=== PATIENT | female | born 1950 | race Caucasian/White ===

== ENCOUNTER 2020-12-07 16:18 | Inpatient (IN) ==
[2020-12-07] MEDS ORDERED: SODIUM CHLORIDE 0.9% 1000ML 1,000 ML IV STA (18:40)
[2020-12-07] MEDS ORDERED: MoRPHine SULFATE 4 MG/ML 1 ML CARP\\VIAL IV STA (19:02)
[2020-12-07] MEDS ORDERED: ONDANSETRON INJ 2 MG/ML 2 ML VIAL IV STA (19:02)
--- NOTE | 2020-12-07 19:02 | Emergency Department Note ---
Impression & Plan Abdominal pain, Abdominal wall hernia, Headache ED Provider Note INFORMANT: Patient ED PROVIDER(S): Steve Carlson MD CHIEF COMPLAINT: PLAN: Disposition: Admitted Condition: Good Outpatient prescription management: none Referral: None MEDICAL DECISION MAKING: Patient presented complaining of abdominal pain and also noted a headache. She underwent a work-up. She had a unremarkable CBC except for mildly low platelets. Her chemistry panel was unremarkable except for mild dehydration. She did have an elevation of her bilirubin and LFTs. Lyme testing negative. ECG showed a normal sinus rhythm. Head CT was unremarkable. The patient's CT scan of her abdomen and pelvis revealed ascites but no signs of emergent pathology. Hernia was noted. She was ambulated to give a urine sample and was found to have fairly significant drop in her oxygen. The patient had an unremarkable chest x-ray. Given the multiple complaints and his newfound hypoxia further management in the hospital will be necessary. Consultation was made with Dr. perez , [facility] service Triage Nursing notes reviewed and agree them. Vital Signs: reviewed and remarkable for hypoxia after ambulation. Differential diagnosis: Incarcerated hernia, Appendicitis, PID, infections, diverticulitis, UTI, obstruction, mesenteric ischemia, aortic pathology, inflammatory bowel disease, renal colic, PUD, pancreatitis, biliary pathology, hernia, volvulus, constipation, CVA, ICH, meningitis, migraine, HTN, as well as other pathologies. Diagnostics interpreted by me: ECG: Twelve-lead ECG revealed normal sinus rhythm at [address] elevation or depression. No PVCs or PACs. Cardiac Monitoring: Cardiac monitoring ordered by me: The patient was placed on continuous cardiac monitoring and observed. It revealed a normal sinus rhythm at 99 beats per minute without ectopy or evidence of dysrhythmia. Imaging studies: Head CT: A noncontrast CT scan of the head was performed and was negative for tumor, fracture, intracranial hemorrhage, or other acute pathology. CT scan of pelvis reveals ascites. Ventral hernia present. No obstruction. Lymphadenopathy noted. I refer you to the EMR for further details. HPI: The patient is a 70 year old female who presents to the Emergency Room with complaints of abdominal pain. This started 2 weeks ago and is localized around her ventral hernia. The patient also notes the following associated symptoms, nausea(1wk), vomiting (last night), headache (1 week), low back pain(1wk), dark urine(few days). The patient has been using aspirin for relieving factors. Current pain is rated as 6 in the head and 4/10 in the abdomen. Pt denies LOC, fevers, chills, diaphoresis, visual changes, neck pain, chest pain, breathing difficulties, melena, hematochezia, numbness, weakness, lymphadenopathy, rash, or other complaints. ROS: See above HPI for pertinent positives & negatives. A total of 10 systems reviewed and were otherwise negative. PAST MEDICAL HISTORY:See Below , fatty liver PAST SURGICAL HISTORY:See Below, khadar FAMILY HISTORY:See Below SOCIAL HISTORY:See Below, HOME MEDICATIONS:See Below ALLERGIES:See Below VITALS:See Below PHYSICAL EXAMINATION: GENERAL: Awake, alert, uncomfortable-appearing, in no distress HENT: Normocephalic, atraumatic. Oropharynx unremarkable. EYES: Normal conjunctiva. Sclera non-icteric. NECK: Inspection normal. Non-tender. Supple. No nuchal rigidity. FROM. No masses. RESPIRATORY: Clear to auscultation. No wheezes. No rales. Normal respiratory effort. CARDIAC: Normal rate. Normal rhythm. No murmurs. No rubs. Extremities warm and well perfused. Pulses equal. No JVD. GI: Soft, non-distended.Mid line tenderness to palpation. No rebound or guarding. Large ventral hernia, mildly tender RECTAL: Deferred. MUSCULOSKELETAL: Atraumatic. Chest examination reveals no tenderness. The back is symmetrical on inspection without obvious abnormality. There is no CVA tenderness to palpation. No joint edema. LOWER EXTREMITIES: Calves are equal size bilaterally and non-tender. 1+ edema. No discoloration. NEURO: Normal sensorium. No sensory or motor deficits noted. SKIN: No rash or jaundice noted. 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 Current Living Situation: Alone and Personal Care Facility Other Information That Helps Us Care for You: No Feels Safe at Home: Yes Safety Concerns: Feels Safe At This Time Assistive Devices: Denture - Upper, Denture - Lower, Glasses and Walker Allergies Allergies Allergy/AdvReac Type Severity Reaction Status Date / Time No Known Allergies Allergy Unverified 12/07/20 20:43 Home Meds Home Medications Medication Instructions Recorded Confirmed atorvastatin 80 mg tablet (Lipitor) 80 mg PO QAM 12/07/20 12/07/20 cholecalciferol (vitamin D3) 25 50 mcg PO QAM 12/07/20 12/07/20 mcg (1,000 unit) tablet (Vitamin D3) furosemide 20 mg tablet (Lasix) 20 mg PO QAM 12/07/20 12/07/20 gabapentin 300 mg capsule 300 mg PO BID 12/07/20 12/07/20 (Neurontin) indomethacin 25 mg capsule 25 mg PO TID PRN 12/07/20 12/07/20 omeprazole 40 mg capsule,delayed 40 mg PO QAM 12/07/20 12/07/20 release rifaximin 550 mg tablet (Xifaxan) 550 mg PO BID 12/07/20 12/07/20 sertraline 100 mg tablet (Zoloft) 100 mg PO QAM 12/07/20 12/07/20 spironolactone 50 mg tablet 50 mg PO QAM 12/07/20 12/07/20 (Aldactone) Results & Data (ED) Vital Signs Vital Signs - 24 hr 12/07/20 16:37 12/07/20 19:17 12/07/20 20:16 Temperature 36.6 C Temperature Source Temporal Artery Scan Pulse Rate 100 H Pulse Rate [Apical] 80 Pulse Rate [Exercises] Respiratory Rate 18 20 Respiratory Rate [Exercises] Respiratory Effort / Characteristics Non-Labored Respiratory Depth Normal Blood Pressure 200/100 H Blood Pressure [Left Arm] 144/77 H Blood Pressure Mean 133 Blood Pressure Mean [Left Arm] 99 Blood Pressure Position [Left Arm] Pulse Oximetry 95 94 98 Pulse Oximetry [Exercises] Oxygen Delivery Method Room Air Room Air Room Air Sepsis Recent Fever Within 48 Hours No Sepsis New/Unexplained Change in Mental Status No Sepsis Action Taken by Nursing No Action Required 12/07/20 20:22 12/07/20 21:24 12/07/20 21:25 Temperature Temperature Source Pulse Rate Pulse Rate [Apical] 98 H Pulse Rate [Exercises] 103 H Respiratory Rate 20 26 H Respiratory Rate [Exercises] 32 H Respiratory Effort / Characteristics Non-Labored Spontaneous Respiratory Depth Normal Blood Pressure Blood Pressure [Left Arm] 124/57 L 145/64 H Blood Pressure Mean Blood Pressure Mean [Left Arm] 79 91 Blood Pressure Position [Left Arm] Lying Pulse Oximetry 98 92 Pulse Oximetry [Exercises] 85 L Oxygen Delivery Method Room Air Room Air Room Air Sepsis Recent Fever Within 48 Hours Sepsis New/Unexplained Change in Mental Status Sepsis Action Taken by Nursing 12/07/20 21:29 12/07/20 22:00 Temperature Temperature Source Pulse Rate 94 H Pulse Rate [Apical] Pulse Rate [Exercises] Respiratory Rate 26 H Respiratory Rate [Exercises] Respiratory Effort / Characteristics Respiratory Depth Blood Pressure 122/81 Blood Pressure [Left Arm] Blood Pressure Mean 94 Blood Pressure Mean [Left Arm] Blood Pressure Position [Left Arm] Pulse Oximetry 93 94 Pulse Oximetry [Exercises] Oxygen Delivery Method Room Air Sepsis Recent Fever Within 48 Hours Sepsis New/Unexplained Change in Mental Status Sepsis Action Taken by Nursing Laboratory Data Result diagrams: 12/07/20 17:45 12/07/20 17:45 Lab Results 12/07/20 12/07/20 12/07/20 Range/Units 17:45 17:45 20:29 WBC 6.55 (4.8-10.8) K/uL RBC 4.01 L (4.2-5.4) M/uL Hgb 12.2 (12.0-16.0) g/dL Hct 37.6 (37-47) % MCV 93.8 (80-100) fL MCH 30.4 (25-34) pg MCHC 32.4 (32-36) g/dL RDW Std Deviation 49.9 H (36.4-46.3) fL RDW Coeff of Blanca 14.8 H (11.5-14.5) % Plt Count 85 L (130-400) K/uL MPV 12.3 H (7.4-10.4) fL Immature Gran % (Auto) 0.2 % Neut % (Auto) 67.3 % Lymph % (Auto) 20.6 % [place] % (Auto) 8.9 % Eos % (Auto) 2.7 % Baso % (Auto) 0.3 % Neut # (Auto) 4.41 (1.4-6.5) K/uL Lymph # (Auto) 1.35 (1.2-3.4) K/uL [place] # (Auto) 0.58 (0.11-0.59) K/uL Eos # (Auto) 0.18 (0-0.5) K/uL Baso # (Auto) 0.02 (0-0.2) K/uL Immature Gran # (Auto) 0.01 (0.00-0.02) K/uL Platelet Estimate Decreased L (Normal) Sodium 141 (136-145) mmol/L Potassium 3.8 (3.5-5.1) mmol/L Chloride 109 H (98-107) mmol/L Carbon Dioxide 27 (21-32) mmol/L Anion Gap 6.0 (3-11) BUN 17 (7-18) mg/dl Creatinine 0.60 (0.6-1.2) mg/dl Est Cr Clr Drug Dosing 110.6 ml/min Est GFR ( Amer) 107.8 ml/min Est GFR (Non-Af Amer) 93.0 ml/min BUN/Creatinine Ratio 27.8 H (10-20) Glucose 82 (70-99) mg/dl Calcium 8.7 (8.5-10.1) mg/dl Total Bilirubin 1.6 H (0.2-1) mg/dl AST 61 H (15-37) U/L ALT 43 (12-78) U/L Alkaline Phosphatase 132 H (45-117) U/L Troponin I < 0.015 (0-0.045) ng/ml Total Protein 5.9 L (6.4-8.2) gm/dl Albumin 3.0 L (3.4-5.0) gm/dl Globulin 2.9 (2.5-4.0) gm/dl Albumin/Globulin Ratio 1.0 (0.9-2) Lipase 432 H (73-393) U/L Urine Color Urine Appearance (Clear) Urine pH (4.5-7.5) Ur Specific [place] (1.000-1.030) Urine Protein (Negative) Urine Glucose (UA) (Negative) Urine Ketones (Negative) Urine Blood (Negative) Urine Nitrite (Negative) Urine Bilirubin (Negative) Urine Urobilinogen (Negative) Ur Leukocyte Esterase (Negative) Urine WBC (Auto) (0-5) /hpf Urine RBC (Auto) (0-4) /hpf U Hyaline Cast (Auto) (0-5) /lpf U Epithel Cells (Auto) (0-5) /lpf Urine Bacteria (Auto) (Negative) Lyme Disease IgG Ab Negative (Negative) Lyme Disease IgM Ab Negative (Negative) COVID-19 Eval Order SARS-CoV-2 (PCR) (Negative) 12/07/20 12/07/20 12/07/20 Range/Units 21:26 21:49 21:49 WBC (4.8-10.8) K/uL RBC (4.2-5.4) M/uL Hgb (12.0-16.0) g/dL Hct (37-47) % MCV (80-100) fL MCH (25-34) pg MCHC (32-36) g/dL RDW Std Deviation (36.4-46.3) fL RDW Coeff of Blanca (11.5-14.5) % Plt Count (130-400) K/uL MPV (7.4-10.4) fL Immature Gran % (Auto) % Neut % (Auto) % Lymph % (Auto) % [place] % (Auto) % Eos % (Auto) % Baso % (Auto) % Neut # (Auto) (1.4-6.5) K/uL Lymph # (Auto) (1.2-3.4) K/uL [place] # (Auto) (0.11-0.59) K/uL Eos # (Auto) (0-0.5) K/uL Baso # (Auto) (0-0.2) K/uL Immature Gran # (Auto) (0.00-0.02) K/uL Platelet Estimate (Normal) Sodium (136-145) mmol/L Potassium (3.5-5.1) mmol/L Chloride (98-107) mmol/L Carbon Dioxide (21-32) mmol/L Anion Gap (3-11) BUN (7-18) mg/dl Creatinine (0.6-1.2) mg/dl Est Cr Clr Drug Dosing ml/min Est GFR ( Amer) ml/min Est GFR (Non-Af Amer) ml/min BUN/Creatinine Ratio (10-20) Glucose (70-99) mg/dl Calcium (8.5-10.1) mg/dl Total Bilirubin (0.2-1) mg/dl AST (15-37) U/L ALT (12-78) U/L Alkaline Phosphatase (45-117) U/L Troponin I (0-0.045) ng/ml Total Protein (6.4-8.2) gm/dl Albumin (3.4-5.0) gm/dl Globulin (2.5-4.0) gm/dl Albumin/Globulin Ratio (0.9-2) Lipase (73-393) U/L Urine Color Yellow Urine Appearance Clear (Clear) Urine pH 6.5 (4.5-7.5) Ur Specific [place] 1.013 (1.000-1.030) Urine Protein Negative (Negative) Urine Glucose (UA) Negative (Negative) Urine Ketones Negative (Negative) Urine Blood Negative (Negative) Urine Nitrite Positive A (Negative) Urine Bilirubin Negative (Negative) Urine Urobilinogen Negative (Negative) Ur Leukocyte Esterase 2+ H (Negative) Urine WBC (Auto) 10-30 H (0-5) /hpf Urine RBC (Auto) 0-4 (0-4) /hpf U Hyaline Cast (Auto) 1-5 (0-5) /lpf U Epithel Cells (Auto) 10-20 H (0-5) /lpf Urine Bacteria (Auto) 4+ H (Negative) Lyme Disease IgG Ab (Negative) Lyme Disease IgM Ab (Negative) COVID-19 Eval Order Covid19 at [facility] SARS-CoV-2 (PCR) NEGATIVE (Negative) Administered Medications Sodium Chloride (Nss 1000ml) 1,000 mls @ 100 mls/hr IV .Q10H SAMIR Stop: 12/08/20 10:29 Last Admin: 12/08/20 00:49 Dose: 100 mls/hr Documented by: [id number] Ceftriaxone Sodium 2,000 mg/ (Dextrose) 70 mls @ 140 mls/hr IV Q24H SAMIR; Protocol Stop: 12/18/20 00:59 Last Infusion: 12/08/20 01:20 Dose: 0 mls/hr Documented by: [id number] Admin: 12/08/20 00:49 Dose: 140 mls/hr Documented by: [id number] Discontinued Medications Sodium Chloride (Nss 1000ml) 1,000 mls @ 125 mls/hr IV .Q8H STA Stop: 12/08/20 02:39 Last Infusion: 12/08/20 00:03 Dose: 0 mls/hr Documented by: [id number] Admin: 12/07/20 20:04 Dose: 125 mls/hr Documented by: [id number] Ioversol (Optiray 320 125ml) 120 ml IV ONCE ONE Stop: 12/08/20 00:10 Last Admin: 12/08/20 00:10 Dose: 120 ml Documented by: [id number] Morphine Sulfate (Morphine Sulfate 4 Mg/Ml 1 Ml Carp\Vial) 4 mg IV NOW STA Stop: 12/07/20 19:03 Last Admin: 12/07/20 20:03 Dose: 4 mg Documented by: [id number] Ondansetron HCl (Ondansetron Inj 2 Mg/Ml 2 Ml Vial) 4 mg IV NOW STA Stop: 12/07/20 19:03 Last Admin: 12/07/20 20:04 Dose: 4 mg Documented by: [id number] Imaging Data Radiologist's Impression: Abdomen/Pelvis CT 12/07/20 19:02 CT SCAN OF THE ABDOMEN AND PELVIS WITHOUT CONTRAST CLINICAL HISTORY: midline abd pain, ventral hernia COMPARISON STUDY: No previous studies for comparison. TECHNIQUE: CT scan of the abdomen and pelvis was performed from the lung bases to the proximal femurs. Images are reviewed in the axial, sagittal, and coronal planes. IV contrast was not administered for this examination. A dose lowering technique was utilized adhering to the principles of ALARA. CT DOSE: FINDINGS: Lower chest: The heart is normal in size and configuration, without pericardial effusion. The lung bases and pleural spaces are clear. Liver: Liver shows cirrhotic morphology decrease in size. Mild ascites is seen. Gallbladder: Surgically absent. Spleen: Is enlarged. No focal lesions are seen. Pancreas: Unremarkable. Adrenal glands: Unremarkable. Kidneys: The unenhanced kidneys are normal in size. Minimal prominence of bilateral collecting system is seen without evidence of hydronephrosis or nephrolithiasis.. Bowel: Bowel loops are nondilated. Appendix is not well seen. There is midline ventral hernia is seen within supraumbilical region which contains nondilated loop of bowel and small amount of fluid. There is questionable peripherally calcified lesion is seen within subcutaneous aspect of the hernia. Peritoneum: Mild ascites and mesenteric edema. No definite free intra-abdominal gas is seen. Vasculature: Abdominal aorta is normal in caliber with scattered calcifications of its wall. Adenopathy: Multiple retroperitoneal lymph nodes are seen measuring up to 1.1 cm in short axis. Evaluation for mesenteric lymphadenopathy is difficult due to ascites, mesenteric edema and varices. Pelvic viscera: Urinary bladder is partially decompressed which limits evaluation. Uterus is surgically absent. Skeletal structures: Multilevel degenerative changes of the spine. IMPRESSION: 1. Midline ventral hernia in the supraumbilical region containing nondilated loops of bowel and small amount of fluid. No evidence of bowel obstruction. 2. Liver cirrhosis associated with splenomegaly, mild ascites and multiple varices. 3. Atherosclerosis. 4. Slightly prominent retroperitoneal lymph nodes. Please correlate above- mentioned findings was prior history of malignancy. ACT 112: Negative or not required by law. The above report was generated using voice recognition software. It may contain grammatical, syntax or spelling errors. Electronically signed by: Barbara Gamboa DO 12/07/2020 8:[address] 12/07/20 19:02 CT head/brain wo con CLINICAL HISTORY: headache, HTN COMPARISON STUDY: January 24, 2016 TECHNIQUE: Axial CT of the brain is performed from the vertex to the skull base. IV contrast was not administered for this examination. A dose lowering technique was utilized adhering to the principles of ALARA. CT DOSE: 2398.21 mGy.cm FINDINGS: No intra or extra-axial mass lesions are visualized. There is no CT evidence of acute cortical infarction. There is no evidence of midline shift. There is no acute hemorrhage. No acute depressed calvarial fractures are visualized. There are patchy white matter hypodensities likely on a small vessel basis. There is no evidence of pathologic ventricular dilatation. There is no evidence of acute sinusitis IMPRESSION: No acute intracranial findings ACT 112: Negative or not required by law. The above report was generated using voice recognition software. It may contain grammatical, syntax or spelling errors. Electronically signed by: Barbara Gamboa DO 12/07/2020 8:27 PM Discharge Plan Visit Data Chief Complaint: Abdominal Pain Stated Complaint: HEADACHE OVER A WEEK, DISCOMFORT AROUND HERNIA ED Provider: Steve Carlson Discharge Problem: Abdominal pain, Abdominal wall hernia, Headache Patient Disposition: Admitted As Inpatient Discharge Instructions Interventions: ED Discharge Assessment Last Done: 12/08/20 00:01
[2020-12-07 19:21] LABS: Alanine Aminotransferase 43 U/L (12-78); Aspartate Aminotransferase 61 U/L (15-37); BUN Creatinine Ratio 27.8 (10-20); Basophils # (auto) 0.02 K/uL (0-0.2); Basophils % (auto) 0.3 %; Blood Urea Nitrogen 17 mg/dl (7-18); Calcium 8.7 mg/dl (8.5-10.1); Carbon Dioxide 27 mmol/L (21-32); Chloride 109 mmol/L (98-107); Creatinine Clr Calc Pharmacy 110.6 ml/min; Eosinophils # (auto) 0.18 K/uL (0-0.5); Eosinophils % (auto) 2.7 %; Est GFR (African American) 107.8 ml/min; Glucose 82 mg/dl (70-99); Hematocrit (blood only) 37.6 % (37-47); Hemoglobin 12.2 g/dL (12.0-16.0); Immature Granulocytes # (auto) 0.01 K/uL (0.00-0.02); Immature Granulocytes % (auto) 0.2 %; Lipase 432 U/L (73-393); Lymphocytes # (auto) 1.35 K/uL (1.2-3.4); Lymphocytes % (auto) 20.6 %; Mean Corpuscular Hemoglobin 30.4 pg (25-34); Mean Corpuscular Hgb Conc 32.4 g/dL (32-36); Mean Corpuscular Volume 93.8 fL (80-100); Mean Platelet Volume 12.3 fL (7.4-10.4); Monocytes # (auto) 0.58 K/uL (0.11-0.59); Monocytes % (auto) 8.9 %; Neutrophils # (auto) 4.41 K/uL (1.4-6.5); Neutrophils % (auto) 67.3 %; Platelet Count 85 K/uL (130-400); Platelet Estimate Decreased (Normal); Potassium 3.8 mmol/L (3.5-5.1); RDW Coefficient of Variation 14.8 % (11.5-14.5); RDW Standard Deviation 49.9 fL (36.4-46.3); Red Blood Count 4.01 M/uL (4.2-5.4); Sodium 141 mmol/L (136-145); White Blood Count 6.55 K/uL (4.8-10.8)
[2020-12-07 19:27] LABS: Alkaline Phosphatase 132 U/L (45-117); Bilirubin,Total 1.6 mg/dl (0.2-1); Globulin 2.9 gm/dl (2.5-4.0); Total Protein 5.9 gm/dl (6.4-8.2); Troponin I < 0.015 ng/ml (0-0.045)
--- NOTE | 2020-12-07 20:29 | CT Scan Report ---
CT head/brain wo con CLINICAL HISTORY: headache, HTN COMPARISON STUDY: January 24, 2016 TECHNIQUE: Axial CT of the brain is performed from the vertex to the skull base. IV contrast was not administered for this examination. A dose lowering technique was utilized adhering to the principles of ALARA. CT DOSE: 2398.21 mGy.cm FINDINGS: No intra or extra-axial mass lesions are visualized. There is no CT evidence of acute cortical infarc tion. There is no evidence of midline shift. There is no acute hemorrhage. No acute depressed calvar ial fractures are visualized. There are patchy white matter hypodensities likely on a small vessel basis. There is no evidence of pathologic ventricular dilatation. There is no evidence of acute sinusitis IMPRESSION: No acute intracranial findings ACT 112: Negative or not required by law. The above report was generated using voice recognition software. It may contain grammatical, syntax o r spelling errors. Electronically signed by: Barbara Gamboa DO 12/07/2020 8:27 PM
--- NOTE | 2020-12-07 20:47 | CT Scan Report ---
CT SCAN OF THE ABDOMEN AND PELVIS WITHOUT CONTRAST CLINICAL HISTORY: midline abd pain, ventral hernia COMPARISON STUDY: No previous studies for comparison. TECHNIQUE: CT scan of the abdomen and pelvis was performed from the lung bases to the proximal femurs . Images are reviewed in the axial, sagittal, and coronal planes. IV contrast was not administered fo r this examination. A dose lowering technique was utilized adhering to the principles of ALARA. CT DOSE: FINDINGS: Lower chest: The heart is normal in size and configuration, without pericardial effusion. The lung ba ses and pleural spaces are clear. Liver: Liver shows cirrhotic morphology decrease in size. Mild ascites is seen. Gallbladder: Surgically absent. Spleen: Is enlarged. No focal lesions are seen. Pancreas: Unremarkable. Adrenal glands: Unremarkable. Kidneys: The unenhanced kidneys are normal in size. Minimal prominence of bilateral collecting system is seen without evidence of hydronephrosis or nephrolithiasis.. Bowel: Bowel loops are nondilated. Appendix is not well seen. There is midline ventral hernia is seen within supraumbilical region which contains nondilated loop of bowel and small amount of fluid. Ther e is questionable peripherally calcified lesion is seen within subcutaneous aspect of the hernia. Peritoneum: Mild ascites and mesenteric edema. No definite free intra-abdominal gas is seen. Vasculature: Abdominal aorta is normal in caliber with scattered calcifications of its wall. Adenopathy: Multiple retroperitoneal lymph nodes are seen measuring up to 1.1 cm in short axis. Evalu ation for mesenteric lymphadenopathy is difficult due to ascites, mesenteric edema and varices. Pelvic viscera: Urinary bladder is partially decompressed which limits evaluation. Uterus is surgical ly absent. Skeletal structures: Multilevel degenerative changes of the spine. IMPRESSION: 1. Midline ventral hernia in the supraumbilical region containing nondilated loops of bowel and smal l amount of fluid. No evidence of bowel obstruction. 2. Liver cirrhosis associated with splenomegaly, mild ascites and multiple varices. 3. Atherosclerosis. 4. Slightly prominent retroperitoneal lymph nodes. Please correlate above-mentioned findings was mirza or history of malignancy. ACT 112: Negative or not required by law. The above report was generated using voice recognition software. It may contain grammatical, syntax o r spelling errors. Electronically signed by: Barbara Gamboa DO 12/07/2020 8:45 PM
[2020-12-07 21:54] LABS: Lyme Ab IgG w/WB Rflx Negative (Negative); Lyme Ab IgM w/WB Rflx Negative (Negative)
[2020-12-07 21:57] LABS: Appearance Urine Clear (Clear); Bacteria Urine Automated 4+ (Negative); Bilirubin Urine Negative (Negative); Blood Urine Negative (Negative); Color Urine Yellow; Glucose Urine UA Negative (Negative); Ketones Urine Negative (Negative); Leukocyte Esterase Urine 2+ (Negative); Nitrite Urine Positive (Negative); Protein Urine Negative (Negative); Specific Gravity Urine 1.013 (1.000-1.030); Urobilinogen Urine Negative (Negative); pH Urine 6.5 (4.5-7.5)
[2020-12-07 22:19] LABS: RBC Urine Automated 0-4 /hpf (0-4)
[2020-12-08] MEDS ORDERED: OPTIRAY 320 125ml IV ONE (00:09)
[2020-12-08] MEDS ORDERED: POLYETHYLENE (MIRALAX) 17 GM PACK PO PRN (00:17)
[2020-12-08] MEDS ORDERED: ONDANSETRON INJ 2 MG/ML 2 ML VIAL IV PRN (00:17)
[2020-12-08] MEDS ORDERED: SODIUM CHLORIDE 0.9% 1000ML 1,000 ML IV SCH (00:30)
[2020-12-08] MEDS: cefTRIAXone SODIUM 2,000 MG in DEXTROSE 5% 50 ML IV SCH (00:49)
--- NOTE | 2020-12-08 01:07 | History and Physical Report ---
DATE OF ADMISSION: 12/07/2020. CHIEF COMPLAINT: Abdominal pain and headache. HISTORY OF PRESENT ILLNESS: A 70-year-old female with past medical history significant for hyperlipidemia, obstructive sleep apnea, venous insufficiency, esophageal varices without bleeding, heart murmur, morbid obesity, liver cirrhosis, GERD, SI joint arthritis, generalized arthrosis, restless leg syndrome, osteoarthritis, neuropathy, thrombocytopenia, insomnia, mixed incontinence, depression, who lives alone. Says she is having some ambulatory dysfunction because of the neuropathy. She can eat regular food and swallow okay. Comes here because of one week of headaches and abdominal pain, headache about 7/10 in severity , no blurred vision, no ear earache. Has some runny nose. No sore throat, no cough, no fevers. Appetite is okay, no dysphagia, no chest pain, no shortness of breath. She is also having abdominal discomfort around her ventral hernia for the last 2 weeks. She has irritable bowel syndrome, sometimes has diarrhea, sometimes constipation. Yesterday, she had 4 bowel movements. Denies any blood in the stools or black stools. Normal bladder movements. No hematuria or burning micturition. Has some swelling of the legs and she takes diuretics. She states she followed with surgery at [place] for possible ventral hernia repair, but she is supposed to get cleared from the liver specialist prior to surgery, but then the pandemic happened and she never visited again. ALLERGIES: No known drug allergies. PAST MEDICAL HISTORY: As mentioned above. PAST SURGICAL HISTORY: Abdominal wall hernia repair, breast biopsy, colonoscopy, EGDs, removal of ovaries, cataracts, cholecystectomy, total abdominal hysterectomy with removal of tubes, upper endoscopy. MEDICATIONS: The patient is on atorvastatin 80 mg p.o. daily, vitamin D 250 mcg p.o. daily, Lasix 20 mg p.o. a.m., gabapentin 300 mg p.o. b.i.d., indomethacin 25 mg p.o. t.i.d. p.r.n., omeprazole 40 mg p.o. a.m., Xifaxan 550 mg p.o. b.i.d., Zoloft 100 mg p.o. a.m., spironolactone 50 mg p.o. a.m. FAMILY HISTORY: Significant for father had prostate cancer, stroke; mother had VA at the age of 49; aunt has cancer; brother has cancer; maternal grandmother has cancer. SOCIAL HISTORY: , lives alone. Former smoker, smoked 1 pack a day for 5 years, quit in the . Alcohol, rarely. No drug use. REVIEW OF SYSTEMS: As per HPI. Rest of the review of systems is negative. PHYSICAL EXAMINATION: GENERAL: The patient is obese, not in acute distress. VITAL SIGNS: Temperature 36.6, pulse 103, respiratory rate 13, blood pressure 140/64, oxygen 93% on room air. HEENT: Pupils equal, round, and reactive to light. Oral mucosa moist. NECK: No JVD, no neck masses. CARDIOVASCULAR: S1 and S2 heard, regular rate and rhythm. No murmur, no gallop. RESPIRATORY SYSTEM: Normal AP diameter. No accessory muscle use. No wheezing, no crackles. ABDOMEN: Ventral hernia seen. Some mild discomfort around the ventral hernia. No guarding, no rigidity. Bowel sounds present. CENTRAL NERVOUS SYSTEM: Cranial nerves II-XII grossly intact, nonfocal. EXTREMITIES: Mild pedal edema present, no erythema seen. LABORATORY DATA: WBC 6.5, hemoglobin 12.2, hematocrit 37.6, platelets 85. Sodium 141, potassium 3.8, chloride 109, bicarbonate 27, BUN 17, creatinine 0.6, serum glucose 82, calcium 8.7, total bilirubin 1.6, AST 61, ALT 43, alkaline phosphatase 132. Troponin I less than 0.015. Urinalysis positive for nitrite and +3 leukocyte esterase and +4 bacteria. Lyme screen negative. COVID PCR is negative. IMAGING DATA: [facility] x-ray, no acute findings. CT of the head, no acute intracranial findings. CT of the abdomen and pelvis, midline ventral hernia in the supraumbilical region containing nondilated loops of bowel and small amount of fluid. No evidence of bowel obstruction. Liver cirrhosis, splenomegaly, mild ascites and multiple varices, atherosclerosis. Slightly prominent retroperitoneal lymph nodes. EKG: Normal sinus rhythm at a rate of 98, no acute ST changes seen. ASSESSMENT AND PLAN: This is a 70-year-old female who presents with abdominal pain and headache. 1. Headache and abdominal pain: Headache ongoing for 1 week and abdominal pain for a couple of weeks, and she was found to have urinary tract infection, possibly UTI could be contributing. We will start Rocephin. Follow the cultures. CT of the head is okay. CT of the abdomen, no acute findings. We will monitor in the medical floor. 2. Hypoxia: The patient was desaturated to 85% when she walked in the ER, otherwise she is saturating fine. We will follow the CTA chest to rule out any PE and any congestion. currently hemodynamically stable.Two step prior to discharge. 3. Obstructive sleep apnea: On CPAP at bedtime. 4. Abdominal discomfort: Ventral hernia, no obstruction on CAT scan, tolerating diet okay. Will consult surgery for further recommendations. 5. History of liver cirrhosis: Continue her home diuretics of Lasix and spironolactone, and Xifaxan. 6. Neuropathy: Continue gabapentin. 7. Hyperlipidemia: Continue statin. 8. Gastroesophageal reflux disease: Continue omeprazole. 9. Depression: Continue Zoloft. 10. Deep venous thrombosis prophylaxis: Sequential compression devices for now as the patient has thrombocytopenia. 11. Thrombocytopenia: Most likely secondary to liver cirrhosis.Follow labs. DISPOSITION: Closely monitor in the med tele. PT/OT prior to discharge. Social service to help with discharge planning. Job ID: [id number] [facility]
--- NOTE | 2020-12-08 05:25 | Surgery Consultation ---
Date of Consultation December 08, 2020 Assessment & Plan (1) Abdominal pain: Patient has been admitted to the hospital on the hospitalist service. We recommend the following: Does not appear that the patient's ventral hernia is causing any evidence of obstruction. Due to her underlying cirrhosis and thrombocytopenia surgical intervention is not recommended at this time. Patient has evidence of pancreatitis by labs which may be contributing to her abdominal pain. Patient also has evidence of urinary tract infection which could be contributing to her abdominal pain is being treated by the medical service There is no need for acute surgical invention at this time. Dr. Park-patient appears to be doing better-she does have a known broad-based hernia which is not causing significant obstruction She is at very high risk for any surgical intervention with her history of cirrhosis, ascites, varices, thrombocytopenia and splenomegaly No plan for any surgical intervention History of Present Illness Reason for Consultation: Ventral hernia Attending Physician: Gonzalo Kate MD History of Present Illness This is a 70-year-old female who presented to [facility] emergency department yesterday secondary to abdominal pain and headache. Patient notes that she has had abdominal pain for several weeks and the pain is mostly located in her central abdomen near pre-existing ventral hernia. The patient notes over the past 24 hours she has had some episodes of nausea or vomiting but she also notes that she has been able to eat small amounts. She denies any hematemesis. She notes over the past 24 hours she has had a normal bowel movement. She denies any melena, hematochezia, or bright blood per rectum. She denies any fevers, shakes, chills. She does report a history of a ventral hernia for which she had surgical correction she has estimated greater than 10 years ago. She said this was performed in [facility] and to the best of her knowledge she did have mesh placed. She notes that she has had recurrence of her hernia for at least 5 years and she always has some minor pain associated with this. The patient also notes that she has had a history of a cholecystectomy. In addition to the abdominal pain noted the patient does report a history of headache. Since arrival to [facility] the patient has had labs and imaging. She had a CT scan of the abdomen and pelvis that showed a midline ventral hernia. The hernia did contain some nondilated loops of bowel but there is no evidence of bowel obstruction. Patient was noted to have ascites along with liver cirrhosis and multiple varices. Retroperitoneal lymphadenopathy was noted.She also went a CT scan of her head that showed no acute intracranial findings. A chest x-ray showed no evidence of pneumonia, CHF, or free intraperitoneal air. A CT scan of her chest showed no lung abnormalities and no evidence of pulmonary embolism. Labs include a CBC where her white blood cell count, hemoglobin, hematocrit, were noted to be normal. Her platelet count was noted to be low at 85,000. Chemistry profile showed sodium and potassium were both normal. Her BUN and creatinine were noted to be normal. She was noted to have some elevation of her bilirubin of 1.6 and a slight elevation of the AST at 61. Her alkaline phosphatase was elevated at 132 and her ALT was normal. Lipase was noted to be elevated at 432. Urinalysis was concerning for urinary tract infection. At the time of my interview the patient was resting comfortably in bed. She noted that her abdominal pain had improved since arrival to the hospital. Allergies Allergy/AdvReac Type Severity Reaction Status Date / Time No Known Allergies Allergy Unverified 12/07/20 20:43 Home Medications Medication Instructions Recorded Confirmed Type atorvastatin 80 mg tablet (Lipitor) 80 mg PO QAM 12/07/20 12/07/20 History cholecalciferol (vitamin D3) 25 50 mcg PO QAM 12/07/20 12/07/20 History mcg (1,000 unit) tablet (Vitamin D3) furosemide 20 mg tablet (Lasix) 20 mg PO QAM 12/07/20 12/07/20 History gabapentin 300 mg capsule 300 mg PO BID 12/07/20 12/07/20 History (Neurontin) indomethacin 25 mg capsule 25 mg PO TID PRN 12/07/20 12/07/20 History omeprazole 40 mg capsule,delayed 40 mg PO QAM 12/07/20 12/07/20 History release rifaximin 550 mg tablet (Xifaxan) 550 mg PO BID 12/07/20 12/07/20 History sertraline 100 mg tablet (Zoloft) 100 mg PO QAM 12/07/20 12/07/20 History spironolactone 50 mg tablet 50 mg PO QAM 12/07/20 12/07/20 History (Aldactone) Patient History Surgical History (Updated 12/08/20 @ 05:30 by Familia Winn PA-C) History of hernia repair Social History Smoking Status: Former smoker Smoking End Date: 1970 was quit date.; Second Hand Exposure: No; Do You Dip or Chew Tobacco: No; Tobacco Cessation Education Requested by Patient: No Hx Alcohol Use: Yes Alcohol type: beer Hx Substance Use: No Preferred Language: Guyanese Communication Ability: Effective Package Wrapper Required: No Beliefs That Will Affect Care: Jain Jain Beliefs: Baptist. Current Living Situation: Alone and Personal Care Facility Other Information That Helps Us Care for You: No Feels Safe at Home: Yes Safety Concerns: Feels Safe At This Time Assistive Devices: Denture - Upper, Denture - Lower, Glasses and Walker Review of Systems Constitutional: no fever and no chills Eyes: no diplopia Ear, Nose, Mouth, Throat: no ear pain Respiratory: no cough Cardiovascular: no chest pain Gastrointestinal: + abdominal pain, + nausea and + vomiting Genitourinary: no dysuria Musculoskeletal: no back pain Integumentary: no rash Neurologic: no localized weakness Physical Exam Constitutional: well developed and well nourished; no acute distress Eyes: no conjunctival abnormality Neck: trachea midline Respiratory: normal respiratory effort; no respiratory distress and no labored breathing Cardiovascular: Rate/Rhythm: regular rate and regular rhythm Gastrointestinal (Abdomen): Patient's abdomen is rotund and soft. There is no rebound tenderness or guarding. Patient is noted to have a ventral hernia that has minor pain with palpation. Bowel sounds are present. Musculoskeletal: No calf tenderness Skin: no rashes Neurologic: moves all extremities Results & Data ([facility]) Vital Signs (Past 12 Hours) Vital Signs Temp Pulse Pulse Pulse Pulse Resp Resp 12/08/20 02:56 103 H 14 12/08/20 00:50 95 H 14 12/08/20 00:10 36.9 C 103 H 18 12/08/20 00:01 103 H 24 12/07/20 22:00 94 H 26 H 12/07/20 21:29 12/07/20 21:25 103 H 32 H 12/07/20 21:24 98 H 26 H 12/07/20 20:22 20 12/07/20 20:16 12/07/20 19:17 80 20 BP BP Pulse Ox Pulse Ox 12/08/20 02:56 94 07/24/21 00:50 91 12/08/20 00:10 132/68 93 12/08/20 00:01 134/70 91 12/07/20 22:00 122/81 94 12/07/20 21:29 93 12/07/20 21:25 85 L 12/07/20 21:24 145/64 H 92 12/07/20 20:22 124/57 L 98 12/07/20 20:16 98 12/07/20 19:17 144/77 H 94 PG Care Time/CCT Total # of Minutes Spent Total Time Spent with Patient: Total time spent is greater than 50% in coordination of care (as documented) at patient's floor/unit and/or counseling patient: Coding Level of Care Code 09519 Inpt Consult Level 5 Diagnoses Abdominal pain R10.9
[2020-12-08 06:56] LABS: Basophils # (auto) 0.01 K/uL (0-0.2); Basophils % (auto) 0.2 %; Eosinophils # (auto) 0.12 K/uL (0-0.5); Eosinophils % (auto) 2.2 %; Hematocrit (blood only) 34.8 % (37-47); Hemoglobin 11.1 g/dL (12.0-16.0); Immature Granulocytes # (auto) 0.01 K/uL (0.00-0.02); Immature Granulocytes % (auto) 0.2 %; Lymphocytes # (auto) 1.19 K/uL (1.2-3.4); Lymphocytes % (auto) 21.8 %; Mean Corpuscular Hemoglobin 30.2 pg (25-34); Mean Corpuscular Hgb Conc 31.9 g/dL (32-36); Mean Corpuscular Volume 94.6 fL (80-100); Mean Platelet Volume 12.2 fL (7.4-10.4); Monocytes # (auto) 0.49 K/uL (0.11-0.59); Neutrophils # (auto) 3.64 K/uL (1.4-6.5); Neutrophils % (auto) 66.6 %; Platelet Count 73 K/uL (130-400); Platelet Estimate Decreased (Normal); RDW Standard Deviation 50.9 fL (36.4-46.3); Red Blood Count 3.68 M/uL (4.2-5.4); White Blood Count 5.46 K/uL (4.8-10.8)
[2020-12-08 07:10] LABS: BUN Creatinine Ratio 36.2 (10-20); Calcium 8.1 mg/dl (8.5-10.1); Creatinine Clr Calc Pharmacy 142.3 ml/min; Est GFR (African American) 117.6 ml/min; Est GFR (Non-African American) 101.5 ml/min; Magnesium 1.7 mg/dl (1.8-2.4); Potassium 3.8 mmol/L (3.5-5.1)
--- NOTE | 2020-12-08 07:23 | Hospitalist Progress Note ---
Date of Service December 08, 2020 Assessment & Plan (1) Abdominal pain: (2) Headache: (3) Abdominal wall hernia: Plan: This is a 70-year-old female who presents with abdominal pain and headache. 1. Headache and abdominal pain: Headache ongoing for 1 week and abdominal pain for a couple of weeks, and she was found to have urinary tract infection, possibly UTI could be contributing. Started Rocephin on admission, will cont. for now. Follow the cultures. CT of the head unremarkable. CT of the abdomen - IMPRESSION: 1. Midline ventral hernia in the supraumbilical region containing nondilated loops of bowel and small amount of fluid. No evidence of bowel obstruction. 2. Liver cirrhosis associated with splenomegaly, mild ascites and multiple varices. 3. Atherosclerosis. 4. Slightly prominent retroperitoneal lymph nodes. Please correlate above- mentioned findings was prior history of malignancy. We will monitor in the medical floor. 2. Hypoxia: The patient was desaturated to 85% when she walked in the ER, otherwise she is saturating fine. CTA chest obtained to rule out any PE and any congestion. IMPRESSION: 1. No pulmonary emboli identified although segmental and subsegmental pulmonary arteries suboptimally assessed due to respiratory motion. 2. No acute process within the chest. 3. Mild cardiomegaly. 4. Cirrhosis with manifestations of portal hypertension including ascites, splenomegaly and varices formation, partially imaged on this exam. Currently pt is hemodynamically stable. 2 step prior to discharge. 3. Obstructive sleep apnea: On CPAP at bedtime. 4. Abdominal discomfort: Ventral hernia, no obstruction on CAT scan, tolerating diet okay. Will consult surgery for further recommendations. Per Surgery- patient appears to be doing better-she does have a known broad- based hernia which is not causing significant obstruction She is at very high risk for any surgical intervention with her history of cirrhosis, ascites, varices, thrombocytopenia and splenomegaly No plan for any surgical intervention Elevated lipase (poss. pancreatitis?), gentle fluids, clear liquid diet Cont. to monitor closely 5. History of liver cirrhosis: Continue her home diuretics of Lasix and spironolactone, and Xifaxan. 6. Neuropathy: Continue gabapentin. 7. Hyperlipidemia: Continue statin. 8. Gastroesophageal reflux disease: Continue omeprazole. 9. Depression: Continue Zoloft. 10. Thrombocytopenia: Most likely secondary to liver cirrhosis.Follow labs. DVT prophylaxis: Sequential compression devices for now as the patient has thrombocytopenia. DISPOSITION: Closely monitor in the med tele. PT/OT prior to discharge. Social service to help with discharge planning. Admission and Anticipated Discharge Date Admission Date: December 07, 2020 Subjective Patient seen in follow-up of headache, abdominal pain, in the setting of ventral hernia, cirrhosis Currently patient is lying in bed, she is drowsy but answers questions appropriately Sister states that medications, and feels better however continues to have some discomfort in her abdomen and some headache She is aware of findings of her lipase and urine analysis Denies any fevers, chills, chest pain, shortness of breath, nausea vomiting Review of Systems Constitutional: no fever and no chills Respiratory: no cough and no dyspnea Cardiovascular: no chest pain and no palpitations Gastrointestinal: no abdominal pain, no nausea and no vomiting Physical Exam Physical Exam: GENERAL: The patient is obese, not in acute distress. HEENT: NC/AT, Pupils equal, round, and reactive to light. Oral mucosa moist. NECK: No JVD, no neck masses. CARDIOVASCULAR: S1 and S2 heard, regular rate and rhythm. No murmur, no gallop. RESPIRATORY: Normal AP diameter. No accessory muscle use. No wheezing, no crackles. ABDOMEN: soft. Ventral hernia seen. Some mild discomfort around the ventral hernia. No guarding, no rigidity. Bowel sounds present. NEURO: Drowsy but able to answer questions appropriately, no facial asymmetry, speech fluent, moves extremities EXTREMITIES: Mild pedal edema present, no erythema seen. Results & Data Results & Data ([facility]) Vital Signs (Past 12 Hours) Vital Signs Temp Pulse Pulse Pulse Pulse Resp Resp 12/08/20 02:56 103 H 14 12/08/20 00:50 95 H 14 12/08/20 00:10 36.9 C 103 H 18 12/08/20 00:01 103 H 24 12/07/20 22:00 94 H 26 H 12/07/20 21:29 12/07/20 21:25 103 H 32 H 12/07/20 21:24 98 H 26 H 12/07/20 20:22 20 12/07/20 20:16 BP BP Pulse Ox Pulse Ox 12/08/20 02:56 94 12/08/20 00:50 91 12/08/20 00:10 132/68 93 07/24/21 00:01 134/70 91 12/07/20 22:00 122/81 94 12/07/20 21:29 93 12/07/20 21:25 85 L 12/07/20 21:24 145/64 H 92 12/07/20 20:22 124/57 L 98 12/07/20 20:16 98 Laboratory Results 12/08/20 12/08/20 12/08/20 Range/Units 05:47 05:47 05:47 WBC 5.46 (4.8-10.8) K/uL RBC 3.68 L (4.2-5.4) M/uL Hgb 11.1 L (12.0-16.0) g/dL Hct 34.8 L (37-47) % MCV 94.6 (80-100) fL MCH 30.2 (25-34) pg MCHC 31.9 L (32-36) g/dL RDW Std Deviation 50.9 H (36.4-46.3) fL RDW Coeff of [place] 15.0 H (11.5-14.5) % Plt Count 73 L (130-400) K/uL MPV 12.2 H (7.4-10.4) fL Immature Gran % (Auto) 0.2 % Neut % (Auto) 66.6 % Lymph % (Auto) 21.8 % [place] % (Auto) 9.0 % Eos % (Auto) 2.2 % Baso % (Auto) 0.2 % Neut # (Auto) 3.64 (1.4-6.5) K/uL Lymph # (Auto) 1.19 L (1.2-3.4) K/uL [place] # (Auto) 0.49 (0.11-0.59) K/uL Eos # (Auto) 0.12 (0-0.5) K/uL Baso # (Auto) 0.01 (0-0.2) K/uL Immature Gran # (Auto) 0.01 (0.00-0.02) K/uL Platelet Estimate Decreased L (Normal) Sodium 141 (136-145) mmol/L Potassium 3.8 (3.5-5.1) mmol/L Chloride 110 H (98-107) mmol/L Carbon Dioxide 28 (21-32) mmol/L Anion Gap 3.0 (3-11) BUN 17 (7-18) mg/dl Creatinine 0.46 L (0.6-1.2) mg/dl Est Cr Clr Drug Dosing 142.3 ml/min Est GFR ( Amer) 117.6 ml/min Est GFR (Non-Af Amer) 101.5 ml/min BUN/Creatinine Ratio 36.2 H (10-20) Glucose 88 (70-99) mg/dl Calcium 8.1 L (8.5-10.1) mg/dl Magnesium 1.7 L (1.8-2.4) mg/dl Total Bilirubin (0.2-1) mg/dl AST (15-37) U/L ALT (12-78) U/L Alkaline Phosphatase (45-117) U/L Troponin I (0-0.045) ng/ml Total Protein (6.4-8.2) gm/dl Albumin (3.4-5.0) gm/dl Globulin (2.5-4.0) gm/dl Albumin/Globulin Ratio (0.9-2) Lipase (73-393) U/L Urine Color Urine Appearance (Clear) Urine pH (4.5-7.5) Ur Specific [place] (1.000-1.030) Urine Protein (Negative) Urine Glucose (UA) (Negative) Urine Ketones (Negative) Urine Blood (Negative) Urine Nitrite (Negative) Urine Bilirubin (Negative) Urine Urobilinogen (Negative) Ur Leukocyte Esterase (Negative) Urine WBC (Auto) (0-5) /hpf Urine RBC (Auto) (0-4) /hpf U Hyaline Cast (Auto) (0-5) /lpf U Epithel Cells (Auto) (0-5) /lpf Urine Bacteria (Auto) (Negative) Anaplasma Smear A. phagocytophilum DNA Pending Lyme Disease IgG Ab (Negative) Lyme Disease IgM Ab (Negative) COVID-19 Eval Order SARS-CoV-2 (PCR) (Negative) 12/08/20 12/07/20 12/07/20 Range/Units 05:47 21:49 21:49 WBC (4.8-10.8) K/uL RBC (4.2-5.4) M/uL Hgb (12.0-16.0) g/dL Hct (37-47) % MCV (80-100) fL MCH (25-34) pg MCHC (32-36) g/dL RDW Std Deviation (36.4-46.3) fL RDW Coeff of Blanca (11.5-14.5) % Plt Count (130-400) K/uL MPV (7.4-10.4) fL Immature Gran % (Auto) % Neut % (Auto) % Lymph % (Auto) % [place] % (Auto) % Eos % (Auto) % Baso % (Auto) % Neut # (Auto) (1.4-6.5) K/uL Lymph # (Auto) (1.2-3.4) K/uL [place] # (Auto) (0.11-0.59) K/uL Eos # (Auto) (0-0.5) K/uL Baso # (Auto) (0-0.2) K/uL Immature Gran # (Auto) (0.00-0.02) K/uL Platelet Estimate (Normal) Sodium (136-145) mmol/L Potassium (3.5-5.1) mmol/L Chloride (98-107) mmol/L Carbon Dioxide (21-32) mmol/L Anion Gap (3-11) BUN (7-18) mg/dl Creatinine (0.6-1.2) mg/dl Est Cr Clr Drug Dosing ml/min Est GFR ( Amer) ml/min Est GFR (Non-Af Amer) ml/min BUN/Creatinine Ratio (10-20) Glucose (70-99) mg/dl Calcium (8.5-10.1) mg/dl Magnesium (1.8-2.4) mg/dl Total Bilirubin (0.2-1) mg/dl AST (15-37) U/L ALT (12-78) U/L Alkaline Phosphatase (45-117) U/L Troponin I (0-0.045) ng/ml Total Protein (6.4-8.2) gm/dl Albumin (3.4-5.0) gm/dl Globulin (2.5-4.0) gm/dl Albumin/Globulin Ratio (0.9-2) Lipase (73-393) U/L Urine Color Urine Appearance (Clear) Urine pH (4.5-7.5) Ur Specific [place] (1.000-1.030) Urine Protein (Negative) Urine Glucose (UA) (Negative) Urine Ketones (Negative) Urine Blood (Negative) Urine Nitrite (Negative) Urine Bilirubin (Negative) Urine Urobilinogen (Negative) Ur Leukocyte Esterase (Negative) Urine WBC (Auto) (0-5) /hpf Urine RBC (Auto) (0-4) /hpf U Hyaline Cast (Auto) (0-5) /lpf U Epithel Cells (Auto) (0-5) /lpf Urine Bacteria (Auto) (Negative) Anaplasma Smear See Comment A. phagocytophilum DNA Lyme Disease IgG Ab (Negative) Lyme Disease IgM Ab (Negative) COVID-19 Eval Order Covid19 at [facility] SARS-CoV-2 (PCR) NEGATIVE (Negative) 12/07/20 12/07/20 12/07/20 Range/Units 21:26 20:29 17:45 WBC (4.8-10.8) K/uL RBC (4.2-5.4) M/uL Hgb (12.0-16.0) g/dL Hct (37-47) % MCV (80-100) fL MCH (25-34) pg MCHC (32-36) g/dL RDW Std Deviation (36.4-46.3) fL RDW Coeff of Blanca (11.5-14.5) % Plt Count (130-400) K/uL MPV (7.4-10.4) fL Immature Gran % (Auto) % Neut % (Auto) % Lymph % (Auto) % [place] % (Auto) % Eos % (Auto) % Baso % (Auto) % Neut # (Auto) (1.4-6.5) K/uL Lymph # (Auto) (1.2-3.4) K/uL [place] # (Auto) (0.11-0.59) K/uL Eos # (Auto) (0-0.5) K/uL Baso # (Auto) (0-0.2) K/uL Immature Gran # (Auto) (0.00-0.02) K/uL Platelet Estimate (Normal) Sodium 141 (136-145) mmol/L Potassium 3.8 (3.5-5.1) mmol/L Chloride 109 H (98-107) mmol/L Carbon Dioxide 27 (21-32) mmol/L Anion Gap 6.0 (3-11) BUN 17 (7-18) mg/dl Creatinine 0.60 (0.6-1.2) mg/dl Est Cr Clr Drug Dosing 110.6 ml/min Est GFR ( Amer) 107.8 ml/min Est GFR (Non-Af Amer) 93.0 ml/min BUN/Creatinine Ratio 27.8 H (10-20) Glucose 82 (70-99) mg/dl Calcium 8.7 (8.5-10.1) mg/dl Magnesium (1.8-2.4) mg/dl Total Bilirubin 1.6 H (0.2-1) mg/dl AST 61 H (15-37) U/L ALT 43 (12-78) U/L Alkaline Phosphatase 132 H (45-117) U/L Troponin I < 0.015 (0-0.045) ng/ml Total Protein 5.9 L (6.4-8.2) gm/dl Albumin 3.0 L (3.4-5.0) gm/dl Globulin 2.9 (2.5-4.0) gm/dl Albumin/Globulin Ratio 1.0 (0.9-2) Lipase 432 H (73-393) U/L Urine Color Yellow Urine Appearance Clear (Clear) Urine pH 6.5 (4.5-7.5) Ur Specific [place] 1.013 (1.000-1.030) Urine Protein Negative (Negative) Urine Glucose (UA) Negative (Negative) Urine Ketones Negative (Negative) Urine Blood Negative (Negative) Urine Nitrite Positive A (Negative) Urine Bilirubin Negative (Negative) Urine Urobilinogen Negative (Negative) Ur Leukocyte Esterase 2+ H (Negative) Urine WBC (Auto) 10-30 H (0-5) /hpf Urine RBC (Auto) 0-4 (0-4) /hpf U Hyaline Cast (Auto) 1-5 (0-5) /lpf U Epithel Cells (Auto) 10-20 H (0-5) /lpf Urine Bacteria (Auto) 4+ H (Negative) Anaplasma Smear A. phagocytophilum DNA Lyme Disease IgG Ab Negative (Negative) Lyme Disease IgM Ab Negative (Negative) COVID-19 Eval Order SARS-CoV-2 (PCR) (Negative) 12/07/20 Range/Units 17:45 WBC 6.55 (4.8-10.8) K/uL RBC 4.01 L (4.2-5.4) M/uL Hgb 12.2 (12.0-16.0) g/dL Hct 37.6 (37-47) % MCV 93.8 (80-100) fL MCH 30.4 (25-34) pg MCHC 32.4 (32-36) g/dL RDW Std Deviation 49.9 H (36.4-46.3) fL RDW Coeff of Blanca 14.8 H (11.5-14.5) % Plt Count 85 L (130-400) K/uL MPV 12.3 H (7.4-10.4) fL Immature Gran % (Auto) 0.2 % Neut % (Auto) 67.3 % Lymph % (Auto) 20.6 % [place] % (Auto) 8.9 % Eos % (Auto) 2.7 % Baso % (Auto) 0.3 % Neut # (Auto) 4.41 (1.4-6.5) K/uL Lymph # (Auto) 1.35 (1.2-3.4) K/uL [place] # (Auto) 0.58 (0.11-0.59) K/uL Eos # (Auto) 0.18 (0-0.5) K/uL Baso # (Auto) 0.02 (0-0.2) K/uL Immature Gran # (Auto) 0.01 (0.00-0.02) K/uL Platelet Estimate Decreased L (Normal) Sodium (136-145) mmol/L Potassium (3.5-5.1) mmol/L Chloride (98-107) mmol/L Carbon Dioxide (21-32) mmol/L Anion Gap (3-11) BUN (7-18) mg/dl Creatinine (0.6-1.2) mg/dl Est Cr Clr Drug Dosing ml/min Est GFR ( Amer) ml/min Est GFR (Non-Af Amer) ml/min BUN/Creatinine Ratio (10-20) Glucose (70-99) mg/dl Calcium (8.5-10.1) mg/dl Magnesium (1.8-2.4) mg/dl Total Bilirubin (0.2-1) mg/dl AST (15-37) U/L ALT (12-78) U/L Alkaline Phosphatase (45-117) U/L Troponin I (0-0.045) ng/ml Total Protein (6.4-8.2) gm/dl Albumin (3.4-5.0) gm/dl Globulin (2.5-4.0) gm/dl Albumin/Globulin Ratio (0.9-2) Lipase (73-393) U/L Urine Color Urine Appearance (Clear) Urine pH (4.5-7.5) Ur Specific [place] (1.000-1.030) Urine Protein (Negative) Urine Glucose (UA) (Negative) Urine Ketones (Negative) Urine Blood (Negative) Urine Nitrite (Negative) Urine Bilirubin (Negative) Urine Urobilinogen (Negative) Ur Leukocyte Esterase (Negative) Urine WBC (Auto) (0-5) /hpf Urine RBC (Auto) (0-4) /hpf U Hyaline Cast (Auto) (0-5) /lpf U Epithel Cells (Auto) (0-5) /lpf Urine Bacteria (Auto) (Negative) Anaplasma Smear A. phagocytophilum DNA Lyme Disease IgG Ab (Negative) Lyme Disease IgM Ab (Negative) COVID-19 Eval Order SARS-CoV-2 (PCR) (Negative) Medications Administered Current Inpatient Medications Acetaminophen (Acetaminophen 325 Mg Tab) 650 mg PO Q4H PRN PRN Reason: pain/fever Stop: 01/07/21 00:16 Atorvastatin Calcium (Atorvastatin 40 Mg Tab) 80 mg PO QAM SAMIR Stop: 01/07/21 08:59 Furosemide (Furosemide 20 Mg Tab) 20 mg PO QAM SAMIR Stop: 01/07/21 08:59 Gabapentin (Gabapentin 300 Mg Cap) 300 mg PO BID SAMIR Stop: 01/07/21 08:59 Sodium Chloride (Nss 1000ml) 1,000 mls @ 100 mls/hr IV .Q10H SAMIR Stop: 12/08/20 10:29 Last Admin: 12/08/20 00:49 Dose: 100 mls/hr Documented by: Ceftriaxone Sodium 2,000 mg/ (Dextrose) 70 mls @ 140 mls/hr IV Q24H SAMIR; Protocol Stop: 12/18/20 00:59 Last Infusion: 12/08/20 01:20 Dose: Infused Documented by: Magnesium Sulfate/Dextrose (Magnesium Sulfate / D5w) 1 gm in 100 mls @ 50 mls/hr IV ONE ONE Stop: 12/08/20 09:20 Ondansetron HCl (Ondansetron Inj 2 Mg/Ml 2 Ml Vial) 4 mg IV Q6H PRN PRN Reason: Nausea Stop: 01/07/21 00:16 Pantoprazole Sodium (Pantoprazole 40 Mg Tab) [facility] [place] Protocol Stop: 01/07/21 08:59 Polyethylene Glycol (Polyethylene (Miralax) 17 Gm Pack) 17 gm PO DAILY PRN PRN Reason: Constipation Stop: 01/07/21 00:16 Rifaximin (Rifaximin 550 Mg Tablet) 550 mg PO BID [facility] Stop: 01/07/21 08:59 Sertraline HCl (Sertraline Hcl 100 Mg Tablet) 100 mg PO [facility] Stop: 01/07/21 08:59 Spironolactone (Spironolactone 25 Mg Tab) 50 mg PO [facility] Stop: 01/07/21 08:59 Vitamin D (Cholecalciferol 1,000 Units 25 Mcg Tab) 2,000 units PO [facility] Stop: 01/07/21 08:59
[2020-12-08] MEDS ORDERED: MAGNESIUM SULFATE / D5W 1 GM/100 ML BAG IV ONE (07:45)
--- NOTE | 2020-12-08 07:59 | XRay Report ---
XR chest 1V portable CLINICAL HISTORY: hypoxia COMPARISON STUDY: January 24, 2016 FINDINGS: No pneumothorax. No pleural effusion. Mild diffuse reticular nodular prominence of pulmonary interstitium is seen bilaterally. Possible sma ll opacity at the right infrahilar region. Eventration of the right hemidiaphragm is demonstrated. Cardiomediastinal silhouette is within upper limits of normal. No significant pulmonary vascular congestion.. Osseous structures: Degenerative changes of the spine. IMPRESSION: 1. Mild diffuse prominence of pulmonary interstitium could represent pulmonary edema or bronchitis. No large infiltrates or consolidative lesions. 2. Possible small opacity at the right infrahilar region. Short-term follow-up with PA and lateral c hest radiograph is recommended. ACT 112: Negative or not required by law. The above report was generated using voice recognition software. It may contain grammatical, syntax o r spelling errors. Electronically signed by: Barbara Gamboa DO 12/08/2020 7:58 AM
[2020-12-08] MEDS: ACETAMINOPHEN 325 MG TAB PO PRN ×2 (08:07→17:40)
[2020-12-08] MEDS: ATORVASTATIN 40 MG TAB PO SCH (08:08)
[2020-12-08] MEDS: CHOLECALCIFEROL 1,000 UNITS 25 MCG TAB PO SCH (08:08)
[2020-12-08] MEDS: FUROSEMIDE 20 MG TAB PO SCH (08:08)
[2020-12-08] MEDS: GABAPENTIN 300 MG CAP PO SCH ×2 (08:09→20:23)
[2020-12-08] MEDS: SPIRONOLACTONE 25 MG TAB PO SCH (08:09)
[2020-12-08] MEDS: SERTRALINE HCL 100 MG TABLET PO SCH (08:09)
[2020-12-08] MEDS: rifAXIMin 550 MG TABLET PO SCH ×2 (08:09→20:24)
[2020-12-08] MEDS: PANTOprazole 40 MG TAB PO SCH (08:09)
--- NOTE | 2020-12-08 09:13 | CT Scan Report ---
CT ANGIOGRAPHY OF THE CHEST, PULMONARY EMBOLUS PROTOCOL CLINICAL HISTORY: Shortness of breath. Evaluate for pulmonary embolus. COMPARISON STUDY: Chest radiograph December 07, 2020. TECHNIQUE: Following IV administration of 120 mL of Optiray, helical axial images of the chest were o btained utilizing the pulmonary embolus protocol. Maximal intensity projections and sagittal and cor onal reformats were viewed on an independent 3D workstation. IV contrast was administered without co mplication. Automated exposure control was utilized for the study. A dose lowering technique was ut ilized adhering to the principles of ALARA. CT DOSE: 734.77 mGy.cm FINDINGS: No pulmonary emboli are identified although the segmental and subsegmental pulmonary arter ies are suboptimally assessed due to respiratory motion. There is mild cardiomegaly. No thoracic aort ic dissection is present. No pneumothorax or pleural effusion is noted. No consolidation to suggest p neumonia. Lungs are suboptimally assessed due to respiratory motion. There is no acute fracture withi n the visualized skeletal structures. Within visualized portions of the upper abdomen, note is made o f a cirrhotic liver with ascites, splenomegaly and varices formation. Liver is partially imaged on th is exam. IMPRESSION: 1. No pulmonary emboli identified although segmental and subsegmental pulmonary arteries suboptimally assessed due to respiratory motion. 2. No acute process within the chest. 3. Mild cardiomegaly. 4. Cirrhosis with manifestations of portal hypertension including ascites, splenomegaly and varices f ormation, partially imaged on this exam. ACT 112: Negative or not required by law. Electronically signed by: Devin Linton M.D. 12/08/2020 9:11 AM
--- NOTE | 2020-12-08 09:42 | Electrocardiogram Report ---
Test Reason : Blood Pressure : / mmHG Vent. Rate : 098 BPM Atrial Rate : 098 BPM P-R Int : 160 ms QRS Dur : 086 ms QT Int : 382 ms P-R-T Axes : 067 060 044 degrees QTc Int : 487 ms Normal sinus rhythm Normal ECG When compared with ECG of 24-JAN-2016 15:15, Vent. rate has increased BY 32 BPM QT has lengthened Confirmed by Darrel Bates ([id number]) on 12/08/2020 9:42:22 AM Referred By: REFERRED SELF Confirmed By:Darrel Bates
[2020-12-08 12:38] LABS: INR 1.2 (0.9-1.1); Prothrombin Time 12.3 Seconds (9.0-12.0)
[2020-12-08] MEDS: DOXYCYCLINE HYCLATE 100 MG CAP PO SCH ×2 (13:36→20:23)
[2020-12-09] MEDS: cefTRIAXone SODIUM 2,000 MG in DEXTROSE 5% 50 ML IV SCH ×2 (00:37→23:25)
--- NOTE | 2020-12-09 05:21 | Surgery Progress Note ---
Date of Service December 09, 2020 Assessment & Plan (1) Abdominal pain: Plan: Patient has been admitted to the hospital on the hospitalist service. We recommend the following: Patient's ventral hernia is not causing any evidence of obstruction She is currently pain-free patient is a high risk for surgical intervention due to underlying comorbidities including her cirrhosis, ascites, thrombocytopenia no plans for surgical intervention at this time Admission and Anticipated Discharge Date Admission Date: December 07, 2020 Subjective Patient is resting comfortably in bed. She denies any abdominal pain at the present time. She denies any nausea or vomiting. She reports that she had a small bowel movement over the past 24 hours. No fevers, shakes, chills Physical Exam Gastrointestinal (Abdomen): Ventral hernia is noted as previously. Currently patient does not have any pain with palpation of her abdomen. Bowel sounds are present. Results & Data ([facility]) Vital Signs (Past 12 Hours) Vital Signs Temp Pulse Pulse Resp BP Pulse Ox 12/09/20 02:11 74 14 95 12/08/20 23:57 80 16 94 12/08/20 22:30 36.8 C 86 16 125/61 93 PG Care Time/CCT Total # of Minutes Spent Total Time Spent with Patient: Total time spent is greater than 50% in coordination of care (as documented) at patient's floor/unit and/or counseling patient: Coding Level of Care Code 80269 Subseq Hosp Care Lvl 1 Diagnoses Abdominal pain R10.9
--- NOTE | 2020-12-09 06:48 | Hospitalist Progress Note ---
Date of Service December 09, 2020 Assessment & Plan (1) Abdominal pain: (2) Headache: (3) Abdominal wall hernia: Plan: UTI This is a 70-year-old female who presents with abdominal pain and headache. 1. Headache and abdominal pain: Headache ongoing for 1 week and abdominal pain for a couple of weeks, and she was found to have urinary tract infection, likely UTI contributing. Started Rocephin on admission, will cont. for now. U cultx -pansensitive CT of the head unremarkable. CT of the abdomen - IMPRESSION: 1. Midline ventral hernia in the supraumbilical region containing nondilated loops of bowel and small amount of fluid. No evidence of bowel obstruction. 2. Liver cirrhosis associated with splenomegaly, mild ascites and multiple varices. 3. Atherosclerosis. 4. Slightly prominent retroperitoneal lymph nodes. Please correlate above- mentioned findings was prior history of malignancy. We will monitor in the medical floor. 12/09 -clinically patient much improved. Yesterday patient quite drowsy with abdominal discomfort. Now she is awake, alert and abdominal pain seems to be resolved. She is still complaining of some headache (but seems improved). Currently on clear liquid diet, will advance to full liquid and advance throughout the day as tolerated Continue treatment for UTI with Rocephin 2. Hypoxia: The patient was desaturated to 85% when she walked in the ER, otherwise she is saturating fine. CTA chest obtained to rule out any PE and any congestion. IMPRESSION: 1. No pulmonary emboli identified although segmental and subsegmental pulmonary arteries suboptimally assessed due to respiratory motion. 2. No acute process within the chest. 3. Mild cardiomegaly. 4. Cirrhosis with manifestations of portal hypertension including ascites, splenomegaly and varices formation, partially imaged on this exam. Currently pt is hemodynamically stable. 2 step prior to discharge. Currently breathing on RA comfortably and saturating 93% 3. Obstructive sleep apnea: On CPAP at bedtime. 4. Abdominal discomfort: Ventral hernia, no obstruction on CAT scan, tolerating diet okay. Will consult surgery for further recommendations. Per Surgery- patient appears to be doing better-she does have a known broad- based hernia which is not causing significant obstruction She is at very high risk for any surgical intervention with her history of cirrhosis, ascites, varices, thrombocytopenia and splenomegaly No plan for any surgical intervention Elevated lipase (poss. pancreatitis?), gentle fluids, clear liquid diet Cont. to monitor closely 12/09 - Lipase now normalized, no abd. pain 5. History of liver cirrhosis: Continue her home diuretics of Lasix and spironolactone, and Xifaxan. 6. Neuropathy: Continue gabapentin. 7. Hyperlipidemia: Continue statin. 8. Gastroesophageal reflux disease: Continue omeprazole. 9. Depression: Continue Zoloft. 10. Thrombocytopenia: Most likely secondary to liver cirrhosis.Follow labs. DVT prophylaxis: Sequential compression devices for now as the patient has thrombocytopenia. DISPOSITION: Closely monitor in the med tele. PT/OT prior to discharge. Admission and Anticipated Discharge Date Admission Date: December 07, 2020 Subjective Patient seen in follow-up of headache, abdominal pain, in the setting of ventral hernia, cirrhosis Currently patient is sitting up in bed, in NAD having breakfast Yesterday she was drowsy but but now looking much better, awake and very alert, answering questions appropriately Abdominal pain seems to be actually resolved, patient says that she still has some headache Currently she is on clear diet, will advance to full liquid now and will advance throughout the day if she tolerates Denies any fevers, chills, chest pain, shortness of breath, nausea vomiting Review of Systems Constitutional: no fever and no chills Respiratory: no cough and no dyspnea Cardiovascular: no chest pain and no palpitations Gastrointestinal: no abdominal pain, no nausea and no vomiting Physical Exam Physical Exam: GENERAL: The patient is obese, not in acute distress. HEENT: NC/AT, Pupils equal, round, and reactive to light. Oral mucosa moist. NECK: No JVD, no neck masses. CARDIOVASCULAR: S1 and S2 heard, regular rate and rhythm. No murmur, no gallop. RESPIRATORY: Normal AP diameter. No accessory muscle use. No wheezing, no crackles. ABDOMEN: soft. Ventral hernia seen. previously mild discomfort around the ventral hernia, now resolved. No guarding, no rigidity. Bowel sounds present. NEURO: Alert and oriented x3, answering questions appropriately, no facial asymmetry, speech fluent, moves extremities EXTREMITIES: Mild pedal edema present, no erythema seen. Results & Data Results & Data ([facility]) Vital Signs (Past 12 Hours) Vital Signs Temp Pulse Pulse Resp BP Pulse Ox 12/09/20 02:11 74 14 95 12/08/20 23:57 80 16 94 12/08/20 22:30 36.8 C 86 16 125/61 93 Laboratory Results 12/09/20 12/09/20 12/09/20 Range/Units 06:54 06:54 06:54 WBC (4.8-10.8) K/uL RBC (4.2-5.4) M/uL Hgb (12.0-16.0) g/dL Hct (37-47) % MCV (80-100) fL MCH (25-34) pg MCHC (32-36) g/dL RDW Std Deviation (36.4-46.3) fL RDW Coeff of Blanca (11.5-14.5) % Plt Count (130-400) K/uL MPV (7.4-10.4) fL PT 12.7 H (9.0-12.0) Seconds INR 1.3 H (0.9-1.1) Sodium 142 (136-145) mmol/L Potassium 3.6 (3.5-5.1) mmol/L Chloride 110 H (98-107) mmol/L Carbon Dioxide 31 (21-32) mmol/L Anion Gap 1.0 L (3-11) BUN 16 (7-18) mg/dl Creatinine 0.45 L (0.6-1.2) mg/dl Est Cr Clr Drug Dosing 145.5 ml/min Est GFR ( Amer) 118.5 ml/min Est GFR (Non-Af Amer) 102.2 ml/min BUN/Creatinine Ratio 35.4 H (10-20) Glucose 83 (70-99) mg/dl Lactate (0.4-2.0) mmol/L Calcium 8.0 L (8.5-10.1) mg/dl Phosphorus 2.1 L (2.5-4.9) mg/dl Magnesium 1.8 (1.8-2.4) mg/dl Total Bilirubin 0.9 D (0.2-1) mg/dl AST 51 H (15-37) U/L ALT 38 (12-78) U/L Alkaline Phosphatase 111 (45-117) U/L Ammonia 64.0 H (11-32) umol/L Total Protein 4.9 L D (6.4-8.2) gm/dl Albumin 2.5 L (3.4-5.0) gm/dl Globulin 2.4 L (2.5-4.0) gm/dl Albumin/Globulin Ratio 1.0 (0.9-2) Lipase 272 (73-393) U/L 12/09/20 12/08/20 12/08/20 Range/Units 06:54 18:08 18:08 WBC 4.19 L (4.8-10.8) K/uL RBC 3.54 L (4.2-5.4) M/uL Hgb 10.8 L (12.0-16.0) g/dL Hct 33.8 L (37-47) % MCV 95.5 (80-100) fL MCH 30.5 (25-34) pg MCHC 32.0 (32-36) g/dL RDW Std Deviation 52.5 H (36.4-46.3) fL RDW Coeff of Blanca 15.0 H (11.5-14.5) % Plt Count 72 L (130-400) K/uL MPV 11.2 H (7.4-10.4) fL PT (9.0-12.0) Seconds INR (0.9-1.1) Sodium (136-145) mmol/L Potassium (3.5-5.1) mmol/L Chloride (98-107) mmol/L Carbon Dioxide (21-32) mmol/L Anion Gap (3-11) BUN (7-18) mg/dl Creatinine (0.6-1.2) mg/dl Est Cr Clr Drug Dosing ml/min Est GFR ( Amer) ml/min Est GFR (Non-Af Amer) ml/min BUN/Creatinine Ratio (10-20) Glucose (70-99) mg/dl Lactate 1.5 (0.4-2.0) mmol/L Calcium (8.5-10.1) mg/dl Phosphorus (2.5-4.9) mg/dl Magnesium (1.8-2.4) mg/dl Total Bilirubin (0.2-1) mg/dl AST (15-37) U/L ALT (12-78) U/L Alkaline Phosphatase (45-117) U/L Ammonia 46.3 H (11-32) umol/L Total Protein (6.4-8.2) gm/dl Albumin (3.4-5.0) gm/dl Globulin (2.5-4.0) gm/dl Albumin/Globulin Ratio (0.9-2) Lipase (73-393) U/L 12/08/20 Range/Units 12:14 WBC (4.8-10.8) K/uL RBC (4.2-5.4) M/uL Hgb (12.0-16.0) g/dL Hct (37-47) % MCV (80-100) fL MCH (25-34) pg MCHC (32-36) g/dL RDW Std Deviation (36.4-46.3) fL RDW Coeff of Blanca (11.5-14.5) % Plt Count (130-400) K/uL MPV (7.4-10.4) fL PT 12.3 H (9.0-12.0) Seconds INR 1.2 H (0.9-1.1) Sodium (136-145) mmol/L Potassium (3.5-5.1) mmol/L Chloride (98-107) mmol/L Carbon Dioxide (21-32) mmol/L Anion Gap (3-11) BUN (7-18) mg/dl Creatinine (0.6-1.2) mg/dl Est Cr Clr Drug Dosing ml/min Est GFR ( Amer) ml/min Est GFR (Non-Af Amer) ml/min BUN/Creatinine Ratio (10-20) Glucose (70-99) mg/dl Lactate (0.4-2.0) mmol/L Calcium (8.5-10.1) mg/dl Phosphorus (2.5-4.9) mg/dl Magnesium (1.8-2.4) mg/dl Total Bilirubin (0.2-1) mg/dl AST (15-37) U/L ALT (12-78) U/L Alkaline Phosphatase (45-117) U/L Ammonia (11-32) umol/L Total Protein (6.4-8.2) gm/dl Albumin (3.4-5.0) gm/dl Globulin (2.5-4.0) gm/dl Albumin/Globulin Ratio (0.9-2) Lipase (73-393) U/L Medications Administered Current Inpatient Medications Acetaminophen (Acetaminophen 325 Mg Tab) 650 mg PO Q4H PRN PRN Reason: pain/fever Stop: 01/07/21 00:16 Last Admin: 12/09/20 08:40 Dose: 650 mg Documented by: Atorvastatin Calcium (Atorvastatin 40 Mg Tab) 80 mg PO [place] Stop: 01/07/21 08:59 Last Admin: 12/09/20 08:41 Dose: 80 mg Documented by: Doxycycline Hyclate (Doxycycline Hyclate 100 Mg Cap) 100 mg PO BID [facility]; Protocol Stop: 12/10/20 12:29 Last Admin: 12/09/20 08:45 Dose: 100 mg Documented by: Furosemide (Furosemide 20 Mg Tab) 20 mg PO [place] Stop: 01/07/21 08:59 Last Admin: 12/09/20 08:52 Dose: 20 mg Documented by: Gabapentin (Gabapentin 300 Mg Cap) 300 mg PO BID [facility] Stop: 01/07/21 08:59 Last Admin: 12/09/20 08:43 Dose: 300 mg Documented by: Ceftriaxone Sodium 2,000 mg/ (Dextrose) 70 mls @ 140 mls/hr IV Q24H [facility]; Protocol Stop: 12/18/20 00:59 Last Infusion: 12/09/20 01:10 Dose: Infused Documented by: Magnesium Sulfate/Dextrose (Magnesium Sulfate / D5w) 1 gm in 100 mls @ 50 mls/hr IV ONE ONE Stop: 12/09/20 11:29 Ondansetron HCl (Ondansetron Inj 2 Mg/Ml 2 Ml Vial) 4 mg IV Q6H PRN PRN Reason: Nausea Stop: 01/07/21 00:16 Pantoprazole Sodium (Pantoprazole 40 Mg Tab) 40 mg PO [facility]; Protocol Stop: 01/07/21 08:59 Last Admin: 12/09/20 08:42 Dose: 40 mg Documented by: Polyethylene Glycol (Polyethylene (Miralax) 17 Gm Pack) 17 gm PO DAILY PRN PRN Reason: Constipation Stop: 01/07/21 00:16 Rifaximin (Rifaximin 550 Mg Tablet) 550 mg PO BID [facility] Stop: 01/07/21 08:59 Last Admin: 12/09/20 08:44 Dose: 550 mg Documented by: Sertraline HCl (Sertraline Hcl 100 Mg Tablet) 100 mg PO [facility] Stop: 01/07/21 08:59 Last Admin: 12/09/20 08:43 Dose: 100 mg Documented by: Spironolactone (Spironolactone 25 Mg Tab) 50 mg PO [facility] Stop: 01/07/21 08:59 Last Admin: 12/09/20 08:52 Dose: 50 mg Documented by: Vitamin B Complex (Vitamin B Complex Tab) 1 tab PO [facility] Stop: 01/08/21 09:29 Vitamin D (Cholecalciferol 1,000 Units 25 Mcg Tab) 2,000 units PO [facility] Stop: 01/07/21 08:59 Last Admin: 12/09/20 08:42 Dose: 2,000 units Documented by:
[2020-12-09 07:09] LABS: Hematocrit (blood only) 33.8 % (37-47); Hemoglobin 10.8 g/dL (12.0-16.0); Mean Corpuscular Hemoglobin 30.5 pg (25-34); Mean Corpuscular Volume 95.5 fL (80-100); RDW Standard Deviation 52.5 fL (36.4-46.3); Red Blood Count 3.54 M/uL (4.2-5.4); White Blood Count 4.19 K/uL (4.8-10.8)
[2020-12-09 07:21] LABS: Mean Platelet Volume 11.2 fL (7.4-10.4); Platelet Count 72 K/uL (130-400)
[2020-12-09 07:22] LABS: INR 1.3 (0.9-1.1); Prothrombin Time 12.7 Seconds (9.0-12.0)
[2020-12-09 07:26] LABS: Albumin Level 2.5 gm/dl (3.4-5.0); BUN Creatinine Ratio 35.4 (10-20); Creatinine Clr Calc Pharmacy 145.5 ml/min; Est GFR (African American) 118.5 ml/min; Est GFR (Non-African American) 102.2 ml/min; Magnesium 1.8 mg/dl (1.8-2.4); Potassium 3.6 mmol/L (3.5-5.1)
[2020-12-09 07:34] LABS: Bilirubin,Total 0.9 mg/dl (0.2-1); Globulin 2.4 gm/dl (2.5-4.0); Phosphorus 2.1 mg/dl (2.5-4.9); Total Protein 4.9 gm/dl (6.4-8.2)
[2020-12-09] MEDS: ACETAMINOPHEN 325 MG TAB PO PRN (08:40)
[2020-12-09] MEDS: ATORVASTATIN 40 MG TAB PO SCH (08:41)
[2020-12-09] MEDS: CHOLECALCIFEROL 1,000 UNITS 25 MCG TAB PO SCH (08:42)
[2020-12-09] MEDS: PANTOprazole 40 MG TAB PO SCH (08:42)
[2020-12-09] MEDS: SERTRALINE HCL 100 MG TABLET PO SCH (08:43)
[2020-12-09] MEDS: GABAPENTIN 300 MG CAP PO SCH ×2 (08:43→21:05)
[2020-12-09] MEDS: rifAXIMin 550 MG TABLET PO SCH ×2 (08:44→21:05)
[2020-12-09] MEDS: DOXYCYCLINE HYCLATE 100 MG CAP PO SCH ×2 (08:45→21:05)
[2020-12-09] MEDS: SPIRONOLACTONE 25 MG TAB PO SCH (08:52)
[2020-12-09] MEDS: FUROSEMIDE 20 MG TAB PO SCH (08:52)
[2020-12-09] MEDS ORDERED: MAGNESIUM SULFATE / D5W 1 GM/100 ML BAG IV ONE (09:30)
[2020-12-09] MEDS ORDERED: LACTULOSE SYRUP 20 GM/30 ML UDC PO ONE (09:30)
[2020-12-09] MEDS: VITAMIN B COMPLEX TAB PO SCH (10:06)
[2020-12-10] MEDS: ATORVASTATIN 40 MG TAB PO SCH (07:57)
[2020-12-10] MEDS: CHOLECALCIFEROL 1,000 UNITS 25 MCG TAB PO SCH (07:58)
[2020-12-10] MEDS: FUROSEMIDE 20 MG TAB PO SCH (07:59)
[2020-12-10] MEDS: DOXYCYCLINE HYCLATE 100 MG CAP PO SCH (07:59)
[2020-12-10] MEDS: GABAPENTIN 300 MG CAP PO SCH (07:59)
[2020-12-10] MEDS: SERTRALINE HCL 100 MG TABLET PO SCH (08:00)
[2020-12-10] MEDS: PANTOprazole 40 MG TAB PO SCH (08:00)
[2020-12-10] MEDS: rifAXIMin 550 MG TABLET PO SCH (08:01)
[2020-12-10] MEDS: SPIRONOLACTONE 25 MG TAB PO SCH (08:01)
[2020-12-10] MEDS: VITAMIN B COMPLEX TAB PO SCH (08:01)
[2020-12-10 08:08] LABS: Hematocrit (blood only) 33.4 % (37-47); Hemoglobin 10.8 g/dL (12.0-16.0); Mean Corpuscular Hemoglobin 30.7 pg (25-34); Mean Corpuscular Hgb Conc 32.3 g/dL (32-36); Mean Corpuscular Volume 94.9 fL (80-100); RDW Coefficient of Variation 14.6 % (11.5-14.5); RDW Standard Deviation 50.5 fL (36.4-46.3); Red Blood Count 3.52 M/uL (4.2-5.4); White Blood Count 3.69 K/uL (4.8-10.8)
[2020-12-10 08:12] LABS: Mean Platelet Volume 11.2 fL (7.4-10.4); Platelet Count 62 K/uL (130-400)
[2020-12-10 08:42] LABS: BUN Creatinine Ratio 20.1 (10-20); Calcium 8.2 mg/dl (8.5-10.1); Creatinine Clr Calc Pharmacy 125.9 ml/min; Est GFR (Non-African American) 97.5 ml/min; Magnesium 1.6 mg/dl (1.8-2.4); Potassium 3.5 mmol/L (3.5-5.1)
[2020-12-10] MEDS ORDERED: POTASSIUM CHLORIDE CRTAB 20 MEQ TABCR PO STA (08:43)
--- NOTE | 2020-12-10 08:51 | Hospitalist Progress Note ---
Date of Service December 10, 2020 Assessment & Plan (1) Abdominal pain: (2) Headache: (3) Abdominal wall hernia: Plan: UTI This is a 70-year-old female who presents with abdominal pain and headache. 1. Headache and abdominal pain: Headache ongoing for 1 week and abdominal pain for a couple of weeks, and she was found to have urinary tract infection, likely UTI contributing. Started Rocephin on admission, will cont. for now. U cultx - E. coli - pansensitive CT of the head unremarkable. CT of the abdomen - IMPRESSION: 1. Midline ventral hernia in the supraumbilical region containing nondilated loops of bowel and small amount of fluid. No evidence of bowel obstruction. 2. Liver cirrhosis associated with splenomegaly, mild ascites and multiple varices. 3. Atherosclerosis. 4. Slightly prominent retroperitoneal lymph nodes. Please correlate above- mentioned findings was prior history of malignancy. We will monitor in the medical floor. 12/09 -clinically patient much improved. Yesterday patient quite drowsy with abdominal discomfort. Now she is awake, alert and abdominal pain seems to be resolved. She is still complaining of some headache (but seems improved). Currently on clear liquid diet, will advance to full liquid and advance throughout the day as tolerated Continue treatment for UTI with Rocephin 12/10 Patient denies any headache or abdominal pain Tolerating diet Will discharge on cefuroxime for UTI We will arrange follow-up for the patient, to follow-up on UTI, and also lymph nodes found on CT 2. Hypoxia: The patient was desaturated to 85% when she walked in the ER, otherwise she is saturating fine. CTA chest obtained to rule out any PE and any congestion. IMPRESSION: 1. No pulmonary emboli identified although segmental and subsegmental pulmonary arteries suboptimally assessed due to respiratory motion. 2. No acute process within the chest. 3. Mild cardiomegaly. 4. Cirrhosis with manifestations of portal hypertension including ascites, splenomegaly and varices formation, partially imaged on this exam. Currently pt is hemodynamically stable. Currently breathing on RA comfortably and saturating 94% Walking hallway with nursing staff, without desaturating 3. Hypomagnesemia Mild hypomagnesemia, may be contributing to her headache Replete and monitor, goal magnesium above 2 Will discharge on magnesium oxide 400 daily, follow-up with PCP 4. Obstructive sleep apnea: On CPAP at bedtime. 5. Abdominal discomfort: Ventral hernia, no obstruction on CAT scan, tolerating diet okay. Will consult surgery for further recommendations. Per Surgery- patient appears to be doing better-she does have a known broad- based hernia which is not causing significant obstruction She is at very high risk for any surgical intervention with her history of cirrhosis, ascites, varices, thrombocytopenia and splenomegaly No plan for any surgical intervention Elevated lipase (poss. pancreatitis?), gentle fluids, clear liquid diet Cont. to monitor closely 12/09 - Lipase now normalized, no abd. pain 6. History of liver cirrhosis: Continue her home diuretics of Lasix and spironolactone, and Xifaxan. 7. Neuropathy: Continue gabapentin. 8. Hyperlipidemia: Continue statin. 9. Gastroesophageal reflux disease: Continue omeprazole. 10. Depression: Continue Zoloft. 11. Thrombocytopenia: Most likely secondary to liver cirrhosis.Follow labs. DVT prophylaxis: SCDs for now as the patient has thrombocytopenia. DISPOSITION: Plan to discharge home and follow-up with primary doctor. Admission and Anticipated Discharge Date Admission Date: December 07, 2020 Subjective Patient seen in follow-up of headache, abdominal pain, in the setting of ventral hernia, cirrhosis Currently patient is sitting up in bed, in NAD having breakfast Abdominal pain has resolved, patient also denies any headache Advanced diet yesterday and patient is tolerating well She is having bowel movements Denies any fevers, chills, chest pain, shortness of breath, nausea vomiting Review of Systems Constitutional: no fever and no chills Respiratory: no cough and no dyspnea Cardiovascular: no chest pain and no palpitations Gastrointestinal: no abdominal pain, no nausea and no vomiting Physical Exam Physical Exam: GENERAL: The patient is obese, not in acute distress. HEENT: NC/AT, Pupils equal, round, and reactive to light. Oral mucosa moist. NECK: No JVD, no neck masses. CARDIOVASCULAR: S1 and S2 heard, regular rate and rhythm. No murmur, no gallop. RESPIRATORY: Normal AP diameter. No accessory muscle use. No wheezing, no crackles. ABDOMEN: soft. Ventral hernia seen. previously mild discomfort around the ventral hernia, now resolved. No guarding, no rigidity. Bowel sounds present. NEURO: Alert and oriented x3, answering questions appropriately, no facial asymmetry, speech fluent, moves extremities EXTREMITIES: Mild pedal edema present, no erythema seen. Results & Data Results & Data ([facility]) Vital Signs (Past 12 Hours) Vital Signs Temp Pulse Pulse Resp BP BP Pulse Ox 12/10/20 07:57 36.7 C 72 16 114/63 94 12/09/20 22:44 36.7 C 92 H 18 105/68 93 12/09/20 22:31 90 19 95 Laboratory Results 12/10/20 12/10/20 Range/Units 07:46 07:46 WBC 3.69 L (4.8-10.8) K/uL RBC 3.52 L (4.2-5.4) M/uL Hgb 10.8 L (12.0-16.0) g/dL Hct 33.4 L (37-47) % MCV 94.9 (80-100) fL MCH 30.7 (25-34) pg MCHC 32.3 (32-36) g/dL RDW Std Deviation 50.5 H (36.4-46.3) fL RDW Coeff of Blanca 14.6 H (11.5-14.5) % Plt Count 62 L (130-400) K/uL MPV 11.2 H (7.4-10.4) fL Sodium 141 (136-145) mmol/L Potassium 3.5 (3.5-5.1) mmol/L Chloride 107 (98-107) mmol/L Carbon Dioxide 32 (21-32) mmol/L Anion Gap 2.0 L (3-11) BUN 10 D (7-18) mg/dl Creatinine 0.52 L (0.6-1.2) mg/dl Est Cr Clr Drug Dosing 125.9 ml/min Est GFR ( Amer) 113.0 ml/min Est GFR (Non-Af Amer) 97.5 ml/min BUN/Creatinine Ratio 20.1 H (10-20) Glucose 77 (70-99) mg/dl Calcium 8.2 L (8.5-10.1) mg/dl Magnesium 1.6 L (1.8-2.4) mg/dl Medications Administered Current Inpatient Medications Acetaminophen (Acetaminophen 325 Mg Tab) 650 mg PO Q4H PRN PRN Reason: pain/fever Stop: 01/07/21 00:16 Last Admin: 12/09/20 08:40 Dose: 650 mg Documented by: Atorvastatin Calcium ([facility] 40 Mg Tab) [facility] Stop: 01/07/21 08:59 Last Admin: 12/10/20 07:57 Dose: 80 mg Documented by: Doxycycline Hyclate (Doxycycline Hyclate 100 Mg Cap) 100 mg PO BID [facility]; Protocol Stop: 12/10/20 12:29 Last Admin: 12/10/20 07:59 Dose: 100 mg Documented by: Furosemide (Furosemide 20 Mg Tab) [facility] Stop: 01/07/21 08:59 Last Admin: 12/10/20 07:59 Dose: 20 mg Documented by: Gabapentin (Gabapentin 300 Mg Cap) 300 mg PO BID [facility] Stop: 01/07/21 08:59 Last Admin: 12/10/20 07:59 Dose: 300 mg Documented by: Ceftriaxone Sodium 2,000 mg/ (Dextrose) 70 mls @ 140 mls/hr IV Q24H [facility]; Protocol Stop: 12/18/20 00:59 Last Infusion: 12/09/20 23:57 Dose: Infused Documented by: Magnesium Sulfate/Dextrose (Magnesium Sulfate / D5w) 1 gm in 100 mls @ 50 mls/hr IV ONE ONE Stop: 12/10/20 10:59 Ondansetron HCl (Ondansetron Inj 2 Mg/Ml 2 Ml Vial) 4 mg IV Q6H PRN PRN Reason: Nausea Stop: 01/07/21 00:16 Pantoprazole Sodium (Pantoprazole 40 Mg Tab) 40 mg PO [facility]; Protocol Stop: 01/07/21 08:59 Last Admin: 12/10/20 08:00 Dose: 40 mg Documented by: Polyethylene Glycol (Polyethylene (Miralax) 17 Gm Pack) 17 gm PO DAILY PRN PRN Reason: Constipation Stop: 01/07/21 00:16 Rifaximin (Rifaximin 550 Mg Tablet) 550 mg PO BID [facility] Stop: 01/07/21 08:59 Last Admin: 12/10/20 08:01 Dose: 550 mg Documented by: Sertraline HCl (Sertraline Hcl 100 Mg Tablet) 100 mg PO [facility] Stop: 01/07/21 08:59 Last Admin: 12/10/20 08:00 Dose: 100 mg Documented by: Spironolactone (Spironolactone 25 Mg Tab) 50 mg PO [facility] Stop: 01/07/21 08:59 Last Admin: 12/10/20 08:01 Dose: 50 mg Documented by: Vitamin B Complex (Vitamin B Complex Tab) 1 tab PO [facility] Stop: 01/08/21 09:29 Last Admin: 12/10/20 08:01 Dose: 1 tab Documented by: Vitamin D (Cholecalciferol 1,000 Units 25 Mcg Tab) 2,000 units PO [facility] Stop: 01/07/21 08:59 Last Admin: 12/10/20 07:58 Dose: 2,000 units Documented by:
[2020-12-10] MEDS ORDERED: MAGNESIUM SULFATE / D5W 1 GM/100 ML BAG IV ONE (09:00)
--- NOTE | 2020-12-10 09:18 | Discharge Summary ---
Date of Service December 10, 2020 Admission HPI Per Admitting Provider A 70-year-old female with past medical history significant for hyperlipidemia, obstructive sleep apnea, venous insufficiency, esophageal varices without bleeding, heart murmur, morbid obesity, liver cirrhosis, GERD, SI joint arthritis, generalized arthrosis, restless leg syndrome, osteoarthritis, neuropathy, thrombocytopenia, insomnia, mixed incontinence, depression, who lives alone. Says she is having some ambulatory dysfunction because of the neuropathy. She can eat regular food and swallow okay. Comes here because of one week of headaches and abdominal pain, headache about 7/10 in severity , no blurred vision, no ear earache. Has some runny nose. No sore throat, no cough, no fevers. Appetite is okay, no dysphagia, no chest pain, no shortness of breath. She is also having abdominal discomfort around her ventral hernia for the last 2 weeks. She has irritable bowel syndrome, sometimes has diarrhea, sometimes constipation. Yesterday, she had 4 bowel movements. Denies any blood in the stools or black stools. Normal bladder movements. No hematuria or burning micturition. Has some swelling of the legs and she takes diuretics. She states she followed with surgery at [facility] for possible ventral hernia repair, but she is supposed to get cleared from the liver specialist prior to surgery, but then the pandemic happened and she never visited again. Admission Exam Per Admitting Provider GENERAL: The patient is obese, not in acute distress. VITAL SIGNS: Temperature 36.6, pulse 103, respiratory rate 13, blood pressure 140/64, oxygen 93% on room air. HEENT: Pupils equal, round, and reactive to light. Oral mucosa moist. NECK: No JVD, no neck masses. CARDIOVASCULAR: S1 and S2 heard, regular rate and rhythm. No murmur, no gallop. RESPIRATORY SYSTEM: Normal AP diameter. No accessory muscle use. No wheezing, no crackles. ABDOMEN: Ventral hernia seen. Some mild discomfort around the ventral hernia. No guarding, no rigidity. Bowel sounds present. CENTRAL NERVOUS SYSTEM: Cranial nerves II-XII grossly intact, nonfocal. EXTREMITIES: Mild pedal edema present, no erythema seen. Principal Diagnosis UTI headache and abdominal pain Discharge Exam GENERAL: The patient is obese, not in acute distress. HEENT: NC/AT, Pupils equal, round, and reactive to light. Oral mucosa moist. NECK: No JVD, no neck masses. CARDIOVASCULAR: S1 and S2 heard, regular rate and rhythm. No murmur, no gallop. RESPIRATORY: Normal AP diameter. No accessory muscle use. No wheezing, no crackles. ABDOMEN: soft. Ventral hernia seen. previously mild discomfort around the ventral hernia, now resolved. No guarding, no rigidity. Bowel sounds present. NEURO: Alert and oriented x3, answering questions appropriately, no facial asymmetry, speech fluent, moves extremities EXTREMITIES: Mild pedal edema present, no erythema seen. Discharge Data Allergies Allergy/AdvReac Type Severity Reaction Status Date / Time No Known Allergies Allergy Unverified 12/07/20 20:43 Consultations 12/08/20 08:00 Consult General Surgery Routine Ordered Studies 12/07/20 19:02 CT abd pelvis wo con Stat IMPRESSION: 1. Midline ventral hernia in the supraumbilical region containing nondilated l oops of bowel and small amount of fluid. No evidence of bowel obstruction. 2. Liver cirrhosis associated with splenomegaly, mild ascites and multiple varices. 3. Atherosclerosis. 4. Slightly prominent retroperitoneal lymph nodes. Please correlate above- mentioned findings was prior history of malignancy. CT head/brain wo con Stat IMPRESSION: No acute intracranial findings 12/07/20 23:04 CT angio chest PE protocol Urgent IMPRESSION: 1. No pulmonary emboli identified although segmental and subsegmental pulmonary arteries suboptimally assessed due to respiratory motion. 2. No acute process within the chest. 3. Mild cardiomegaly. 4. Cirrhosis with manifestations of portal hypertension including ascites, splenomegaly and varices formation, partially imaged on this exam. Hospital Course (1) Abdominal pain: (2) Headache: (3) Abdominal wall hernia: UTI This is a 70-year-old female who presents with abdominal pain and headache. 1. Headache and abdominal pain: Headache ongoing for 1 week and abdominal pain for a couple of weeks, and she was found to have urinary tract infection, likely UTI contributing. Started Rocephin on admission, will cont. for now. U cultx - E. coli - pansensitive CT of the head unremarkable. CT of the abdomen - IMPRESSION: 1. Midline ventral hernia in the supraumbilical region containing nondilated loops of bowel and small amount of fluid. No evidence of bowel obstruction. 2. Liver cirrhosis associated with splenomegaly, mild ascites and multiple varices. 3. Atherosclerosis. 4. Slightly prominent retroperitoneal lymph nodes. Please correlate above- mentioned findings was prior history of malignancy. We will monitor in the medical floor. 12/09 -clinically patient much improved. Yesterday patient quite drowsy with abdominal discomfort. Now she is awake, alert and abdominal pain seems to be resolved. She is still complaining of some headache (but seems improved). Currently on clear liquid diet, will advance to full liquid and advance throughout the day as tolerated Continue treatment for UTI with Rocephin 12/10 Patient denies any headache or abdominal pain Tolerating diet Will discharge on cefuroxime for UTI We will arrange follow-up for the patient, to follow-up on UTI, and also lymph nodes found on CT 2. Hypoxia: The patient was desaturated to 85% when she walked in the ER, otherwise she is saturating fine. CTA chest obtained to rule out any PE and any congestion. IMPRESSION: 1. No pulmonary emboli identified although segmental and subsegmental pulmonary arteries suboptimally assessed due to respiratory motion. 2. No acute process within the chest. 3. Mild cardiomegaly. 4. Cirrhosis with manifestations of portal hypertension including ascites, splenomegaly and varices formation, partially imaged on this exam. Currently pt is hemodynamically stable. Currently breathing on RA comfortably and saturating 94% Walking hallway with nursing staff, without desaturating 3. Hypomagnesemia Mild hypomagnesemia, may be contributing to her headache Replete and monitor, goal magnesium above 2 Will discharge on magnesium oxide 400 daily, follow-up with PCP 4. Obstructive sleep apnea: On CPAP at bedtime. 5. Abdominal discomfort: Ventral hernia, no obstruction on CAT scan, tolerating diet okay. Will consult surgery for further recommendations. Per Surgery- patient appears to be doing better-she does have a known broad- based hernia which is not causing significant obstruction She is at very high risk for any surgical intervention with her history of cirrhosis, ascites, varices, thrombocytopenia and splenomegaly No plan for any surgical intervention Elevated lipase (poss. pancreatitis?), gentle fluids, clear liquid diet Cont. to monitor closely 12/09 - Lipase now normalized, no abd. pain 6. History of liver cirrhosis: Continue her home diuretics of Lasix and spironolactone, and Xifaxan. 7. Neuropathy: Continue gabapentin. 8. Hyperlipidemia: Continue statin. 9. Gastroesophageal reflux disease: Continue omeprazole. 10. Depression: Continue Zoloft. 11. Thrombocytopenia: Most likely secondary to liver cirrhosis.Follow labs. DVT prophylaxis: SCDs for now as the patient has thrombocytopenia. DISPOSITION: Plan to discharge home and follow-up with primary doctor. Total Time Total Time Spent Total Time Spent (In Minutes): 35 Discharge Plan Discharge Items Patient Disposition: Home - Self-Care Reason For Visit: ABDOMINAL PAIN Discharge Diagnosis: UTI headache and abdominal pain Activity: Per Instructions section Non-emergency contact: Primary Care Provider Call non-emergency contact if: you have any medication questions and your symptoms worsen Follow-up/Referrals: Filomena Monson DO [Primary Care Provider] - (Date & Time 12/14/2020 11:50 AM Provider Filomena Monson DO Department Family [facility] [place] ) Diet: Low Fat Addtl Attending Provider Instructions: Follow-up with your primary care doctor, the appointment was scheduled for you for 12/14/2020. Finish the antibiotic treatment, with cefuroxime, for urinary tract infection. Your magnesium level has been on the lower side while in the hospital, recommend taking magnesium oxide daily. Follow-up with your primary care doctor on your magnesium level. Prescription for magnesium oxide supplement was sent to your pharmacy. Pending Studies at Discharge: Yes Studies:: Anaplasma DNA pending Stand-Alone Forms: My [facility] Rootless, Smoking Cessation Medications and DC Order Prescriptions: New magnesium oxide 420 mg tablet 420 mg PO DAILY Qty: 14 RF: 0 cefuroxime axetil 250 mg tablet 250 mg PO BID 7 Days Qty: 14 RF: 0 Continued atorvastatin [Lipitor] 80 mg tablet 80 mg PO QAM RF: 0 sertraline [Zoloft] 100 mg Tablet 100 mg PO QAM RF: 0 omeprazole 40 mg capsule,delayed release(DR/EC) 40 mg PO QAM RF: 0 indomethacin 25 mg capsule 25 mg PO TID PRN (Reason: Pain) RF: 0 gabapentin [Neurontin] 300 mg capsule 300 mg PO BID RF: 0 furosemide [Lasix] 20 mg tablet 20 mg PO QAM RF: 0 spironolactone [Aldactone] 50 mg tablet 50 mg PO QAM RF: 0 cholecalciferol (vitamin D3) [Vitamin D3] 25 mcg (1,000 unit) Tablet 50 mcg PO QAM RF: 0 Xifaxan 550 mg tablet 550 mg PO BID RF: 0 Discharge Orders: Discharge Order (Routine); Ordered 12/10/20 Ordered By: Gonzalo Kate Admission Data Admit Date/Time: 12/07/20 23:03 Attending Provider: Gonzalo Kate Admit Provider: Trent Huber Primary Care Provider: Filomena Monson Other Providers: Lio Salvador ; Alexys Mckenzie ; Meaghan Moffett ; Leah Dias ; Raymundo Boswell ; Ricardo Dey ; Jennifer Saravia ; Argelia Oglesby ; Juan Winn Jr ; Cierra Madsen ; Pato Greer ; Eleni Orellana
== END 2020-12-10 14:30 | disposition home or self-care (01) | DRG 689 ==
LOC: ED 16:18 → 3W 23:03
DX: K74.60 Unspecified cirrhosis of liver; E83.42 Hypomagnesemia; R18.8 Other ascites; N39.0 Urinary tract infection, site not specified; G47.33 Obstructive sleep apnea (adult) (pediatric); I70.90 Unspecified atherosclerosis; Z82.49 Family history of ischemic heart disease and other diseases of the circulatory system; Z79.899 Other long term (current) drug therapy; K58.0 Irritable bowel syndrome with diarrhea; K76.89 Other specified diseases of liver; K21.9 Gastro-esophageal reflux disease without esophagitis; R16.1 Splenomegaly, not elsewhere classified; B96.20 Unspecified Escherichia coli [E. coli] as the cause of diseases classified elsewhere; G62.9 Polyneuropathy, unspecified; Z90.49 Acquired absence of other specified parts of digestive tract; R51.9 Headache, unspecified; K85.90 Acute pancreatitis without necrosis or infection, unspecified; R09.02 Hypoxemia; E78.5 Hyperlipidemia, unspecified; M19.90 Unspecified osteoarthritis, unspecified site; F32.9 Major depressive disorder, single episode, unspecified; K43.9 Ventral hernia without obstruction or gangrene; I87.2 Venous insufficiency (chronic) (peripheral); Z87.891 Personal history of nicotine dependence

== ENCOUNTER 2021-01-02 14:55 | Inpatient (IN) ==
[2021-01-02] MEDS ORDERED: OPTIRAY 320 125ml IV ONE (15:14)
--- NOTE | 2021-01-02 15:17 | Emergency Department Note ---
History of Present Illness General Chief complaint: Fall Stated complaint: Fall Time Seen by Provider: 01/02/21 14:56 Source: patient Limitations: altered mental status History of Present Illness Provider complaint: Fall with knee pain Location: knee, left and right Severity: mild Quality: + dull Exacerbated By: + movement Associated symptoms: no chest pain, no cough, no fever/chills, no headaches, no nausea/vomiting or no shortness of breath This is a 70-year-old female brought in by EMS after a fall today. I did obtain history from the utilization manager as the patient is confused and has ongoing memory issues. I also obtain history from her son. Apparently the patient fell in her bathroom. She is not sure how she fell. She states that she was dizzy but does not know when she started feeling dizzy. She did hit her knees. She complains of pain to both knees. She describes it as dull. It is worse when she moves it. She denies any hip pain. She denies any pain to her upper extremities or shoulders or head or neck. She does not know she passed out. She denies having any recent fever, nausea, vomiting, chest pain, shortness of breath, abdominal pain, vomiting, black or bloody stools or diarrhea. She states she has urinary incontinence but denies any other urinary symptoms. Her son states that she has a history of WALTERS and is not on lactulose because she has normal bowel movements. Home Medications Medication Instructions Recorded Confirmed Type atorvastatin 80 mg tablet (Lipitor) 80 mg PO QAM 12/07/20 01/02/21 History cholecalciferol (vitamin D3) 25 50 mcg PO QAM 12/07/20 01/02/21 History mcg (1,000 unit) tablet (Vitamin D3) furosemide 20 mg tablet (Lasix) 40 mg PO BID 12/07/20 01/02/21 History gabapentin 300 mg capsule 300 mg PO BID 12/07/20 01/02/21 History (Neurontin) indomethacin 25 mg capsule 25 mg PO TID PRN 12/07/20 01/02/21 History omeprazole 40 mg capsule,delayed 40 mg PO QAM 12/07/20 01/02/21 History release rifaximin 550 mg tablet (Xifaxan) 550 mg PO BID 12/07/20 01/02/21 History sertraline 100 mg tablet (Zoloft) 100 mg PO QAM 12/07/20 01/02/21 History spironolactone 50 mg tablet 50 mg PO QAM 12/07/20 01/02/21 History (Aldactone) magnesium oxide 420 mg tablet 420 mg PO DAILY #14 tab 12/10/20 01/02/21 Rx Allergies Allergy/AdvReac Type Severity Reaction Status Date / Time No Known Allergies Allergy Unverified 01/02/21 15:14 Past Med/Surg History Medical History (Updated 01/02/21 @ 19:24 by German Colunga MD) Hyperlipidemia WALTERS (nonalcoholic steatohepatitis) Osteoporosis Surgical History (Updated 12/08/20 @ 05:30 by Familia Winn PA-C) History of hernia repair Social History Smoking Status: Never smoker Second Hand Exposure: No; Hx Alcohol Use: Yes Alcohol type: beer Hx Substance Use: No Preferred Language: [place] Communication Ability: Effective Medical Scribe Required: No Beliefs That Will Affect Care: Protestant Protestant Beliefs: Muslim. Current Living Situation: Alone and Personal Care Facility Feels Safe at Home: Yes Assistive Devices: Glasses Review of Systems See HPI for pertinent positives & negatives. and A total of 10 systems reviewed and were otherwise negative (Questionable reliability due to her mental status) Physical Exam Vital Signs Vital Signs - 24 hr 01/02/21 14:43 01/02/21 15:33 01/02/21 16:00 Temperature 36.9 C Temperature Source Oral Pulse Rate 95 H 92 H 97 H Pulse Rate from SpO2 Sensor 92 H 97 H Pulse Rhythm Regular Pulse Strength Normal Respiratory Rate 24 28 H 21 Respiratory Effort / Characteristics Non-Labored Spontaneous Respiratory Depth Normal Respiratory Pattern Regular Blood Pressure 134/72 134/72 132/69 Blood Pressure Mean 92 92 90 Blood Pressure Position Lying Pulse Oximetry 98 99 97 Oxygen Delivery Method Room Air Sepsis Recent Fever Within 48 Hours No Sepsis New/Unexplained Change in Mental Status Yes Sepsis Action Taken by Nursing No Action Required 01/02/21 17:02 01/02/21 17:30 01/02/21 18:00 Temperature Temperature Source Pulse Rate 91 H 90 92 H Pulse Rate from SpO2 Sensor 91 H 89 92 H Pulse Rhythm Pulse Strength Respiratory Rate 18 18 24 Respiratory Effort / Characteristics Respiratory Depth Respiratory Pattern Blood Pressure 132/78 140/97 Blood Pressure Mean 96 111 Blood Pressure Position Pulse Oximetry 97 96 97 Oxygen Delivery Method Sepsis Recent Fever Within 48 Hours Sepsis New/Unexplained Change in Mental Status Sepsis Action Taken by Nursing 01/02/21 18:30 01/02/21 19:01 Temperature Temperature Source Pulse Rate 91 H 92 H Pulse Rate from SpO2 Sensor 91 H 92 H Pulse Rhythm Pulse Strength Respiratory Rate 24 19 Respiratory Effort / Characteristics Respiratory Depth Respiratory Pattern Blood Pressure 140/79 110/54 L Blood Pressure Mean 99 72 Blood Pressure Position Pulse Oximetry 97 97 Oxygen Delivery Method Sepsis Recent Fever Within 48 Hours Sepsis New/Unexplained Change in Mental Status Sepsis Action Taken by Nursing Constitutional: Vital signs reviewed. Eyes: Pupils are equal round reactive to light. Conjunctiva are noninjected. ENT: Pharynx is clear without erythema or exudate. Mucous membranes are moist. Neck supple without meningeal signs. Respiratory: Clear to auscultation bilaterally. Breath sounds are equal bilaterally. Cardiovascular: Regular rate and rhythm. No rubs or gallops. GI: Soft, nondistended and nontender. Bowel sounds are present. Musculoskeletal: No peripheral edema. No hip tenderness. Tenderness to both knees bilaterally with slight swelling of the right side. Integumentary: No cyanosis. or jaundice. Neurologic: The patient is awake and alert. She is not oriented to person place or date. Cranial nerves II-XII are intact. Motor is 5 out of 5 all extremities. Sensation is intact to light touch all extremities. Normal speech. No pronator drift. No limb ataxia. Psychiatric: Normal affect. Not anxious appearing. Course Administered Medications Discontinued Medications Magnesium Sulfate/Dextrose (Magnesium Sulfate / D5w) 1 gm in 100 mls @ 100 mls/hr IV Q1H [facility] Stop: 01/02/21 19:13 Last Admin: 01/02/21 18:37 Dose: 100 mls/hr Documented by: [id number] Infusion: 01/02/21 18:36 Dose: 0 mls/hr Documented by: [id number] Admin: 01/02/21 17:22 Dose: 100 mls/hr Documented by: [id number] Ioversol (Optiray 320 125ml) 120 ml IV ONCE ONE Stop: 01/02/21 15:15 Last Admin: 01/02/21 15:14 Dose: 120 ml Documented by: [id number] Medical Decision Making Differential Diagnosis CVA, ICH, concussion, intracranial mass, metabolic derangement, encephalopathy Medical Records Attestation: I reviewed the patient's medical records. I did perform a limited focused review of portions of the patient's old chart on the electronic medical record. The patient was just admitted to the hospital last month for abdominal pain, UTI and headache. She was noted to be alert and oriented x3 on examination by the hospitalist. Home Medications Current Medication List: was personally reviewed by me Laboratory Data Attestation: I reviewed the patient's lab results. Result diagrams: 01/02/21 15:19 01/02/21 15:19 Lab Results 01/02/21 01/02/21 01/02/21 Range/Units 15:19 15:19 15:19 WBC 5.08 (4.8-10.8) K/uL RBC 4.03 L (4.2-5.4) M/uL Hgb 12.3 (12.0-16.0) g/dL Hct 37.5 (37-47) % MCV 93.1 (80-100) fL MCH 30.5 (25-34) pg MCHC 32.8 (32-36) g/dL RDW Std Deviation 50.1 H (36.4-46.3) fL RDW Coeff of Blanca 14.9 H (11.5-14.5) % Plt Count 73 L (130-400) K/uL MPV 13.0 H (7.4-10.4) fL Immature Gran % (Auto) 0.0 % Neut % (Auto) 64.3 % Lymph % (Auto) 20.3 % Mclennan % (Auto) 12.8 % Eos % (Auto) 2.2 % Baso % (Auto) 0.4 % Neut # (Auto) 3.27 (1.4-6.5) K/uL Lymph # (Auto) 1.03 L (1.2-3.4) K/uL Mclennan # (Auto) 0.65 H (0.11-0.59) K/uL Eos # (Auto) 0.11 (0-0.5) K/uL Baso # (Auto) 0.02 (0-0.2) K/uL Immature Gran # (Auto) 0.00 (0.00-0.02) K/uL Polychromasia 1+ PT 13.5 H (9.0-12.0) Seconds INR 1.4 H (0.9-1.1) APTT 26.8 (21.0-31.0) Seconds PTT Ratio 1.0 ABG pH (7.35-7.45) ABG pCO2 (35-46) mmHg ABG pO2 (80-95) mmHg ABG HCO3 (19-24) mmol/L ABG O2 Saturation (90-95) % ABG Base Excess (-9-1.8) mEq/L Leo Test (Pos) Barometric Pressure mm/Hg Oxygen Given Sodium 141 (136-145) mmol/L Potassium 3.6 (3.5-5.1) mmol/L Chloride 111 H (98-107) mmol/L Carbon Dioxide 27 (21-32) mmol/L Anion Gap 3.0 (3-11) BUN 16 (7-18) mg/dl Creatinine 0.56 L (0.6-1.2) mg/dl Est Cr Clr Drug Dosing Not Reportable Est GFR ( Amer) 110.3 ml/min Est GFR (Non-Af Amer) 95.1 ml/min BUN/Creatinine Ratio 28.1 H (10-20) Glucose 83 (70-99) mg/dl Calcium 8.6 (8.5-10.1) mg/dl Magnesium 1.3 L (1.8-2.4) mg/dl Total Bilirubin 2.0 H (0.2-1) mg/dl AST 103 H (15-37) U/L ALT 72 (12-78) U/L Alkaline Phosphatase 120 H (45-117) U/L Ammonia (11-32) umol/L Troponin I < 0.015 (0-0.045) ng/ml Total Protein 5.7 L (6.4-8.2) gm/dl Albumin 3.1 L (3.4-5.0) gm/dl Globulin 2.6 (2.5-4.0) gm/dl Albumin/Globulin Ratio 1.2 (0.9-2) COVID-19 Eval Order SARS-CoV-2 (PCR) (Negative) Blood Type Antibody Screen 01/02/21 01/02/21 01/02/21 Range/Units 15:45 15:45 17:33 WBC (4.8-10.8) K/uL RBC (4.2-5.4) M/uL Hgb (12.0-16.0) g/dL Hct (37-47) % MCV (80-100) fL MCH (25-34) pg MCHC (32-36) g/dL RDW Std Deviation (36.4-46.3) fL RDW Coeff of Blanca (11.5-14.5) % Plt Count (130-400) K/uL MPV (7.4-10.4) fL Immature Gran % (Auto) % Neut % (Auto) % Lymph % (Auto) % Mclennan % (Auto) % Eos % (Auto) % Baso % (Auto) % Neut # (Auto) (1.4-6.5) K/uL Lymph # (Auto) (1.2-3.4) K/uL Mclennan # (Auto) (0.11-0.59) K/uL Eos # (Auto) (0-0.5) K/uL Baso # (Auto) (0-0.2) K/uL Immature Gran # (Auto) (0.00-0.02) K/uL Polychromasia PT (9.0-12.0) Seconds INR (0.9-1.1) APTT (21.0-31.0) Seconds PTT Ratio ABG pH (7.35-7.45) ABG pCO2 (35-46) mmHg ABG pO2 (80-95) mmHg ABG HCO3 (19-24) mmol/L ABG O2 Saturation (90-95) % ABG Base Excess (-9-1.8) mEq/L Leo Test (Pos) Barometric Pressure mm/Hg Oxygen Given Sodium (136-145) mmol/L Potassium (3.5-5.1) mmol/L Chloride (98-107) mmol/L Carbon Dioxide (21-32) mmol/L Anion Gap (3-11) BUN (7-18) mg/dl Creatinine (0.6-1.2) mg/dl Est Cr Clr Drug Dosing Est GFR ( Amer) ml/min Est GFR (Non-Af Amer) ml/min BUN/Creatinine Ratio (10-20) Glucose (70-99) mg/dl Calcium (8.5-10.1) mg/dl Magnesium (1.8-2.4) mg/dl Total Bilirubin (0.2-1) mg/dl AST (15-37) U/L ALT (12-78) U/L Alkaline Phosphatase (45-117) U/L Ammonia 48.6 H (11-32) umol/L Troponin I (0-0.045) ng/ml Total Protein (6.4-8.2) gm/dl Albumin (3.4-5.0) gm/dl Globulin (2.5-4.0) gm/dl Albumin/Globulin Ratio (0.9-2) COVID-19 Eval Order Covid19 at [facility] SARS-CoV-2 (PCR) (Negative) Blood Type A Positive Antibody Screen NEGATIVE 01/02/21 01/02/21 Range/Units 17:33 18:24 WBC (4.8-10.8) K/uL RBC (4.2-5.4) M/uL Hgb (12.0-16.0) g/dL Hct (37-47) % MCV (80-100) fL MCH (25-34) pg MCHC (32-36) g/dL RDW Std Deviation (36.4-46.3) fL RDW Coeff of Blanca (11.5-14.5) % Plt Count (130-400) K/uL MPV (7.4-10.4) fL Immature Gran % (Auto) % Neut % (Auto) % Lymph % (Auto) % Mclennan % (Auto) % Eos % (Auto) % Baso % (Auto) % Neut # (Auto) (1.4-6.5) K/uL Lymph # (Auto) (1.2-3.4) K/uL Mclennan # (Auto) (0.11-0.59) K/uL Eos # (Auto) (0-0.5) K/uL Baso # (Auto) (0-0.2) K/uL Immature Gran # (Auto) (0.00-0.02) K/uL Polychromasia PT (9.0-12.0) Seconds INR (0.9-1.1) APTT (21.0-31.0) Seconds PTT Ratio ABG pH 7.42 (7.35-7.45) ABG pCO2 44 (35-46) mmHg ABG pO2 78 L (80-95) mmHg ABG HCO3 28 H (19-24) mmol/L ABG O2 Saturation 95.9 H (90-95) % ABG Base Excess 3.2 H (-9-1.8) mEq/L Leo Test Pos (Pos) Barometric Pressure 731.0 mm/Hg Oxygen Given RA Sodium (136-145) mmol/L Potassium (3.5-5.1) mmol/L Chloride (98-107) mmol/L Carbon Dioxide (21-32) mmol/L Anion Gap (3-11) BUN (7-18) mg/dl Creatinine (0.6-1.2) mg/dl Est Cr Clr Drug Dosing Est GFR ( Amer) ml/min Est GFR (Non-Af Amer) ml/min BUN/Creatinine Ratio (10-20) Glucose (70-99) mg/dl Calcium (8.5-10.1) mg/dl Magnesium (1.8-2.4) mg/dl Total Bilirubin (0.2-1) mg/dl AST (15-37) U/L ALT (12-78) U/L Alkaline Phosphatase (45-117) U/L Ammonia (11-32) umol/L Troponin I (0-0.045) ng/ml Total Protein (6.4-8.2) gm/dl Albumin (3.4-5.0) gm/dl Globulin (2.5-4.0) gm/dl Albumin/Globulin Ratio (0.9-2) COVID-19 Eval Order SARS-CoV-2 (PCR) NEGATIVE (Negative) Blood Type Antibody Screen Imaging Data Radiologist's Impression: Head CT 01/02/21 15:[address] OF THE BRAIN; CT ANGIOGRAM OF THE BRAIN; CT ANGIOGRAM OF THE NECK CLINICAL HISTORY: Change in mental status. Strokelike symptoms. COMPARISON STUDY: CT of the brain 12/07/2020. TECHNIQUE: Unenhanced axial CT scan of the brain is performed. Subsequently, following the IV administration of 120 of Optiray 320, CT angiogram of the head and neck was performed from the aortic arch to the vertex. Images are reviewed in the axial, sagittal, and coronal planes. 3-D MIPS images are created and assessed. IV contrast was administered without complication. All measurements were calculated based on NASCET criteria. A dose lowering technique was utilized adhering to the principles of ALARA. CT DOSE: 1128.50 mGy.cm FINDINGS: Brain parenchyma: There is age-related involutional change noting minimal subcortical and periventricular microangiopathic disease. There is no hemorrhage, mass effect, or evidence of acute territorial ischemia by CT cri teria. There is no evidence of enhancing mass lesion on the angiogram phase images. The ventricles, sulci, and cisterns are prominent secondary to involutional change. Weems-white matter differentiation is preserved. No extra- axial fluid collection is seen. Thoracic aorta: There is atherosclerotic calcification of the thoracic aorta. Visualized portions of the thoracic aorta are normal in caliber. The aortic arch demonstrates bovine variant anatomy. Right carotid arterial system: The right common carotid artery is widely patent, as are the right internal and external carotid arteries. Calcified plaque is seen in the carotid bulb. Left carotid arterial system: The left common carotid artery is widely patent, as are the left internal and external carotid arteries. Calcified plaque is noted in the carotid bulb. Vertebral arteries: Vertebral arteries are widely patent bilaterally and codo minant. Subclavian arteries: Widely patent bilaterally. Intracranial vasculature: There is atherosclerotic calcification of the cavernous carotid arteries. The internal carotid arteries are patent at the skull base, as are the anterior and middle cerebral arteries bilaterally. The vertebrobasilar system and posterior cerebral arteries are widely patent. The vertebral arteries are codominant. There is no aneurysm, high-grade stenosis, or focal vessel cut off seen throughout the intracranial circulation. Jugular veins: Patent bilaterally. Dural sinuses: Patent. Lung apices: Partially visualized upper lobe lung parenchyma appears clear. Soft tissues: The visualized pharyngeal soft tissues are normal in appearance noting angiographic phase technique. The oropharyngeal airway appears widely patent. The salivary and thyroid glands are normal in appearance. No cervical lymphadenopathy is seen. Skeletal structures: The skeletal structures are osteopenic. The calvarium appears intact. The cervical spine is within normal limits. No lytic or blastic lesion is seen. Orbits: The bony orbits are intact. Orbital contents are normal as visualized noting bilateral ocular lens implants. Sinuses and mastoids: The paranasal sinuses are clear. The mastoid air cells are well pneumatized. IMPRESSION: 1. There is no hemorrhage, mass effect, or evidence of acute territorial ischemia by CT criteria. 2. Unremarkable CT angiogram of the brain. 3. Unremarkable CT angiogram of the neck. ACT 112: Negative or not required by law. Electronically signed by: Edi Ingram M.D. 01/02/2021 3:42 PM Head CTA 01/02/21 15:[address] OF THE BRAIN; CT ANGIOGRAM OF THE BRAIN; CT ANGIOGRAM OF THE NECK CLINICAL HISTORY: Change in mental status. Strokelike symptoms. COMPARISON STUDY: CT of the brain 12/07/2020. TECHNIQUE: Unenhanced axial CT scan of the brain is performed. Subsequently, following the IV administration of 120 of Optiray 320, CT angiogram of the head and neck was performed from the aortic arch to the vertex. Images are reviewed in the axial, sagittal, and coronal planes. 3-D MIPS images are created and assessed. IV contrast was administered without complication. All measurements were calculated based on NASCET criteria. A dose lowering technique was utilized adhering to the principles of ALARA. CT DOSE: 1128.50 mGy.cm FINDINGS: Brain parenchyma: There is age-related involutional change noting minimal subcortical and periventricular microangiopathic disease. There is no hemorrhage, mass effect, or evidence of acute territorial ischemia by CT criteria. There is no evidence of enhancing mass lesion on the angiogram phase images. The ventricles, sulci, and cisterns are prominent secondary to involut ional change. Weems-white matter differentiation is preserved. No extra-axial fluid collection is seen. Thoracic aorta: There is atherosclerotic calcification of the thoracic aorta. Visualized portions of the thoracic aorta are normal in caliber. The aortic arch demonstrates bovine variant anatomy. Right carotid arterial system: The right common carotid artery is widely patent, as are the right internal and external carotid arteries. Calcified plaque is seen in the carotid bulb. Left carotid arterial system: The left common carotid artery is widely patent, as are the left internal and external carotid arteries. Calcified plaque is noted in the carotid bulb. Vertebral arteries: Vertebral arteries are widely patent bilaterally and codominant. Subclavian arteries: Widely patent bilaterally. Intracranial vasculature: There is atherosclerotic calcification of the cavernous carotid arteries. The internal carotid arteries are patent at the skull base, as are the anterior and middle cerebral arteries bilaterally. The vertebrobasilar system and posterior cerebral arteries are widely patent. The vertebral arteries are codominant. There is no aneurysm, high-grade stenosis, or focal vessel cut off seen throughout the intracranial circulation. Jugular veins: Patent bilaterally. Dural sinuses: Patent. Lung apices: Partially visualized upper lobe lung parenchyma appears clear. Soft tissues: The visualized pharyngeal soft tissues are normal in appearance noting angiographic phase technique. The oropharyngeal airway appears widely p atent. The salivary and thyroid glands are normal in appearance. No cervical lymphadenopathy is seen. Skeletal structures: The skeletal structures are osteopenic. The calvarium appears intact. The cervical spine is within normal limits. No lytic or blastic lesion is seen. Orbits: The bony orbits are intact. Orbital contents are normal as visualized noting bilateral ocular lens implants. Sinuses and mastoids: The paranasal sinuses are clear. The mastoid air cells are well pneumatized. IMPRESSION: 1. There is no hemorrhage, mass effect, or evidence of acute territorial ischemia by CT criteria. 2. Unremarkable CT angiogram of the brain. 3. Unremarkable CT angiogram of the neck. ACT 112: Negative or not required by law. Electronically signed by: Edi Ingram M.D. 01/02/2021 3:42 PM Neck CTA 01/02/21 15:[address] OF THE BRAIN; CT ANGIOGRAM OF THE BRAIN; CT ANGIOGRAM OF THE NECK CLINICAL HISTORY: Change in mental status. Strokelike symptoms. COMPARISON STUDY: CT of the brain 12/07/2020. TECHNIQUE: Unenhanced axial CT scan of the brain is performed. Subsequently, following the IV administration of 120 of Optiray 320, CT angiogram of the head and neck was performed from the aortic arch to the vertex. Images are reviewed in the axial, sagittal, and coronal planes. 3-D MIPS images are created and assessed. IV contrast was administered without complication. All measurements were calculated based on NASCET criteria. A dose lowering technique was utilized adhering to the principles of ALARA. CT DOSE: 1128.50 mGy.cm FINDINGS: Brain parenchyma: There is age-related involutional change noting minimal subcortical and periventricular microangiopathic disease. There is no hemorrhage, mass effect, or evidence of acute territorial ischemia by CT criteria. There is no evidence of enhancing mass lesion on the angiogram phase images. The ventricles, sulci, and cisterns are prominent secondary to involutional change. Weems-white matter differentiation is preserved. No extra- axial fluid collection is seen. Thoracic aorta: There is atherosclerotic calcification of the thoracic aorta. Visualized portions of the thoracic aorta are normal in caliber. The aortic arch demonstrates bovine variant anatomy. Right carotid arterial system: The right common carotid artery is widely patent, as are the right internal and external carotid arteries. Calcified plaque is seen in the carotid bulb. Left carotid arterial system: The left common carotid artery is widely patent, as are the left internal and external carotid arteries. Calcified plaque is noted in the carotid bulb. Vertebral arteries: Vertebral arteries are widely patent bilaterally and codominant. Subclavian arteries: Widely patent bilaterally. Intracranial vasculature: There is atherosclerotic calcification of the cavernous carotid arteries. The internal carotid arteries are patent at the skull base, as are the anterior and middle cerebral arteries bilaterally. The vertebrobasilar system and posterior cerebral arteries are widely patent. The vertebral arteries are codominant. There is no aneurysm, high-grade stenosis, or focal vessel cut off seen throughout the intracranial circulation. Jugular veins: Patent bilaterally. Dural sinuses: Patent. Lung apices: Partially visualized upper lobe lung parenchyma appears clear. Soft tissues: The visualized pharyngeal soft tissues are normal in appearance noting angiographic phase technique. The oropharyngeal airway appears widely patent. The salivary and thyroid glands are normal in appearance. No cervical lymphadenopathy is seen. Skeletal structures: The skeletal structures are osteopenic. The calvarium appears intact. The cervical spine is within normal limits. No lytic or blastic lesion is seen. Orbits: The bony orbits are intact. Orbital contents are normal as visualized noting bilateral ocular lens implants. Sinuses and mastoids: The paranasal sinuses are clear. The mastoid air cells are well pneumatized. IMPRESSION: 1. There is no hemorrhage, mass effect, or evidence of acute territorial ischemia by CT criteria. 2. Unremarkable CT angiogram of the brain. 3. Unremarkable CT angiogram of the neck. ACT 112: Negative or not required by law. Electronically signed by: Edi Ingram M.D. 01/02/2021 3:42 PM Knee X-Ray 01/02/21 15:18 XR knee LT 3V, XR knee RT 3V CLINICAL HISTORY: Fall. Bilateral knee pain. COMPARISON STUDY: None. FINDINGS: No fracture or dislocation within the right or left knee. There are moderate bilateral knee effusions. Bilateral chondrocalcinosis. Severe cartilage space narrowing within the medial compartments of the knee. There are tricompartmental marginal osteophytes. There is also severe cartilage space narrowing with [id number] articulation within the patellofemoral joints most pronounced laterally. There is mild lateral subluxation of the bilateral patellae. IMPRESSION: 1. No acute fractures within the right or left knee. 2. Moderate bilateral knee effusions. 3. 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 This most pronounced within the patellofemoral joints. ACT 112: Negative or not required by law. Electronically signed by: Jeyson Adams M.D. 01/02/2021 4:23 PM Knee X-Ray 01/02/21 15:18 XR knee LT 3V, XR knee RT 3V CLINICAL HISTORY: Fall. Bilateral knee pain. COMPARISON STUDY: None. FINDINGS: No fracture or dislocation within the right or left knee. There are moderate bilateral knee effusions. Bilateral chondrocalcinosis. Severe cartilage space narrowing within the medial compartments of the knee. There are tricompartmental marginal osteophytes. There is also severe cartilage space narrowing with [id number] articulation within the patellofemoral joints most pronounced laterally. There is mild lateral subluxation of the bilateral patellae. IMPRESSION: 1. No acute fractures within the right or left knee. 2. Moderate bilateral knee effusions. 3. 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 This most pronounced within the patellofemoral joints. ACT 112: Negative or not required by law. Electronically signed by: Jeyson Adams M.D. 01/02/2021 4:23 PM ECG Data Attestation: I personally reviewed and interpreted this ECG as follows: Indication: + altered mental status Rate (beats per minute): 91 Rhythm: + normal sinus ECG [place]: + Normal ECG ST segments: no ST elevation ECG Findings: no PVCs MDM Narrative I did evaluate the patient as noted above. I did obtain history from the patient as well as EMS as the patient is rather confused. She does not remember how she fell and is not oriented to person, place or time. I did attempt to call the patient's son but could not reach him initially and so I called a stroke alert. Later I was able to get a hold of him and he stated that she does have a history of [place] and hepatic encephalopathy. IV access was established. I did place an order for continuous cardiac monitoring. The monitor showed normal sinus rhythm at a rate of 92 bpm. I did order and personally review the patient's 12-lead EKG as described above. She has no acute ischemic changes on twelve-lead EKG. I did order and personally reviewed the images of the patient's knee x-rays as described above. There is no evidence of fracture or dislocation. I did order a urine analysis. I did order and review the patient's blood work as noted in the electronic medical record. Her white blood cell count is not elevated. She is not anemic. Platelet count is chronically low at 73. Electrolytes are unremarkable other than a chloride of 111 and magnesium of 1.3. She was given 2 g of magnesium IV. Her AST is elevated at 103 with a total bili of 2. Her ammonia is 48.6. Troponin is negative. I did order a CT of the head and CT angiogram of the head and neck. I did review the images myself as well as the radiology report as described above. There is no evidence of acute stroke or abnormality. No significant abnormality on angiogram. I did reassess the patient and talked to the patient and her son about her test results. She has no asterixis on examination. She seems less confused at this time. She is oriented to person and place but not time. I did recommend hospitalization for further care and evaluation. I did discuss the case with the hospitalist and egg caser. Screening Covid test is negative. Impression & Plan Acute alteration in mental status, Thrombocytopenia, Hypomagnesemia, Hyperammonemia, Fall, Acute bilateral knee pain Discharge Plan Visit Data Chief Complaint: Fall Stated Complaint: Fall ED Provider: [facility] [place] Discharge Problem: Acute alteration in mental status, Thrombocytopenia, Hypomagnesemia, Hyperammonemia, Fall, Acute bilateral knee pain Patient Disposition: Being Evaluated by Hospitalist Forms Stand Alone Forms: My [facility] [employer] Prescriptions Prescriptions: No Action atorvastatin [Lipitor] 80 mg tablet 80 mg PO QAM RF: 0 sertraline [Zoloft] 100 mg Tablet 100 mg PO QAM RF: 0 omeprazole 40 mg capsule,delayed release(DR/EC) 40 mg PO QAM RF: 0 indomethacin 25 mg capsule 25 mg PO TID PRN (Reason: Pain) RF: 0 gabapentin [Neurontin] 300 mg capsule 300 mg PO BID RF: 0 furosemide [Lasix] 20 mg tablet 40 mg PO BID RF: 0 spironolactone [Aldactone] 50 mg tablet 50 mg PO QAM RF: 0 cholecalciferol (vitamin D3) [Vitamin D3] 25 mcg (1,000 unit) Tablet 50 mcg PO QAM RF: 0 Xifaxan 550 mg tablet 550 mg PO BID RF: 0 magnesium oxide 420 mg tablet 420 mg PO DAILY Qty: 14 RF: 0 Referrals Referrals: Filomena Monson DO [Primary Care Provider] -
--- NOTE | 2021-01-02 15:43 | CT Scan Report ---
UNENHANCED CT OF THE BRAIN; CT ANGIOGRAM OF THE BRAIN; CT ANGIOGRAM OF THE NECK CLINICAL HISTORY: Change in mental status. Strokelike symptoms. COMPARISON STUDY: CT of the brain 12/07/2020. TECHNIQUE: Unenhanced axial CT scan of the brain is performed. Subsequently, following the IV adminis tration of 120 of [address] 320, CT angiogram of the head and neck was performed from the aortic arch t o the vertex. Images are reviewed in the axial, sagittal, and coronal planes. 3-D MIPS images are cre ated and assessed. IV contrast was administered without complication. All measurements were calculate d based on NASCET criteria. A dose lowering technique was utilized adhering to the principles of ALA RA. CT DOSE: 1128.50 mGy.cm FINDINGS: Brain parenchyma: There is age-related involutional change noting minimal subcortical and periventric ular microangiopathic disease. There is no hemorrhage, mass effect, or evidence of acute territorial ischemia by CT criteria. There is no evidence of enhancing mass lesion on the angiogram phase images. The ventricles, sulci, and cisterns are prominent secondary to involutional change. Weems-white matte r differentiation is preserved. No extra-axial fluid collection is seen. Thoracic aorta: There is atherosclerotic calcification of the thoracic aorta. Visualized portions of the thoracic aorta are normal in caliber. The aortic arch demonstrates bovine variant anatomy. Right carotid arterial system: The right common carotid artery is widely patent, as are the right int ernal and external carotid arteries. Calcified plaque is seen in the carotid bulb. Left carotid arterial system: The left common carotid artery is widely patent, as are the left corporate development intern al and external carotid arteries. Calcified plaque is noted in the carotid bulb. Vertebral arteries: Vertebral arteries are widely patent bilaterally and codominant. Subclavian arteries: Widely patent bilaterally. Intracranial vasculature: There is atherosclerotic calcification of the cavernous carotid arteries. T he internal carotid arteries are patent at the skull base, as are the anterior and middle cerebral ar teries bilaterally. The vertebrobasilar system and posterior cerebral arteries are widely patent. The vertebral arteries are codominant. There is no aneurysm, high-grade stenosis, or focal vessel cut of f seen throughout the intracranial circulation. Jugular veins: Patent bilaterally. Dural sinuses: Patent. Lung apices: Partially visualized upper lobe lung parenchyma appears clear. Soft tissues: The visualized pharyngeal soft tissues are normal in appearance noting angiographic pha se technique. The oropharyngeal airway appears widely patent. The salivary and thyroid glands are nor mal in appearance. No cervical lymphadenopathy is seen. Skeletal structures: The skeletal structures are osteopenic. The calvarium appears intact. The cervic al spine is within normal limits. No lytic or blastic lesion is seen. Orbits: The bony orbits are intact. Orbital contents are normal as visualized noting bilateral ocular lens implants. Sinuses and mastoids: The paranasal sinuses are clear. The mastoid air cells are well pneumatized. IMPRESSION: 1. There is no hemorrhage, mass effect, or evidence of acute territorial ischemia by CT criteria. 2. Unremarkable CT angiogram of the brain. 3. Unremarkable CT angiogram of the neck. ACT 112: Negative or not required by law. Electronically signed by: Edi Ingram M.D. 01/02/2021 3:42 PM
[2021-01-02 15:55] LABS: INR 1.4 (0.9-1.1); Partial Thromboplastin Time 26.8 Seconds (21.0-31.0); Prothrombin Time 13.5 Seconds (9.0-12.0)
[2021-01-02 16:05] LABS: Hematocrit (blood only) 37.5 % (37-47); Hemoglobin 12.3 g/dL (12.0-16.0); Mean Corpuscular Hemoglobin 30.5 pg (25-34); Mean Corpuscular Hgb Conc 32.8 g/dL (32-36); Mean Corpuscular Volume 93.1 fL (80-100); Platelet Count 73 K/uL (130-400); RDW Coefficient of Variation 14.9 % (11.5-14.5); RDW Standard Deviation 50.1 fL (36.4-46.3); Red Blood Count 4.03 M/uL (4.2-5.4); White Blood Count 5.08 K/uL (4.8-10.8)
[2021-01-02 16:06] LABS: Alanine Aminotransferase 72 U/L (12-78); Albumin Globulin Ratio 1.2 (0.9-2); Albumin Level 3.1 gm/dl (3.4-5.0); Alkaline Phosphatase 120 U/L (45-117); BUN Creatinine Ratio 28.1 (10-20); Blood Urea Nitrogen 16 mg/dl (7-18); Calcium 8.6 mg/dl (8.5-10.1); Carbon Dioxide 27 mmol/L (21-32); Chloride 111 mmol/L (98-107); Est GFR (African American) 110.3 ml/min; Est GFR (Non-African American) 95.1 ml/min; Globulin 2.6 gm/dl (2.5-4.0); Glucose 83 mg/dl (70-99); Sodium 141 mmol/L (136-145); Total Protein 5.7 gm/dl (6.4-8.2); Troponin I < 0.015 ng/ml (0-0.045)
[2021-01-02 16:08] LABS: Basophils # (auto) 0.02 K/uL (0-0.2); Basophils % (auto) 0.4 %; Eosinophils # (auto) 0.11 K/uL (0-0.5); Eosinophils % (auto) 2.2 %; Lymphocytes # (auto) 1.03 K/uL (1.2-3.4); Lymphocytes % (auto) 20.3 %; Monocytes # (auto) 0.65 K/uL (0.11-0.59); Monocytes % (auto) 12.8 %; Neutrophils # (auto) 3.27 K/uL (1.4-6.5); Neutrophils % (auto) 64.3 %; Polychromasia 1+
[2021-01-02 16:17] LABS: Potassium 3.6 mmol/L (3.5-5.1)
--- NOTE | 2021-01-02 16:24 | XRay Report ---
XR knee LT 3V, XR knee RT 3V CLINICAL HISTORY: Fall. Bilateral knee pain. COMPARISON STUDY: None. FINDINGS: No fracture or dislocation within the right or left knee. There are moderate bilateral knee effusions. Bilateral chondrocalcinosis. Severe cartilage space narrowing within the medial compartme nts of the knee. There are tricompartmental marginal osteophytes. There is also severe cartilage spac e narrowing with [id number] articulation within the patellofemoral joints most pronounced laterally . There is mild lateral subluxation of the bilateral patellae. IMPRESSION: 1. No acute fractures within the right or left knee. 2. Moderate bilateral knee effusions. 3. 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 This most pro nounced within the patellofemoral joints. ACT 112: Negative or not required by law. Electronically signed by: Jeyson Adams M.D. 01/02/2021 4:23 PM
--- NOTE | 2021-01-02 16:24 | XRay Report ---
XR knee LT 3V, XR knee RT 3V CLINICAL HISTORY: Fall. Bilateral knee pain. COMPARISON STUDY: None. FINDINGS: No fracture or dislocation within the right or left knee. There are moderate bilateral knee effusions. Bilateral chondrocalcinosis. Severe cartilage space narrowing within the medial compartme nts of the knee. There are tricompartmental marginal osteophytes. There is also severe cartilage spac e narrowing with [id number] articulation within the patellofemoral joints most pronounced laterally . There is mild lateral subluxation of the bilateral patellae. IMPRESSION: 1. No acute fractures within the right or left knee. 2. Moderate bilateral knee effusions. 3. 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 This most pro nounced within the patellofemoral joints. ACT 112: Negative or not required by law. Electronically signed by: Jeyson Adams M.D. 01/02/2021 4:23 PM
[2021-01-02 16:28] LABS: Aspartate Aminotransferase 103 U/L (15-37); Magnesium 1.3 mg/dl (1.8-2.4)
--- NOTE | 2021-01-02 17:10 | Electrocardiogram Report ---
Test Reason : Blood Pressure : / mmHG Vent. Rate : 091 BPM Atrial Rate : 091 BPM P-R Int : 168 ms QRS Dur : 092 ms QT Int : 382 ms P-R-T Axes : 060 049 030 degrees QTc Int : 469 ms Poor data quality, interpretation may be adversely affected Normal sinus rhythm Normal ECG When compared with ECG of 07-DEC-2020 20:14, No significant change was found Confirmed by Fredy Amos ([id number]) on 01/02/2021 5:09:51 PM Referred By: Confirmed By:Fredy Amos
--- NOTE | 2021-01-02 17:20 | History & Physical Report ---
Date of Service January 02, 2021 Assessment & Plan (1) Frequent falls: Plan: - Admit to med surg with tele - Fall precautions - PT/OT consults - Concern as the patient lives at home by herself- although in intermediate apartment with call bells, may consider life alert necklace/rehab/placement. - Possibly a bit hypovolemic - recently has increased lasix to 40 mg BID due to BLE, currently no edema - mucous membranes are slightly dry - consider reducing lasix since edema improved. Decrease Lasix to once a day, monitor fluid status closely. Will need to discuss fluid intake with pt prior to discharge. (2) Hepatic encephalopathy: Plan: -Ammonia elevated at 48 on admission, not on lactulose at home, will order lactulose PO for now since awake, oriented to self and place, not time. She was previously on lactulose 4 to 5 months ago routinely however was having 2 bowel movements daily naturally so was taken off of it. After her most recent hospitalization she had loose stools because of antibiotic use. Recently she has had 1 bowel movement daily. Concerned that this is not enough to clear her ammonia, and may consider having lactulose prn to titrate for 2-3 bm daily at home on dc. -Cont spironolactone 50 mg BID, Xifaxan 550 mg BID, and lasix 40 mg daily instead of BID and monitor fluid status closely -CT head is negative for acute event -CTA head and neck -unremarkable -Checking ABG -Checking UA and follow culture (recent history of UTI) (3) LOJA (nonalcoholic steatohepatitis): Plan: - [facility], most recently saw Oliva Mosern on 12/21 - Will discuss with GI further - As above regarding BM - 12/21/20 abd U/S completed with small to moderate free fluid. Will check abdominal ultrasound now. - Follow am LFTs (4) Thrombocytopenia: Plan: - Plt 78 on admission, will follow with daily labs, no signs of spontaneous bleed (5) Hypomagnesemia: Plan: - Mag 1.3 on admission, replaced with 2 G IV, follow with am labs - Takes Mag oxide 400 mg daily po at home. (6) Hyperlipidemia: Plan: - Not on statin thereapy, check lipids with am labs (7) DANNIELLE (obstructive sleep apnea): Plan: - Continue CPAP HS, has outpatient sleep referral pending (8) Ventral hernia: Plan: - hx of such, previously repaired years ago. Large, however due to liver issues has been deemed high risk so not planning on operating on this. (9) Osteoporosis: Plan: Continue vitamin D and calcium replacements DVT PPx: - teds, scds CODE: Full code Dispo: From home, likely to remain in the hospital x 1-2 days History of Present Illness Chief Complaint: Fall, confusion/altered mental status Primary Care Provider: Filomena Monson DO This is a 70-year-old female with PMHx of LOJA cirrhosis, thrombocytopenia, hyperlipidemia, osteoporosis, morbid obesity, DANNIELLE, lumbar DDD, restless leg syndrome, neuropathy, depression, who presents to the ER with report of increased confusion and frequent falls. Her son is present with her at bedside. He notes that landlord told him she walked her dog at approximately 9:30 AM. Patient reports she felt dizzy and fell in the bathroom, but cannot recall about what time or what happened thereafter. Patient is able to state her name and where she is at, however she is unable to tell me the year or month, which per her son is not her normal baseline. Son also reports that she fell yesterday as well. She has been taking her medications as scheduled. Recently her Lasix was doubled to 40 mg twice daily and lost ~30 pounds of fluid within the past 3 weeks since being discharged. Her son notes that her swelling in legs and abdomen is significantly improved. She has been taking spironolactone and Xifaxan as ordered. Patient was on lactulose 4 to 5 months ago but was taken off this because she was having to BM naturally daily, however this past week she has had 1 BM daily. Ammonia level is 48 on admission. She has been eating and drinking well, no other acute complaints. Denies any recent illnesses, travel, or sick contacts. She resides in a personal apartment, intermediate center where there are alarm pools in every room, and does not have a life alert necklace. Allergies Allergy/AdvReac Type Severity Reaction Status Date / Time No Known Allergies Allergy Unverified 01/02/21 15:14 Home Medications Medication Instructions Recorded Confirmed Type atorvastatin 80 mg tablet (Lipitor) 80 mg PO QAM 12/07/20 01/02/21 History cholecalciferol (vitamin D3) 25 50 mcg PO QAM 12/07/20 01/02/21 History mcg (1,000 unit) tablet (Vitamin D3) furosemide 20 mg tablet (Lasix) 40 mg PO BID 12/07/20 01/02/21 History gabapentin 300 mg capsule 300 mg PO BID 12/07/20 01/02/21 History (Neurontin) indomethacin 25 mg capsule 25 mg PO TID PRN 12/07/20 01/02/21 History omeprazole 40 mg capsule,delayed 40 mg PO QAM 12/07/20 01/02/21 History release rifaximin 550 mg tablet (Xifaxan) 550 mg PO BID 12/07/20 01/02/21 History sertraline 100 mg tablet (Zoloft) 100 mg PO QAM 12/07/20 01/02/21 History spironolactone 50 mg tablet 50 mg PO QAM 12/07/20 01/02/21 History (Aldactone) magnesium oxide 420 mg tablet 420 mg PO DAILY #14 tab 12/10/20 01/02/21 Rx Past Med/Surg History Medical History (Updated 01/02/21 @ 19:24 by German Colunga MD) Hyperlipidemia LOJA (nonalcoholic steatohepatitis) Osteoporosis Surgical History (Updated 12/08/20 @ 05:30 by Familia Winn PA-C) History of hernia repair Social History Smoking Status: Never smoker Second Hand Exposure: No; Do You Dip or Chew Tobacco: No; Tobacco Cessation Education Requested by Patient: No Hx Alcohol Use: No Hx Substance Use: No Preferred Language: Swedish Communication Ability: Effective Full Fashioned Garment Knitter Required: No Beliefs That Will Affect Care: None Current Living Situation: Other Current Living Situation Comment: Lives at home with Son Other Information That Helps Us Care for You: No Feels Safe at Home: Yes Safety Concerns: Feels Safe At This Time Assistive Devices: Walker and Wheelchair Review of Systems Review of Systems: Constitutional: No fever, sweats or chills, + confused Eyes: No diplopia, no worsening or blurred vision ENT: normal hearing, no trouble swallowing Respiratory: No cough, sputum, dyspnea at rest or on exertion Cardiovascular: No chest pain, tightness or palpitations Abdomen: No pain, nausea, vomiting, diarrhea or constipation Musculoskeletal: + Knee pain bilaterally, otherwise no joint pain, calf pain, swelling Neurologic: No weakness, numbness/tingling, + falls and balance problems Psychiatric: No anxiety or depression Skin: No rash or itch Physical Exam Physical Exam: General: awake, alert, no apparent distress, morbidly obese, + confused, unable to name year or month Head: Normocephalic, atraumatic ENT: PERRL, EOMI, no pharyngeal exudate, mucous membranes slightly dry Chest: Clear to auscultation, on room air, no adventitious breath sounds Cardiac: Regular rate and rhythm, no murmur, no JVD, normal peripheral pulses, good capillary refill Abdominal: NABS x 4 quadrants, + large epigastric hernia, soft, nondistended, nontender to palpation, no fluid wave, no rebound or guarding Extremities: Normal inspection, no peripheral edema or erythema, calfs nontender to palpation Psych: Normal mood and affect Neuro: AAO x 3, strength intact bilaterally and rated 5/5, no motor deficits, speech is clear, no peripheral sensory deficits Results & Data Results & Data ([facility]) Vital Signs (Past 12 Hours) Vital Signs Temp Pulse Resp BP Pulse Ox 01/02/21 15:33 92 H 28 H 134/72 99 01/02/21 14:43 36.9 C 95 H 24 134/[address] 01/02/21 15:[address] OF THE BRAIN; CT ANGIOGRAM OF THE BRAIN; CT ANGIOGRAM OF THE NECK CLINICAL HISTORY: Change in mental status. Strokelike symptoms. COMPARISON STUDY: CT of the brain 12/07/2020. TECHNIQUE: Unenhanced axial CT scan of the brain is performed. Subsequently, following the IV administration of 120 of Optiray 320, CT angiogram of the head and neck was performed from the aortic arch to the vertex. Images are reviewed in the axial, sagittal, and coronal planes. 3-D MIPS images are created and assessed. IV contrast was administered without complication. All measurements were calculated based on NASCET criteria. A dose lowering technique was utilized adhering to the principles of ALARA. CT DOSE: 1128.50 mGy.cm FINDINGS: Brain parenchyma: There is age-related involutional change noting minimal subcortical and periventricular microangiopathic disease. There is no hemorrhage, mass effect, or evidence of acute territorial ischemia by CT criteria. There is no evidence of enhancing mass lesion on the angiogram phase images. The ventricles, sulci, and cisterns are prominent secondary to involutional change. Weems-white matter differentiation is preserved. No extra- axial fluid collection is seen. Thoracic aorta: There is atherosclerotic calcification of the thoracic aorta. Visualized portions of the thoracic aorta are normal in caliber. The aortic arch demonstrates bovine variant anatomy. Right carotid arterial system: The right common carotid artery is widely patent, as are the right internal and external carotid arteries. Calcified plaque is seen in the carotid bulb. Left carotid arterial system: The left common carotid artery is widely patent, as are the left internal and external carotid arteries. Calcified plaque is noted in the carotid bulb. Vertebral arteries: Vertebral arteries are widely patent bilaterally and codominant. Subclavian arteries: Widely patent bilaterally. Intracranial vasculature: There is atherosclerotic calcification of the cavernous carotid arteries. The internal carotid arteries are patent at the sk ull base, as are the anterior and middle cerebral arteries bilaterally. The vertebrobasilar system and posterior cerebral arteries are widely patent. The vertebral arteries are codominant. There is no aneurysm, high-grade stenosis, or focal vessel cut off seen throughout the intracranial circulation. Jugular veins: Patent bilaterally. Dural sinuses: Patent. Lung apices: Partially visualized upper lobe lung parenchyma appears clear. Soft tissues: The visualized pharyngeal soft tissues are normal in appearance noting angiographic phase technique. The oropharyngeal airway appears widely p atent. The salivary and thyroid glands are normal in appearance. No cervical lymphadenopathy is seen. Skeletal structures: The skeletal structures are osteopenic. The calvarium appears intact. The cervical spine is within normal limits. No lytic or blastic lesion is seen. Orbits: The bony orbits are intact. Orbital contents are normal as visualized noting bilateral ocular lens implants. Sinuses and mastoids: The paranasal sinuses are clear. The mastoid air cells are well pneumatized. IMPRESSION: 1. There is no hemorrhage, mass effect, or evidence of acute territorial ischemia by CT criteria. 2. Unremarkable CT angiogram of the brain. 3. Unremarkable CT angiogram of the neck. ACT 112: Negative or not required by law. Electronically signed by: Edi Ingram M.D. 01/02/2021 3:42 PM Head CTA 01/02/21 15:[address] OF THE BRAIN; CT ANGIOGRAM OF THE BRAIN; CT ANGIOGRAM OF THE NECK CLINICAL HISTORY: Change in mental status. Strokelike symptoms. COMPARISON STUDY: CT of the brain 12/07/2020. TECHNIQUE: Unenhanced axial CT scan of the brain is performed. Subsequently, following the IV administration of 120 of Optiray 320, CT angiogram of the head and neck was performed from the aortic arch to the vertex. Images are reviewed in the axial, sagittal, and coronal planes. 3-D MIPS images are created and assessed. IV contrast was administered without complication. All measurements were calculated based on NASCET criteria. A dose lowering technique was utilized adhering to the principles of ALARA. CT DOSE: 1128.50 mGy.cm FINDINGS: Brain parenchyma: There is age-related involutional change noting minimal subcortical and periventricular microangiopathic disease. There is no hemorrhage, mass effect, or evidence of acute territorial ischemia by CT criteria. There is no evidence of enhancing mass lesion on the angiogram phase images. The ventricles, sulci, and cisterns are prominent secondary to involutional change. Weems-white matter differentiation is preserved. No extra- axial fluid collection is seen. Thoracic aorta: There is atherosclerotic calcification of the thoracic aorta. Visualized portions of the thoracic aorta are normal in caliber. The aortic arch demonstrates bovine variant anatomy. Right carotid arterial system: The right common carotid artery is widely patent, as are the right internal and external carotid arteries. Calcified plaque is seen in the carotid bulb. Left carotid arterial system: The left common carotid artery is widely patent, as are the left internal and external carotid arteries. Calcified plaque is noted in the carotid bulb. Vertebral arteries: Vertebral arteries are widely patent bilaterally and codominant. Subclavian arteries: Widely patent bilaterally. Intracranial vasculature: There is atherosclerotic calcification of the cavernous carotid arteries. The internal carotid arteries are patent at the skull base, as are the anterior and middle cerebral arteries bilaterally. The vertebrobasilar system and posterior cerebral arteries are widely patent. The vertebral arteries are codominant. There is no aneurysm, high-grade stenosis, or focal vessel cut off seen throughout the intracranial circulation. Jugular veins: Patent bilaterally. Dural sinuses: Patent. Lung apices: Partially visualized upper lobe lung parenchyma appears clear. Soft tissues: The visualized pharyngeal soft tissues are normal in appearance noting angiographic phase technique. The oropharyngeal airway appears widely patent. The salivary and thyroid glands are normal in appearance. No cervical lymphadenopathy is seen. Skeletal structures: The skeletal structures are osteopenic. The calvarium appears intact. The cervical spine is within normal limits. No lytic or blastic lesion is seen. Orbits: The bony orbits are intact. Orbital contents are normal as visualized noting bilateral ocular lens implants. Sinuses and mastoids: The paranasal sinuses are clear. The mastoid air cells are well pneumatized. IMPRESSION: 1. There is no hemorrhage, mass effect, or evidence of acute territorial ischemia by CT criteria. 2. Unremarkable CT angiogram of the brain. 3. Unremarkable CT angiogram of the neck. ACT 112: Negative or not required by law. Electronically signed by: Edi Ingram M.D. 01/02/2021 3:42 PM Neck CTA 01/02/21 15:[address] OF THE BRAIN; CT ANGIOGRAM OF THE BRAIN; CT ANGIOGRAM OF THE NECK CLINICAL HISTORY: Change in mental status. Strokelike symptoms. COMPARISON STUDY: CT of the brain 12/07/2020. TECHNIQUE: Unenhanced axial CT scan of the brain is performed. Subsequently, following the IV administration of 120 of Optiray 320, CT angiogram of the head and neck was performed from the aortic arch to the vertex. Images are reviewed in the axial, sagittal, and coronal planes. 3-D MIPS images are created and assessed. IV contrast was administered without complication. All measurements were calculated based on NASCET criteria. A dose lowering technique was utilized adhering to the principles of ALARA. CT DOSE: 1128.50 mGy.cm FINDINGS: Brain parenchyma: There is age-related involutional change noting minimal subcortical and periventricular microangiopathic disease. There is no hemorrhage, mass effect, or evidence of acute territorial ischemia by CT criteria. There is no evidence of enhancing mass lesion on the angiogram phase images. The ventricles, sulci, and cisterns are prominent secondary to involutional change. Weems-white matter differentiation is preserved. No extra- axial fluid collection is seen. Thoracic aorta: There is atherosclerotic calcification of the thoracic aorta. Visualized portions of the thoracic aorta are normal in caliber. The aortic arch demonstrates bovine variant anatomy. Right carotid arterial system: The right common carotid artery is widely patent, as are the right internal and external carotid arteries. Calcified plaque is seen in the carotid bulb. Left carotid arterial system: The left common carotid artery is widely patent, as are the left internal and external carotid arteries. Calcified plaque is noted in the carotid bulb. Vertebral arteries: Vertebral arteries are widely patent bilaterally and codominant. Subclavian arteries: Widely patent bilaterally. Intracranial vasculature: There is atherosclerotic calcification of the cavernous carotid arteries. The internal carotid arteries are patent at the skull base, as are the anterior and middle cerebral arteries bilaterally. The vertebrobasilar system and posterior cerebral arteries are widely patent. The vertebral arteries are codominant. There is no aneurysm, high-grade stenosis, or focal vessel cut off seen throughout the intracranial circulation. Jugular veins: Patent bilaterally. Dural sinuses: Patent. Lung apices: Partially visualized upper lobe lung parenchyma appears clear. Soft tissues: The visualized pharyngeal soft tissues are normal in appearance noting angiographic phase technique. The oropharyngeal airway appears widely patent. The salivary and thyroid glands are normal in appearance. No cervical lymphadenopathy is seen. Skeletal structures: The skeletal structures are osteopenic. The calvarium appears intact. The cervical spine is within normal limits. No lytic or blastic lesion is seen. Orbits: The bony orbits are intact. Orbital contents are normal as visualized noting bilateral ocular lens implants. Sinuses and mastoids: The paranasal sinuses are clear. The mastoid air cells are well pneumatized. IMPRESSION: 1. There is no hemorrhage, mass effect, or evidence of acute territorial ischemia by CT criteria. 2. Unremarkable CT angiogram of the brain. 3. Unremarkable CT angiogram of the neck. ACT 112: Negative or not required by law. Electronically signed by: Edi Ingram M.D. 01/02/2021 3:42 PM Knee X-Ray 01/02/21 15:18 XR knee LT 3V, XR knee RT 3V CLINICAL HISTORY: Fall. Bilateral knee pain. COMPARISON STUDY: None. FINDINGS: No fracture or dislocation within the right or left knee. There are moderate bilateral knee effusions. Bilateral chondrocalcinosis. Severe cartilage space narrowing within the medial compartments of the knee. There are tricompartmental marginal osteophytes. There is also severe cartilage space narrowing with [id number] articulation within the patellofemoral joints most pronounced laterally. There is mild lateral subluxation of the bilateral patellae. IMPRESSION: 1. No acute fractures within the right or left knee. 2. Moderate bilateral knee effusions. 3. 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 This most pronounced within the patellofemoral joints. ACT 112: Negative or not required by law. Electronically signed by: Jeyson Adams M.D. 01/02/2021 4:23 PM Knee X-Ray 01/02/21 15:18 XR knee LT 3V, XR knee RT 3V CLINICAL HISTORY: Fall. Bilateral knee pain. COMPARISON STUDY: None. FINDINGS: No fracture or dislocation within the right or left knee. There are moderate bilateral knee effusions. Bilateral chondrocalcinosis. Severe cartilage space narrowing within the medial compartments of the knee. There are tricompartmental marginal osteophytes. There is also severe cartilage space narrowing with [id number] articulation within the patellofemoral joints most pronounced laterally. There is mild lateral subluxation of the bilateral patellae. IMPRESSION: 1. No acute fractures within the right or left knee. 2. Moderate bilateral knee effusions. 3. 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 This most pronounced within the patellofemoral joints. ACT 112: Negative or not required by law. Electronically signed by: Jeyson Adams M.D. 01/02/2021 4:23 PM Code Status & VTE Plan Code Status Full code-discussed with the patient and her son at bedside Supervising Physician Co-Signing Physician Notes Patient seen and examined by me, care coordinated with Yessenia Butler PA-C, please refer to her note above for further detail. Pt is a 70 y/o female with PMHx of LOJA cirrhosis, thrombocytopenia, hyperlipidemia, osteoporosis, morbid obesity, DANNIELLE, lumbar DDD, restless leg syndrome, neuropathy, depression, who presents to the ER with report of increased confusion and frequent falls. Patient recently admitted due to abdominal pain and UTI. She recovered fairly quickly with antibiotic. Abdominal pain has resolved. She was also seen by surgery at that time, there was no need for surgical repair at that time, also patient is high risk given her liver disease, thrombocytopenia. Currently patient is sitting up in bed, in no acute distress, she is awake and able to tell me her name and answers some basic questions however not able to tell me exactly what happened prior to her coming to the hospital, she also cannot tell me what year it is, her answers are also slow. Heart sounds seems regular, lung sounds clear to auscultation overall without any course sounds. Abdomen is obese, however soft and seemingly nontender to palpation. There is umbilical hernia, only slightly tender to palpation/only feeling pressure with palpation. There is no lower extremity edema. Patient is moving extremities. Skin is warm and dry. In the ED CT head, CTA head and neck unremarkable. UA not obtained yet - discussed with the nurse to obtain UA. Seen by GI as outpatient, recently had ultrasound of the abdomen done to evaluate ascites. Will obtain ultrasound as well. Ammonia level somewhat elevated, not clear at this time if this is the main contributing factor. We will start patient on lactulose and will discuss further with GI. Diuretics increased recently due to edema, possible dehydration. Will decrease Lasix to only once a day, will continue to monitor closely her fluid status. Will discuss also with GI. Amador Kate MD
[2021-01-02] MEDS: MAGNESIUM SULFATE / D5W 1 GM/100 ML BAG IV SCH ×2 (17:22→18:37)
[2021-01-02] MEDS ORDERED: LACTULOSE SYRUP 20 GM/30 ML UDC PO ONE (18:09)
[2021-01-02 18:49] LABS: Base Excess ABG 3.2 mEq/L (-9-1.8); HCO3 ABG 28 mmol/L (19-24); Oxygen Saturation ABG 95.9 % (90-95); PCO2 ABG 44 mmHg (35-46); PO2 ABG 78 mmHg (80-95); pH ABG 7.42 (7.35-7.45)
[2021-01-02 18:51] LABS: Allen Test Pos (Pos)
[2021-01-02] MEDS ORDERED: ACETAMINOPHEN 325 MG TAB PO PRN (20:04)
[2021-01-02] MEDS ORDERED: ONDANSETRON INJ 2 MG/ML 2 ML VIAL IV PRN (20:04)
[2021-01-02] MEDS: GABAPENTIN 300 MG CAP PO SCH (21:16)
[2021-01-02] MEDS: rifAXIMin 550 MG TABLET PO SCH (21:17)
[2021-01-02] MEDS: LACTULOSE SYRUP 20 GM/30 ML UDC PO SCH (21:29)
[2021-01-03 08:24] LABS: Hematocrit (blood only) 35.2 % (37-47); Hemoglobin 11.5 g/dL (12.0-16.0); Mean Corpuscular Hemoglobin 30.3 pg (25-34); Mean Corpuscular Hgb Conc 32.7 g/dL (32-36); Mean Corpuscular Volume 92.9 fL (80-100); Mean Platelet Volume 12.3 fL (7.4-10.4); Platelet Count 71 K/uL (130-400); RDW Coefficient of Variation 15.1 % (11.5-14.5); RDW Standard Deviation 51.1 fL (36.4-46.3); Red Blood Count 3.79 M/uL (4.2-5.4); White Blood Count 4.35 K/uL (4.8-10.8)
--- NOTE | 2021-01-03 08:30 | Ultrasound Report ---
US abdomen ltd ascites CLINICAL HISTORY: 70 years-old Female presenting with cirrhosis, ams. TECHNIQUE: Real-time grayscale ultrasound imaging of the upper abdomen was performed for a focused ev aluation at the site of clinical concern. COMPARISON: None. FINDINGS: There is small amount of fluid within the right lower quadrant. Otherwise no significant ascites visu alized. Splenomegaly seen measuring 15.6 cm in craniocaudal dimension. IMPRESSION: 1. Minimal amount of free intra-abdominal fluid. No significant ascites. 2. Splenomegaly. ACT 112: Negative or not required by law. Electronically signed by: Barbara Gamboa DO 01/03/2021 8:29 AM
[2021-01-03 08:32] LABS: INR 1.4 (0.9-1.1); Prothrombin Time 13.5 Seconds (9.0-12.0)
[2021-01-03] MEDS: PANTOprazole 40 MG TAB PO SCH (08:33)
[2021-01-03] MEDS: FUROSEMIDE 40 MG TAB PO SCH (08:33)
[2021-01-03] MEDS: rifAXIMin 550 MG TABLET PO SCH ×2 (08:33→19:48)
[2021-01-03] MEDS: CHOLECALCIFEROL 1,000 UNITS 25 MCG TAB PO SCH (08:33)
[2021-01-03] MEDS: GABAPENTIN 300 MG CAP PO SCH (08:33)
[2021-01-03] MEDS: SPIRONOLACTONE 25 MG TAB PO SCH (08:34)
[2021-01-03] MEDS: MAGNESIUM OXIDE 400 MG TAB PO SCH (08:34)
[2021-01-03] MEDS: ATORVASTATIN 40 MG TAB PO SCH (08:34)
[2021-01-03] MEDS: LACTULOSE SYRUP 20 GM/30 ML UDC PO SCH ×3 (08:34→19:48)
[2021-01-03] MEDS: SERTRALINE HCL 100 MG TABLET PO SCH (08:34)
[2021-01-03 08:51] LABS: Albumin Level 2.7 gm/dl (3.4-5.0); BUN Creatinine Ratio 32.9 (10-20); Bilirubin Direct 0.6 mg/dl (0-0.2); Calcium 8.5 mg/dl (8.5-10.1); Creatinine Clr Calc Pharmacy 124.9 ml/min; Est GFR (African American) 115.2 ml/min; Est GFR (Non-African American) 99.4 ml/min; Magnesium 1.6 mg/dl (1.8-2.4)
[2021-01-03 08:54] LABS: Albumin Globulin Ratio 1.2 (0.9-2); Globulin 2.2 gm/dl (2.5-4.0); Total Protein 4.9 gm/dl (6.4-8.2)
[2021-01-03] MEDS ORDERED: MAGNESIUM SULFATE / D5W 1 GM/100 ML BAG IV ONE (10:00)
--- NOTE | 2021-01-03 10:06 | Hospitalist Progress Note ---
Date of Service January 03, 2021 Assessment & Plan (1) Frequent falls: Plan: Metabolic encephalopathy Hepatic encephalopathy UTI - Fall precautions - PT/OT consults - Concern as the patient lives at home by herself- although in residential apartment with call bells, may consider life alert necklace/rehab/placement. - Possibly a bit hypovolemic - recently had increased lasix to 40 mg BID due to BLE, currently no edema - mucous membranes slightly dry on admission Decreased Lasix to once a day, monitor fluid status closely. Will need to discuss fluid intake with pt prior to discharge. UTI Patient last time admitted with UTI UA not obtained in ED UA not obtained last evening either, per nursing staff due to incontinence Okay to straight cath, UA c/w UTI -Start Rocephin now, follow urine culture -However mental status improved from last evening, and antibiotics were not started yesterday (2) Hepatic encephalopathy: Plan: -Ammonia elevated at 48 on admission, not on lactulose at home -will order lactulose PO for now since awake, oriented to self and place, not time (on admission) -Now mentation improved -She was previously on lactulose 4 to 5 months ago routinely however was having 2 bowel movements daily naturally so was taken off of it. After her most recent hospitalization she had loose stools because of antibiotic use. Recently she has had 1 bowel movement daily. Concerned that this is not enough to clear her ammonia, and may consider having lactulose prn to titrate for 2-3 bm daily at home on dc. -Cont spironolactone 50 mg BID, Xifaxan 550 mg BID - decrease lasix 40 mg daily instead of BID and monitor fluid status closely -CT head is negative for acute event -CTA head and neck -unremarkable -Checked ABG -Checked UA and follow culture (recent history of UTI) (3) LOJA (nonalcoholic steatohepatitis): Plan: - Follows with [facility] as [facility], most recently saw Oliva Mosern on 12/21 - Will discuss with GI further - As above regarding BM - 12/21/20 abd U/S completed with small to moderate free fluid. Will check abdominal ultrasound now. - Follow am LFTs (4) Thrombocytopenia: Plan: - Plt 78 on admission, will follow with daily labs, no signs of spontaneous bleed (5) Hypomagnesemia: Plan: - Mag 1.3 on admission, replaced with 2 G IV, follow with am labs - Takes Mag oxide 400 mg daily po at home. - Current mag 1.6 Replace and monitor (6) Hyperlipidemia: Plan: -Lipitor listed as home medication, will check with the patient if she is taking it -per admitting PA Dennis, not on statin therapy, check lipids with am labs (7) DANNIELLE (obstructive sleep apnea): Plan: - Continue CPAP HS, has outpatient sleep referral pending (8) Ventral hernia: Plan: - hx of such, previously repaired years ago. During last admission , surgery consulted for hernia, there was no need for surgical procedure, also due to liver disease, pt high risk for surgery Currently no issues (9) Osteoporosis: Plan: Continue vitamin D and calcium replacements DVT PPx: - teds, scds CODE: Full code Dispo: From home, likely to remain in the hospital x 1-2 days Admission and Anticipated Discharge Date Admission Date: January 02, 2021 Subjective Patient seen in follow-up of fall, confusion, elevated ammonia level Recent admission for UTI Hypomagnesemia, current mag 1.6 Per records, patient refused lactulose last night, current ammonia above 50 UA not obtained on admission as patient incontinent, discussed with the nursing staff, can straight cath Also discussed with GI, who is seeing the patient today Currently she is lying in bed, in no acute distress Denies any shortness of breath or chest pain, abdominal pain She is more oriented, answering questions more appropriately She knows where she is, she tells me that she lives alone and that her son lives in [place], she knows it is December however she said the year was 2019 however this is much improved from yesterday evening Review of Systems Review of Systems: All systems reviewed & are unremarkable except as noted in Subjective Physical Exam Physical Exam: General: awake, alert, no apparent distress, morbidly obese Head: Normocephalic, atraumatic ENT: PERRL, EOMI Chest: Clear to auscultation, on room air, no adventitious breath sounds Cardiac: Regular rate and rhythm, no murmur, no JVD Abdominal: NABS x 4 quadrants, + umbilical hernia, soft, nondistended, nontender to palpation, no fluid wave, no rebound or guarding Extremities: Normal inspection, no peripheral edema or erythema, calves nontender to palpation Psych: Normal mood and affect Neuro: AAO x 3, answering most questions appropriately, much improved from yesterday, speech is clear but slow, she is moving extremities Results & Data Results & Data ([facility]) Vital Signs (Past 12 Hours) Vital Signs Temp Pulse Pulse Resp BP Pulse Ox 01/03/21 08:08 36.7 C 79 20 131/70 95 01/03/21 07:00 84 01/03/21 03:45 36.6 C 82 20 117/61 99 01/03/21 02:43 84 17 95 01/02/21 23:43 90 01/02/21 23:30 76 18 96 01/02/21 23:05 36.7 C 93 H 16 105/62 95 Laboratory Results 01/03/21 01/03/21 01/03/21 Range/Units 10:15 07:56 07:56 WBC (4.8-10.8) K/uL RBC (4.2-5.4) M/uL Hgb (12.0-16.0) g/dL Hct (37-47) % MCV (80-100) fL MCH (25-34) pg MCHC (32-36) g/dL RDW Std Deviation (36.4-46.3) fL RDW Coeff of Blanca (11.5-14.5) % Plt Count (130-400) K/uL MPV (7.4-10.4) fL Immature Gran % (Auto) % Neut % (Auto) % Lymph % (Auto) % [place] % (Auto) % Eos % (Auto) % Baso % (Auto) % Neut # (Auto) (1.4-6.5) K/uL Lymph # (Auto) (1.2-3.4) K/uL [place] # (Auto) (0.11-0.59) K/uL Eos # (Auto) (0-0.5) K/uL Baso # (Auto) (0-0.2) K/uL Immature Gran # (Auto) (0.00-0.02) K/uL Polychromasia PT (9.0-12.0) Seconds INR (0.9-1.1) APTT (21.0-31.0) Seconds PTT Ratio ABG pH (7.35-7.45) ABG pCO2 (35-46) mmHg ABG pO2 (80-95) mmHg ABG HCO3 (19-24) mmol/L ABG O2 Saturation (90-95) % ABG Base Excess (-9-1.8) mEq/L Leo Test (Pos) Barometric Pressure mm/Hg Oxygen Given Sodium 145 (136-145) mmol/L Potassium 4.0 (3.5-5.1) mmol/L Chloride 110 H (98-107) mmol/L Carbon Dioxide 31 (21-32) mmol/L Anion Gap 4.0 (3-11) BUN 16 (7-18) mg/dl Creatinine 0.49 L (0.6-1.2) mg/dl Est Cr Clr Drug Dosing 124.9 Est GFR ( Amer) 115.2 ml/min Est GFR (Non-Af Amer) 99.4 ml/min BUN/Creatinine Ratio 32.9 H (10-20) Glucose 83 (70-99) mg/dl Calcium 8.5 (8.5-10.1) mg/dl Magnesium 1.6 L (1.8-2.4) mg/dl Total Bilirubin 2.0 H (0.2-1) mg/dl Direct Bilirubin 0.6 H (0-0.2) mg/dl AST 105 H (15-37) U/L ALT 65 (12-78) U/L Alkaline Phosphatase 105 (45-117) U/L Ammonia 53.3 H (11-32) umol/L Troponin I (0-0.045) ng/ml Total Protein 4.9 L (6.4-8.2) gm/dl Albumin 2.7 L (3.4-5.0) gm/dl Globulin 2.2 L (2.5-4.0) gm/dl Albumin/Globulin Ratio 1.2 (0.9-2) Triglycerides 44 (0-150) mg/dl Cholesterol 80 (0-200) mg/dl LDL Cholesterol, Calc 34 mg/dl VLDL Cholesterol, Calc 9 mg/dl HDL Cholesterol 37 mg/dl Cholesterol/HDL Ratio 2 Urine Color Dark Yellow Urine Appearance Cloudy A (Clear) Urine pH 6.5 (4.5-7.5) Ur Specific [place] 1.045 H (1.000-1.030) Urine Protein Trace H (Negative) Urine Glucose (UA) Negative (Negative) Urine Ketones 1+ H (Negative) Urine Blood Negative (Negative) Urine Nitrite Positive A (Negative) Urine Bilirubin 1+ H (Negative) Urine Urobilinogen Positive H (Negative) Ur Leukocyte Esterase 2+ H (Negative) Urine WBC (Auto) >30 H (0-5) /hpf Urine RBC (Auto) 0-4 (0-4) /hpf U Hyaline Cast (Auto) 1-5 (0-5) /lpf U Epithel Cells (Auto) 0-5 (0-5) /lpf Urine Bacteria (Auto) 4+ H (Negative) COVID-19 Eval Order SARS-CoV-2 (PCR) (Negative) Blood Type Antibody Screen 01/03/21 01/03/21 01/02/21 Range/Units 07:56 07:56 18:24 WBC 4.35 L (4.8-10.8) K/uL RBC 3.79 L (4.2-5.4) M/uL Hgb 11.5 L (12.0-16.0) g/dL Hct 35.2 L (37-47) % MCV 92.9 (80-100) fL MCH 30.3 (25-34) pg MCHC 32.7 (32-36) g/dL RDW Std Deviation 51.1 H (36.4-46.3) fL RDW Coeff of Blanca 15.1 H (11.5-14.5) % Plt Count 71 L (130-400) K/uL MPV 12.3 H (7.4-10.4) fL Immature Gran % (Auto) % Neut % (Auto) % Lymph % (Auto) % [place] % (Auto) % Eos % (Auto) % Baso % (Auto) % Neut # (Auto) (1.4-6.5) K/uL Lymph # (Auto) (1.2-3.4) K/uL [place] # (Auto) (0.11-0.59) K/uL Eos # (Auto) (0-0.5) K/uL Baso # (Auto) (0-0.2) K/uL Immature Gran # (Auto) (0.00-0.02) K/uL Polychromasia PT 13.5 H (9.0-12.0) Seconds INR 1.4 H (0.9-1.1) APTT (21.0-31.0) Seconds PTT Ratio ABG pH 7.42 (7.35-7.45) ABG pCO2 44 (35-46) mmHg ABG pO2 78 L (80-95) mmHg ABG HCO3 28 H (19-24) mmol/L ABG O2 Saturation 95.9 H (90-95) % ABG Base Excess 3.2 H (-9-1.8) mEq/L Leo Test Pos (Pos) Barometric Pressure 731.0 mm/Hg Oxygen Given RA Sodium (136-145) mmol/L Potassium (3.5-5.1) mmol/L Chloride (98-107) mmol/L Carbon Dioxide (21-32) mmol/L Anion Gap (3-11) BUN (7-18) mg/dl Creatinine (0.6-1.2) mg/dl Est Cr Clr Drug Dosing Est GFR ( Amer) ml/min Est GFR (Non-Af Amer) ml/min BUN/Creatinine Ratio (10-20) Glucose (70-99) mg/dl Calcium (8.5-10.1) mg/dl Magnesium (1.8-2.4) mg/dl Total Bilirubin (0.2-1) mg/dl Direct Bilirubin (0-0.2) mg/dl AST (15-37) U/L ALT (12-78) U/L Alkaline Phosphatase (45-117) U/L Ammonia (11-32) umol/L Troponin I (0-0.045) ng/ml Total Protein (6.4-8.2) gm/dl Albumin (3.4-5.0) gm/dl Globulin (2.5-4.0) gm/dl Albumin/Globulin Ratio (0.9-2) Triglycerides (0-150) mg/dl Cholesterol (0-200) mg/dl LDL Cholesterol, Calc mg/dl VLDL Cholesterol, Calc mg/dl HDL Cholesterol mg/dl Cholesterol/HDL Ratio Urine Color Urine Appearance (Clear) Urine pH (4.5-7.5) Ur Specific [place] (1.000-1.030) Urine Protein (Negative) Urine Glucose (UA) (Negative) Urine Ketones (Negative) Urine Blood (Negative) Urine Nitrite (Negative) Urine Bilirubin (Negative) Urine Urobilinogen (Negative) Ur Leukocyte Esterase (Negative) Urine WBC (Auto) (0-5) /hpf Urine RBC (Auto) (0-4) /hpf U Hyaline Cast (Auto) (0-5) /lpf U Epithel Cells (Auto) (0-5) /lpf Urine Bacteria (Auto) (Negative) COVID-19 Eval Order SARS-CoV-2 (PCR) (Negative) Blood Type Antibody Screen 01/02/21 01/02/21 01/02/21 Range/Units 17:33 17:33 15:45 WBC (4.8-10.8) K/uL RBC (4.2-5.4) M/uL Hgb (12.0-16.0) g/dL Hct (37-47) % MCV (80-100) fL MCH (25-34) pg MCHC (32-36) g/dL RDW Std Deviation (36.4-46.3) fL RDW Coeff of Blanca (11.5-14.5) % Plt Count (130-400) K/uL MPV (7.4-10.4) fL Immature Gran % (Auto) % Neut % (Auto) % Lymph % (Auto) % [place] % (Auto) % Eos % (Auto) % Baso % (Auto) % Neut # (Auto) (1.4-6.5) K/uL Lymph # (Auto) (1.2-3.4) K/uL [place] # (Auto) (0.11-0.59) K/uL Eos # (Auto) (0-0.5) K/uL Baso # (Auto) (0-0.2) K/uL Immature Gran # (Auto) (0.00-0.02) K/uL Polychromasia PT (9.0-12.0) Seconds INR (0.9-1.1) APTT (21.0-31.0) Seconds PTT Ratio ABG pH (7.35-7.45) ABG pCO2 (35-46) mmHg ABG pO2 (80-95) mmHg ABG HCO3 (19-24) mmol/L ABG O2 Saturation (90-95) % ABG Base Excess (-9-1.8) mEq/L Leo Test (Pos) Barometric Pressure mm/Hg Oxygen Given Sodium (136-145) mmol/L Potassium (3.5-5.1) mmol/L Chloride (98-107) mmol/L Carbon Dioxide (21-32) mmol/L Anion Gap (3-11) BUN (7-18) mg/dl Creatinine (0.6-1.2) mg/dl Est Cr Clr Drug Dosing Est GFR ( Amer) ml/min Est GFR (Non-Af Amer) ml/min BUN/Creatinine Ratio (10-20) Glucose (70-99) mg/dl Calcium (8.5-10.1) mg/dl Magnesium (1.8-2.4) mg/dl Total Bilirubin (0.2-1) mg/dl Direct Bilirubin (0-0.2) mg/dl AST (15-37) U/L ALT (12-78) U/L Alkaline Phosphatase (45-117) U/L Ammonia 48.6 H (11-32) umol/L Troponin I (0-0.045) ng/ml Total Protein (6.4-8.2) gm/dl Albumin (3.4-5.0) gm/dl Globulin (2.5-4.0) gm/dl Albumin/Globulin Ratio (0.9-2) Triglycerides (0-150) mg/dl Cholesterol (0-200) mg/dl LDL Cholesterol, Calc mg/dl VLDL Cholesterol, Calc mg/dl HDL Cholesterol mg/dl Cholesterol/HDL Ratio Urine Color Urine Appearance (Clear) Urine pH (4.5-7.5) Ur Specific [place] (1.000-1.030) Urine Protein (Negative) Urine Glucose (UA) (Negative) Urine Ketones (Negative) Urine Blood (Negative) Urine Nitrite (Negative) Urine Bilirubin (Negative) Urine Urobilinogen (Negative) Ur Leukocyte Esterase (Negative) Urine WBC (Auto) (0-5) /hpf Urine RBC (Auto) (0-4) /hpf U Hyaline Cast (Auto) (0-5) /lpf U Epithel Cells (Auto) (0-5) /lpf Urine Bacteria (Auto) (Negative) COVID-19 Eval Order Covid19 at [facility] SARS-CoV-2 (PCR) NEGATIVE (Negative) Blood Type Antibody Screen 01/02/21 01/02/21 01/02/21 Range/Units 15:45 15:19 15:19 WBC (4.8-10.8) K/uL RBC (4.2-5.4) M/uL Hgb (12.0-16.0) g/dL Hct (37-47) % MCV (80-100) fL MCH (25-34) pg MCHC (32-36) g/dL RDW Std Deviation (36.4-46.3) fL RDW Coeff of Blanca (11.5-14.5) % Plt Count (130-400) K/uL MPV (7.4-10.4) fL Immature Gran % (Auto) % Neut % (Auto) % Lymph % (Auto) % [place] % (Auto) % Eos % (Auto) % Baso % (Auto) % Neut # (Auto) (1.4-6.5) K/uL Lymph # (Auto) (1.2-3.4) K/uL [place] # (Auto) (0.11-0.59) K/uL Eos # (Auto) (0-0.5) K/uL Baso # (Auto) (0-0.2) K/uL Immature Gran # (Auto) (0.00-0.02) K/uL Polychromasia PT 13.5 H (9.0-12.0) Seconds INR 1.4 H (0.9-1.1) APTT 26.8 (21.0-31.0) Seconds PTT Ratio 1.0 ABG pH (7.35-7.45) ABG pCO2 (35-46) mmHg ABG pO2 (80-95) mmHg ABG HCO3 (19-24) mmol/L ABG O2 Saturation (90-95) % ABG Base Excess (-9-1.8) mEq/L Leo Test (Pos) Barometric Pressure mm/Hg Oxygen Given Sodium 141 (136-145) mmol/L Potassium 3.6 (3.5-5.1) mmol/L Chloride 111 H (98-107) mmol/L Carbon Dioxide 27 (21-32) mmol/L Anion Gap 3.0 (3-11) BUN 16 (7-18) mg/dl Creatinine 0.56 L (0.6-1.2) mg/dl Est Cr Clr Drug Dosing Not Reportable Est GFR ( Amer) 110.3 ml/min Est GFR (Non-Af Amer) 95.1 ml/min BUN/Creatinine Ratio 28.1 H (10-20) Glucose 83 (70-99) mg/dl Calcium 8.6 (8.5-10.1) mg/dl Magnesium 1.3 L (1.8-2.4) mg/dl Total Bilirubin 2.0 H (0.2-1) mg/dl Direct Bilirubin (0-0.2) mg/dl AST 103 H (15-37) U/L ALT 72 (12-78) U/L Alkaline Phosphatase 120 H (45-117) U/L Ammonia (11-32) umol/L Troponin I < 0.015 (0-0.045) ng/ml Total Protein 5.7 L (6.4-8.2) gm/dl Albumin 3.1 L (3.4-5.0) gm/dl Globulin 2.6 (2.5-4.0) gm/dl Albumin/Globulin Ratio 1.2 (0.9-2) Triglycerides (0-150) mg/dl Cholesterol (0-200) mg/dl LDL Cholesterol, Calc mg/dl VLDL Cholesterol, Calc mg/dl HDL Cholesterol mg/dl Cholesterol/HDL Ratio Urine Color Urine Appearance (Clear) Urine pH (4.5-7.5) Ur Specific [place] (1.000-1.030) Urine Protein (Negative) Urine Glucose (UA) (Negative) Urine Ketones (Negative) Urine Blood (Negative) Urine Nitrite (Negative) Urine Bilirubin (Negative) Urine Urobilinogen (Negative) Ur Leukocyte Esterase (Negative) Urine WBC (Auto) (0-5) /hpf Urine RBC (Auto) (0-4) /hpf U Hyaline Cast (Auto) (0-5) /lpf U Epithel Cells (Auto) (0-5) /lpf Urine Bacteria (Auto) (Negative) COVID-19 Eval Order SARS-CoV-2 (PCR) (Negative) Blood Type A Positive Antibody Screen NEGATIVE 01/02/21 Range/Units 15:19 WBC 5.08 (4.8-10.8) K/uL RBC 4.03 L (4.2-5.4) M/uL Hgb 12.3 (12.0-16.0) g/dL Hct 37.5 (37-47) % MCV 93.1 (80-100) fL MCH 30.5 (25-34) pg MCHC 32.8 (32-36) g/dL RDW Std Deviation 50.1 H (36.4-46.3) fL RDW Coeff of Blanca 14.9 H (11.5-14.5) % Plt Count 73 L (130-400) K/uL MPV 13.0 H (7.4-10.4) fL Immature Gran % (Auto) 0.0 % Neut % (Auto) 64.3 % Lymph % (Auto) 20.3 % [place] % (Auto) 12.8 % Eos % (Auto) 2.2 % Baso % (Auto) 0.4 % Neut # (Auto) 3.27 (1.4-6.5) K/uL Lymph # (Auto) 1.03 L (1.2-3.4) K/uL [place] # (Auto) 0.65 H (0.11-0.59) K/uL Eos # (Auto) 0.11 (0-0.5) K/uL Baso # (Auto) 0.02 (0-0.2) K/uL Immature Gran # (Auto) 0.00 (0.00-0.02) K/uL Polychromasia 1+ PT (9.0-12.0) Seconds INR (0.9-1.1) APTT (21.0-31.0) Seconds PTT Ratio ABG pH (7.35-7.45) ABG pCO2 (35-46) mmHg ABG pO2 (80-95) mmHg ABG HCO3 (19-24) mmol/L ABG O2 Saturation (90-95) % ABG Base Excess (-9-1.8) mEq/L Leo Test (Pos) Barometric Pressure mm/Hg Oxygen Given Sodium (136-145) mmol/L Potassium (3.5-5.1) mmol/L Chloride (98-107) mmol/L Carbon Dioxide (21-32) mmol/L Anion Gap (3-11) BUN (7-18) mg/dl Creatinine (0.6-1.2) mg/dl Est Cr Clr Drug Dosing Est GFR ( Amer) ml/min Est GFR (Non-Af Amer) ml/min BUN/Creatinine Ratio (10-20) Glucose (70-99) mg/dl Calcium (8.5-10.1) mg/dl Magnesium (1.8-2.4) mg/dl Total Bilirubin (0.2-1) mg/dl Direct Bilirubin (0-0.2) mg/dl AST (15-37) U/L ALT (12-78) U/L Alkaline Phosphatase (45-117) U/L Ammonia (11-32) umol/L Troponin I (0-0.045) ng/ml Total Protein (6.4-8.2) gm/dl Albumin (3.4-5.0) gm/dl Globulin (2.5-4.0) gm/dl Albumin/Globulin Ratio (0.9-2) Triglycerides (0-150) mg/dl Cholesterol (0-200) mg/dl LDL Cholesterol, Calc mg/dl VLDL Cholesterol, Calc mg/dl HDL Cholesterol mg/dl Cholesterol/HDL Ratio Urine Color Urine Appearance (Clear) Urine pH (4.5-7.5) Ur Specific [place] (1.000-1.030) Urine Protein (Negative) Urine Glucose (UA) (Negative) Urine Ketones (Negative) Urine Blood (Negative) Urine Nitrite (Negative) Urine Bilirubin (Negative) Urine Urobilinogen (Negative) Ur Leukocyte Esterase (Negative) Urine WBC (Auto) (0-5) /hpf Urine RBC (Auto) (0-4) /hpf U Hyaline Cast (Auto) (0-5) /lpf U Epithel Cells (Auto) (0-5) /lpf Urine Bacteria (Auto) (Negative) COVID-19 Eval Order SARS-CoV-2 (PCR) (Negative) Blood Type Antibody Screen Medications Administered Current Inpatient Medications Acetaminophen (Acetaminophen 325 Mg Tab) 650 mg PO Q8H PRN PRN Reason: Moderate Pain Stop: 02/01/21 20:03 Atorvastatin Calcium (Atorvastatin 40 Mg Tab) 80 mg PO QAM [facility] Stop: 02/02/21 08:59 Last Admin: 01/03/21 08:34 Dose: 80 mg Documented by: Furosemide (Furosemide 40 Mg Tab) 40 mg PO DAILY [facility] Stop: 02/02/21 08:59 Last Admin: 01/03/21 08:33 Dose: 40 mg Documented by: Gabapentin (Gabapentin 300 Mg Cap) 300 mg PO BID [facility] Stop: 02/01/21 20:59 Last Admin: 01/03/21 08:33 Dose: 300 mg Documented by: Magnesium Sulfate/Dextrose (Magnesium Sulfate / D5w) 1 gm in 100 mls @ 50 mls/hr IV ONE ONE Stop: 01/03/21 11:59 Last Admin: 01/03/21 10:20 Dose: 50 mls/hr Documented by: Ceftriaxone Sodium 2,000 mg/ (Dextrose) 70 mls @ 100 mls/hr IV DAILY [facility]; Protocol Stop: 01/13/21 11:14 Last Admin: 01/03/21 11:35 Dose: 100 mls/hr Documented by: Lactulose (Lactulose Syrup 20 Gm/30 Ml Udc) 20 gm PO TID [facility] Stop: 02/02/21 13:59 Magnesium Oxide (Magnesium Oxide 400 Mg Tab) 400 mg PO DAILY [facility] Stop: 02/02/21 08:59 Last Admin: 01/03/21 08:34 Dose: 400 mg Documented by: Ondansetron HCl (Ondansetron Inj 2 Mg/Ml 2 Ml Vial) 4 mg IV Q4H PRN PRN Reason: Nausea And Vomiting Stop: 02/01/21 20:03 Pantoprazole Sodium (Pantoprazole 40 Mg Tab) 40 mg PO [facility] Stop: 02/02/21 08:59 Last Admin: 01/03/21 08:33 Dose: 40 mg Documented by: Rifaximin (Rifaximin 550 Mg Tablet) 550 mg PO BID [facility] Stop: 02/01/21 20:59 Last Admin: 01/03/21 08:33 Dose: 550 mg Documented by: Sertraline HCl (Sertraline Hcl 100 Mg Tablet) 100 mg PO [facility] Stop: 02/02/21 08:59 Last Admin: 01/03/21 08:34 Dose: 100 mg Documented by: Spironolactone (Spironolactone 25 Mg Tab) 50 mg PO [facility] Stop: 02/02/21 08:59 Last Admin: 01/03/21 08:34 Dose: 50 mg Documented by: Vitamin D (Cholecalciferol 1,000 Units 25 Mcg Tab) [facility] Stop: 02/02/21 08:59 Last Admin: 01/03/21 08:33 Dose: 2,000 units Documented by:
[2021-01-03 10:43] LABS: Appearance Urine Cloudy (Clear); Bacteria Urine Automated 4+ (Negative); Blood Urine Negative (Negative); Color Urine Dark Yellow; Epithelial Cell Urine Auto 0-5 /lpf (0-5); Glucose Urine UA Negative (Negative); Ketones Urine 1+ (Negative); Leukocyte Esterase Urine 2+ (Negative); Nitrite Urine Positive (Negative); Protein Urine Trace (Negative); RBC Urine Automated 0-4 /hpf (0-4); Specific Gravity Urine 1.045 (1.000-1.030); Urobilinogen Urine Positive (Negative); WBC Urine Automated >30 /hpf (0-5); pH Urine 6.5 (4.5-7.5)
[2021-01-03 10:46] LABS: Bilirubin Urine 1+ (Negative)
[2021-01-03] MEDS: cefTRIAXone SODIUM 2,000 MG in DEXTROSE 5% 50 ML IV SCH (11:35)
--- NOTE | 2021-01-03 12:13 | XRay Report ---
XR chest 1V portable CLINICAL HISTORY: hepatic encephalopathy, r/o lung infection COMPARISON STUDY: December 07, 2020 FINDINGS: No pneumothorax. No pleural effusion. No large infiltrates or consolidative lesions are seen. Minimal diffuse prominence of pulmonary inter stitium is seen bilaterally which could be chronic.. Cardiomediastinal silhouette is within normal limits in size. No significant pulmonary vascular congestion.. Osseous structures: Degenerative changes of the spine. IMPRESSION: 1. No large infiltrates or consolidative lesions. ACT 112: Negative or not required by law. The above report was generated using voice recognition software. It may contain grammatical, syntax o r spelling errors. Electronically signed by: Barbara Gamboa DO 01/03/2021 12:12 PM
--- NOTE | 2021-01-03 12:47 | Gastrointestinal Consultation ---
Date of Consultation January 03, 2021 Assessment & Plan (1) LOJA (nonalcoholic steatohepatitis): with ascites. (2) Hepatic encephalopathy: Likely trigger for Hep Enceph is a UTI. Other possibility is recent increase in diuretic dosing. CXR w/o acute changes. Blood cx pending. Unlikely to have SBP because small amt of ascites on US. Agree with decreasing furosemide (to 40 daily). Appreciate primary hospitalists management of (likely) UTI. Because mentating better this morning - OK to continue diuretics. Because mentating clear and eating well. No GI contraindication to DC. GI will sign off. Continue OP GI f/u with Nicola Howell NP Supervising Physician Co-Signing Physician Notes I saw and evaluated the patient with Santos German. We were consulted for evaluation of hepatic encephalopathy. Of note the patient was found to have a urinary tract infection is now on therapy. It appears that her mental status is returned to its baseline this afternoon. Physical examination No scleral icterus No asterixis Patient able to speak in full and complete sentences Impression: Patient admitted with a history of hepatic encephalopathy likely incited by an underlying urinary tract infection. Would recommend treatment of the urinary tract infection and continued use of her baseline medications for hepatic encephalopathy. As the patient is returned to her normal mental status she can likely be discharged. Please call with any questions or concerns History of Present Illness Reason for Consultation: Cirrhosis, acute mental status changes Requesting Physician: Yessenia Butler PA-C Attending Physician: Gonzalo Kate MD History of Present Illness Ms. Dawna Vargas is a 70 yr old female pt of Dr. 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 She was brought to the ED yesterday for confusion. She denies any bloody or black BMs. No nausea/vomiting. No fevers/chills/sweats. No CP or SOB. Her furosemide was recently increased for tx of peripheral edema. On arrival, US with a small amt of peritoneal fluid. UA suggestive of a UTI: + for nitrite, WBCs, bacteria. She is awake, alert, oriented x 3 this morning. Allergies Allergy/AdvReac Type Severity Reaction Status Date / Time No Known Allergies Allergy Unverified 01/02/21 15:14 Home Medications Medication Instructions Recorded Confirmed Type atorvastatin 80 mg tablet (Lipitor) 80 mg PO QAM 12/07/20 01/02/21 History cholecalciferol (vitamin D3) 25 50 mcg PO QAM 12/07/20 01/02/21 History mcg (1,000 unit) tablet (Vitamin D3) furosemide 20 mg tablet (Lasix) 40 mg PO BID 12/07/20 01/02/21 History gabapentin 300 mg capsule 300 mg PO BID 12/07/20 01/02/21 History (Neurontin) indomethacin 25 mg capsule 25 mg PO TID PRN 12/07/20 01/02/21 History omeprazole 40 mg capsule,delayed 40 mg PO QAM 12/07/20 01/02/21 History release rifaximin 550 mg tablet (Xifaxan) 550 mg PO BID 12/07/20 01/02/21 History sertraline 100 mg tablet (Zoloft) 100 mg PO QAM 12/07/20 01/02/21 History spironolactone 50 mg tablet 50 mg PO QAM 12/07/20 01/02/21 History (Aldactone) magnesium oxide 420 mg tablet 420 mg PO DAILY #14 tab 12/10/20 01/02/21 Rx Patient History Medical History (Updated 01/02/21 @ 19:24 by German Colunga MD) Hyperlipidemia LOJA (nonalcoholic steatohepatitis) Osteoporosis Surgical History (Updated 12/08/20 @ 05:30 by Familia Winn PA-C) History of hernia repair Social History Smoking Status: Never smoker Second Hand Exposure: No; Do You Dip or Chew Tobacco: No; Tobacco Cessation Education Requested by Patient: No Hx Alcohol Use: No Hx Substance Use: No Preferred Language: Italian Communication Ability: Effective Central Processing Tech Required: No Beliefs That Will Affect Care: None Current Living Situation: Other Current Living Situation Comment: Lives at home with Son Other Information That Helps Us Care for You: No Feels Safe at Home: Yes Safety Concerns: Feels Safe At This Time Assistive Devices: Walker and Wheelchair Review of Systems Review of Systems: ROS: Gen: + weakness, confusion, No fevers, no weight loss Eyes: No eye redness, or pain, no recent vision changes Resp: No SOB, no cough Cardio: No palpitations/irregular beats, no chest pain GI: No abdominal pain, no nausea/vomiting : Denies pain on urination Skin: No jaundice, itching or new rashes Physical Exam Constitutional: WD/WN, vitals as above Eyes: PERRL, conjunctivae normal, anicteric sclerae ENMT: external ear and nose normal, oropharynx normal Neck: trachea midline, no thyromegaly Respiratory: normal respiratory effort, lungs clear to auscultation Cardiovascular: Rate/Rhythm: regular rate and regular rhythm 2-3/6 systolic murmur Gastrointestinal (Abdomen): normal bowel sounds, soft, nontender, no hepatosplenomegaly obese Musculoskeletal: no cyanosis or clubbing, extremities motor strength 5/5 Skin: no rashes, warm and dry Neurologic: PERRL, EOMI, accommodation nl, no face palsy, no dysarthria no asterixes Psychiatric: Orientation: alert and oriented x 3 Lymphatic: no cervical or axillary lymphadenopathy Results & Data ([facility]) Vital Signs (Past 12 Hours) Vital Signs Temp Pulse Pulse Resp BP Pulse Ox 01/03/21 11:45 36.7 C 77 18 103/65 95 01/03/21 08:08 36.7 C 79 20 131/70 95 01/03/21 07:00 84 01/03/21 03:45 36.6 C 82 20 117/61 99 01/03/21 02:43 84 17 95 Laboratory Results WBC 4.35, Hb 11.5, Hct 35.2, Plts 71, Hb 13.5, Hct 1.4, Na 145, K 4.0, Cl 110, CO2 31, BUN 16, Cr 0.49, Ammonia 53, Mg 1.6,AST 105, Alt 65, Alk Phos 105. Diagnostic Findings US 01/02/21: There is small amount of fluid within the right lower quadrant. Otherwise no significant ascites visualized. Splenomegaly seen measuring 15.6 cm in craniocaudal dimension. CT head w/o acute changes on 01/02/21.
[2021-01-03] MEDS: ADVANCED PROBIOTIC 1250 MG CAPSULE PO SCH (17:34)
[2021-01-04 07:52] LABS: Hematocrit (blood only) 33.6 % (37-47); Hemoglobin 10.7 g/dL (12.0-16.0); Mean Corpuscular Hemoglobin 29.8 pg (25-34); Mean Corpuscular Hgb Conc 31.8 g/dL (32-36); Mean Corpuscular Volume 93.6 fL (80-100); Mean Platelet Volume 12.1 fL (7.4-10.4); Platelet Count 70 K/uL (130-400); RDW Standard Deviation 51.2 fL (36.4-46.3); Red Blood Count 3.59 M/uL (4.2-5.4); White Blood Count 4.06 K/uL (4.8-10.8)
[2021-01-04] MEDS: CHOLECALCIFEROL 1,000 UNITS 25 MCG TAB PO SCH (08:04)
[2021-01-04] MEDS: rifAXIMin 550 MG TABLET PO SCH ×2 (08:04→19:23)
[2021-01-04] MEDS: ADVANCED PROBIOTIC 1250 MG CAPSULE PO SCH (08:04)
[2021-01-04] MEDS: SPIRONOLACTONE 25 MG TAB PO SCH (08:04)
[2021-01-04] MEDS: MAGNESIUM OXIDE 400 MG TAB PO SCH (08:04)
[2021-01-04] MEDS: PANTOprazole 40 MG TAB PO SCH (08:04)
[2021-01-04] MEDS: FUROSEMIDE 40 MG TAB PO SCH (08:04)
[2021-01-04] MEDS: ATORVASTATIN 40 MG TAB PO SCH (08:04)
[2021-01-04] MEDS: SERTRALINE HCL 100 MG TABLET PO SCH (08:05)
[2021-01-04] MEDS: LACTULOSE SYRUP 20 GM/30 ML UDC PO SCH ×2 (08:05→14:48)
[2021-01-04] MEDS: cefTRIAXone SODIUM 2,000 MG in DEXTROSE 5% 50 ML IV SCH (08:09)
[2021-01-04 08:19] LABS: Albumin Globulin Ratio 1.2 (0.9-2); Albumin Level 2.6 gm/dl (3.4-5.0); BUN Creatinine Ratio 37.7 (10-20); Bilirubin,Total 1.5 mg/dl (0.2-1); Calcium 8.1 mg/dl (8.5-10.1); Creatinine Clr Calc Pharmacy 127.3 ml/min; Est GFR (Non-African American) 100.1 ml/min; Globulin 2.2 gm/dl (2.5-4.0); Magnesium 1.9 mg/dl (1.8-2.4); Phosphorus 3.1 mg/dl (2.5-4.9); Potassium 3.3 mmol/L (3.5-5.1); Total Protein 4.8 gm/dl (6.4-8.2)
[2021-01-04] MEDS ORDERED: POTASSIUM CHLORIDE CRTAB 20 MEQ TABCR PO STA (10:41)
--- NOTE | 2021-01-04 10:41 | Hospitalist Progress Note ---
Date of Service January 04, 2021 Assessment & Plan (1) Frequent falls: Plan: Metabolic encephalopathy Hepatic encephalopathy UTI - Fall precautions - PT/OT consults - Concern as the patient lives at home by herself- although in assisted apartment with call bells, may consider life alert necklace/rehab/placement. - Possibly a bit hypovolemic - recently had increased lasix to 40 mg BID due to BLE, currently no edema - mucous membranes slightly dry on admission Decreased Lasix to once a day, monitor fluid status closely. Will need to discuss fluid intake with pt prior to discharge. UTI Patient last time admitted with UTI UA not obtained in ED - per nursing staff due to incontinence Okay to straight cath, UA c/w UTI -Started Rocephin, follow urine culture -mental status improved since admission (2) Hepatic encephalopathy: Plan: -Ammonia elevated at 48 on admission, not on lactulose at home -will order lactulose PO for now since awake, oriented to self and place, not time (on admission) -Now mentation improved -She was previously on lactulose 4 to 5 months ago routinely however was having 2 bowel movements daily naturally so was taken off of it. After her most recent hospitalization she had loose stools because of antibiotic use. Recently she has had 1 bowel movement daily. Concerned that this is not enough to clear her ammonia, and may consider having lactulose prn to titrate for 2-3 bm daily at home on dc. -Cont spironolactone 50 mg BID, Xifaxan 550 mg BID - decrease lasix 40 mg daily instead of BID and monitor fluid status closely -CT head is negative for acute event -CTA head and neck -unremarkable -Checked ABG -Checked UA and follow culture (recent history of UTI) (3) LOJA (nonalcoholic steatohepatitis): Plan: - [facility]s [facility], most recently saw Oliva Howell on 12/21 - Will discuss with GI further - As above regarding BM - 12/21/20 abd U/S completed with small to moderate free fluid. Checked abdominal ultrasound now - not much fluid, not likely SBP, no abd. pain either. - Follow am LFTs (4) Thrombocytopenia: Plan: - Plt 78 on admission, will follow with daily labs, no signs of spontaneous bleed (5) Hypomagnesemia: Plan: - Mag 1.3 on admission, replaced with 2 G IV, follow with am labs - Takes Mag oxide 400 mg daily po at home. Replace and monitor (6) Hyperlipidemia: Plan: -Lipitor listed as home medication, will check with the patient if she is taking it -per admitting PJ Collins, not on statin therapy, check lipids with am labs (7) DANNIELLE (obstructive sleep apnea): Plan: - Continue CPAP HS, has outpatient sleep referral pending (8) Ventral hernia: Plan: - hx of such, previously repaired years ago. During last admission , surgery consulted for hernia, there was no need for surgical procedure, also due to liver disease, pt high risk for surgery Currently no issues (9) Osteoporosis: Plan: Continue vitamin D and calcium replacements DVT PPx: - teds, scds CODE: Full code Dispo: From home, likely to remain in the hospital x 1-2 days Admission and Anticipated Discharge Date Admission Date: January 02, 2021 Subjective Patient seen in follow-up of fall, confusion, elevated ammonia level Recent admission for UTI Hypomagnesemia Current UA c/w UTI Also discussed with GI Currently she is sitting up, in no acute distress Denies any shortness of breath or chest pain, abdominal pain Today she is more oriented, answering questions appropriately Review of Systems Review of Systems: All systems reviewed & are unremarkable except as noted in Subjective Physical Exam Physical Exam: General: awake, alert, no apparent distress, morbidly obese Head: Normocephalic, atraumatic ENT: PERRL, EOMI Chest: Clear to auscultation, on room air, no adventitious breath sounds Cardiac: Regular rate and rhythm Abdominal: NABS x 4 quadrants, + umbilical hernia, soft, nondistended, nontender to palpation, no fluid wave, no rebound or guarding Extremities: Normal inspection, no peripheral edema or erythema, calves nontender to palpation Psych: Normal mood and affect Neuro: AAO x 3, answering most questions appropriately (much improved), speech is clear but slow, she is moving extremities Results & Data Results & Data ([facility]) Vital Signs (Past 12 Hours) Vital Signs Temp Pulse Pulse Resp BP Pulse Ox 01/04/21 07:00 89 01/04/21 06:53 36.9 C 92 H 20 94/52 L 92 01/04/21 04:10 36.6 C 86 20 104/42 L 96 01/04/21 03:35 80 18 95 08/20/21 03:28 85 01/03/21 22:59 36.6 C 85 20 108/56 L 96 Laboratory Results 01/04/21 01/04/21 01/03/21 Range/Units 07:07 07:07 10:15 WBC 4.06 L (4.8-10.8) K/uL RBC 3.59 L (4.2-5.4) M/uL Hgb 10.7 L (12.0-16.0) g/dL Hct 33.6 L (37-47) % MCV 93.6 (80-100) fL MCH 29.8 (25-34) pg MCHC 31.8 L (32-36) g/dL RDW Std Deviation 51.2 H (36.4-46.3) fL RDW Coeff of Blanca 15.0 H (11.5-14.5) % Plt Count 70 L (130-400) K/uL MPV 12.1 H (7.4-10.4) fL Sodium 144 (136-145) mmol/L Potassium 3.3 L D (3.5-5.1) mmol/L Chloride 111 H (98-107) mmol/L Carbon Dioxide 31 (21-32) mmol/L Anion Gap 2.0 L (3-11) BUN 18 (7-18) mg/dl Creatinine 0.48 L (0.6-1.2) mg/dl Est Cr Clr Drug Dosing 127.3 ml/min Est GFR ( Amer) 116.0 ml/min Est GFR (Non-Af Amer) 100.1 ml/min BUN/Creatinine Ratio 37.7 H (10-20) Glucose 86 (70-99) mg/dl Calcium 8.1 L (8.5-10.1) mg/dl Phosphorus 3.1 (2.5-4.9) mg/dl Magnesium 1.9 (1.8-2.4) mg/dl Total Bilirubin 1.5 H (0.2-1) mg/dl AST 98 H (15-37) U/L ALT 62 (12-78) U/L Alkaline Phosphatase 98 (45-117) U/L Total Protein 4.8 L (6.4-8.2) gm/dl Albumin 2.6 L (3.4-5.0) gm/dl Globulin 2.2 L (2.5-4.0) gm/dl Albumin/Globulin Ratio 1.2 (0.9-2) Urine Color Dark Yellow Urine Appearance Cloudy A (Clear) Urine pH 6.5 (4.5-7.5) Ur Specific [place] 1.045 H (1.000-1.030) Urine Protein Trace H (Negative) Urine Glucose (UA) Negative (Negative) Urine Ketones 1+ H (Negative) Urine Blood Negative (Negative) Urine Nitrite Positive A (Negative) Urine Bilirubin 1+ H (Negative) Urine Urobilinogen Positive H (Negative) Ur Leukocyte Esterase 2+ H (Negative) Urine WBC (Auto) >30 H (0-5) /hpf Urine RBC (Auto) 0-4 (0-4) /hpf U Hyaline Cast (Auto) 1-5 (0-5) /lpf U Epithel Cells (Auto) 0-5 (0-5) /lpf Urine Bacteria (Auto) 4+ H (Negative) Medications Administered Current Inpatient Medications Acetaminophen (Acetaminophen 325 Mg Tab) 650 mg PO Q8H PRN PRN Reason: Moderate Pain Stop: 02/01/21 20:03 Atorvastatin Calcium (Atorvastatin 40 Mg Tab) 80 mg PO QAM [facility] Stop: 02/02/21 08:59 Last Admin: 01/04/21 08:04 Dose: 80 mg Documented by: Furosemide (Furosemide 40 Mg Tab) 40 mg PO DAILY [facility] Stop: 02/02/21 08:59 Last Admin: 01/04/21 08:04 Dose: 40 mg Documented by: Gabapentin (Gabapentin 300 Mg Cap) 300 mg PO BID [facility] Stop: 02/01/21 20:59 Last Admin: 01/03/21 08:33 Dose: 300 mg Documented by: Ceftriaxone Sodium 2,000 mg/ (Dextrose) 70 mls @ 100 mls/hr IV DAILY [facility]; Protocol Stop: 01/13/21 11:14 Last Infusion: 01/04/21 08:56 Dose: Infused Documented by: Lactobacillus Acidoph/Casei/Rhamnos (Advanced Probiotic 1250 Mg Capsule) 2 cap PO DAILY [facility] Stop: 02/02/21 17:29 Last Admin: 01/04/21 08:04 Dose: 2 cap Documented by: Lactulose (Lactulose Syrup 20 Gm/30 Ml Udc) 20 gm PO TID [facility] Stop: 02/02/21 13:59 Last Admin: 01/04/21 08:05 Dose: 20 gm Documented by: Magnesium Oxide (Magnesium Oxide 400 Mg Tab) 400 mg PO DAILY [facility] Stop: 02/02/21 08:59 Last Admin: 01/04/21 08:04 Dose: 400 mg Documented by: Ondansetron HCl (Ondansetron Inj 2 Mg/Ml 2 Ml Vial) 4 mg IV Q4H PRN PRN Reason: Nausea And Vomiting Stop: 02/01/21 20:03 Pantoprazole Sodium (Pantoprazole 40 Mg Tab) [facility] [place] [place] Stop: 02/02/21 08:59 Last Admin: 01/04/21 08:04 Dose: 40 mg Documented by: Rifaximin (Rifaximin 550 Mg Tablet) 550 mg PO BID [facility] Stop: 02/01/21 20:59 Last Admin: 01/04/21 08:04 Dose: 550 mg Documented by: Sertraline HCl (Sertraline Hcl 100 Mg Tablet) 100 mg PO [facility] Stop: 02/02/21 08:59 Last Admin: 01/04/21 08:05 Dose: 100 mg Documented by: Spironolactone (Spironolactone 25 Mg Tab) 50 mg PO QAM [facility] Stop: 02/02/21 08:59 Last Admin: 01/04/21 08:04 Dose: 50 mg Documented by: Vitamin D (Cholecalciferol 1,000 Units 25 Mcg Tab) 2,000 units PO QAM [facility] Stop: 02/02/21 08:59 Last Admin: 01/04/21 08:04 Dose: 2,000 units Documented by:
[2021-01-04] MEDS ORDERED: LACTULOSE SYRUP 20 GM/30 ML UDC PO PRN (14:56)
[2021-01-05 08:16] LABS: Hematocrit (blood only) 34.4 % (37-47); Hemoglobin 11.1 g/dL (12.0-16.0); Mean Corpuscular Hemoglobin 29.7 pg (25-34); Mean Corpuscular Hgb Conc 32.3 g/dL (32-36); Mean Platelet Volume 12.2 fL (7.4-10.4); Platelet Count 74 K/uL (130-400); RDW Coefficient of Variation 15.1 % (11.5-14.5); RDW Standard Deviation 50.4 fL (36.4-46.3); Red Blood Count 3.74 M/uL (4.2-5.4); White Blood Count 4.25 K/uL (4.8-10.8)
[2021-01-05] MEDS: SPIRONOLACTONE 25 MG TAB PO SCH (08:19)
[2021-01-05] MEDS: ADVANCED PROBIOTIC 1250 MG CAPSULE PO SCH (08:19)
[2021-01-05] MEDS: PANTOprazole 40 MG TAB PO SCH (08:19)
[2021-01-05] MEDS: CHOLECALCIFEROL 1,000 UNITS 25 MCG TAB PO SCH (08:19)
[2021-01-05] MEDS: FUROSEMIDE 40 MG TAB PO SCH (08:19)
[2021-01-05] MEDS: cefTRIAXone SODIUM 2,000 MG in DEXTROSE 5% 50 ML IV SCH (08:19)
[2021-01-05] MEDS: rifAXIMin 550 MG TABLET PO SCH ×2 (08:19→20:22)
[2021-01-05] MEDS: MAGNESIUM OXIDE 400 MG TAB PO SCH (08:20)
[2021-01-05] MEDS: ATORVASTATIN 40 MG TAB PO SCH (08:20)
[2021-01-05] MEDS: SERTRALINE HCL 100 MG TABLET PO SCH (08:20)
[2021-01-05 08:23] LABS: Albumin Level 2.6 gm/dl (3.4-5.0); BUN Creatinine Ratio 37.7 (10-20); Creatinine Clr Calc Pharmacy 135.8 ml/min; Est GFR (African American) 118.5 ml/min; Est GFR (Non-African American) 102.2 ml/min; Magnesium 1.6 mg/dl (1.8-2.4); Potassium 3.6 mmol/L (3.5-5.1)
[2021-01-05 08:26] LABS: Albumin Globulin Ratio 1.1 (0.9-2); Bilirubin,Total 1.4 mg/dl (0.2-1); Globulin 2.4 gm/dl (2.5-4.0); Phosphorus 2.9 mg/dl (2.5-4.9)
[2021-01-05] MEDS ORDERED: MAGNESIUM SULFATE / D5W 1 GM/100 ML BAG IV ONE (09:24)
[2021-01-05] MEDS ORDERED: POTASSIUM CHLORIDE CRTAB 20 MEQ TABCR PO STA (09:24)
--- NOTE | 2021-01-05 09:26 | Hospitalist Progress Note ---
Date of Service January 05, 2021 Assessment & Plan (1) Frequent falls: Plan: Metabolic encephalopathy Hepatic encephalopathy UTI - Fall precautions - PT/OT consults - Concern as the patient lives at home by herself- although in long-term apartment with call bells, may consider life alert necklace/rehab/placement. - Possibly a bit hypovolemic - recently had increased lasix to 40 mg BID due to BLE, currently no edema - mucous membranes slightly dry on admission Decreased Lasix to once a day, monitor fluid status closely. Will need to discuss fluid intake with pt prior to discharge. UTI Patient last time admitted with UTI UA not obtained in ED - per nursing staff due to incontinence Okay to straight cath, UA c/w UTI -Started Rocephin, follow urine culture -mental status improved since admission Urine cultx -positive for E. coli and Citrobacter youngae -both positive and sensitive to ceftriaxone and Cipro Plan to discharge on p.o. Cipro Discussed recurrent UTI with the patient in detail, importance of good hygiene, follow-up with PCP (2) Hepatic encephalopathy: Plan: -Ammonia elevated at 48 on admission, not on lactulose at home -will order lactulose PO for now since awake, oriented to self and place, not time (on admission) -Now mentation improved -She was previously on lactulose 4 to 5 months ago routinely however was having 2 bowel movements daily naturally so was taken off of it. After her most recent hospitalization she had loose stools because of antibiotic use. Recently she has had 1 bowel movement daily. Concerned that this is not enough to clear her ammonia, and may consider having lactulose prn to titrate for 2-3 bm daily at home on dc. -Cont spironolactone 50 mg BID, Xifaxan 550 mg BID - decrease lasix 40 mg daily instead of BID and monitor fluid status closely -CT head is negative for acute event -CTA head and neck -unremarkable -Checked ABG -Checked UA and follow culture (recent history of UTI)- as above (3) LOJA (nonalcoholic steatohepatitis): Plan: - [facility]s [facility], most recently saw Oliva Howell on 12/21 - Will discuss with GI further - As above regarding BM - 12/21/20 abd U/S completed with small to moderate free fluid. Checked abdominal ultrasound now - Minimal amount of free intra-abdominal fluid. No significant ascites. - not likely SBP, no abd. pain either. - Follow am LFTs (4) Thrombocytopenia: Plan: - Plt 78 on admission, will follow with daily labs, no signs of spontaneous bleed (5) Hypomagnesemia: Plan: - Mag 1.3 on admission, replaced with 2 G IV, follow with am labs - Takes Mag oxide 400 mg daily po at home. Replace and monitor (6) Hyperlipidemia: Plan: -Lipitor listed as home medication, will check with the patient if she is taking it -per admitting PA Dennis, not on statin therapy, check lipids with am labs (7) DANNIELLE (obstructive sleep apnea): Plan: - Continue CPAP HS, has outpatient sleep referral pending (8) Ventral hernia: Plan: - hx of such, previously repaired years ago. During last admission , surgery consulted for hernia, there was no need for surgical procedure, also due to liver disease, pt high risk for surgery Currently no issues (9) Osteoporosis: Plan: Continue vitamin D and calcium replacements DVT PPx: - teds, scds CODE: Full code Dispo: From home, likely DC tmrw Admission and Anticipated Discharge Date Admission Date: January 02, 2021 Subjective Patient seen in follow-up of fall, confusion, elevated ammonia level, recurrent UTI Currently she is sitting up in chair, in no acute distress, watching TV Denies any shortness of breath or chest pain, abdominal pain Reports feeling better, she is more oriented, answering questions appropriately Review of Systems Review of Systems: All systems reviewed & are unremarkable except as noted in Subjective Physical Exam Physical Exam: General: morbidly obese F, awake, alert, no apparent distress Head: Normocephalic, atraumatic ENT: PERRL, EOMI Chest: Clear to auscultation, on room air, no adventitious breath sounds Cardiac: Regular rate and rhythm Abdominal: NABS x 4 quadrants, + umbilical hernia, soft, nondistended, nontender to palpation, no fluid wave, no rebound or guarding Extremities: Normal inspection, no peripheral edema or erythema, calves nontender to palpation Psych: Normal mood and affect Neuro: AAO x 3, answering most questions appropriately (much improved), speech is clear but slow, she is moving extremities Results & Data Results & Data ([facility]) Vital Signs (Past 12 Hours) Vital Signs Temp Pulse Pulse Resp BP Pulse Ox 01/05/21 07:54 36.5 C 84 20 113/56 L 94 01/05/21 07:00 81 01/05/21 05:45 110/62 01/05/21 04:00 37.2 C 87 20 89/37 L 94 01/05/21 01:50 87 01/04/21 23:25 36.7 C 83 18 125/64 94 01/04/21 23:01 82 19 96 Laboratory Results 01/05/21 01/05/21 01/05/21 Range/Units 07:51 07:44 07:44 WBC 4.25 L (4.8-10.8) K/uL RBC 3.74 L (4.2-5.4) M/uL Hgb 11.1 L (12.0-16.0) g/dL Hct 34.4 L (37-47) % MCV 92.0 (80-100) fL MCH 29.7 (25-34) pg MCHC 32.3 (32-36) g/dL RDW Std Deviation 50.4 H (36.4-46.3) fL RDW Coeff of Blanca 15.1 H (11.5-14.5) % Plt Count 74 L (130-400) K/uL MPV 12.2 H (7.4-10.4) fL Sodium 144 (136-145) mmol/L Potassium 3.6 (3.5-5.1) mmol/L Chloride 113 H (98-107) mmol/L Carbon Dioxide 28 (21-32) mmol/L Anion Gap 4.0 (3-11) BUN 17 (7-18) mg/dl Creatinine 0.45 L (0.6-1.2) mg/dl Est Cr Clr Drug Dosing 135.8 ml/min Est GFR ( Amer) 118.5 ml/min Est GFR (Non-Af Amer) 102.2 ml/min BUN/Creatinine Ratio 37.7 H (10-20) Glucose 80 (70-99) mg/dl Calcium 8.0 L (8.5-10.1) mg/dl Phosphorus 2.9 (2.5-4.9) mg/dl Magnesium 1.6 L (1.8-2.4) mg/dl Total Bilirubin 1.4 H (0.2-1) mg/dl AST 107 H (15-37) U/L ALT 66 (12-78) U/L Alkaline Phosphatase 102 (45-117) U/L Ammonia 61.0 H (11-32) umol/L Total Protein 5.0 L (6.4-8.2) gm/dl Albumin 2.6 L (3.4-5.0) gm/dl Globulin 2.4 L (2.5-4.0) gm/dl Albumin/Globulin Ratio 1.1 (0.9-2) Medications Administered Current Inpatient Medications Acetaminophen (Acetaminophen 325 Mg Tab) 650 mg PO Q8H PRN PRN Reason: Moderate Pain Stop: 02/01/21 20:03 Atorvastatin Calcium (Atorvastatin 40 Mg Tab) 80 mg PO QAM [facility] Stop: 02/02/21 08:59 Last Admin: 01/05/21 08:20 Dose: 80 mg Documented by: Furosemide (Furosemide 40 Mg Tab) 40 mg PO DAILY [facility] Stop: 02/02/21 08:59 Last Admin: 01/05/21 08:19 Dose: 40 mg Documented by: Gabapentin (Gabapentin 300 Mg Cap) 300 mg PO BID [facility] Stop: 02/01/21 20:59 Last Admin: 01/03/21 08:33 Dose: 300 mg Documented by: Ceftriaxone Sodium 2,000 mg/ (Dextrose) 70 mls @ 100 mls/hr IV DAILY [facility]; Protocol Stop: 01/13/21 11:14 Last Infusion: 01/05/21 09:16 Dose: Infused Documented by: Magnesium Sulfate/Dextrose (Magnesium Sulfate / D5w) 1 gm in 100 mls @ 50 mls/hr IV ONE ONE Stop: 01/05/21 11:23 Lactobacillus Acidoph/Casei/Rhamnos (Advanced Probiotic 1250 Mg Capsule) 2 cap PO DAILY [facility] Stop: 02/02/21 17:29 Last Admin: 01/05/21 08:19 Dose: 2 cap Documented by: Lactulose (Lactulose Syrup 20 Gm/30 Ml Udc) 20 gm PO BID PRN PRN Reason: pt should have 2-3 BMs a day Stop: 02/03/21 20:59 Last Admin: 01/05/21 08:27 Dose: 20 gm Documented by: Magnesium Oxide (Magnesium Oxide 400 Mg Tab) 400 mg PO DAILY [facility] Stop: 02/02/21 08:59 Last Admin: 01/05/21 08:20 Dose: 400 mg Documented by: Ondansetron HCl (Ondansetron Inj 2 Mg/Ml 2 Ml Vial) 4 mg IV Q4H PRN PRN Reason: Nausea And Vomiting Stop: 02/01/21 20:03 Pantoprazole Sodium (Pantoprazole 40 Mg Tab) [facility] [place] Stop: 02/02/21 08:59 Last Admin: 01/05/21 08:19 Dose: 40 mg Documented by: Potassium Chloride (Potassium Chloride Crtab 20 Meq Tabcr) 40 meq PO NOW [facility] Stop: 01/05/21 09:25 Rifaximin (Rifaximin 550 Mg Tablet) 550 mg PO BID [facility] Stop: 02/01/21 20:59 Last Admin: 01/05/21 08:19 Dose: 550 mg Documented by: Sertraline HCl (Sertraline Hcl 100 Mg Tablet) 100 mg PO [facility] Stop: 02/02/21 08:59 Last Admin: 01/05/21 08:20 Dose: 100 mg Documented by: Spironolactone (Spironolactone 25 Mg Tab) 50 mg PO [facility] Stop: 02/02/21 08:59 Last Admin: 01/05/21 08:19 Dose: 50 mg Documented by: Vitamin D (Cholecalciferol 1,000 Units 25 Mcg Tab) 2,000 units PO [facility] Stop: 02/02/21 08:59 Last Admin: 01/05/21 08:19 Dose: 2,000 units Documented by:
[2021-01-05] MEDS ORDERED: MAGNESIUM SULFATE / D5W 1 GM/100 ML BAG IV SCH (14:00)
[2021-01-06 07:45] LABS: Hemoglobin 10.8 g/dL (12.0-16.0); Mean Corpuscular Hemoglobin 29.5 pg (25-34); Mean Corpuscular Hgb Conc 31.8 g/dL (32-36); Mean Corpuscular Volume 92.9 fL (80-100); RDW Coefficient of Variation 15.2 % (11.5-14.5); RDW Standard Deviation 51.3 fL (36.4-46.3); Red Blood Count 3.66 M/uL (4.2-5.4); White Blood Count 4.19 K/uL (4.8-10.8)
--- NOTE | 2021-01-06 08:02 | Hospitalist Progress Note ---
Date of Service January 06, 2021 Assessment & Plan (1) Frequent falls: Plan: Metabolic encephalopathy Hepatic encephalopathy UTI - Fall precautions - PT/OT consults - Concern as the patient lives at home by herself- although in skilled nursing apartment with call bells, may consider life alert necklace/rehab/placement. - Possibly a bit hypovolemic - recently had increased lasix to 40 mg BID due to BLE, currently no edema - mucous membranes slightly dry on admission Decreased Lasix to once a day, monitor fluid status closely. Plan to discharge on furosemide daily. UTI Patient last time admitted with UTI UA not obtained in ED - per nursing staff due to incontinence Okay to straight cath, UA c/w UTI -Started Rocephin, follow urine culture -mental status improved since admission Urine cultx -positive for E. coli and Citrobacter youngae -both positive and sensitive to ceftriaxone and Cipro Plan to discharge on p.o. Cipro Discussed recurrent UTI with the patient in detail, importance of good hygiene, follow-up with PCP (2) Hepatic encephalopathy: Plan: -Ammonia elevated at 48 on admission, not on lactulose at home -will order lactulose PO for now since awake, oriented to self and place, not time (on admission) -Now mentation improved -She was previously on lactulose 4 to 5 months ago routinely however was having 2 bowel movements daily naturally so was taken off of it. After her most recent hospitalization she had loose stools because of antibiotic use. Recently she has had 1 bowel movement daily. Concerned that this is not enough to clear her ammonia, and may consider having lactulose prn to titrate for 2-3 bm daily at home on dc. -Cont spironolactone 50 mg BID, Xifaxan 550 mg BID - decrease lasix 40 mg daily instead of BID and monitor fluid status closely -CT head is negative for acute event -CTA head and neck -unremarkable -Checked ABG -Checked UA and follow culture (recent history of UTI)- as above (3) LOJA (nonalcoholic steatohepatitis): Plan: - Follows [facility], most recently saw Oliva Howell on 12/21 - Will discuss with GI further - As above regarding BM - 12/21/20 abd U/S completed with small to moderate free fluid. Checked abdominal ultrasound now - Minimal amount of free intra-abdominal fluid. No significant ascites. - not likely SBP, no abd. pain either. - Follow am LFTs (4) Thrombocytopenia: Plan: - Plt 78 on admission, will follow with daily labs, no signs of spontaneous bleed (5) Hypomagnesemia: Plan: - Mag 1.3 on admission, replaced with 2 G IV, follow with am labs - Takes Mag oxide 400 mg daily po at home. Replace and monitor (6) Hyperlipidemia: Plan: -Lipitor listed as home medication, will check with the patient if she is taking it -per admitting PA -C, not on statin therapy, check lipids with am labs Morbid obesity - BMI 40.5 - recommend lifestyle modifications - Follow-up with primary care doctor (7) DANNIELLE (obstructive sleep apnea): Plan: - Continue CPAP HS, has outpatient sleep referral pending (8) Ventral hernia: Plan: - hx of such, previously repaired years ago. During last admission , surgery consulted for hernia, there was no need for surgical procedure, also due to liver disease, pt high risk for surgery Currently no issues (9) Osteoporosis: Plan: Continue vitamin D and calcium replacements DVT PPx: - teds, scds CODE: Full code Dispo: From home, plan to DC home today w/ HH Admission and Anticipated Discharge Date Admission Date: January 02, 2021 Subjective Patient seen in follow-up of fall, confusion, elevated ammonia level, recurrent UTI Currently she is sitting up in chair, in no acute distress, eating breakfast and watching TV Denies any shortness of breath or chest pain, abdominal pain Reports feeling well, she is alert and oriented, answering questions appropriately Review of Systems Review of Systems: All systems reviewed & are unremarkable except as noted in Subjective Physical Exam Physical Exam: General: morbidly obese F, awake, alert, no apparent distress Head: Normocephalic, atraumatic ENT: PERRL, EOMI Chest: Clear to auscultation, on room air, no adventitious breath sounds Cardiac: Regular rate and rhythm Abdominal: NABS x 4 quadrants, + umbilical hernia, soft, nondistended, nontender to palpation, no fluid wave, no rebound or guarding Extremities: Normal inspection, no peripheral edema or erythema, calves nontender to palpation Psych: Normal mood and affect Neuro: AAO x 3, answering most questions appropriately (much improved), speech is clear but slow, she is moving extremities Results & Data Results & Data ([facility]) Vital Signs (Past 12 Hours) Vital Signs Temp Pulse Pulse Resp BP Pulse Ox 01/06/21 07:55 36.9 C 82 16 110/69 94 01/06/21 02:58 37.1 C 83 18 102/48 L 96 01/06/21 02:39 83 01/05/21 22:41 76 22 95 01/05/21 22:38 36.7 C 81 20 106/46 L 94 01/05/21 20:01 36.6 C 80 18 120/50 L 96 Laboratory Results 01/06/21 01/06/21 01/05/21 Range/Units 07:26 07:26 13:35 WBC 4.19 L (4.8-10.8) K/uL RBC 3.66 L (4.2-5.4) M/uL Hgb 10.8 L (12.0-16.0) g/dL Hct 34.0 L (37-47) % MCV 92.9 (80-100) fL MCH 29.5 (25-34) pg MCHC 31.8 L (32-36) g/dL RDW Std Deviation 51.3 H (36.4-46.3) fL RDW Coeff of Blanca 15.2 H (11.5-14.5) % Plt Count Pending (130-400) K/uL MPV (7.4-10.4) fL Sodium Pending (136-145) mmol/L Potassium Pending (3.5-5.1) mmol/L Chloride Pending (98-107) mmol/L Carbon Dioxide Pending (21-32) mmol/L Anion Gap Pending (3-11) BUN Pending (7-18) mg/dl Creatinine Pending (0.6-1.2) mg/dl Est Cr Clr Drug Dosing Pending ml/min Est GFR ( Amer) Pending ml/min Est GFR (Non-Af Amer) Pending ml/min BUN/Creatinine Ratio Pending (10-20) Glucose Pending (70-99) mg/dl Calcium Pending (8.5-10.1) mg/dl Phosphorus Pending (2.5-4.9) mg/dl Magnesium Pending (1.8-2.4) mg/dl Total Bilirubin Pending (0.2-1) mg/dl AST Pending (15-37) U/L ALT Pending (12-78) U/L Alkaline Phosphatase Pending (45-117) U/L Ammonia (11-32) umol/L Total Protein Pending (6.4-8.2) gm/dl Albumin Pending (3.4-5.0) gm/dl Globulin Pending (2.5-4.0) gm/dl Albumin/Globulin Ratio Pending (0.9-2) Stl C. diff Tox B Gene Negative Cdiff Gene (Neg) 01/05/21 01/05/21 01/05/21 Range/Units 07:51 07:44 07:44 WBC 4.25 L (4.8-10.8) K/uL RBC 3.74 L (4.2-5.4) M/uL Hgb 11.1 L (12.0-16.0) g/dL Hct 34.4 L (37-47) % MCV 92.0 (80-100) fL MCH 29.7 (25-34) pg MCHC 32.3 (32-36) g/dL RDW Std Deviation 50.4 H (36.4-46.3) fL RDW Coeff of Blanca 15.1 H (11.5-14.5) % Plt Count 74 L (130-400) K/uL MPV 12.2 H (7.4-10.4) fL Sodium 144 (136-145) mmol/L Potassium 3.6 (3.5-5.1) mmol/L Chloride 113 H (98-107) mmol/L Carbon Dioxide 28 (21-32) mmol/L Anion Gap 4.0 (3-11) BUN 17 (7-18) mg/dl Creatinine 0.45 L (0.6-1.2) mg/dl Est Cr Clr Drug Dosing 135.8 ml/min Est GFR ( Amer) 118.5 ml/min Est GFR (Non-Af Amer) 102.2 ml/min BUN/Creatinine Ratio 37.7 H (10-20) Glucose 80 (70-99) mg/dl Calcium 8.0 L (8.5-10.1) mg/dl Phosphorus 2.9 (2.5-4.9) mg/dl Magnesium 1.6 L (1.8-2.4) mg/dl Total Bilirubin 1.4 H (0.2-1) mg/dl AST 107 H (15-37) U/L ALT 66 (12-78) U/L Alkaline Phosphatase 102 (45-117) U/L Ammonia 61.0 H (11-32) umol/L Total Protein 5.0 L (6.4-8.2) gm/dl Albumin 2.6 L (3.4-5.0) gm/dl Globulin 2.4 L (2.5-4.0) gm/dl Albumin/Globulin Ratio 1.1 (0.9-2) Stl C. diff Tox B Gene (Neg) Medications Administered Current Inpatient Medications Acetaminophen (Acetaminophen 325 Mg Tab) 650 mg PO Q8H PRN PRN Reason: Moderate Pain Stop: 02/01/21 20:03 Atorvastatin Calcium (Atorvastatin 40 Mg Tab) 80 mg PO QAM SAMIR Stop: 02/02/21 08:59 Last Admin: 01/05/21 08:20 Dose: 80 mg Documented by: Furosemide (Furosemide 40 Mg Tab) 40 mg PO DAILY SAMIR Stop: 02/02/21 08:59 Last Admin: 01/05/21 08:19 Dose: 40 mg Documented by: Gabapentin (Gabapentin 300 Mg Cap) 300 mg PO BID SAMIR Stop: 02/01/21 20:59 Last Admin: 01/03/21 08:33 Dose: 300 mg Documented by: Ceftriaxone Sodium 2,000 mg/ (Dextrose) 70 mls @ 100 mls/hr IV DAILY SAMIR; Protocol Stop: 01/13/21 11:14 Last Infusion: 01/05/21 09:16 Dose: Infused Documented by: Lactobacillus Acidoph/Casei/Rhamnos (Advanced Probiotic 1250 Mg Capsule) 2 cap PO DAILY SAMIR Stop: 02/02/21 17:29 Last Admin: 01/05/21 08:19 Dose: 2 cap Documented by: Lactulose (Lactulose Syrup 20 Gm/30 Ml Udc) 20 gm PO BID PRN PRN Reason: pt should have 2-3 BMs a day Stop: 02/03/21 20:59 Last Admin: 01/05/21 08:27 Dose: 20 gm Documented by: Magnesium Oxide (Magnesium Oxide 400 Mg Tab) 400 mg PO DAILY SAMIR Stop: 02/02/21 08:59 Last Admin: 01/05/21 08:20 Dose: 400 mg Documented by: Ondansetron HCl (Ondansetron Inj 2 Mg/Ml 2 Ml Vial) 4 mg IV Q4H PRN PRN Reason: Nausea And Vomiting Stop: 02/01/21 20:03 Pantoprazole Sodium (Pantoprazole 40 Mg Tab) 40 mg PO [facility] Stop: 02/02/21 08:59 Last Admin: 01/05/21 08:19 Dose: 40 mg Documented by: Rifaximin (Rifaximin 550 Mg Tablet) 550 mg PO BID [facility] Stop: 02/01/21 20:59 Last Admin: 01/05/21 20:22 Dose: 550 mg Documented by: Sertraline HCl (Sertraline Hcl 100 Mg Tablet) 100 mg PO [facility] Stop: 02/02/21 08:59 Last Admin: 01/05/21 08:20 Dose: 100 mg Documented by: Spironolactone (Spironolactone 25 Mg Tab) 50 mg PO [facility] Stop: 02/02/21 08:59 Last Admin: 01/05/21 08:19 Dose: 50 mg Documented by: Vitamin D (Cholecalciferol 1,000 Units 25 Mcg Tab) 2,000 units PO [facility] Stop: 02/02/21 08:59 Last Admin: 01/05/21 08:19 Dose: 2,000 units Documented by:
[2021-01-06 08:03] LABS: Albumin Level 2.4 gm/dl (3.4-5.0); BUN Creatinine Ratio 40.6 (10-20); Calcium 7.7 mg/dl (8.5-10.1); Creatinine Clr Calc Pharmacy 152.8 ml/min; Est GFR (African American) 123.2 ml/min; Est GFR (Non-African American) 106.3 ml/min; Magnesium 1.7 mg/dl (1.8-2.4)
[2021-01-06 08:06] LABS: Albumin Globulin Ratio 1.1 (0.9-2); Bilirubin,Total 1.1 mg/dl (0.2-1); Globulin 2.2 gm/dl (2.5-4.0); Phosphorus 2.6 mg/dl (2.5-4.9); Total Protein 4.6 gm/dl (6.4-8.2)
[2021-01-06 08:07] LABS: Mean Platelet Volume 11.4 fL (7.4-10.4); Platelet Count 70 K/uL (130-400)
[2021-01-06] MEDS: rifAXIMin 550 MG TABLET PO SCH (08:08)
[2021-01-06] MEDS: CHOLECALCIFEROL 1,000 UNITS 25 MCG TAB PO SCH (08:08)
[2021-01-06] MEDS: ADVANCED PROBIOTIC 1250 MG CAPSULE PO SCH (08:08)
[2021-01-06] MEDS: cefTRIAXone SODIUM 2,000 MG in DEXTROSE 5% 50 ML IV SCH (08:08)
[2021-01-06] MEDS: SPIRONOLACTONE 25 MG TAB PO SCH (08:08)
[2021-01-06] MEDS: SERTRALINE HCL 100 MG TABLET PO SCH (08:08)
[2021-01-06] MEDS: FUROSEMIDE 40 MG TAB PO SCH (08:08)
[2021-01-06] MEDS: ATORVASTATIN 40 MG TAB PO SCH (08:08)
[2021-01-06] MEDS: PANTOprazole 40 MG TAB PO SCH (08:09)
--- NOTE | 2021-01-06 08:28 | Discharge Summary ---
Date of Service January 06, 2021 Admission HPI Per Admitting Provider This is a 70-year-old female with PMHx of LOJA cirrhosis, thrombocytopenia, hyperlipidemia, osteoporosis, morbid obesity, DANNIELLE, lumbar DDD, restless leg syndrome, neuropathy, depression, who presents to the ER with report of increased confusion and frequent falls. Her son is present with her at bedside. He notes that landlord told him she walked her dog at approximately 9:30 AM. Patient reports she felt dizzy and fell in the bathroom, but cannot recall about what time or what happened thereafter. Patient is able to state her name and where she is at, however she is unable to tell me the year or month, which per her son is not her normal baseline. Son also reports that she fell yesterday as well. She has been taking her medications as scheduled. Recently her Lasix was doubled to 40 mg twice daily and lost ~30 pounds of fluid within the past 3 weeks since being discharged. Her son notes that her swelling in legs and abdomen is significantly improved. She has been taking spironolactone and Xifaxan as ordered. Patient was on lactulose 4 to 5 months ago but was taken off this because she was having to BM naturally daily, however this past week she has had 1 BM daily. Ammonia level is 48 on admission. She has been eating and drinking well, no other acute complaints. Denies any recent illnesses, travel, or sick contacts. She resides in a personal apartment, senior care center where there are alarm pools in every room, and does not have a life alert necklace. Admission Exam Per Admitting Provider General: awake, alert, no apparent distress, morbidly obese, + confused, unable to name year or month Head: Normocephalic, atraumatic ENT: PERRL, EOMI, no pharyngeal exudate, mucous membranes slightly dry Chest: Clear to auscultation, on room air, no adventitious breath sounds Cardiac: Regular rate and rhythm, no murmur, no JVD, normal peripheral pulses, good capillary refill Abdominal: NABS x 4 quadrants, + large epigastric hernia, soft, nondistended, nontender to palpation, no fluid wave, no rebound or guarding Extremities: Normal inspection, no peripheral edema or erythema, calfs nontender to palpation Psych: Normal mood and affect Neuro: AAO x 3, strength intact bilaterally and rated 5/5, no motor deficits, speech is clear, no peripheral sensory deficits Principal Diagnosis Metabolic encephalopathy, hepatic encephalopathy, recurrent UTI Hypomagnesemia, elevated ammonia level Thrombocytopenia Discharge Exam General: morbidly obese F, awake, alert, no apparent distress Head: Normocephalic, atraumatic ENT: PERRL, EOMI Chest: Clear to auscultation, on room air, no adventitious breath sounds Cardiac: Regular rate and rhythm Abdominal: NABS x 4 quadrants, + umbilical hernia, soft, nondistended, nontender to palpation, no fluid wave, no rebound or guarding Extremities: Normal inspection, no peripheral edema or erythema, calves nontender to palpation Psych: Normal mood and affect Neuro: AAO x 3, answering most questions appropriately (much improved), speech is clear but slow, she is moving extremities Discharge Data Allergies Allergy/AdvReac Type Severity Reaction Status Date / Time No Known Allergies Allergy Unverified 01/02/21 15:14 Consultations 01/02/21 17:14 ED Decision to Admit Stat 01/02/21 20:04 Consult Gastroenterology Routine Ordered Studies 01/02/21 15:07 CT angio head w con Stat CT angio neck with con Stat CT head/brain wo con Stat IMPRESSION: 1. There is no hemorrhage, mass effect, or evidence of acute territorial ischemia by CT criteria. 2. Unremarkable CT angiogram of the brain. 3. Unremarkable CT angiogram of the neck. 01/02/21 18:38 US abdomen ltd ascites Urgent IMPRESSION: 1. Minimal amount of free intra-abdominal fluid. No significant ascites. 2. Splenomegaly. Hospital Course (1) Frequent falls: Metabolic encephalopathy Hepatic encephalopathy UTI - Fall precautions - PT/OT consults - Concern as the patient lives at home by herself- although in senior care apartment with call bells, may consider life alert necklace/rehab/placement. - Possibly a bit hypovolemic - recently had increased lasix to 40 mg BID due to BLE, currently no edema - mucous membranes slightly dry on admission Decreased Lasix to once a day, monitor fluid status closely. Plan to discharge on furosemide daily. UTI Patient last time admitted with UTI UA not obtained in ED - per nursing staff due to incontinence Okay to straight cath, UA c/w UTI -Started Rocephin, follow urine culture -mental status improved since admission Urine cultx -positive for E. coli and Citrobacter youngae -both positive and sensitive to ceftriaxone and Cipro Plan to discharge on p.o. Cipro Discussed recurrent UTI with the patient in detail, importance of good hygiene, follow-up with PCP (2) Hepatic encephalopathy: -Ammonia elevated at 48 on admission, not on lactulose at home -will order lactulose PO for now since awake, oriented to self and place, not time (on admission) -Now mentation improved -She was previously on lactulose 4 to 5 months ago routinely however was having 2 bowel movements daily naturally so was taken off of it. After her most recent hospitalization she had loose stools because of antibiotic use. Recently she has had 1 bowel movement daily. Concerned that this is not enough to clear her ammonia, and may consider having lactulose prn to titrate for 2-3 bm daily at home on dc. -Cont spironolactone 50 mg BID, Xifaxan 550 mg BID - decrease lasix 40 mg daily instead of BID and monitor fluid status closely -CT head is negative for acute event -CTA head and neck -unremarkable -Checked ABG -Checked UA and follow culture (recent history of UTI)- as above (3) LOJA (nonalcoholic steatohepatitis): - Follows [facility] as [facility], most recently saw Oliva Howell on 12/21 - Will discuss with GI further - As above regarding BM - 12/21/20 abd U/S completed with small to moderate free fluid. Checked abdominal ultrasound now - Minimal amount of free intra-abdominal fluid. No significant ascites. - not likely SBP, no abd. pain either. - Follow am LFTs (4) Thrombocytopenia: - Plt 78 on admission, will follow with daily labs, no signs of spontaneous bleed (5) Hypomagnesemia: - Mag 1.3 on admission, replaced with 2 G IV, follow with am labs - Takes Mag oxide 400 mg daily po at home. Replace and monitor (6) Hyperlipidemia: -Lipitor listed as home medication, will check with the patient if she is taking it -per admitting PA ChadC, not on statin therapy, check lipids with am labs Morbid obesity - BMI 40.5 - recommend lifestyle modifications - Follow-up with primary care doctor (7) DANNIELLE (obstructive sleep apnea): - Continue CPAP HS, has outpatient sleep referral pending (8) Ventral hernia: - hx of such, previously repaired years ago. During last admission , surgery consulted for hernia, there was no need for surgical procedure, also due to liver disease, pt high risk for surgery Currently no issues (9) Osteoporosis: Continue vitamin D and calcium replacements DVT PPx: - teds, scds CODE: Full code Dispo: From home, plan to DC home today w/ HH Home Health Attestation I certify that this patient is under my care and that I, or a physicians bacteriology research assistant working with me, had a face to-face encounter that meets the home health [id number] encounter requirements with this patient. The encounter with the patient was in whole, or in part, for the following medical condition, which is the primary reason for home health care (list medical condition): I certify that, based on my findings, the following services are medically necessary home health services: My clinical findings support the need for the above services because: OT Assess ADL Status and Restore Function w ADLs PT Assessment for Endurance / Balance / Strength Further, I certify that my clinical findings support that this patient is homebound (i.e. absences from home require considerable and taxing effort and are for medical reasons or scientologist services or infrequently or of short duration when for other reasons) because: Certification for Home Health Services: Based on the above findings, I certify that this patient is confined to the home and needs intermittent half-way care, physical therapy and/or speech therapy or continues to need occupational therapy. The patient is under my care, and I have initiated the establishment of the plan of care. This patient will be followed by a physician who will periodically review the plan of care. Total Time Total Time Spent Total Time Spent (In Minutes): 40 Discharge Plan Discharge Items Patient Disposition: Home - Home Health Services Reason For Visit: FREQUENT FALLS, THROMBOCYTOPENIA, AMS Discharge Diagnosis: Metabolic encephalopathy, hepatic encephalopathy, recurrent UTI Hypomagnesemia, elevated ammonia level Thrombocytopenia Activity: Per Instructions section Non-emergency contact: Primary Care Provider and Camp Dining Room Attendant Call non-emergency contact if: you have any medication questions and your symptoms worsen Follow-up/Referrals: Filomena Monson DO [Primary Care Provider] - (Date & Time 01/11/2021 11:10 AM Provider Filomena Monson DO Department Family Medicine [facility] ) Diet: Regular Diet Comment: recommend diet higher in magnesium - for example, drink mineral water Addtl Attending Provider Instructions: Follow-up with your primary care doctor, the appointment was scheduled for you for January 11. Finish antibiotic treatment - with ciprofloxacin, as prescribed. It is recommended that you take probiotic while you are on antibiotic, to prevent any abdominal discomfort. It is important that you have a very good personal hygiene, to prevent UTIs. Discuss further with your primary care doctor how to prevent recurrent UTIs. Monitor how many bowel movements you have a day, and discuss this with your primary care doctor. In the meantime take lactulose twice a day. Your furosemide was decreased to once a day, instead of twice a day. Also, while you were in the hospital, your gabapentin was held, as it can make you more somnolent and weak. Recommend to resume gabapentin at lower dose, 200 twice a day, discuss this further with your primary care doctor. Lastly your magnesium level was still low, try to increase magnesium in your diet, for example by drinking mineral water with magnesium in it. Also continue taking your magnesium supplement as prescribed. Pending Studies at Discharge: No Stand-Alone Forms: [facility], Smoking Cessation Medications and DC Order Prescriptions: New lactulose 20 gram/30 mL Solution 20 g PO BID Qty: 1200 RF: 0 Advanced Probiotic 625 mg (10 billion cell) Capsule 2 cap PO DAILY Qty: 30 RF: 0 ciprofloxacin HCl 500 mg tablet 500 mg PO BID 5 Days Qty: 10 RF: 0 Continued atorvastatin [Lipitor] 80 mg tablet 80 mg PO QAM RF: 0 sertraline [Zoloft] 100 mg Tablet 100 mg PO QAM RF: 0 omeprazole 40 mg capsule,delayed release(DR/EC) 40 mg PO QAM RF: 0 indomethacin 25 mg capsule 25 mg PO TID PRN (Reason: Pain) RF: 0 spironolactone [Aldactone] 50 mg tablet 50 mg PO QAM RF: 0 cholecalciferol (vitamin D3) [Vitamin D3] 25 mcg (1,000 unit) Tablet 50 mcg PO QAM RF: 0 Xifaxan 550 mg tablet 550 mg PO BID RF: 0 magnesium oxide 420 mg tablet 420 mg PO DAILY Qty: 14 RF: 0 Changed furosemide [Lasix] 20 mg tablet 40 mg PO DAILY Qty: 0 RF: 0 gabapentin [Neurontin] 300 mg capsule 200 mg PO BID Qty: 0 RF: 0 Discharge Orders: Discharge Order (Routine); Ordered 01/06/21 Ordered By: Gonzalo Kate Admission Data Admit Date/Time: 01/02/21 17:24 Attending Provider: Gonzalo Kate Admit Provider: Gonzalo Kate Primary Care Provider: Filomena Monson Other Providers: Avelino Marte ; Eleni Jacobs ; Mode Pinedo [facility]
[2021-01-06] MEDS: MAGNESIUM SULFATE / D5W 1 GM/100 ML BAG IV SCH ×2 (09:52→11:48)
== END 2021-01-06 15:15 | disposition home health service (06) | DRG 441 ==
LOC: ED 14:55 → 2N 17:24
DX: G25.81 Restless legs syndrome; Y92.012 Bathroom of single-family (private) house as the place of occurrence of the external cause; Z68.41 Body mass index [BMI] 40.0-44.9, adult; G93.41 Metabolic encephalopathy; M79.661 Pain in right lower leg; E78.5 Hyperlipidemia, unspecified; G47.33 Obstructive sleep apnea (adult) (pediatric); N39.0 Urinary tract infection, site not specified; B96.20 Unspecified Escherichia coli [E. coli] as the cause of diseases classified elsewhere; R29.6 Repeated falls; B96.89 Other specified bacterial agents as the cause of diseases classified elsewhere; E66.01 Morbid (severe) obesity due to excess calories; R18.8 Other ascites; K72.90 Hepatic failure, unspecified without coma; K43.9 Ventral hernia without obstruction or gangrene; D69.6 Thrombocytopenia, unspecified; E83.42 Hypomagnesemia; M79.662 Pain in left lower leg; W19.XXXA Unspecified fall, initial encounter; M81.0 Age-related osteoporosis without current pathological fracture; K75.81 Nonalcoholic steatohepatitis (NASH)

== ENCOUNTER 2021-03-29 15:06 | Inpatient (IN) ==
--- NOTE | 2021-03-29 19:19 | XRay Report ---
XR chest 1V portable CLINICAL HISTORY: Dyspnea TECHNIQUE: Single frontal radiograph of the chest was obtained. Comparison: Comparison is made to chest one view 01/03/2021 FINDINGS: No lines and tubes are seen. The cardiomediastinal silhouette is normal. The lungs are clear. No evid ence of pleural effusion or pneumothorax. IMPRESSION: No acute chest disease. ACT 112: Negative or not required by law. Electronically signed by: Wade Aggarwal M.D. 03/29/2021 7:18 PM
--- NOTE | 2021-03-29 19:27 | Emergency Department Note ---
Impression & Plan Bilateral lower extremity edema, WALTERS (nonalcoholic steatohepatitis), Abnormal weight gain, Acute renal failure (ARF) ED Provider Note INFORMANT: Patient and family ED PROVIDER(S): Steve Carlson MD CHIEF COMPLAINT: Edema and weight gain PLAN: Disposition: Admitted Condition: Good Outpatient prescription management: none Referral: None MEDICAL DECISION MAKING: Patient presented because of weight gain and lack of response to oral diuretics. Blood work was obtained. Her CBC was unremarkable. Chemistry panel revealed acute renal failure. She does have elevated LFTs. INR is mildly elevated as well. Further management will be necessary in the hospital. Consultation was made with the [facility] Hospital[facility] service, Dr. Huber. Patient was evaluated in the ER and admitted. Triage Nursing notes reviewed and agree them. Vital Signs: reviewed and remarkable for no significant abnormalities Differential diagnosis: lymphedema, idiopathic, CHF, DVT, musculoskeletal, infection, joint effusion, trauma, as well as other pathologies. Diagnostics interpreted by me: ECG: none Cardiac Monitoring: Cardiac monitoring ordered by me: The patient was placed on continuous cardiac monitoring and observed. It revealed a normal sinus rhythm at 81 beats per minute without ectopy or evidence of dysrhythmia. Imaging studies: Deferred HPI: The patient is a 70 year old female who presents to the Emergency Room with complaints of bilateral lower extremity edema. This started to increase last week. The patient was seen by the primary office 2 days ago and her diuretics were doubled. She has a history of Walters. Patient was seen again today and is noted to have a 5 pound weight gain and increased edema. She was directed to the ER for admission and IV diuretics. Patient was treated for UTI last week. Family note she has some confusion last week but that is improved significantly back to baseline since treatment. He does take lactulose on a chronic basis. The patient also notes the following associated symptoms, fatigue and weakness. Current pain is rated as 0/10. Pt denies LOC, headache, fevers, chills, diaphoresis, visual changes, neck pain, chest pain, breathing difficulties, nausea, vomiting, abdominal pain, back pain, melena, hematochezia, urinary symptoms, numbness, lymphadenopathy, rash, or other complaints. ROS: See above HPI for pertinent positives & negatives. A total of 10 systems reviewed and were otherwise negative. PAST MEDICAL HISTORY:See Below , Walters PAST SURGICAL HISTORY:See Below, FAMILY HISTORY:See Below SOCIAL HISTORY:See Below, retired HOME MEDICATIONS:See Below ALLERGIES:See Below VITALS:See Below PHYSICAL EXAMINATION: GENERAL: Awake, alert, tired-appearing, in no distress HENT: Normocephalic, atraumatic. Oropharynx unremarkable. EYES: Pale conjunctiva. Sclera non-icteric. NECK: Inspection normal. Non-tender. Supple. No nuchal rigidity. FROM. No masses. RESPIRATORY: Clear to auscultation. No wheezes. No rales. Normal respiratory effort. CARDIAC: Normal rate. Normal rhythm. No murmurs. No rubs. Extremities warm and well perfused. Pulses equal. No JVD. GI: Soft, non-distended. No tenderness to palpation. No rebound or guarding. No masses. RECTAL: Deferred. MUSCULOSKELETAL: Atraumatic. Chest examination reveals no tenderness. The back is symmetrical on inspection without obvious abnormality. There is no CVA tenderness to palpation. No joint edema. LOWER EXTREMITIES: Calves are equal size bilaterally and non-tender. 2+ edema. No discoloration. NEURO: Normal sensorium. No sensory or motor deficits noted. SKIN: No rash or jaundice noted. Steve Carlson MD Past Med/Surg History Medical History (Updated 03/30/21 @ 04:14 by Steve Carlson MD) Hyperlipidemia WALTERS (nonalcoholic steatohepatitis) Osteoporosis Surgical History (Updated 12/08/20 @ 05:30 by Familia Winn PA-C) History of hernia repair Social History Smoking Status: Former smoker Tobacco Type: Cigarettes Smoking End Date: 1999; Second Hand Exposure: No; Hx Alcohol Use: No Hx Substance Use: No Preferred Language: Serbian Communication Ability: Effective Flight Technician Required: No Beliefs That Will Affect Care: None Current Living Situation: Alone Current Living Situation Comment: Lives at home with Son Other Information That Helps Us Care for You: No Feels Safe at Home: Yes Safety Concerns: Feels Safe At This Time Assistive Devices: Glasses Allergies Allergies Allergy/AdvReac Type Severity Reaction Status Date / Time No Known Allergies Allergy Unverified 03/29/21 19:44 Home Meds Home Medications Medication Instructions Recorded Confirmed atorvastatin 80 mg tablet (Lipitor) 80 mg PO QAM 12/07/20 03/29/21 cholecalciferol (vitamin D3) 25 50 mcg PO QAM 12/07/20 03/29/21 mcg (1,000 unit) tablet (Vitamin D3) indomethacin 25 mg capsule 25 mg PO TID PRN 12/07/20 03/29/21 omeprazole 40 mg capsule,delayed 40 mg PO QAM 12/07/20 03/29/21 release rifaximin 550 mg tablet (Xifaxan) 550 mg PO BID 12/07/20 03/29/21 sertraline 100 mg tablet (Zoloft) 100 mg PO QAM 12/07/20 03/29/21 spironolactone 50 mg tablet 50 mg PO BIDM 12/07/20 03/29/21 (Aldactone) cefdinir 300 mg capsule 300 mg PO BID 03/29/21 03/29/21 furosemide 20 mg tablet (Lasix) 40 mg PO BIDM 03/29/21 03/29/21 gabapentin 100 mg capsule 100 mg PO BID 03/29/21 03/29/21 potassium chloride 20 mEq 20 meq PO DAILY 03/29/21 03/29/21 tablet,extended release(part/cryst) Previous Rx's Medication Instructions Recorded magnesium oxide 420 mg tablet 420 mg PO DAILY #14 tab 12/10/20 L.acidop,casei,lactis,rham-B.lact,lm 2 cap PO DAILY #30 cap 01/06/21 625 mg (10 billion cell) capsule (Advanced Probiotic) lactulose 20 gram/30 mL oral 20 g PO BID #1200 ml 01/06/21 solution Results & Data (ED) Vital Signs Vital Signs - 24 hr 03/29/21 15:11 03/29/21 19:23 03/29/21 20:05 Temperature 36.7 C Temperature Source Temporal Artery Scan Pulse Rate 98 H Pulse Rate [Apical] Pulse Rate [Finger] 85 Pulse Rate from SpO2 Sensor Respiratory Rate 20 24 Respiratory Effort / Characteristics Non-Labored Respiratory Depth Normal Blood Pressure 107/56 L Blood Pressure [Left Arm] 134/54 L Blood Pressure Mean 73 Blood Pressure Mean [Left Arm] 80 Pulse Oximetry 95 97 96 Oxygen Delivery Method Room Air Room Air Room Air Sepsis Recent Fever Within 48 Hours No Sepsis New/Unexplained Change in Mental Status N/A Sepsis Action Taken by Nursing No Action Required 03/29/21 20:30 03/29/21 21:20 03/29/21 22:16 Temperature Temperature Source Pulse Rate 84 Pulse Rate [Apical] 84 86 Pulse Rate [Finger] Pulse Rate from SpO2 Sensor 84 Respiratory Rate 24 18 Respiratory Effort / Characteristics Respiratory Depth Blood Pressure Blood Pressure [Left Arm] 98/46 L 106/43 L Blood Pressure Mean Blood Pressure Mean [Left Arm] 63 64 Pulse Oximetry 97 97 97 Oxygen Delivery Method Room Air Room Air Sepsis Recent Fever Within 48 Hours Sepsis New/Unexplained Change in Mental Status Sepsis Action Taken by Nursing 03/29/21 22:37 03/29/21 23:30 03/30/21 00:00 Temperature Temperature Source Pulse Rate 85 85 Pulse Rate [Apical] Pulse Rate [Finger] Pulse Rate from SpO2 Sensor Respiratory Rate 29 H 17 Respiratory Effort / Characteristics Respiratory Depth Blood Pressure 122/52 L Blood Pressure [Left Arm] 123/66 Blood Pressure Mean 75 Blood Pressure Mean [Left Arm] 85 Pulse Oximetry Oxygen Delivery Method Sepsis Recent Fever Within 48 Hours Sepsis New/Unexplained Change in Mental Status Sepsis Action Taken by Nursing 03/30/21 00:30 Temperature Temperature Source Pulse Rate 87 Pulse Rate [Apical] Pulse Rate [Finger] Pulse Rate from SpO2 Sensor Respiratory Rate 18 Respiratory Effort / Characteristics Respiratory Depth Blood Pressure 127/59 L Blood Pressure [Left Arm] Blood Pressure Mean 81 Blood Pressure Mean [Left Arm] Pulse Oximetry Oxygen Delivery Method Sepsis Recent Fever Within 48 Hours Sepsis New/Unexplained Change in Mental Status Sepsis Action Taken by Nursing Laboratory Data Result diagrams: 03/29/21 20:18 03/29/21 20:18 Lab Results 03/29/21 03/29/21 03/29/21 Range/Units 20:05 20:05 20:18 WBC 8.01 (4.8-10.8) K/uL RBC 4.14 L (4.2-5.4) M/uL Hgb 12.3 (12.0-16.0) g/dL Hct 37.7 (37-47) % MCV 91.1 (80-100) fL MCH 29.7 (25-34) pg MCHC 32.6 (32-36) g/dL RDW Std Deviation 58.9 H (36.4-46.3) fL RDW Coeff of Blanca 17.8 H (11.5-14.5) % Plt Count 73 L (130-400) K/uL MPV 10.4 (7.4-10.4) fL Immature Gran % (Auto) 0.2 % Neut % (Auto) 65.1 % Lymph % (Auto) 18.1 % [place] % (Auto) 14.7 % Eos % (Auto) 1.7 % Baso % (Auto) 0.2 % Neut # (Auto) 5.20 (1.4-6.5) K/uL Lymph # (Auto) 1.45 (1.2-3.4) K/uL [place] # (Auto) 1.18 H (0.11-0.59) K/uL Eos # (Auto) 0.14 (0-0.5) K/uL Baso # (Auto) 0.02 (0-0.2) K/uL Immature Gran # (Auto) 0.02 (0.00-0.02) K/uL Echinocytes 1+ PT (9.0-12.0) Seconds INR (0.9-1.1) Sodium (136-145) mmol/L Potassium (3.5-5.1) mmol/L Chloride (98-107) mmol/L Carbon Dioxide (21-32) mmol/L Anion Gap (3-11) BUN (7-18) mg/dl Creatinine (0.6-1.2) mg/dl Est Cr Clr Drug Dosing ml/min Est GFR ( Amer) ml/min Est GFR (Non-Af Amer) ml/min BUN/Creatinine Ratio (10-20) Glucose (70-99) mg/dl Calcium (8.5-10.1) mg/dl Magnesium (1.8-2.4) mg/dl Total Bilirubin (0.2-1) mg/dl AST (15-37) U/L ALT (12-78) U/L Alkaline Phosphatase (45-117) U/L Ammonia (11-32) umol/L Troponin I (0-0.045) ng/ml NT-Pro-B Natriuret Pep (0-900) pg/ml Total Protein (6.4-8.2) gm/dl Albumin (3.4-5.0) gm/dl Globulin (2.5-4.0) gm/dl Albumin/Globulin Ratio (0.9-2) Urine Color Urine Appearance (Clear) Urine pH (4.5-7.5) Ur Specific Blackwell (1.000-1.030) Urine Protein (Negative) Urine Glucose (UA) (Negative) Urine Ketones (Negative) Urine Blood (Negative) Urine Nitrite (Negative) Urine Bilirubin (Negative) Urine Urobilinogen (Negative) Ur Leukocyte Esterase (Negative) Urine WBC (Auto) (0-5) /hpf Urine RBC (Auto) (0-4) /hpf U Hyaline Cast (Auto) (0-5) /lpf U Epithel Cells (Auto) (0-5) /lpf Urine Bacteria (Auto) (Negative) Urine Yeast (None Prsent) COVID-19 Eval Order Covid19 at [facility] SARS-CoV-2 (PCR) NEGATIVE (Negative) 03/29/21 03/29/21 03/29/21 Range/Units 20:18 20:18 20:18 WBC (4.8-10.8) K/uL RBC (4.2-5.4) M/uL Hgb (12.0-16.0) g/dL Hct (37-47) % MCV (80-100) fL MCH (25-34) pg MCHC (32-36) g/dL RDW Std Deviation (36.4-46.3) fL RDW Coeff of Blanca (11.5-14.5) % Plt Count (130-400) K/uL MPV (7.4-10.4) fL Immature Gran % (Auto) % Neut % (Auto) % Lymph % (Auto) % [place] % (Auto) % Eos % (Auto) % Baso % (Auto) % Neut # (Auto) (1.4-6.5) K/uL Lymph # (Auto) (1.2-3.4) K/uL [place] # (Auto) (0.11-0.59) K/uL Eos # (Auto) (0-0.5) K/uL Baso # (Auto) (0-0.2) K/uL Immature Gran # (Auto) (0.00-0.02) K/uL Echinocytes PT 14.6 H (9.0-12.0) Seconds INR 1.5 H (0.9-1.1) Sodium 136 (136-145) mmol/L Potassium 3.5 (3.5-5.1) mmol/L Chloride 101 (98-107) mmol/L Carbon Dioxide 28 (21-32) mmol/L Anion Gap 7.0 (3-11) BUN 44 H (7-18) mg/dl Creatinine 2.28 H (0.6-1.2) mg/dl Est Cr Clr Drug Dosing 28.2 ml/min Est GFR ( Amer) 24.6 ml/min Est GFR (Non-Af Amer) 21.2 ml/min BUN/Creatinine Ratio 19.2 (10-20) Glucose 86 (70-99) mg/dl Calcium 8.0 L (8.5-10.1) mg/dl Magnesium 2.3 (1.8-2.4) mg/dl Total Bilirubin 3.2 H (0.2-1) mg/dl AST 262 H (15-37) U/L ALT 149 H (12-78) U/L Alkaline Phosphatase 205 H (45-117) U/L Ammonia 26.2 (11-32) umol/L Troponin I 0.019 (0-0.045) ng/ml NT-Pro-B Natriuret Pep 528 (0-900) pg/ml Total Protein 5.0 L (6.4-8.2) gm/dl Albumin 2.2 L (3.4-5.0) gm/dl Globulin 2.8 (2.5-4.0) gm/dl Albumin/Globulin Ratio 0.8 L (0.9-2) Urine Color Urine Appearance (Clear) Urine pH (4.5-7.5) Ur Specific Blackwell (1.000-1.030) Urine Protein (Negative) Urine Glucose (UA) (Negative) Urine Ketones (Negative) Urine Blood (Negative) Urine Nitrite (Negative) Urine Bilirubin (Negative) Urine Urobilinogen (Negative) Ur Leukocyte Esterase (Negative) Urine WBC (Auto) (0-5) /hpf Urine RBC (Auto) (0-4) /hpf U Hyaline Cast (Auto) (0-5) /lpf U Epithel Cells (Auto) (0-5) /lpf Urine Bacteria (Auto) (Negative) Urine Yeast (None Prsent) COVID-19 Eval Order SARS-CoV-2 (PCR) (Negative) 03/29/21 Range/Units 22:30 WBC (4.8-10.8) K/uL RBC (4.2-5.4) M/uL Hgb (12.0-16.0) g/dL Hct (37-47) % MCV (80-100) fL MCH (25-34) pg MCHC (32-36) g/dL RDW Std Deviation (36.4-46.3) fL RDW Coeff of Blanca (11.5-14.5) % Plt Count (130-400) K/uL MPV (7.4-10.4) fL Immature Gran % (Auto) % Neut % (Auto) % Lymph % (Auto) % [place] % (Auto) % Eos % (Auto) % Baso % (Auto) % Neut # (Auto) (1.4-6.5) K/uL Lymph # (Auto) (1.2-3.4) K/uL [place] # (Auto) (0.11-0.59) K/uL Eos # (Auto) (0-0.5) K/uL Baso # (Auto) (0-0.2) K/uL Immature Gran # (Auto) (0.00-0.02) K/uL Echinocytes PT (9.0-12.0) Seconds INR (0.9-1.1) Sodium (136-145) mmol/L Potassium (3.5-5.1) mmol/L Chloride (98-107) mmol/L Carbon Dioxide (21-32) mmol/L Anion Gap (3-11) BUN (7-18) mg/dl Creatinine (0.6-1.2) mg/dl Est Cr Clr Drug Dosing ml/min Est GFR ( Amer) ml/min Est GFR (Non-Af Amer) ml/min BUN/Creatinine Ratio (10-20) Glucose (70-99) mg/dl Calcium (8.5-10.1) mg/dl Magnesium (1.8-2.4) mg/dl Total Bilirubin (0.2-1) mg/dl AST (15-37) U/L ALT (12-78) U/L Alkaline Phosphatase (45-117) U/L Ammonia (11-32) umol/L Troponin I (0-0.045) ng/ml NT-Pro-B Natriuret Pep (0-900) pg/ml Total Protein (6.4-8.2) gm/dl Albumin (3.4-5.0) gm/dl Globulin (2.5-4.0) gm/dl Albumin/Globulin Ratio (0.9-2) Urine Color Dark Yellow Urine Appearance Cloudy A (Clear) Urine pH 5.0 (4.5-7.5) Ur Specific [place] 1.017 (1.000-1.030) Urine Protein Trace H (Negative) Urine Glucose (UA) Negative (Negative) Urine Ketones Trace H (Negative) Urine Blood Negative (Negative) Urine Nitrite Negative (Negative) Urine Bilirubin Negative (Negative) Urine Urobilinogen Negative (Negative) Ur Leukocyte Esterase 1+ H (Negative) Urine WBC (Auto) >30 H (0-5) /hpf Urine RBC (Auto) 0-4 (0-4) /hpf U Hyaline Cast (Auto) 1-5 (0-5) /lpf U Epithel Cells (Auto) >30 H (0-5) /lpf Urine Bacteria (Auto) Negative (Negative) Urine Yeast Budding A (None Prsent) COVID-19 Eval Order SARS-CoV-2 (PCR) (Negative) Imaging Data Radiologist's Impression: Chest X-Ray 03/29/21 18:40 XR chest 1V portable CLINICAL HISTORY: Dyspnea TECHNIQUE: Single frontal radiograph of the chest was obtained. Comparison: Comparison is made to chest one view 01/03/2021 FINDINGS: No lines and tubes are seen. The cardiomediastinal silhouette is normal. The lungs are clear. No evidence of pleural effusion or pneumothorax. IMPRESSION: No acute chest disease. ACT 112: Negative or not required by law. Electronically signed by: Wade Aggarwal M.D. 03/29/2021 7:18 PM Discharge Plan Visit Data Chief Complaint: Edema To Extremity Stated Complaint: REF BY [facility] Provider: Steve Carlson Discharge Problem: Bilateral lower extremity edema, WALTERS (nonalcoholic steatohepatitis), Abnormal weight gain, Acute renal failure (ARF)
[2021-03-29 20:32] LABS: Hematocrit (blood only) 37.7 % (37-47); Hemoglobin 12.3 g/dL (12.0-16.0); Mean Corpuscular Hemoglobin 29.7 pg (25-34); Mean Corpuscular Hgb Conc 32.6 g/dL (32-36); Mean Corpuscular Volume 91.1 fL (80-100); RDW Coefficient of Variation 17.8 % (11.5-14.5); RDW Standard Deviation 58.9 fL (36.4-46.3); Red Blood Count 4.14 M/uL (4.2-5.4); White Blood Count 8.01 K/uL (4.8-10.8)
[2021-03-29 20:35] LABS: Mean Platelet Volume 10.4 fL (7.4-10.4); Platelet Count 73 K/uL (130-400)
[2021-03-29 20:41] LABS: INR 1.5 (0.9-1.1); Prothrombin Time 14.6 Seconds (9.0-12.0)
[2021-03-29 20:53] LABS: Basophils # (auto) 0.02 K/uL (0-0.2); Basophils % (auto) 0.2 %; Echinocytes 1+; Eosinophils # (auto) 0.14 K/uL (0-0.5); Eosinophils % (auto) 1.7 %; Immature Granulocytes # (auto) 0.02 K/uL (0.00-0.02); Immature Granulocytes % (auto) 0.2 %; Lymphocytes # (auto) 1.45 K/uL (1.2-3.4); Lymphocytes % (auto) 18.1 %; Monocytes # (auto) 1.18 K/uL (0.11-0.59); Monocytes % (auto) 14.7 %; Neutrophils % (auto) 65.1 %
[2021-03-29 21:03] LABS: Albumin Level 2.2 gm/dl (3.4-5.0); BUN Creatinine Ratio 19.2 (10-20); Creatinine Clr Calc Pharmacy 28.2 ml/min; Est GFR (African American) 24.6 ml/min; Est GFR (Non-African American) 21.2 ml/min; Magnesium 2.3 mg/dl (1.8-2.4); Potassium 3.5 mmol/L (3.5-5.1)
[2021-03-29 21:08] LABS: Albumin Globulin Ratio 0.8 (0.9-2); Bilirubin,Total 3.2 mg/dl (0.2-1); Globulin 2.8 gm/dl (2.5-4.0); Troponin I 0.019 ng/ml (0-0.045)
[2021-03-29 22:47] LABS: Appearance Urine Cloudy (Clear); Bacteria Urine Automated Negative (Negative); Bilirubin Urine Negative (Negative); Blood Urine Negative (Negative); Color Urine Dark Yellow; Epithelial Cell Urine Auto >30 /lpf (0-5); Glucose Urine UA Negative (Negative); Ketones Urine Trace (Negative); Leukocyte Esterase Urine 1+ (Negative); Nitrite Urine Negative (Negative); Protein Urine Trace (Negative); Specific Gravity Urine 1.017 (1.000-1.030); Urobilinogen Urine Negative (Negative); WBC Urine Automated >30 /hpf (0-5)
[2021-03-29 22:57] LABS: RBC Urine Automated 0-4 /hpf (0-4)
[2021-03-30] MEDS ORDERED: ONDANSETRON INJ 2 MG/ML 2 ML VIAL IV PRN (03:43)
[2021-03-30] MEDS ORDERED: NITROGLYCERIN SL 0.4 MG/TAB TAB SL PRN (03:43)
[2021-03-30 05:52] LABS: Hematocrit (blood only) 34.9 % (37-47); Hemoglobin 11.4 g/dL (12.0-16.0); Mean Corpuscular Hemoglobin 29.9 pg (25-34); Mean Corpuscular Hgb Conc 32.7 g/dL (32-36); Mean Corpuscular Volume 91.6 fL (80-100); RDW Coefficient of Variation 17.9 % (11.5-14.5); RDW Standard Deviation 59.1 fL (36.4-46.3); Red Blood Count 3.81 M/uL (4.2-5.4); White Blood Count 6.46 K/uL (4.8-10.8)
[2021-03-30 06:02] LABS: Mean Platelet Volume 10.2 fL (7.4-10.4); Platelet Count 59 K/uL (130-400)
[2021-03-30 06:17] LABS: Albumin Level 1.9 gm/dl (3.4-5.0); BUN Creatinine Ratio 20.2 (10-20); Bilirubin Direct 1.4 mg/dl (0-0.2); Calcium 7.6 mg/dl (8.5-10.1); Creatinine Clr Calc Pharmacy 27.2 ml/min; Est GFR (African American) 23.5 ml/min; Est GFR (Non-African American) 20.2 ml/min; Magnesium 2.3 mg/dl (1.8-2.4); Potassium 3.7 mmol/L (3.5-5.1)
[2021-03-30 06:20] LABS: Bilirubin,Total 2.9 mg/dl (0.2-1); Total Protein 4.3 gm/dl (6.4-8.2)
[2021-03-30 06:45] LABS: Basophils # (auto) 0.01 K/uL (0-0.2); Basophils % (auto) 0.2 %; Eosinophils # (auto) 0.15 K/uL (0-0.5); Eosinophils % (auto) 2.3 %; Immature Granulocytes # (auto) 0.01 K/uL (0.00-0.02); Immature Granulocytes % (auto) 0.2 %; Lymphocytes # (auto) 1.21 K/uL (1.2-3.4); Lymphocytes % (auto) 18.7 %; Monocytes # (auto) 1.02 K/uL (0.11-0.59); Monocytes % (auto) 15.8 %; Neutrophils # (auto) 4.06 K/uL (1.4-6.5); Neutrophils % (auto) 62.8 %
--- NOTE | 2021-03-30 07:05 | History and Physical Report ---
DATE OF ADMISSION: 03/30/2021. CHIEF COMPLAINT: Lower extremity edema. HISTORY OF PRESENT ILLNESS: This is a 70-year-old female with past medical history significant for hyperlipidemia, obstructive sleep apnea, venous insufficiency, esophageal varices without bleeding, morbid obesity, cirrhosis of liver, portal hypertensive, GERD, generalized osteoarthrosis, lumbar degenerative disk disease, primary osteoarthritis, restless legs syndrome, neuropathy, thrombocytopenia, persistent insomnia, mixed incontinence, major depression, who presents with ongoing lower extremity edema. The patient says this is going on for a few weeks. She gained almost 30 pounds in 1 month. Her Lasix was increased to 40 b.i.d. and spironolactone was increased to 50 b.i.d., but still she gained about 5 pounds in the last 1 week when family doctor decided to send her to hospital for IV diuretics, but her kidney function also worsened. Creatinine was 2.2, baseline around 0.4. The patient lives alone. Appetite is okay. The patient has some chest heaviness, shortness of breath on exertion. No nausea, no vomiting. Takes lactulose. Moves couple of bowel movements every day. Denies any abdominal pain. No headache, no blurred visions, no earache, no runny nose, no sore throat, no cough, no fevers. ALLERGIES: No known drug allergies. PAST MEDICAL HISTORY: As mentioned above. PAST SURGICAL HISTORY: Abdominal wall hernia repair, breast biopsy, colonoscopy, EGDs, removal of the oviducts, cataracts, cholecystectomy, total abdominal hysterectomy with removal of tubes, upper endoscopy. MEDICATIONS: The patient is currently on Lipitor 80 mg p.o. a.m., vitamin D 50 mcg p.o. a.m., Lasix 40 mg p.o. b.i.d., gabapentin 100 mg p.o. b.i.d., indomethacin 25 mg p.o. t.i.d. p.r.n., probiotic 2 capsules p.o. daily, lactulose 20 g p.o. b.i.d., magnesium oxide 400 mg p.o. daily, omeprazole 20 mg p.o. a.m., potassium chloride 20 mEq p.o. daily, Zoloft 100 mg p.o. daily, spironolactone 50 mg p.o. b.i.d., Xifaxan 550 mg p.o. b.i.d. FAMILY HISTORY: Significant for maternal grandmother had breast cancer, aunt has cancer, brother had back cancer; father has prostate cancer and stroke; mother had AL at age of 49. SOCIAL HISTORY: , lives alone. The patient quit smoking in , smoked 1 pack a day for 5 years. No alcohol use currently. No drug use. REVIEW OF SYSTEMS: As per HPI. Rest of the review of systems is negative. PHYSICAL EXAMINATION: GENERAL: The patient is morbidly obese, not in acute distress. VITAL SIGNS: Temperature 36.7, pulse 85, respiratory rate 17, blood pressure 102/52, oxygen 97% on room air. HEENT: Pupils equal, round, and reactive to light. Oral mucosa moist. NECK: No JVD. No neck masses. CARDIOVASCULAR: S1 and S2 heard. Regular rate and rhythm. No murmur, no gallop. RESPIRATORY SYSTEM: Normal AP diameter. No accessory muscle use. No wheezing, no crackles. ABDOMEN: Umbilical hernia seen. Soft, bowel sounds present, nontender. CENTRAL NERVOUS SYSTEM: Cranial nerves appear grossly intact, nonfocal. EXTREMITIES: Bilateral lower extremity gross pedal edema present. Mild erythematous changes seen. LABORATORY DATA: WBC 8.01, hemoglobin 12.3, hematocrit 37.7, platelets 73. PT 14.6, INR 1.5. Sodium 136, potassium 3.5, chloride 101, bicarbonate 28, BUN 44, creatinine 2.2, serum glucose 86, calcium 8, magnesium 2.3, total bilirubin 3.2, AST 262, ALT 149, alkaline phosphorus 205, ammonia 26.2. Troponin 1 of 0.01. BNP 528. Urinalysis, +1 leukocyte esterase. SARS-CoV-2 PCR negative. IMAGING DATA: Chest x-ray, no acute disease in the chest. EKG: Normal sinus rhythm at a rate of 83, no significant change was found. ASSESSMENT AND PLAN: This is a 70-year-old female, who presents with increased lower extremity edema and weight gain. 1. Increased lower extremity edema and weight gain, history of liver cirrhosis, history of LOJA. Her Lasix was increased to double dose for 40 b.i.d. and Aldactone was also doubled to 50 b.i.d., but still she is gaining weight, not improving. Her kidney function is getting worse. The patient is currently hemodynamically stable. Cxr ok. We will hold diuretics at this time. We will consult GI and nephrology in a.m. for further recommendations. Monitor in the hospital. 2. Acute kidney injury: Creatinine of 2.2, baseline creatinine of 0.4, Possibly hepatorenal. Will consult with nephrology in a.m. Currently, hemodynamically stable. Holding the diuretics. 3. History of liver cirrhosis: Holding diuretics as above. Continue the lactulose. Currently her ammonia level is normal. 4. Hyperlipidemia: Continue statin. 5. Morbid obesity: Needs counseling. 6. Sleep apnea: CPAP at bedtime. 7. Thrombocytopenia from liver cirrhosis: Will follow the labs. 8. Deep venous thrombosis prophylaxis: Sequential compression devices as the patient has thrombocytopenia. DISPOSITION: Admit to [facility]. PT, OT prior to discharge. Social service to help with discharge planning. Level 1 full code. Job ID: [id number]
--- NOTE | 2021-03-30 10:36 | Nephrology Consultation ---
Date of Consultation March 30, 2021 Assessment & Plan (1) Bilateral lower extremity edema: This lady had normal renal function until 2 weeks back, there has been sudden jump in her serum creatinine with increase in her bilateral pedal edema, not responsive to oral diuretic Her albumin is low at 1.9, she has been on indomethacin and has got liver pathology. She could be having GN(mininimal change/membranous), it is not uncommon for Liver patients to have IgA as well. At first we have to ruled out any obstruction, causing decreased urinary flow. Plan Renal ultrasound PCR Urine analysis If she has got proteinuria, she will require a full screen(VIOLETTA/ANCA, C3-C4, CH 50, double-stranded DNA, SPEP UPEP, urine and serum free light chain, rheumatoid factor, hep B hep C HIV), he may need renal biopsy confirmation. Start on IV albumin 25% every 8 with 40 mg twice daily IV Lasix(to be administered 30 minutes after IV albumin infusion) DC indomethacin Nephrotoxic's, CT with contrast only with if lifesaving. Daily BMP, Strict input and output. We will continue to follow with you (2) LOJA (nonalcoholic steatohepatitis): (3) Acute renal failure (ARF): As above History of Present Illness Reason for Consultation: Acute kidney injury. Attending Physician: Feliz Hammer MD History of Present Illness 61-year-old female past medical history of, morbid obesity, cirrhosis of liver ,portal hypertension ,obstructive of sleep apnea ,venous insufficiency ,esophageal varices . She Presented to the ER with increasing bilateral pedal edema for the last 1 week. Diuretic dose was increased to 40 twice daily and the spironolactone doubled to 50 twice daily by her primary care doctor but making no difference to her edema. She was routed to ER for IV diuretics. ER labs were significant for a serum creatinine of 2.3, previous creatinine level and EGFR has all been within the normal range. UA was significant for likely UTI. On review today she was amazingly comfortable lying on the bed, could going bilateral pedal edema up till lower abdomen. She also complained of decreased urinary output over the last 2 3 days. She has abdominal hernia and is awaiting surgical repair. No joint pain no new rashes, denied hematuria or proteinuria in the past. 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 She does complain of occasional UTIs but no kidney stones. She denied using any NSAIDs recently(she is on indometacin 25 mg 3 times daily as needed), is been taking this occasionally and does not remember when she last took it. Nephrology was consulted for? Management of her bilateral pedal edema. Clinically she looked comfortable, with no shortness of breath and no abdominal pain, Allergies Allergy/AdvReac Type Severity Reaction Status Date / Time No Known Allergies Allergy Unverified 03/29/21 19:44 Home Medications Medication Instructions Recorded Confirmed Type atorvastatin 80 mg tablet (Lipitor) 80 mg PO QAM 12/07/20 03/29/21 History cholecalciferol (vitamin D3) 25 50 mcg PO QAM 12/07/20 03/29/21 History mcg (1,000 unit) tablet (Vitamin D3) indomethacin 25 mg capsule 25 mg PO TID PRN 12/07/20 03/29/21 History omeprazole 40 mg capsule,delayed 40 mg PO QAM 12/07/20 03/29/21 History release rifaximin 550 mg tablet (Xifaxan) 550 mg PO BID 12/07/20 03/29/21 History sertraline 100 mg tablet (Zoloft) 100 mg PO QAM 12/07/20 03/29/21 History spironolactone 50 mg tablet 50 mg PO BIDM 12/07/20 03/29/21 History (Aldactone) magnesium oxide 420 mg tablet 420 mg PO DAILY #14 tab 12/10/20 03/29/21 Rx L.acidop,casei,lactis,rham-B.lact,lm 2 cap PO DAILY #30 cap 01/06/21 03/29/21 Rx 625 mg (10 billion cell) capsule (Advanced Probiotic) lactulose 20 gram/30 mL oral 20 g PO BID #1200 ml 01/06/21 03/29/21 Rx solution cefdinir 300 mg capsule 300 mg PO BID 03/29/21 03/29/21 History furosemide 20 mg tablet (Lasix) 40 mg PO BIDM 03/29/21 03/29/21 History gabapentin 100 mg capsule 100 mg PO BID 03/29/21 03/29/21 History potassium chloride 20 mEq 20 meq PO DAILY 03/29/21 03/29/21 History tablet,extended release(part/cryst) Patient History Medical History (Updated 03/30/21 @ 04:14 by Steve Carlson MD) Hyperlipidemia LOJA (nonalcoholic steatohepatitis) Osteoporosis Surgical History (Updated 12/08/20 @ 05:30 by Familia Winn PA-C) History of hernia repair Social History Smoking Status: Former smoker Tobacco Type: Cigarettes Smoking End Date: 1999; Second Hand Exposure: No; Hx Alcohol Use: No Hx Substance Use: No Preferred Language: Prydein[place] Communication Ability: Effective Judo Instructor Required: No Beliefs That Will Affect Care: None Current Living Situation: Alone Current Living Situation Comment: Lives at home with Son Other Information That Helps Us Care for You: No Feels Safe at Home: Yes Safety Concerns: Feels Safe At This Time Assistive Devices: Walker Review of Systems Review of Systems: Comfortable No shortness of breath biLateral pitting pedal edema on lower abdomen No abdominal pain, dysuria occasionally. Physical Exam Physical Exam: GENERAL: The patient is morbidly obese, not in acute distress. HEENT: Pupils equal, round, and reactive to light. Oral mucosa moist. NECK: No JVD. No neck masses. CARDIOVASCULAR: S1 and S2 heard. Regular rate and rhythm. No murmur, no gallop. RESPIRATORY SYSTEM: Normal AP diameter. No accessory muscle use. No wheezing, no crackles. ABDOMEN: Umbilical hernia seen. Soft, bowel sounds present, nontender. CENTRAL NERVOUS SYSTEM: Cranial nerves appear grossly intact, nonfocal. EXTREMITIES: Bilateral lower extremity gross pedal edema present. Mild erythematous changes seen Results & Data ([facility]) Vital Signs (Past 12 Hours) Vital Signs Temp Pulse Pulse Resp BP BP Pulse Ox 03/30/21 07:25 36.5 C 79 20 93/53 L 96 03/30/21 06:16 36.9 C 90 18 103/62 95 03/30/21 05:30 79 24 96 03/30/21 05:00 82 23 128/61 96 03/30/21 04:00 83 20 129/66 96 03/30/21 03:30 81 15 122/66 95 03/30/21 00:30 87 18 127/59 L 03/30/21 00:00 85 17 122/52 L 03/29/21 23:30 85 29 H 03/29/21 22:37 123/66 Laboratory Results 03/30/21 05:37 03/30/21 05:37
[2021-03-30] MEDS: cefTRIAXone SODIUM 2,000 MG in DEXTROSE 5% 50 ML IV SCH (10:55)
[2021-03-30] MEDS: ATORVASTATIN 40 MG TAB PO SCH (10:56)
[2021-03-30] MEDS: CHOLECALCIFEROL 1,000 UNITS 25 MCG TAB PO SCH (10:56)
[2021-03-30] MEDS: PANTOprazole 40 MG TAB PO SCH (10:57)
[2021-03-30] MEDS: FUROSEMIDE 40 MG/4 ML VIAL IV SCH ×2 (10:58→16:38)
[2021-03-30] MEDS: rifAXIMin 550 MG TABLET PO SCH ×2 (10:58→21:22)
[2021-03-30] MEDS: LACTULOSE SYRUP 20 GM/30 ML UDC PO SCH ×2 (10:59→21:21)
[2021-03-30] MEDS: MAGNESIUM OXIDE 400 MG TAB PO SCH (10:59)
[2021-03-30] MEDS: GABAPENTIN 100 MG CAP PO SCH ×2 (11:00→21:22)
[2021-03-30] MEDS: ADVANCED PROBIOTIC 1250 MG CAPSULE PO SCH (11:00)
[2021-03-30] MEDS ORDERED: ALBUMIN 25% 100 mL 25 GM/100 ML VIAL IV SCH (11:00)
[2021-03-30] MEDS: SERTRALINE HCL 100 MG TABLET PO SCH (11:01)
[2021-03-30] MEDS: ALBUMIN 25% 100 mL 25 GM/100 ML VIAL IV SCH ×2 (11:13→22:05)
--- NOTE | 2021-03-30 13:38 | Gastrointestinal Consultation ---
Date of Consultation March 30, 2021 Supervising Physician Co-Signing Physician Notes Cirrhosis with worsening edema- nephrology following. Agree with IV albumin and their further recommendations. Limit hepatotoxins, 2 gram sodium diet, limit tylenol to less than 2 grams daily. History of Present Illness Reason for Consultation: edema Requesting Physician: Dr. Hammer Attending Physician: Feliz Hammer MD History of Present Illness 70 yo fm with known lópez cirrhosis, [facility]. Admitted for lower extremity edema that has worsened. Denies any use of ethanol, excessive salt, no new medications or supplements, denies a history of recent covid infection. No fevers, chills. She lives alone currently. No other acute complaints today. Allergies Allergy/AdvReac Type Severity Reaction Status Date / Time No Known Allergies Allergy Unverified 03/29/21 19:44 Home Medications Medication Instructions Recorded Confirmed Type atorvastatin 80 mg tablet (Lipitor) 80 mg PO QAM 12/07/20 03/29/21 History cholecalciferol (vitamin D3) 25 50 mcg PO QAM 12/07/20 03/29/21 History mcg (1,000 unit) tablet (Vitamin D3) indomethacin 25 mg capsule 25 mg PO TID PRN 12/07/20 03/29/21 History omeprazole 40 mg capsule,delayed 40 mg PO QAM 12/07/20 03/29/21 History release rifaximin 550 mg tablet (Xifaxan) 550 mg PO BID 12/07/20 03/29/21 History sertraline 100 mg tablet (Zoloft) 100 mg PO QAM 12/07/20 03/29/21 History spironolactone 50 mg tablet 50 mg PO BIDM 12/07/20 03/29/21 History (Aldactone) magnesium oxide 420 mg tablet 420 mg PO DAILY #14 tab 12/10/20 03/29/21 Rx L.acidop,casei,lactis,rham-B.lact,lm 2 cap PO DAILY #30 cap 01/06/21 03/29/21 Rx 625 mg (10 billion cell) capsule (Advanced Probiotic) lactulose 20 gram/30 mL oral 20 g PO BID #1200 ml 01/06/21 03/29/21 Rx solution cefdinir 300 mg capsule 300 mg PO BID 03/29/21 03/29/21 History furosemide 20 mg tablet (Lasix) 40 mg PO BIDM 03/29/21 03/29/21 History gabapentin 100 mg capsule 100 mg PO BID 03/29/21 03/29/21 History potassium chloride 20 mEq 20 meq PO DAILY 03/29/21 03/29/21 History tablet,extended release(part/cryst) Patient History Medical History (Updated 03/30/21 @ 04:14 by Steve Carlson MD) Hyperlipidemia LÓPEZ (nonalcoholic steatohepatitis) Osteoporosis Surgical History (Updated 12/08/20 @ 05:30 by Familia Winn PA-C) History of hernia repair Social History Smoking Status: Former smoker Tobacco Type: Cigarettes Smoking End Date: 1999; Second Hand Exposure: No; Hx Alcohol Use: No Hx Substance Use: No Preferred Language: [place]ib[place]ian Communication Ability: Effective 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: No Beliefs That Will Affect Care: None Current Living Situation: Alone Current Living Situation Comment: Lives at home with Son Other Information That Helps Us Care for You: No Feels Safe at Home: Yes Safety Concerns: Feels Safe At This Time Assistive Devices: Walker Review of Systems Review of Systems: All systems reviewed & are unremarkable except as noted in HPI & below Physical Exam Constitutional: Obese fm in nad Eyes: PERRL, conjunctivae normal, anicteric sclerae Respiratory: Normal, no increased work of breathing, no wheezing noted Gastrointestinal (Abdomen): normal bowel sounds, soft, nontender, no h epatosplenomegaly obese abdomen Neurologic: PERRL, EOMI, accommodation nl, no face palsy, no dysarthria Results & Data ([facility]) Vital Signs (Past 12 Hours) Vital Signs Temp Pulse Pulse Pulse Resp BP BP 03/30/21 13:18 36.6 C 82 16 111/66 03/30/21 11:10 36.4 C L 78 16 116/67 03/30/21 07:25 36.5 C 79 20 93/53 L 03/30/21 06:16 36.9 C 90 18 103/62 03/30/21 05:30 79 24 03/30/21 05:00 82 23 128/61 03/30/21 04:00 83 20 129/66 03/30/21 03:30 81 15 122/66 Pulse Ox 03/30/21 13:18 98 03/30/21 11:10 98 03/30/21 07:25 96 03/30/21 06:16 95 03/30/21 05:30 96 03/30/21 05:00 96 03/30/21 04:00 96 03/30/21 03:30 95 Laboratory Results MELD is 22 based on creatinine, inr of 1.5, and TB 2.9, na 138, Cr. 2.4 Platelets are 59 Ast/alt normal AP 160Ca 7.6 Alb 1.9 Diagnostic Findings Cxray negative
--- NOTE | 2021-03-30 15:54 | Ultrasound Report ---
US renal/blad retro comp CLINICAL HISTORY: Acute kidney insufficiency, decreased urine output. COMPARISON: None. TECHNIQUE: Multiple grayscale and color images of the kidneys and bladder. FINDINGS: Right kidney: The kidney is normal in size and echogenicity. There is no evidence for renal calculus or hydronephrosis. There is no evidence for solid renal mass. There is no evidence for medical renal disease. The kidney measures 11.1 cm in greatest diameter Left kidney: The kidney is normal in size and echogenicity. There is no evidence for renal calculus o r hydronephrosis. There is no evidence for solid renal mass. There is no evidence for medical renal d isease. The kidney measures 10.9 cm in greatest diameter Bladder: Brown catheter is present within the bladder which is decompressed. Spleen: When imaging the left kidney, the spleen was also seen and is enlarged measuring 16 cm. There is also evidence for trace abdominal ascites. IMPRESSION: Negative renal ultrasound. Incidental note of splenomegaly and trace abdominal ascites. ACT 112: Negative or not required by law. Electronically signed by: Yusef Wellington M.D. 03/30/2021 3:53 PM
[2021-03-31 00:04] LABS: Appearance Urine Cloudy (Clear); Bacteria Urine Automated Negative (Negative); Bilirubin Urine Negative (Negative); Blood Urine 3+ (Negative); Color Urine Dark Yellow; Epithelial Cell Urine Auto >30 /lpf (0-5); Glucose Urine UA Negative (Negative); Ketones Urine Trace (Negative); Leukocyte Esterase Urine 1+ (Negative); Nitrite Urine Negative (Negative); Protein Urine 1+ (Negative); Specific Gravity Urine 1.016 (1.000-1.030); Urobilinogen Urine Negative (Negative)
[2021-03-31 00:26] LABS: Calcium Oxalate Crystals Urine Present (None Prsent)
[2021-03-31 00:30] LABS: Protein Creatinine Ratio Urine 0.3 (0-0.2); Total Protein Urine Random 90.2 mg/dl (0-11.9)
[2021-03-31] MEDS: ALBUMIN 25% 100 mL 25 GM/100 ML VIAL IV SCH ×3 (05:22→22:15)
--- NOTE | 2021-03-31 06:41 | Electrocardiogram Report ---
Test Reason : Blood Pressure : / mmHG Vent. Rate : 083 BPM Atrial Rate : 083 BPM P-R Int : 152 ms QRS Dur : 094 ms QT Int : 400 ms P-R-T Axes : 074 038 038 degrees QTc Int : 470 ms Normal sinus rhythm Normal ECG When compared with ECG of 02-JAN-2021 15:36, No significant change was found Confirmed by Royer Luong ([id number]) on 03/31/2021 6:41:23 AM Referred By: Filomena Monson Confirmed By:Royer Luong
[2021-03-31] MEDS: LACTULOSE SYRUP 20 GM/30 ML UDC PO SCH ×2 (09:03→21:08)
[2021-03-31] MEDS: GABAPENTIN 100 MG CAP PO SCH ×2 (09:03→21:07)
[2021-03-31] MEDS: rifAXIMin 550 MG TABLET PO SCH ×2 (09:04→21:07)
[2021-03-31] MEDS: PANTOprazole 40 MG TAB PO SCH (09:04)
[2021-03-31] MEDS: MAGNESIUM OXIDE 400 MG TAB PO SCH (09:04)
[2021-03-31] MEDS: ATORVASTATIN 40 MG TAB PO SCH (09:04)
[2021-03-31] MEDS: CHOLECALCIFEROL 1,000 UNITS 25 MCG TAB PO SCH (09:05)
[2021-03-31] MEDS: ADVANCED PROBIOTIC 1250 MG CAPSULE PO SCH (09:05)
[2021-03-31] MEDS: SERTRALINE HCL 100 MG TABLET PO SCH (09:05)
[2021-03-31] MEDS: FUROSEMIDE 40 MG/4 ML VIAL IV SCH (09:06)
[2021-03-31 09:12] LABS: Hematocrit (blood only) 28.9 % (37-47); Hemoglobin 9.4 g/dL (12.0-16.0); Mean Corpuscular Hemoglobin 29.6 pg (25-34); Mean Corpuscular Hgb Conc 32.5 g/dL (32-36); Mean Corpuscular Volume 90.9 fL (80-100); RDW Coefficient of Variation 17.9 % (11.5-14.5); RDW Standard Deviation 58.9 fL (36.4-46.3); Red Blood Count 3.18 M/uL (4.2-5.4); White Blood Count 4.86 K/uL (4.8-10.8)
[2021-03-31] MEDS: cefTRIAXone SODIUM 2,000 MG in DEXTROSE 5% 50 ML IV SCH (09:25)
[2021-03-31 09:43] LABS: Mean Platelet Volume 11.5 fL (7.4-10.4); Platelet Count 56 K/uL (130-400)
[2021-03-31 09:44] LABS: Albumin Level 2.5 gm/dl (3.4-5.0); BUN Creatinine Ratio 17.8 (10-20); Calcium 8.1 mg/dl (8.5-10.1); Creatinine Clr Calc Pharmacy 21.6 ml/min; Eosinophils # (auto) 0.09 K/uL (0-0.5); Eosinophils % (auto) 1.9 %; Est GFR (African American) 17.6 ml/min; Est GFR (Non-African American) 15.2 ml/min; Immature Granulocytes # (auto) 0.03 K/uL (0.00-0.02); Immature Granulocytes % (auto) 0.6 %; Lymphocytes # (auto) 1.03 K/uL (1.2-3.4); Lymphocytes % (auto) 21.2 %; Magnesium 2.5 mg/dl (1.8-2.4); Monocytes # (auto) 0.72 K/uL (0.11-0.59); Monocytes % (auto) 14.8 %; Neutrophils # (auto) 2.99 K/uL (1.4-6.5); Neutrophils % (auto) 61.5 %; Potassium 3.4 mmol/L (3.5-5.1)
[2021-03-31 09:51] LABS: Albumin Globulin Ratio 1.3 (0.9-2); Total Protein 4.5 gm/dl (6.4-8.2)
[2021-03-31] MEDS ORDERED: POTASSIUM CHLORIDE CRTAB 20 MEQ TABCR PO STA (09:55)
--- NOTE | 2021-03-31 10:18 | Nephrology Progress Note ---
Date of Service March 31, 2021 Assessment & Plan (1) Bilateral lower extremity edema: Plan: This lady had normal renal function until 2 weeks back, there has been sudden jump in her serum creatinine with increase in her bilateral pedal edema, not responsive to oral diuretic Her albumin was low at 1.9,( marvin 2.5) she has been on indomethacin and has got liver pathology. She could be having GN(minimal change/membranous), it is not uncommon for Liver patients to have IgA as well.Hepatorenal would be a diagnosis of exclusion. USS - essentiallly normal, PCR - 0.3, u/a has blood and protein. Plan 24 hr protein VIOLETTA/ANCA, C3-C4, CH 50, double-stranded DNA, SPEP, FLC Continue on IV albumin 25%, Change lasux to oral 40 mg BID,as her renal functions has declined. U na Nephrotoxic's, CT with contrast only with if lifesaving. Daily BMP, Strict input and output. We will continue to follow with you (2) LOJA (nonalcoholic steatohepatitis): (3) Acute renal failure (ARF): Plan: As above Admission and Anticipated Discharge Date Admission Date: March 30, 2021 Subjective Pedal edema has improved UOP better Uss Review of Systems Review of Systems: Comfortable No shortness of breath biLateral pitting pedal edema on lower abdomen No abdominal pain, not much change in urine . Physical Exam Physical Exam: GENERAL: The patient is morbidly obese, not in acute distress. HEENT: Pupils equal, round, and reactive to light. Oral mucosa moist. NECK: No JVD. No neck masses. CARDIOVASCULAR: S1 and S2 heard. Regular rate and rhythm. No murmur, no gallop. RESPIRATORY SYSTEM: Normal AP diameter. No accessory muscle use. No wheezing, no crackles. ABDOMEN: Umbilical hernia seen. Soft, bowel sounds present, nontender. CENTRAL NERVOUS SYSTEM: Cranial nerves appear grossly intact, nonfocal. EXTREMITIES: Bilateral lower extremity gross pedal edema present. Mild erythematous changes seen Results & Data ([facility]) Vital Signs (Past 12 Hours) Vital Signs Temp Pulse Pulse Pulse Resp BP BP 03/31/21 07:39 84 101/61 03/31/21 07:14 36.9 C 83 17 82/31 L 03/31/21 06:05 94/53 L 03/31/21 03:27 36.7 C 87 18 93/56 L 03/30/21 22:48 87 03/30/21 22:19 37 C 88 16 112/81 Pulse Ox 03/31/21 07:39 03/31/21 07:14 94 03/31/21 06:05 03/31/21 03:27 95 03/30/21 22:48 03/30/21 22:19 96
--- NOTE | 2021-03-31 11:04 | Gastroenterology Progress Note ---
Date of Service March 31, 2021 Assessment & Plan Admission and Anticipated Discharge Date Admission Date: March 30, 2021 Supervising Physician Co-Signing Physician Notes Walters cirrhotic admitted with edema, slight bump in cr rising her meld to over 22. She is mentating fine, no overt signs of gi bleeding. Nephro following and agree with their recommendations. Subjective no acute change in clinical status overnite Review of Systems Review of Systems: All systems reviewed & are unremarkable except as noted in HPI & below Physical Exam Constitutional: WD/WN, vitals as above Gastrointestinal (Abdomen): Soft nt nd Neurologic: Oriented to person, place, time Results & Data ([place]) Vital Signs (Past 12 Hours) Vital Signs Temp Pulse Pulse Resp BP BP Pulse Ox 03/31/21 10:52 37.1 C 89 19 115/67 96 03/31/21 07:39 84 101/61 03/31/21 07:14 36.9 C 83 17 82/31 L 94 03/31/21 06:05 94/53 L 03/31/21 03:27 36.7 C 87 18 93/56 L 95 Laboratory Results Slight bump in creatinine
--- NOTE | 2021-03-31 13:08 | Hospitalist Progress Note ---
Date of Service March 31, 2021 Assessment & Plan (1) Bilateral lower extremity edema: Plan: Presented with increasing bilateral leg swelling with weight gain of about 30 pounds in 1 month Did not improve with outpatient increasing dose of oral Lasix and Aldactone Has history of cirrhosis of the liver and is complicating the edema Has been getting intravenous albumin and Lasix in the hospital Nephrology is following (2) LOJA (nonalcoholic steatohepatitis): Plan: History of nonalcoholic steatohepatitis LFTs are elevated and trending down a little bit since admission INR is 1.5 and albumin is 1.9 on admission and 2.5 after getting albumin infusion and also Lasix Appreciate GI input and recommendation (3) Acute renal failure (ARF): Plan: Noted to have acute renal failure without significant chronic kidney disease in the past Could be secondary to cirrhosis and hepatorenal syndrome Nephrology on board Try to rule out other causes of SEVEN and obstruction has been ruled out Creatinine has been worsening since admission (4) DANNIELLE (obstructive sleep apnea): Plan: Uses her own CPAP (5) Thrombocytopenia: Plan: Platelet count has been low and is running around upper 50s which is secondary to cirrhosis Morbid obesity Hyperlipidemia-continue statin DVT prophylaxis-SCDs has thrombocytopenia and INR is 1.5 CODE STATUS Full Admission and Anticipated Discharge Date Admission Date: March 30, 2021 Subjective 03/31/2021 The patient was seen and examined in medical telemetry unit She has been feeling better but her labs are getting worse Her kidney function is getting worse and her hemoglobin is dropping gradually Denies any significant symptoms Review of Systems Review of Systems: All systems reviewed and are unremarkable except as noted below Neurologic: Weak and lethargic Physical Exam Physical Exam: Lying in bed comfortably Constitutional: well developed, well nourished and + obese; not ill appearing Eyes: PERRL, conjunctivae normal, anicteric sclerae ENMT: external ear and nose normal, oropharynx normal Neck: trachea midline, no thyromegaly Respiratory: no respiratory distress and no cough Auscultation: lungs clear to auscultation bilaterally and + diminished lung sounds Cardiovascular: Rate/Rhythm: regular rate and regular rhythm; not tachycardic Heart Sounds: normal S1 and normal S2; no murmur Extremities: + edema (1+ edema bilaterally) Gastrointestinal (Abdomen): Inspection/Auscultation: + abdomen distended and normal bowel sounds Percussion/Palpation: abdomen soft; abdomen nontender Musculoskeletal: No acute arthritis in any joint Neurologic: Alert, awake and oriented x3. Generally weak but no focal sensory and motor deficit appreciated Lymphatic: no cervical or axillary lymphadenopathy Results & Data Results & Data ([facility]) Vital Signs (Past 12 Hours) Vital Signs Temp Pulse Pulse Pulse Resp BP BP 03/31/21 10:52 37.1 C 89 19 115/67 03/31/21 07:39 84 101/61 03/31/21 07:14 36.9 C 83 17 82/31 L 03/31/21 06:23 86 03/31/21 06:05 94/53 L 03/31/21 03:27 36.7 C 87 18 93/56 L Pulse Ox 03/31/21 10:52 96 03/31/21 07:39 03/31/21 07:14 94 03/31/21 06:23 03/31/21 06:05 03/31/21 03:27 95 Laboratory Results Short CBC 03/31/21 Range/Units 08:40 WBC 4.86 (4.8-10.8) K/uL Hgb 9.4 L (12.0-16.0) g/dL Hct 28.9 L (37-47) % Plt Count 56 L (130-400) K/uL BMP 03/31/21 08:40 Sodium 137 Potassium 3.4 L Chloride 101 Carbon Dioxide 24 BUN 54 H Creatinine 3.01 H D Glucose 93 Calcium 8.1 L Liver Function 03/31/21 Range/Units 08:40 Total Bilirubin 2.0 H (0.2-1) mg/dl AST 136 H (15-37) U/L ALT 86 H (12-78) U/L Alkaline Phosphatase 119 H (45-117) U/L Albumin 2.5 L (3.4-5.0) gm/dl Urine 03/30/21 Range/Units 18:35 Urine Color Dark Yellow Urine Appearance Cloudy A (Clear) Urine pH 5.0 (4.5-7.5) Ur Specific [place] 1.016 (1.000-1.030) Urine Protein 1+ H (Negative) Urine Glucose (UA) Negative (Negative) Medications Administered Current Inpatient Medications Atorvastatin Calcium (Atorvastatin 40 Mg Tab) 80 mg PO QAM SAMIR Stop: 04/29/21 08:59 Last Admin: 03/31/21 09:04 Dose: 80 mg Documented by: Furosemide (Furosemide 40 Mg Tab) 40 mg PO BID17 [facility] Stop: 04/30/21 16:59 Gabapentin (Gabapentin 100 Mg Cap) 100 mg PO BID SAMIR Stop: 04/29/21 08:59 Last Admin: 03/31/21 09:03 Dose: 100 mg Documented by: Ceftriaxone Sodium 2,000 mg/ (Dextrose) 70 mls @ 100 mls/hr IV DAILY [facility]; Protocol Stop: 04/09/21 08:59 Last Infusion: 03/31/21 11:06 Dose: Infused Documented by: Albumin Human (Albumin 25% 100 Ml) 25 gm in 100 mls @ 50 mls/hr IV Q8 [facility] Stop: 04/02/21 10:59 Last Infusion: 03/31/21 07:57 Dose: Infused Documented by: Lactobacillus Acidoph/Casei/Rhamnos (Advanced Probiotic 1250 Mg Capsule) 2 cap PO DAILY SAMIR Stop: 04/29/21 08:59 Last Admin: 03/31/21 09:05 Dose: 2 cap Documented by: Lactulose (Lactulose Syrup 20 Gm/30 Ml Udc) 20 gm PO BID SAMIR Stop: 04/29/21 08:59 Last Admin: 03/31/21 09:03 Dose: 20 gm Documented by: Magnesium Oxide (Magnesium Oxide 400 Mg Tab) 400 mg PO DAILY [facility] Stop: 04/29/21 08:59 Last Admin: 03/31/21 09:04 Dose: 400 mg Documented by: Nitroglycerin (Nitroglycerin Sl 0.4 Mg/Tab Tab) 0.4 mg SL UD PRN PRN Reason: Chest Pain Stop: 04/29/21 03:42 Ondansetron HCl (Ondansetron Inj 2 Mg/Ml 2 Ml Vial) 4 mg IV Q6H PRN PRN Reason: Nausea Stop: 04/29/21 03:42 Pantoprazole Sodium (Pantoprazole 40 Mg Tab) 40 mg PO QAM [facility] Stop: 04/29/21 08:59 Last Admin: 03/31/21 09:04 Dose: 40 mg Documented by: Rifaximin (Rifaximin 550 Mg Tablet) 550 mg PO BID SAMIR Stop: 04/29/21 08:59 Last Admin: 03/31/21 09:04 Dose: 550 mg Documented by: Sertraline HCl (Sertraline Hcl 100 Mg Tablet) 100 mg PO [facility] Stop: 04/29/21 08:59 Last Admin: 03/31/21 09:05 Dose: 100 mg Documented by: Vitamin D (Cholecalciferol 1,000 Units 25 Mcg Tab) 2,000 units PO [facility] Stop: 04/29/21 08:59 Last Admin: 03/31/21 09:05 Dose: 2,000 units Documented by:
[2021-03-31] MEDS: FUROSEMIDE 40 MG TAB PO SCH (17:03)
[2021-04-01] MEDS: ALBUMIN 25% 100 mL 25 GM/100 ML VIAL IV SCH ×3 (06:13→20:58)
[2021-04-01] MEDS: LACTULOSE SYRUP 20 GM/30 ML UDC PO SCH ×2 (08:50→20:54)
[2021-04-01] MEDS: cefTRIAXone SODIUM 2,000 MG in DEXTROSE 5% 50 ML IV SCH (08:50)
[2021-04-01] MEDS: GABAPENTIN 100 MG CAP PO SCH ×2 (08:50→20:54)
[2021-04-01] MEDS: FUROSEMIDE 40 MG TAB PO SCH (08:50)
[2021-04-01] MEDS: ATORVASTATIN 40 MG TAB PO SCH (08:50)
[2021-04-01] MEDS: SERTRALINE HCL 100 MG TABLET PO SCH (08:50)
[2021-04-01] MEDS: PANTOprazole 40 MG TAB PO SCH (08:50)
[2021-04-01] MEDS: MAGNESIUM OXIDE 400 MG TAB PO SCH (08:50)
[2021-04-01] MEDS: rifAXIMin 550 MG TABLET PO SCH ×2 (08:50→21:44)
[2021-04-01] MEDS: CHOLECALCIFEROL 1,000 UNITS 25 MCG TAB PO SCH (08:50)
[2021-04-01] MEDS: ADVANCED PROBIOTIC 1250 MG CAPSULE PO SCH (08:50)
[2021-04-01 10:21] LABS: BUN Creatinine Ratio 14.9 (10-20); Calcium 8.4 mg/dl (8.5-10.1); Creatinine Clr Calc Pharmacy 17.1 ml/min; Est GFR (African American) 13.2 ml/min; Est GFR (Non-African American) 11.4 ml/min; Potassium 3.6 mmol/L (3.5-5.1)
--- NOTE | 2021-04-01 10:53 | Gastroenterology Progress Note ---
Date of Service April 01, 2021 Assessment & Plan (1) LOJA (nonalcoholic steatohepatitis): Plan: Pt is careful to avoid foods with salt, tylenol. No alcohol. Encourage to eat healthy, get some physical activity, work on weight reduction. MELD on arrival 22, likely higher today due to worsening creatinine. Will recheck LFTs tomorrow. Not previously evaluated for liver transplant. (2) Acute renal failure (ARF): Plan: Certainly concerning that her Cr is increasing and she has small volume urine output. Appreciate nephrology management of ARF. Will follow along. Will check LFTs tomorrow with coags and renal labs - to recalculate MELD. Admission and Anticipated Discharge Date Admission Date: March 30, 2021 Supervising Physician Co-Signing Physician Notes Attg add: I interviewed and examined pt, reviewed chart and labs. Pt admit with edema, baseline creat 0.4, low 2's on admit, now 3.82 and rising. Scant uop per nurse. On albumin 25 TID. Intermittently hypotensive. On exam, she is lucid and mentating. Abd wall without flank edema. Legs with pedal edema to thighs. Uls with scant ascites. Recs: ARF (indocin?), cirrhosis Consider midodrine 2.5 TID, titrate to normotension. Check U na. Diuretics per renal. Subjective 70 yr old female with LOJA cirrhosis admitted for increased lower ext edema. No confusion. FLACO Cr 2.28 on admission to 3.82 today. Nephrology following. Review of Systems Review of Systems: ROS: Gen: + weakness x 2 wks; No fevers, weight loss Eyes: No eye redness, or pain, no recent vision changes Resp: No SOB, no cough Cardio: No palpitations/irregular beats, no chest pain GI: No abdominal pain, no nausea/vomiting; hx of ascites, no recent worsening : Denies pain on urination Skin: No jaundice, itching or new rashes Ext: +edema Physical Exam Constitutional: well developed and cooperative Eyes: PERRL, conjunctivae normal, anicteric sclerae Cardiovascular: RRR, no murmur, no edema (RRR, 2/6 systolic murmur, 1 + bilat leg edema) Gastrointestinal (Abdomen): normal bowel sounds, soft, nontender, no hepatosplenomegaly + umbilical hernia;+mild ascites Skin: no rashes, warm and dry normal turgor Neurologic: PERRL, EOMI, accommodation nl, no face palsy, no dysarthria awake; not confused Psychiatric: A+Ox3, euthymic affect Orientation: alert, oriented x 3 and cooperative Results & Data ([facility]) Vital Signs (Past 12 Hours) Vital Signs Temp Pulse Pulse Resp BP BP Pulse Ox 04/01/21 07:46 36.8 C 84 16 118/67 92 04/01/21 07:30 85 04/01/21 06:11 36.8 C 85 16 97/63 L 92 03/31/21 23:00 36.8 C 88 18 107/61 93 Laboratory Results Na 134, K 3.6, Cl 100, CO2 26, BUN 57, Cr 3.82. Labs yesterday WBC 4.8, Hb 9.4, Hct 28.9, plats 56, Diagnostic Findings Renal US 03/30/21: Negative renal ultrasound. Incidental note of splenomegaly and trace abdominal ascites.
[2021-04-01 11:54] LABS: Urine Total Protein 248.4 mg/dl
[2021-04-01] MEDS: MIDODRINE HCL 2.5 MG TAB PO SCH ×2 (12:01→18:09)
--- NOTE | 2021-04-01 12:52 | Hospitalist Progress Note ---
Date of Service April 01, 2021 Assessment & Plan (1) Bilateral lower extremity edema: Plan: Presented with increasing bilateral leg swelling with weight gain of about 30 pounds in 1 month Did not improve with outpatient increasing dose of oral Lasix and Aldactone Has history of cirrhosis of the liver and is complicating the edema Has been getting intravenous albumin and Lasix in the hospital Nephrology is following (2) LOJA (nonalcoholic steatohepatitis): Plan: History of nonalcoholic steatohepatitis LFTs are elevated and trending down a little bit since admission INR is 1.5 and albumin is 1.9 on admission and 2.5 after getting albumin infusion and also Lasix Appreciate GI input and recommendation No indication to do any EGD for now (3) Acute renal failure (ARF): Plan: Noted to have acute renal failure without significant chronic kidney disease in the past Could be secondary to cirrhosis and hepatorenal syndrome Nephrology on board Try to rule out other causes of SEVEN and obstruction has been ruled out Creatinine has been worsening since admission Serological test has been sent in to find out the causes of kidney impairment Renal function has been deteriorating (4) DANNIELLE (obstructive sleep apnea): Plan: Uses her own CPAP (5) Thrombocytopenia: Plan: Platelet count has been low and is running around upper 50s which is secondary to cirrhosis Platelet count runs around upper 50s Morbid obesity Hyperlipidemia-continue statin DVT prophylaxis-SCDs has thrombocytopenia and INR is 1.5 CODE STATUS Full Admission and Anticipated Discharge Date Admission Date: March 30, 2021 Subjective 03/31/2021 The patient was seen and examined in medical telemetry unit She has been feeling better but her labs are getting worse Her kidney function is getting worse and her hemoglobin is dropping gradually Denies any significant symptoms 04/01/2021 The patient was seen and examined in medical telemetry unit She has been stable but the kidney function has been getting worse Denies any significant symptoms Review of Systems Review of Systems: All systems reviewed and are unremarkable except as noted below Neurologic: Weak and lethargic Physical Exam Physical Exam: Lying in bed comfortably Constitutional: well developed, well nourished and + obese; not ill appearing Eyes: PERRL, conjunctivae normal, anicteric sclerae ENMT: external ear and nose normal, oropharynx normal Neck: trachea midline, no thyromegaly Respiratory: no respiratory distress and no cough Auscultation: lungs clear to auscultation bilaterally and + diminished lung sounds Cardiovascular: Rate/Rhythm: regular rate and regular rhythm; not tachycardic Heart Sounds: normal S1 and normal S2; no murmur Extremities: + edema (1+ edema bilaterally) Gastrointestinal (Abdomen): Inspection/Auscultation: + abdomen distended and normal bowel sounds Percussion/Palpation: abdomen soft; abdomen nontender Has a reasonable sized ventral hernia without any symptoms Musculoskeletal: No acute arthritis in any joint Neurologic: Alert, awake and oriented x3. Generally weak but no focal sensory or motor deficit appreciated Lymphatic: no cervical or axillary lymphadenopathy Results & Data Results & Data ([facility]) Vital Signs (Past 12 Hours) Vital Signs Temp Pulse Pulse Resp BP BP Pulse Ox 04/01/21 11:38 36.8 C 82 16 101/61 94 04/01/21 07:46 36.8 C 84 16 118/67 92 04/01/21 07:30 85 04/01/21 06:11 36.8 C 85 16 97/63 L 92 Laboratory Results [facility] 04/01/21 09:42 Sodium 134 L Potassium 3.6 Chloride 100 Carbon Dioxide 26 BUN 57 H Creatinine 3.82 H D Glucose 111 H Calcium 8.4 L Medications Administered Current Inpatient Medications Atorvastatin Calcium (Atorvastatin 40 Mg Tab) 80 mg PO QAM [facility] Stop: 04/29/21 08:59 Last Admin: 04/01/21 08:50 Dose: 80 mg Documented by: Furosemide (Furosemide 40 Mg Tab) 40 mg PO BID17 [facility] Stop: 04/30/21 16:59 Last Admin: 04/01/21 08:50 Dose: 40 mg Documented by: Gabapentin (Gabapentin 100 Mg Cap) 100 mg PO BID [facility] Stop: 04/29/21 08:59 Last Admin: 04/01/21 08:50 Dose: 100 mg Documented by: Ceftriaxone Sodium 2,000 mg/ (Dextrose) 70 mls @ 100 mls/hr IV DAILY [facility]; Protocol Stop: 04/09/21 08:59 Last Infusion: 04/01/21 09:58 Dose: Infused Documented by: Albumin Human (Albumin 25% 100 Ml) 25 gm in 100 mls @ 50 mls/hr IV Q8 [facility] Stop: 04/02/21 10:59 Last Infusion: 04/01/21 08:40 Dose: Infused Documented by: Lactobacillus Acidoph/Casei/Rhamnos (Advanced Probiotic 1250 Mg Capsule) 2 cap PO DAILY [facility] Stop: 04/29/21 08:59 Last Admin: 04/01/21 08:50 Dose: 2 cap Documented by: Lactulose (Lactulose Syrup 20 Gm/30 Ml Udc) 20 gm PO BID [facility] Stop: 04/29/21 08:59 Last Admin: 04/01/21 08:50 Dose: 20 gm Documented by: Magnesium Oxide (Magnesium Oxide 400 Mg Tab) 400 mg PO DAILY [facility] Stop: 04/29/21 08:59 Last Admin: 04/01/21 08:50 Dose: 400 mg Documented by: Midodrine (Midodrine Hcl 2.5 Mg Tab) 2.5 mg PO TID@0800,1200,1700 [facility] Stop: 05/01/21 11:59 Last Admin: 04/01/21 12:01 Dose: 2.5 mg Documented by: Nitroglycerin (Nitroglycerin Sl 0.4 Mg/Tab Tab) 0.4 mg SL UD PRN PRN Reason: Chest Pain Stop: 04/29/21 03:42 Ondansetron HCl (Ondansetron Inj 2 Mg/Ml 2 Ml Vial) 4 mg IV Q6H PRN PRN Reason: Nausea Stop: 04/29/21 03:42 Pantoprazole Sodium (Pantoprazole 40 Mg Tab) 40 mg PO QAM [facility] Stop: 04/29/21 08:59 Last Admin: 04/01/21 08:50 Dose: 40 mg Documented by: Rifaximin (Rifaximin 550 Mg Tablet) 550 mg PO BID [facility] Stop: 04/29/21 08:59 Last Admin: 04/01/21 08:50 Dose: 550 mg Documented by: Sertraline HCl (Sertraline Hcl 100 Mg Tablet) 100 mg PO QAM [facility] Stop: 04/29/21 08:59 Last Admin: 04/01/21 08:50 Dose: 100 mg Documented by: Vitamin D (Cholecalciferol 1,000 Units 25 Mcg Tab) 2,000 units PO QAM [facility] Stop: 04/29/21 08:59 Last Admin: 04/01/21 08:50 Dose: 2,000 units Documented by:
[2021-04-01 13:50] LABS: Total Protein 24 Hour Urine 360.2 mg/24 Hr (0-149.1)
--- NOTE | 2021-04-01 15:08 | Nephrology Progress Note ---
Date of Service April 01, 2021 Assessment & Plan Admission and Anticipated Discharge Date Admission Date: March 30, 2021 Subjective Assessment & Plan (1) Bilateral lower extremity edema: Plan: This lady had normal renal function until 2 weeks back, there has been sudden jump in her serum creatinine with increase in her bilateral pedal edema, not responsive to oral diuretic Her albumin was low at 1.9,( now 2.5) she has been on indomethacin and has got liver pathology. Plan VIOLETTA/ANCA, C3-C4, CH 50, double-stranded DNA, SPEP, FLC--all pending. Olga has < 500 mg proteinuria so not acting like nephrotic Syndrome. Most likely this is ATN but will need Urine Na + to tell more Continue on IV albumin 25%, U na Nephrotoxic's, CT with contrast only with if lifesaving. Daily BMP, Strict input and output. Not much urine at all--needs lasix iv 40 bid. We will continue to follow with you (2) LOJA (nonalcoholic steatohepatitis): (3) Acute renal failure (ARF): Plan: As above Admission and Anticipated Discharge Date Admission Date: March 30, 2021 Subjective Minimal urine. Lot of edema. Review of Systems Review of Systems: Comfortable No shortness of breath biLateral pitting pedal edema on lower abdomen No abdominal pain, not much change in urine . Physical Exam Physical Exam: GENERAL: The patient is morbidly obese, not in acute distress. HEENT: Pupils equal, round, and reactive to light. Oral mucosa moist. NECK: No JVD. No neck masses. CARDIOVASCULAR: S1 and S2 heard. Regular rate and rhythm. No murmur, no gallop. RESPIRATORY SYSTEM: Normal AP diameter. No accessory muscle use. No wheezing, no crackles. ABDOMEN: Umbilical hernia seen. Soft, bowel sounds present, nontender. CENTRAL NERVOUS SYSTEM: Cranial nerves appear grossly intact, nonfocal. EXTREMITIES: Bilateral lower extremity gross pedal edema present. Mild erythematous changes seen Results & Data ([facility]) Vital Signs (Past 12 Hours) Vital Signs Temp Pulse Pulse Resp BP BP Pulse Ox 04/01/21 11:38 36.8 C 82 16 101/61 94 04/01/21 07:46 36.8 C 84 16 118/67 92 04/01/21 07:30 85 04/01/21 06:11 36.8 C 85 16 97/63 L 92
[2021-04-01] MEDS: FUROSEMIDE 40 MG/4 ML VIAL IV SCH (18:06)
[2021-04-02] MEDS: ALBUMIN 25% 100 mL 25 GM/100 ML VIAL IV SCH (05:27)
[2021-04-02 06:35] LABS: Hematocrit (blood only) 26.9 % (37-47); Hemoglobin 8.9 g/dL (12.0-16.0); Mean Corpuscular Hgb Conc 33.1 g/dL (32-36); Mean Corpuscular Volume 90.6 fL (80-100); RDW Coefficient of Variation 18.1 % (11.5-14.5); Red Blood Count 2.97 M/uL (4.2-5.4); White Blood Count 4.92 K/uL (4.8-10.8)
[2021-04-02 06:39] LABS: INR 1.7 (0.9-1.1); Prothrombin Time 16.4 Seconds (9.0-12.0)
[2021-04-02 06:41] LABS: Mean Platelet Volume 11.4 fL (7.4-10.4); Platelet Count 54 K/uL (130-400)
[2021-04-02 06:58] LABS: Anisocytosis Present; Eosinophils # (auto) 0.11 K/uL (0-0.5); Eosinophils % (auto) 2.2 %; Immature Granulocytes # (auto) 0.01 K/uL (0.00-0.02); Immature Granulocytes % (auto) 0.2 %; Lymphocytes # (auto) 0.93 K/uL (1.2-3.4); Lymphocytes % (auto) 18.9 %; Monocytes # (auto) 0.78 K/uL (0.11-0.59); Monocytes % (auto) 15.9 %; Neutrophils # (auto) 3.09 K/uL (1.4-6.5); Neutrophils % (auto) 62.8 %; Platelet Estimate Decreased (Normal)
[2021-04-02 07:16] LABS: Albumin Level 3.2 gm/dl (3.4-5.0); BUN Creatinine Ratio 14.4 (10-20); Bilirubin Direct 0.8 mg/dl (0-0.2); Calcium 8.7 mg/dl (8.5-10.1); Creatinine Clr Calc Pharmacy 15.8 ml/min; Est GFR (African American) 11.9 ml/min; Est GFR (Non-African American) 10.3 ml/min; Potassium 3.9 mmol/L (3.5-5.1)
[2021-04-02 07:19] LABS: Bilirubin,Total 1.8 mg/dl (0.2-1)
[2021-04-02] MEDS: LACTULOSE SYRUP 20 GM/30 ML UDC PO SCH ×2 (08:24→20:59)
[2021-04-02] MEDS: MIDODRINE HCL 2.5 MG TAB PO SCH ×3 (08:24→16:01)
[2021-04-02] MEDS: CHOLECALCIFEROL 1,000 UNITS 25 MCG TAB PO SCH (08:24)
[2021-04-02] MEDS: ATORVASTATIN 40 MG TAB PO SCH (08:25)
[2021-04-02] MEDS: GABAPENTIN 100 MG CAP PO SCH ×2 (08:25→20:58)
[2021-04-02] MEDS: rifAXIMin 550 MG TABLET PO SCH ×2 (08:25→20:57)
[2021-04-02] MEDS: ADVANCED PROBIOTIC 1250 MG CAPSULE PO SCH (08:25)
[2021-04-02] MEDS: SERTRALINE HCL 100 MG TABLET PO SCH (08:25)
[2021-04-02] MEDS: MAGNESIUM OXIDE 400 MG TAB PO SCH (08:26)
[2021-04-02] MEDS: PANTOprazole 40 MG TAB PO SCH (08:26)
[2021-04-02] MEDS: cefTRIAXone SODIUM 2,000 MG in DEXTROSE 5% 50 ML IV SCH (08:32)
[2021-04-02] MEDS: FUROSEMIDE 40 MG/4 ML VIAL IV SCH (08:33)
--- NOTE | 2021-04-02 09:24 | Nephrology Progress Note ---
Date of Service April 02, 2021 Assessment & Plan Admission and Anticipated Discharge Date Admission Date: March 30, 2021 Subjective Assessment & Plan (1) Bilateral lower extremity edema: Plan: This lady had normal renal function until 2 weeks back, there has been sudden jump in her serum creatinine with increase in her bilateral pedal edema, not responsive to oral diuretic Her albumin was low at 1.9,( now 2.5) she has been on indomethacin and has got liver pathology. Plan VIOLETTA/ANCA, C3-C4, CH 50, double-stranded DNA, SPEP, FLC--all pending. Only has < 500 mg proteinuria so not acting like nephrotic Syndrome or GN. Urine na 11 so looks more like HRS but there has to be some component of ATN here given how fast The ARF developed and almost anuria. Continue on IV albumin 25%, Not much urine at all--less than 100 ml so lasix is not the cauase of rising creat. will d/c 40 bid as does not seem to working. One dose of lasix 80 iv as a trial for ARF Chance of needing Dialysis is there in next few days. Will discuss with GI whether she is a candidate for Liver Transplant. if so maybe need to Transfer to Liver transplant center We will continue to follow with you (2) LOJA (nonalcoholic steatohepatitis): (3) Acute renal failure (ARF): Plan: As above Admission and Anticipated Discharge Date Admission Date: March 30, 2021 Subjective Minimal urine. Lot of edema. Review of Systems Review of Systems: Comfortable No shortness of breath biLateral pitting pedal edema on lower abdomen No abdominal pain, not much change in urine . Physical Exam Physical Exam: GENERAL: The patient is morbidly obese, not in acute distress. HEENT: Pupils equal, round, and reactive to light. Oral mucosa moist. NECK: No JVD. No neck masses. CARDIOVASCULAR: S1 and S2 heard. Regular rate and rhythm. No murmur, no gallop. RESPIRATORY SYSTEM: Normal AP diameter. No accessory muscle use. No wheezing, no crackles. ABDOMEN: Umbilical hernia seen. Soft, bowel sounds present, nontender. CENTRAL NERVOUS SYSTEM: Cranial nerves appear grossly intact, nonfocal. EXTREMITIES: Bilateral lower extremity gross pedal edema present. Mild erythematous changes seen Results & Data ([facility]) Vital Signs (Past 12 Hours) Vital Signs Temp Pulse Pulse Resp BP BP Pulse Ox 04/02/21 07:54 36.9 C 91 H 18 105/53 L 90 04/02/21 04:39 37.0 C 93 H 20 117/64 93 04/01/21 23:27 82 04/01/21 23:05 36.9 C 90 18 111/67 94
[2021-04-02] MEDS ORDERED: FUROSEMIDE 40 MG/4 ML VIAL IV ONE (10:00)
[2021-04-02] MEDS ORDERED: OCTREOTIDE ACETATE 50 MCG in SYRINGE 9.5 ML IV STA (10:21)
--- NOTE | 2021-04-02 10:38 | Gastroenterology Progress Note ---
Date of Service April 02, 2021 Assessment & Plan (1) LOJA (nonalcoholic steatohepatitis): Plan: Discussed possible transplant to [place] to consider liver transplant. Pt not opposed. (2) Acute renal failure (ARF): Plan: Midodrin 5mg TID Octreotide drip Continue albumin 25GM Q 8hrs. (3) Hepatorenal syndrome: Plan: As above. Careful monitoring of urine output/electrolytes Admission and Anticipated Discharge Date Admission Date: March 30, 2021 Supervising Physician Co-Signing Physician Notes Attg add: I interviewed and examined pt, reviewed chart and labs. Pt is feeling well, but scant uop and rising creat, low GAYLE. MELD today is 29. D/w nephro - no urgent need dialysis. Will cont midodrine, and increase dose; cont albumin, add octreotide. Can explore transplant options as outpt. Subjective 70 female LOJA cirrhosis ARF and ATN Creatinine worsening. Spoke with the pt about possible transfer to [place] for consideration for liver transplant - many questions - is interested in transfer. Review of Systems Review of Systems: ROS: Gen: + weakness, No fevers, weight loss Eyes: No eye redness, or pain, no recent vision changes Resp: No SOB, no cough Cardio: No palpitations/irregular beats, no chest pain GI: No abdominal pain, no nausea/vomiting : Denies pain on urination Skin: No jaundice, itching or new rashes Physical Exam Constitutional: well developed, + ill appearing, + obese and cooperative; no altered mental status Eyes: PERRL, conjunctivae normal, anicteric sclerae Respiratory: normal respiratory effort, lungs clear to auscultation Cardiovascular: Heart Sounds: normal S1, normal S2 and + murmur (2/6 systolic murmur) Extremities: + edema (2 + bilat upper and lower legs) Gastrointestinal (Abdomen): normal bowel sounds, soft, nontender, no hep atosplenomegaly Skin: no rashes, warm and dry normal turgor Neurologic: PERRL, EOMI, accommodation nl, no face palsy, no dysarthria aw davida; not confused Psychiatric: A+Ox3, euthymic affect Orientation: alert, oriented x 3 and cooperative Results & Data ([facility]) Vital Signs (Past 12 Hours) Vital Signs Temp Pulse Pulse Resp BP BP Pulse Ox 04/02/21 07:54 36.9 C 91 H 18 105/53 L 90 04/02/21 04:39 37.0 C 93 H 20 117/64 93 04/01/21 23:27 82 04/01/21 23:05 36.9 C 90 18 111/67 94 Laboratory Results WBC 2.9, Hb 8.9, Hct 26.9, Plts 54, Na 133, K 3.9, Cl 99, CO2 25, BUN 59, Cr 4.14, T Bili 1.8, D Bili 0.8, AST 80, ALT 60, ALk Phos 97. Albumin = 3.2, INR 1.7 MELD = 29 Diagnostic Findings Renal US: Negative renal ultrasound. Incidental note of splenomegaly and trace abdominal ascites.
--- NOTE | 2021-04-02 13:52 | Hospitalist Progress Note ---
Date of Service April 02, 2021 Assessment & Plan (1) Acute renal failure (ARF): Plan: Noted to have acute renal failure without significant chronic kidney disease in the past Could be secondary to cirrhosis and hepatorenal syndrome Nephrology on board Try to rule out other causes of SEVEN and obstruction has been ruled out Creatinine has been worsening since admission Serological test has been sent in to find out the causes of kidney impairment Renal function is getting worse and the patient is not making any urine Likely has hepatorenal syndrome and will likely need dialysis down the line and possible liver transplant if she qualifies More Lasix has been ordered see if there is any urine output (2) LOJA (nonalcoholic steatohepatitis): Plan: History of nonalcoholic steatohepatitis with hepatorenal syndrome LFTs are elevated and trending down a little bit since admission INR is 1.5 and albumin is 1.9 on admission and 2.5 after getting albumin infusion and also Lasix Appreciate GI input and recommendation She has been on midodrine 5 mg 3 times daily, octreotide drip and albumin 25 mg every 8 hours The GI service did talk to headend technician in [place] and there will not be any bed until about 2 to 3 days from now to accept transfer She will likely be worked up as an outpatient for possible liver transplant as per GI service Will monitor LFTs and INR (3) Bilateral lower extremity edema: Plan: Presented with increasing bilateral leg swelling with weight gain of about 30 pounds in 1 month Did not improve with outpatient increasing dose of oral Lasix and Aldactone Has history of cirrhosis of the liver and is complicating the edema Has been getting intravenous albumin and Lasix in the hospital Nephrology is following (4) DANNIELLE (obstructive sleep apnea): Plan: Uses her own CPAP (5) Thrombocytopenia: Plan: Platelet count has been low and is running around upper 50s which is secondary to cirrhosis Platelet count runs around upper 50s Morbid obesity Hyperlipidemia-continue statin DVT prophylaxis-SCDs has thrombocytopenia and INR is 1.5 CODE STATUS Full Admission and Anticipated Discharge Date Admission Date: March 30, 2021 Subjective 03/31/2021 The patient was seen and examined in medical telemetry unit She has been feeling better but her labs are getting worse Her kidney function is getting worse and her hemoglobin is dropping gradually Denies any significant symptoms 04/01/2021 The patient was seen and examined in medical telemetry unit She has been stable but the kidney function has been getting worse Denies any significant symptoms 04/02/2021 The patient was seen and examined in medical telemetry unit She has been feeling much weak and short of breath with minimal exertion Apparently she has not made much urine output for the last 24 hours and that kidney function has been worse She will likely need dialysis and also possible liver transplant if she qualifies Review of Systems Review of Systems: All systems reviewed and are unremarkable except as noted below Respiratory: As of breath with exertion Neurologic: Weak and lethargic Physical Exam Physical Exam: Sitting on a chair with some distress and anxiety Constitutional: well developed, well nourished, + ill appearing and + obese Eyes: PERRL, conjunctivae normal, anicteric sclerae ENMT: external ear and nose normal, oropharynx normal Neck: trachea midline, no thyromegaly Respiratory: + respiratory distress (Minimal shortness of breath at rest); no cough Auscultation: lungs clear to auscultation bilaterally, + diminished lung sounds and + crackles (Minimal crackles at the bases) Cardiovascular: Rate/Rhythm: regular rate and regular rhythm; not tachycardic Heart Sounds: normal S1 and normal S2; no murmur Extremities: + edema (1+ edema bilaterally) Gastrointestinal (Abdomen): Inspection/Auscultation: + abdomen distended and normal bowel sounds Percussion/Palpation: abdomen soft; abdomen nontender Musculoskeletal: No acute arthritis in any joint Neurologic: Alert, awake and oriented x3 generally weak Lymphatic: no cervical or axillary lymphadenopathy Results & Data Results & Data ([facility]) Vital Signs (Past 12 Hours) Vital Signs Temp Pulse Pulse Resp BP BP Pulse Ox 04/02/21 12:38 92 04/02/21 12:21 36.7 C 86 20 96/59 L 93 04/02/21 07:54 36.9 C 91 H 18 105/53 L 90 04/02/21 06:15 88 04/02/21 04:39 37.0 C 93 H 20 117/64 93 Laboratory Results Short CBC 04/02/21 Range/Units 06:08 WBC 4.92 (4.8-10.8) K/uL Hgb 8.9 L (12.0-16.0) g/dL Hct 26.9 L (37-47) % Plt Count 54 L (130-400) K/uL BMP 04/02/21 06:08 Sodium 133 L Potassium 3.9 Chloride 99 Carbon Dioxide 25 BUN 59 H Creatinine 4.14 H D Glucose 75 Calcium 8.7 Liver Function 04/02/21 Range/Units 06:08 Total Bilirubin 1.8 H (0.2-1) mg/dl Direct Bilirubin 0.8 H (0-0.2) mg/dl AST 80 H (15-37) U/L ALT 60 (12-78) U/L Alkaline Phosphatase 97 (45-117) U/L Albumin 3.2 L (3.4-5.0) gm/dl Medications Administered Current Inpatient Medications Atorvastatin Calcium (Atorvastatin 40 Mg Tab) 80 mg PO QAM [facility] Stop: 04/29/21 08:59 Last Admin: 04/02/21 08:25 Dose: 80 mg Documented by: Gabapentin (Gabapentin 100 Mg Cap) 100 mg PO BID [facility] Stop: 04/29/21 08:59 Last Admin: 04/02/21 08:25 Dose: 100 mg Documented by: Ceftriaxone Sodium 2,000 mg/ (Dextrose) 70 mls @ 100 mls/hr IV DAILY [facility]; Protocol Stop: 04/09/21 08:59 Last Infusion: 04/02/21 10:12 Dose: Infused Documented by: Lactobacillus Acidoph/Casei/Rhamnos (Advanced Probiotic 1250 Mg Capsule) 2 cap PO DAILY [facility] Stop: 04/29/21 08:59 Last Admin: 04/02/21 08:25 Dose: 2 cap Documented by: Lactulose (Lactulose Syrup 20 Gm/30 Ml Udc) 20 gm PO BID [facility] Stop: 04/29/21 08:59 Last Admin: 04/02/21 08:24 Dose: 20 gm Documented by: Magnesium Oxide (Magnesium Oxide 400 Mg Tab) 400 mg PO DAILY [facility] Stop: 04/29/21 08:59 Last Admin: 04/02/21 08:26 Dose: 400 mg Documented by: Midodrine (Midodrine Hcl 2.5 Mg Tab) 5 mg PO TID@0800,1200,1700 [facility] Stop: 05/02/21 11:59 Last Admin: 04/02/21 12:28 Dose: 5 mg Documented by: Nitroglycerin (Nitroglycerin Sl 0.4 Mg/Tab Tab) 0.4 mg SL UD PRN PRN Reason: Chest Pain Stop: 04/29/21 03:42 Ondansetron HCl (Ondansetron Inj 2 Mg/Ml 2 Ml Vial) 4 mg IV Q6H PRN PRN Reason: Nausea Stop: 04/29/21 03:42 Pantoprazole Sodium (Pantoprazole 40 Mg Tab) 40 mg PO [facility] Stop: 04/29/21 08:59 Last Admin: 04/02/21 08:26 Dose: 40 mg Documented by: Rifaximin (Rifaximin 550 Mg Tablet) 550 mg PO BID [facility] Stop: 04/29/21 08:59 Last Admin: 04/02/21 08:25 Dose: 550 mg Documented by: Sertraline HCl (Sertraline Hcl 100 Mg Tablet) 100 mg PO [facility] Stop: 04/29/21 08:59 Last Admin: 04/02/21 08:25 Dose: 100 mg Documented by: Vitamin D (Cholecalciferol 1,000 Units 25 Mcg Tab) 2,000 units PO [facility] Stop: 04/29/21 08:59 Last Admin: 04/02/21 08:24 Dose: 2,000 units Documented by:
[2021-04-03 01:21] LABS: Alpha 1 Globulin 0.2 g/dL (0.2-0.3); Alpha 2 Globulin 0.4 g/dL (0.5-0.9); Anti-dsDNA Recombinant 1 IU/mL; Beta-1-Globulin 0.2 g/dL (0.4-0.6); Beta-2-Globulin 0.1 g/dL (0.2-0.5); Free Kappa 55.8 mg/L (3.3-19.4); Free Kappa/Lambda Ratio 1.78 (0.26-1.65); Free Lambda 31.4 mg/L (5.7-26.3); Gamma Globulin 0.5 g/dL (0.8-1.7); Monoclonal Protein Band 1 DNR g/dL (NONE DETECTED); Monoclonal Protein Band 2 DNR g/dL (NONE DETECTED); Monoclonal Protein Band 3 DNR g/dL (NONE DETECTED); Total Protein 4.4 g/dL (6.1-8.1)
[2021-04-03 07:29] LABS: INR 1.7 (0.9-1.1); Prothrombin Time 16.6 Seconds (9.0-12.0)
[2021-04-03 08:05] LABS: Albumin Globulin Ratio 1.6 (0.9-2); Albumin Level 2.9 gm/dl (3.4-5.0); Bilirubin,Total 2.1 mg/dl (0.2-1); Calcium 8.6 mg/dl (8.5-10.1); Creatinine Clr Calc Pharmacy 13.4 ml/min; Est GFR (African American) 9.9 ml/min; Est GFR (Non-African American) 8.5 ml/min; Globulin 1.8 gm/dl (2.5-4.0); Potassium 3.7 mmol/L (3.5-5.1); Total Protein 4.7 gm/dl (6.4-8.2)
[2021-04-03] MEDS: GABAPENTIN 100 MG CAP PO SCH ×2 (08:10→21:26)
[2021-04-03] MEDS: CHOLECALCIFEROL 1,000 UNITS 25 MCG TAB PO SCH (08:10)
[2021-04-03] MEDS: rifAXIMin 550 MG TABLET PO SCH ×2 (08:10→21:25)
[2021-04-03] MEDS: PANTOprazole 40 MG TAB PO SCH (08:11)
[2021-04-03] MEDS: LACTULOSE SYRUP 20 GM/30 ML UDC PO SCH ×2 (08:11→21:25)
[2021-04-03] MEDS: MIDODRINE HCL 2.5 MG TAB PO SCH ×3 (08:11→17:00)
[2021-04-03] MEDS: SERTRALINE HCL 100 MG TABLET PO SCH (08:11)
[2021-04-03] MEDS: ADVANCED PROBIOTIC 1250 MG CAPSULE PO SCH (08:11)
[2021-04-03] MEDS: ATORVASTATIN 40 MG TAB PO SCH (08:11)
[2021-04-03] MEDS: MAGNESIUM OXIDE 400 MG TAB PO SCH (08:11)
[2021-04-03] MEDS: cefTRIAXone SODIUM 2,000 MG in DEXTROSE 5% 50 ML IV SCH (09:09)
[2021-04-03] MEDS: OCTREOTIDE ACETATE 500 MCG in 0.9 % SODIUM CHLORIDE 100 ML IV SCH ×2 (09:52→17:36)
--- NOTE | 2021-04-03 10:36 | Nephrology Progress Note ---
Date of Service April 03, 2021 Assessment & Plan Admission and Anticipated Discharge Date Admission Date: March 30, 2021 Subjective Assessment & Plan (1) ARF --severe Oligruic type--ATN and HRS combined. Plan: This lady had normal renal function until 2 weeks back, there has been sudden jump in her serum creatinine with increase in her bilateral pedal edema, not responsive to oral diuretic Her albumin was low at 1.9,( now 2.5) she has been on indomethacin and has got liver pathology. Plan VIOLETTA/ANCA, C3-C4, CH 50, double-stranded DNA, SPEP, FLC--all pending. Only has < 500 mg proteinuria so not acting like nephrotic Syndrome or GN. Urine na 11 so looks more like HRS but there has to be some component of ATN here given how fast The ARF developed and almost anuria with muddy brown urine. Not much urine at all--even when we gave 120 iv. Chance of needing Dialysis is very high . If no recovery by tomorrow then will plan for CVC --tunneled type and start Dialysis likely by thursday or thursday. Did discuss with GI whether she is a candidate for Liver Transplant. She will at least be investigated as per GI--but likely as outpt. she is agreeable with the plan and wants to do everything possible, (2) LOJA (nonalcoholic steatohepatitis): Subjective Minimal urine. Lot of edema. Review of Systems Review of Systems: Comfortable No shortness of breath biLateral pitting pedal edema on lower abdomen No abdominal pain, not much change in urine . Physical Exam Physical Exam: GENERAL: The patient is morbidly obese, not in acute di stress. HEENT: Pupils equal, round, and reactive to light. Oral mucosa moist. NECK: No JVD. No neck masses. CARDIOVASCULAR: S1 and S2 heard. Regular rate and rhythm. No murmur, no g allop. RESPIRATORY SYSTEM: Normal AP diameter. No accessory muscle use. No wheezing, no crackles. ABDOMEN: Umbilical hernia seen. Soft, bowel sounds present, nontender. CENTRAL NERVOUS SYSTEM: Cranial nerves appear grossly intact, nonfocal. EXTREMITIES: Bilateral lower extremity gross pedal edema present. Mild erythematous changes seen Results & Data ([facility] Vital Signs (Past 12 Hours) Vital Signs Temp Pulse Pulse Resp BP BP Pulse Ox 04/03/21 07:33 37 C 87 18 145/64 H 90 11/17/21 07:00 85 04/03/21 03:21 98 H 116/67 04/03/21 02:20 36.8 C 84 18 92/43 L 90 04/03/21 01:38 83 04/02/21 22:43 36.8 C 82 20 93/51 L 92
--- NOTE | 2021-04-03 12:20 | Gastroenterology Progress Note ---
Date of Service April 03, 2021 Assessment & Plan (1) Hepatorenal syndrome: Plan: Continue Octreotide, Midodrine, Albumin. Continue careful monitoring of I&Os, electrolytes. Appreciate nephrology input/management and defer diuretics to nephrology. MELD today 30. Considered transfer to [place] but, instead, if renal function does not improve then plan for dialysis and OP transplant eval. Will continue to follow MELD labs. Admission and Anticipated Discharge Date Admission Date: March 30, 2021 Supervising Physician Co-Signing Physician Notes Attg add: I interviewed and examined pt, reviewed chart and labs. Pt with continued poor uop. MELD is 30 today. On octreotide, albumin, midodrine. Will defer need for dialysis to nephro, management of diuretics to nephrology - anticipate that pt will need this in the next few days. Her liver function is o/w compensated. Can pursue outpt w/u liver transplant. Subjective 70 yr old female with LOJA cirrhosis admitted for lower ext edema. ARF - mostly HRS - with ATN Cr continuing to worsen, today 4.85, BUN 63. Random urine sodium low (11). Hb stable at 8.9. INR 1.7. MELD today 30. Considered transfer to [place] for eval for urgent liver transplant but difficult to obtain a bed due to COVID pandemic and could receive dialysis here and have OP liver transplant w/u (pt prefers this latter approach). Review of Systems Review of Systems: ROS: Gen: + mild weakness, No fevers, weight loss Eyes: No eye redness, or pain, no recent vision changes Resp: No SOB, no cough Cardio: No palpitations/irregular beats, no chest pain GI: No abdominal pain, no nausea/vomiting : Denies pain on urination Skin: No jaundice, itching or new rashes Ext: Moderate lower ext edema Physical Exam Constitutional: well developed and cooperative Eyes: PERRL, conjunctivae normal, anicteric sclerae ENMT: external ear and nose normal, oropharynx normal Neck: trachea midline, no thyromegaly Respiratory: normal respiratory effort, lungs clear to auscultation Cardiovascular: Rate/Rhythm: regular rate and regular rhythm Heart Sounds: + murmur (2-3/6 systolic) Gastrointestinal (Abdomen): normal bowel sounds, soft, nontender, no hepatosplenomegaly Skin: no rashes, warm and dry normal turgor Neurologic: PERRL, EOMI, accommodation nl, no face palsy, no dysarthria awake; not confused Psychiatric: A+Ox3, euthymic affect Orientation: alert, oriented x 3 and cooperative Results & Data ([facility]) Vital Signs (Past 12 Hours) Vital Signs Temp Pulse Pulse Resp BP BP Pulse Ox 04/03/21 11:35 36.8 C 78 20 102/45 L 90 04/03/21 07:33 37 C 87 18 145/64 H 90 04/03/21 07:00 85 04/03/21 03:21 98 H 116/67 04/03/21 02:20 36.8 C 84 18 92/43 L 90 04/03/21 01:38 83 Laboratory Results T Bili 2.1, AST 71, ALT 55, Alk Phos 98, Na 133, K 3.7, Cl 99, CO2 24, BUN 63, Cr 4.85, glucose 82, INR 1.7. Diagnostic Findings Renal US normal on 03/30/21. CXR normal on 03/29/21.
--- NOTE | 2021-04-03 18:06 | Hospitalist Progress Note ---
Date of Service April 03, 2021 Assessment & Plan (1) Hepatorenal syndrome: (2) LOJA (nonalcoholic steatohepatitis): (3) Acute renal failure (ARF): Plan: 70-year-old female with past medical history significant for hyperlipidemia, obstructive sleep apnea, venous insufficiency, esophageal varices without bleeding, morbid obesity, cirrhosis of liver, portal hypertensive, GERD, generalized osteoarthrosis, lumbar degenerative disk disease, primary osteoarthritis, restless legs syndrome, neuropathy, thrombocytopenia, persistent insomnia, mixed incontinence, major depression, who presented 03/30 with ongoing lower extremity edema for few weeks FLAME [place]URNER a/w 30 lbs wt gain in 1 month despite recent OP increase of lasix to 40 mg BID and spironolactone to 40 mg BID. The patient lives alone. She is being managed for the following. #. Acute renal failure (ARF): Baseline creatinine around 0.4, admitting creatinine 2.2 At admission, noted to have acute renal failure without significant chronic kidney disease in the past Could be secondary to cirrhosis and hepatorenal syndrome Nephrology on board: Obstruction has been ruled out, awaiting serological test [VIOLETTA/ANCA, C3-C4, CH 50, dsDNA, SPEP, FLC] find out the other causes of kidney impairment. Creatinine worsening since admission, patient not making urine despite aggressive IV diuresis. N.p.o. midnight, for tunnel CBC catheter placement tomorrow, likely dialysis st ing Thursday or Thursday per nephrology. Strict I and Os. #. LOJA (nonalcoholic steatohepatitis): History of nonalcoholic steatohepatitis with hepatorenal syndrome INR is 1.5 and albumin is 1.9 on admission LFTs elevated at admission, trending down slowly. GI on board: Continue octreotide, midodrine, albumin. Considered transfer to [place] but, instead, if renal function does not improve then plan for dialysis and OP transplant eval. The GI service did talk to [facility] in [place] and there will not be any bed until about 2 to 3 days from now to accept transfer. She has been on midodrine 5 mg 3 times daily, octreotide drip and albumin 25 mg every 8 hours She will likely be worked up as an outpatient for possible liver transplant as per GI service Will monitor LFTs and INR #. Bilateral lower extremity edema: Presented with increasing bilateral leg swelling with weight gain of about 30 po unds in 1 month Did not improve with outpatient increasing dose of oral Lasix and Aldactone Has history of cirrhosis of the liver and is complicating the edema Has been getting intravenous albumin and Lasix in the hospital Nephrology is following #. DANNIELLE (obstructive sleep apnea): Uses her own CPAP #. Thrombocytopenia: Platelet count has been low and is running around upper 50s which is secondary to cirrhosis Platelet count runs around upper 50s Morbid obesity Hyperlipidemia-continue statin DVT prophylaxis-SCDs has thrombocytopenia and INR is 1.7 CODE STATUS: Full code. Admission and Anticipated Discharge Date Admission Date: March 30, 2021 Subjective Patient was sitting up in bed, eating her lunch, on room air, NAD, no acute events overnight. Urinary catheter in situ with dirty yellow urine collectionvery small volume in bag. Urine culture negative. Will DC antibiotic. Patient reports eating and moving bowels okay. Patient reports feeling worried about that she needs hemodialysis but she agrees to hemodialysis. Hence was not able to sleep overnight and is feeling weak in the morning. Patient denies fever/headache/chills/sweating/chest pain/belly pain/other review of symptoms. Physical Exam Physical Exam: GENERAL: Alert and oriented x3. NAD, on RA. HEENT: No pallor, no icterus. Pupils equal, round and reactive to light. Oral mucosa moist. NECK: No JVD, no neck masses. HEART: S1 and S2 heard. Regular rate and rhythm. Systolic murmur over aortic and pulmonic area, no gallop. RESPIRATORY SYSTEM: Normal AP diameter. No accessory muscle use. No wheezing, no crackles. ABDOMEN: Soft, bowel sounds present, nontender, no distention. Hernia noted - stable. CENTRAL NERVOUS SYSTEM: No facial droop. Speech is clear. Obeys simple commands. Moves extremities. EXTREMITIES: 1+ BLE edema, BLE chronic skin changes, no erythema seen. Results & Data Results & Data ([facility]) Vital Signs (Past 12 Hours) Vital Signs Temp Pulse Pulse Resp BP BP Pulse Ox 04/03/21 16:00 83 04/03/21 15:02 37.0 C 81 20 90/51 L 91 04/03/21 11:35 36.8 C 78 20 102/45 L 90 04/03/21 07:33 37 C 87 18 145/64 H 90 04/03/21 07:00 85
[2021-04-04] MEDS: OCTREOTIDE ACETATE 500 MCG in 0.9 % SODIUM CHLORIDE 100 ML IV SCH ×2 (05:21→15:26)
[2021-04-04 07:42] LABS: Hematocrit (blood only) 29.3 % (37-47); Hemoglobin 9.6 g/dL (12.0-16.0); Mean Corpuscular Hemoglobin 30.2 pg (25-34); Mean Corpuscular Hgb Conc 32.8 g/dL (32-36); Mean Corpuscular Volume 92.1 fL (80-100); Mean Platelet Volume 11.6 fL (7.4-10.4); Platelet Count 67 K/uL (130-400); RDW Coefficient of Variation 18.7 % (11.5-14.5); Red Blood Count 3.18 M/uL (4.2-5.4); White Blood Count 6.83 K/uL (4.8-10.8)
[2021-04-04 08:09] LABS: Albumin Globulin Ratio 1.4 (0.9-2); Albumin Level 2.9 gm/dl (3.4-5.0); BUN Creatinine Ratio 12.6 (10-20); Bilirubin,Total 1.7 mg/dl (0.2-1); Calcium 8.2 mg/dl (8.5-10.1); Creatinine Clr Calc Pharmacy 12.4 ml/min; Est GFR (Non-African American) 7.8 ml/min; Magnesium 2.7 mg/dl (1.8-2.4); Total Protein 4.9 gm/dl (6.4-8.2)
[2021-04-04] MEDS: CHOLECALCIFEROL 1,000 UNITS 25 MCG TAB PO SCH (09:06)
[2021-04-04] MEDS: MIDODRINE HCL 2.5 MG TAB PO SCH ×3 (09:06→17:03)
[2021-04-04] MEDS: ATORVASTATIN 40 MG TAB PO SCH (09:06)
[2021-04-04] MEDS: GABAPENTIN 100 MG CAP PO SCH ×2 (09:07→20:36)
[2021-04-04] MEDS: LACTULOSE SYRUP 20 GM/30 ML UDC PO SCH ×2 (09:07→20:34)
[2021-04-04] MEDS: MAGNESIUM OXIDE 400 MG TAB PO SCH (09:07)
[2021-04-04] MEDS: ADVANCED PROBIOTIC 1250 MG CAPSULE PO SCH (09:07)
[2021-04-04] MEDS: PANTOprazole 40 MG TAB PO SCH (09:08)
[2021-04-04] MEDS: SERTRALINE HCL 100 MG TABLET PO SCH (09:08)
[2021-04-04] MEDS: rifAXIMin 550 MG TABLET PO SCH ×2 (09:08→20:36)
--- NOTE | 2021-04-04 09:54 | Nephrology Progress Note ---
Date of Service April 04, 2021 Assessment & Plan Admission and Anticipated Discharge Date Admission Date: March 30, 2021 Subjective Subjective Assessment & Plan (1) ARF --severe Oligruic type--ATN and HRS combined. Plan: This lady had normal renal function until 2 weeks back, there has been sudden jump in her serum creatinine with increase in her bilateral pedal edema, not responsive to oral diuretic Her albumin was low at 1.9,( now 2.5) she has been on indomethacin and has got liver pathology. Plan VIOLETTA/ANCA, C3-C4, CH 50, double-stranded DNA, SPEP, FLC--all pending. Free light chain back but the ratio is suggestive of CKD/ARF. Only has < 500 mg proteinuria so not acting like nephrotic Syndrome or GN. Urine na 11 so looks more like HRS but there has to be some component of ATN here given how fast The ARF developed and almost anuria with muddy brown urine. Not much urine at all--even when we gave 120 iv. She needs dialysis so will plan for CVC --tunneled type and start Dialysis after CVC placed today. Likely Dialysis tomorrow. Discussed with patient and daughter and they are in agreement. Did discuss with GI whether she is a candidate for Liver Transplant. She will at least be investigated as per GI--but likely as outpt. she is agreeable with the plan and wants to do everything possible, (2) LOJA (nonalcoholic steatohepatitis): Subjective Minimal urine. Lot of edema.No new symptoms Review of Systems Review of Systems: Comfortable No shortness of breath biLateral pitting pedal edema on lower abdomen No abdominal pain, not much change in urine . Physical Exam Physical Exam: GENERAL: The patient is morbidly obese, not in acute distress. HEENT: Pupils equal, round, and reactive to light. Oral mucosa moist. NECK: No JVD. No neck masses. CARDIOVASCULAR: S1 and S2 heard. Regular rate and rhythm. No murmur, no gallop. RESPIRATORY SYSTEM: Normal AP diameter. No accessory muscle use. No wheezing, no crackles. ABDOMEN: Umbilical hernia seen. Soft, bowel sounds present, nontender. CENTRAL NERVOUS SYSTEM: Cranial nerves appear grossly intact, nonfocal. EXTREMITIES: Bilateral lower extremity gross pedal edema present. Mild erythematous changes seen Results & Data ([facility]) Vital Signs (Past 12 Hours) Vital Signs Temp Pulse Pulse Resp BP Pulse Ox 04/04/21 04:06 37.1 C 88 18 118/64 92 04/04/21 00:46 80 04/04/21 00:00 36.8 C 84 18 99/59 L 93
[2021-04-04 09:56] LABS: INR 1.6 (0.9-1.1); Prothrombin Time 16.1 Seconds (9.0-12.0)
--- NOTE | 2021-04-04 11:41 | XRay Report ---
XR chest 1V portable CLINICAL HISTORY: patient decline dyspnea TECHNIQUE: Single frontal radiograph of the chest was obtained. Comparison: Comparison is made to chest one view 03/29/2021 FINDINGS: No lines and tubes are seen. The cardiomediastinal silhouette is normal. Lungs are underinflated. Santo nt right lower lung opacities are seen. No evidence of pleural effusion or pneumothorax. IMPRESSION: Faint right lower lobe which may represent atelectasis with or without superimposed pneumonia. ACT 112: Negative or not required by law. Electronically signed by: Wade Aggarwal M.D. 04/04/2021 11:39 AM
--- NOTE | 2021-04-04 12:42 | Gastroenterology Progress Note ---
Date of Service April 04, 2021 Assessment & Plan (1) Acute renal failure (ARF): Plan: Secondary to ATN/HRS No response to trial of octreotide, midodrine or the diuretics. Nephrology on board - planning dialysis. (2) Hepatorenal syndrome: (3) Cirrhosis: Plan: LOJA cirrhosis, MELD 29. Continue lactulose, Rifaximin Plan: Plan for dialysis and OP transplant eval. Admission and Anticipated Discharge Date Admission Date: March 30, 2021 Supervising Physician Co-Signing Physician Notes Attg add: No acute events and pt without acute complaints. She continues to have poor uop and rising creat. ARF in setting of previously compensated cirrhosis - Likely not HRS; d/w nephro who favors dx of ATN. Can d/c midrodrine, albumin, and octreotide given lack of response. Further management, including management of diuretics per nephro service. Subjective 70 yr old female with LOJA cirrhosis admitted 03/30/21 for lower ext edema. ARF/ATN. Cr continuing to worsen, today 5.22, BUN 65. Random urine sodium low (11). Hb stable at 8.9. INR 1.7. MELD today 30. Pt feels well. Sitting up. Hemodynamically stable. Unfortunately, renal function continues to worsen. Review of Systems Review of Systems: ROS: Gen: Denies weakness, fevers, weight loss Eyes: No eye redness, or pain, no recent vision changes Resp: No SOB, no cough Cardio: No palpitations/irregular beats, no chest pain GI: No abdominal pain, no nausea/vomiting : Denies pain on urination Skin: No jaundice, itching or new rashes Ext: + lower ext edema Physical Exam Constitutional: well developed and cooperative Eyes: PERRL, conjunctivae normal, anicteric sclerae Respiratory: normal respiratory effort, lungs clear to auscultation Cardiovascular: Rate/Rhythm: regular rate and regular rhythm Bilat lower leg edema 1/2 + bilaterally Gastrointestinal (Abdomen): normal bowel sounds, soft, nontender, no hepatosplenomegaly Skin: no rashes, warm and dry normal turgor Neurologic: PERRL, EOMI, accommodation nl, no face palsy, no dysarthria awake; not confused Psychiatric: A+Ox3, euthymic affect Orientation: alert, oriented x 3 and cooperative Results & Data ([facility]) Vital Signs (Past 12 Hours) Vital Signs Temp Pulse Pulse Resp BP Pulse Ox 04/04/21 04:06 37.1 C 88 18 118/64 92 04/04/21 00:46 80 Laboratory Results WBC 7.5, Hb 9.6, Hct 29.3, Plts 67, INR yesterday 1.6, Na 137, K 4.0, Cl 103, CO2 22, BUN 65, Cr 5.22. Diagnostic Findings Renal US 03/30/21: Negative renal ultrasound. Incidental note of splenomegaly and trace abdominal ascites. CXR 04/04/21: Faint right lower lobe which may represent atelectasis with or without superimposed pneumonia.
--- NOTE | 2021-04-04 14:54 | Consultation ---
Date of Consultation April 04, 2021 Assessment & Plan (1) Acute renal failure (ARF): Recommend insertion of a permcath tomorrow for dialysis. I have discussed the risks options and benefits of the procedure with the patient. The patient understands the risks options and benefits and agrees to the procedure. Thank you very much for letting us participate in the care of this patient. History of Present Illness Reason for Consultation: Acute kidney injury Attending Physician: Thomas Montes MD History of Present Illness Patient is a 70yo female with worsening kidney function needing dialysis. She has a historyhyperlipidemia, obstructive sleep apnea, venous insufficiency, esophageal varices without bleeding, morbid obesity, cirrhosis of liver, portal hypertensive, GERD, generalized osteoarthrosis, lumbar degenerative disk disease, primary osteoarthritis, restless legs syndrome, neuropathy, thrombocytopenia, persistent insomnia, mixed incontinence, major depression. She presented with fluid overload at this admission. She is need of an access for dialysis to take off fluid. Allergies Allergy/AdvReac Type Severity Reaction Status Date / Time No Known Allergies Allergy Unverified 03/29/21 19:44 Home Medications Medication Instructions Recorded Confirmed Type atorvastatin 80 mg tablet (Lipitor) 80 mg PO QAM 12/07/20 03/29/21 History cholecalciferol (vitamin D3) 25 50 mcg PO QAM 12/07/20 03/29/21 History mcg (1,000 unit) tablet (Vitamin D3) indomethacin 25 mg capsule 25 mg PO TID PRN 12/07/20 03/29/21 History omeprazole 40 mg capsule,delayed 40 mg PO QAM 12/07/20 03/29/21 History release rifaximin 550 mg tablet (Xifaxan) 550 mg PO BID 12/07/20 03/29/21 History sertraline 100 mg tablet (Zoloft) 100 mg PO QAM 12/07/20 03/29/21 History spironolactone 50 mg tablet 50 mg PO BIDM 12/07/20 03/29/21 History (Aldactone) magnesium oxide 420 mg tablet 420 mg PO DAILY #14 tab 12/10/20 03/29/21 Rx L.acidop,casei,lactis,rham-B.lact,lm 2 cap PO DAILY #30 cap 01/06/21 03/29/21 Rx 625 mg (10 billion cell) capsule (Advanced Probiotic) lactulose 20 gram/30 mL oral 20 g PO BID #1200 ml 01/06/21 03/29/21 Rx solution cefdinir 300 mg capsule 300 mg PO BID 03/29/21 03/29/21 History furosemide 20 mg tablet (Lasix) 40 mg PO BIDM 03/29/21 03/29/21 History gabapentin 100 mg capsule 100 mg PO BID 03/29/21 03/29/21 History potassium chloride 20 mEq 20 meq PO DAILY 03/29/21 03/29/21 History tablet,extended release(part/cryst) Patient History Medical History Hyperlipidemia LOJA (nonalcoholic steatohepatitis) Osteoporosis Surgical History History of hernia repair Social History Smoking Status: Former smoker Tobacco Type: Cigarettes Smoking End Date: 1999; Second Hand Exposure: No; Hx Alcohol Use: No Hx Substance Use: No Preferred Language: Mongolian Communication Ability: Effective Mac Developer Required: No Beliefs That Will Affect Care: None Current Living Situation: Alone Current Living Situation Comment: Lives at home with Son Other Information That Helps Us Care for You: No Feels Safe at Home: Yes Safety Concerns: Feels Safe At This Time Assistive Devices: None Review of Systems Review of Systems: All systems reviewed & are unremarkable except as noted in HPI & below Physical Exam Constitutional: WD/WN, vitals as above Respiratory: normal respiratory effort, lungs clear to auscultation Cardiovascular: Rate/Rhythm: regular rate and regular rhythm Extremities: + edema (signifcant bilat lower ext edema) Gastrointestinal (Abdomen): Inspection/Auscultation: abdomen normal to inspection Percussion/Palpation: abdomen soft; abdomen nontender Musculoskeletal: no cyanosis or clubbing, extremities motor strength 5/5 Neurologic: CN's II-XI intact bilaterally and moves all extremities Psychiatric: Orientation: alert and oriented x 3 Results & Data ([place]) Vital Signs (Past 12 Hours) Vital Signs Temp Pulse Resp BP BP Pulse Ox 04/04/21 11:30 36.8 C 77 18 101/53 L 90 04/04/21 04:06 37.1 C 88 18 118/64 92
--- NOTE | 2021-04-04 16:30 | Hospitalist Progress Note ---
Date of Service April 04, 2021 Assessment & Plan (1) Hepatorenal syndrome: (2) LOJA (nonalcoholic steatohepatitis): (3) Acute renal failure (ARF): Plan: 70-year-old female with past medical history significant for hyperlipidemia, obstructive sleep apnea, venous insufficiency, esophageal varices without bleeding, morbid obesity, cirrhosis of liver, portal hypertensive, GERD, generalized osteoarthrosis, lumbar degenerative disk disease, primary osteoarthritis, restless legs syndrome, neuropathy, thrombocytopenia, persistent insomnia, mixed incontinence, major depression, who presented 03/30 with ongoing 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 The patient lives alone. She is being managed for the following. #. Acute renal failure (ARF): Baseline creatinine around 0.4, admitting creatinine 2.2 At admission, noted to have acute renal failure without significant chronic kidney disease in the past Could be secondary to cirrhosis and hepatorenal syndrome Nephrology on board: Obstruction has been ruled out, awaiting serological test [VIOLETTA/ANCA, C3-C4, CH 50, dsDNA, SPEP, FLC] find out the other causes of kidney impairment. Creatinine worsening since admission, patient not making urine despite aggressive IV diuresis. N.p.o. midnight, for tunnel CVC catheter placement tomorrow [could not happen t derek], likely dialysis starting Thursday per nephrology. Strict I and Os. #. LOJA (nonalcoholic steatohepatitis): History of nonalcoholic steatohepatitis with hepatorenal syndrome INR is 1.5 and albumin is 1.9 on admission LFTs elevated at admission, trending down slowly. GI on board: Continue octreotide, midodrine, albumin. Considered transfer to [place] but, instead, if renal function does not improve then plan for dialysis and OP transplant eval. The GI service did talk to tripe cooker in [place] and there will not be any bed until about 2 to 3 days from now to accept transfer. She has been on midodrine 5 mg 3 times daily, octreotide drip and albumin 25 mg every 8 hours She will likely be worked up as an outpatient for possible liver transplant as per GI service Will monitor LFTs and INR #. Bilateral lower extremity edema: Presented with increasing bilateral leg swelling with weight gain of about 30 pounds in 1 month Did not improve with outpatient increasing dose of oral Lasix and Aldactone Has history of cirrhosis of the liver and is complicating the edema Has received intravenous albumin and Lasix in the hospital Nephrology is following #. DANNIELLE (obstructive sleep apnea): Uses her own CPAP #. Thrombocytopenia: Platelet count has been low and is running around upper 50s which is secondary to cirrhosis Platelet count runs around upper 50s - 60s Morbid obesity Hyperlipidemia-continue statin DVT prophylaxis-SCDs has thrombocytopenia and INR is 1.6 CODE STATUS: Full code. Disposition: Await hemodialysis, likely need placement. Admission and Anticipated Discharge Date Admission Date: March 30, 2021 Subjective Patient was lying in bed, on room air, NAD, no acute events overnight. Per RN, patient had shortness of breath with walking to the restroom in the morning. CXR ordered. Will follow. Patient is eating and moving bowels okay. Patient denies headache/dizziness/chest pain/palpitations/other review of symptoms. Physical Exam Physical Exam: GENERAL: Alert and oriented x3. NAD, on RA. HEENT: No pallor, no icterus. Pupils equal, round and reactive to light. Oral mucosa moist. NECK: No JVD, no neck masses. HEART: S1 and S2 heard. Regular rate and rhythm. Systolic murmur over aortic and pulmonic area, no gallop. RESPIRATORY SYSTEM: Normal AP diameter. No accessory muscle use. No wheezing, no crackles. ABDOMEN: Soft, bowel sounds present, nontender, no distention. Hernia noted - stable. CENTRAL NERVOUS SYSTEM: No facial droop. Speech is clear. Obeys simple commands. Moves extremities. EXTREMITIES: 2+ BLE edema, BLE chronic skin changes, no erythema seen. Results & Data Results & Data ([facility]) Vital Signs (Past 12 Hours) Vital Signs Temp Pulse Pulse Resp BP Pulse Ox 04/04/21 15:29 87 04/04/21 11:30 36.8 C 77 18 101/53 L 90
[2021-04-05] MEDS: OCTREOTIDE ACETATE 500 MCG in 0.9 % SODIUM CHLORIDE 100 ML IV SCH ×2 (02:07→12:32)
[2021-04-05] MEDS ORDERED: ceFAZolin 2,000 MG/15 ML IV PUSH IV ONE (06:55)
--- NOTE | 2021-04-05 07:43 | History & Physical Bridge Note ---
Date of Service April 05, 2021 History & Physical Bridge Note Patient for permcath insertion today. I have discussed the risks options and benefits of the procedure with the patient. The patient understands the risks options and benefits and agrees to the procedure. I have examined the patient, reviewed the History & Physical and in the interval since the performance of the History & Physical I have noted the following changes of clinical significance: no changes noted
[2021-04-05] MEDS ORDERED: fentaNYL citrate 100 MCG/2 ML VIAL ONE (07:52)
[2021-04-05] MEDS ORDERED: MIDAZOLAM HCL 1 MG/ML 2ML VIAL ONE (07:52)
[2021-04-05] MEDS ORDERED: HEPARIN SOD (PORCINE) 5,000 UNITS/ML VIAL ONE (07:53)
[2021-04-05] MEDS ORDERED: ceFAZolin 2000MG 2,000 MG/15 ML SYR IV ONE (08:00)
[2021-04-05] MEDS ORDERED: LIDOCAINE 1% LOCAL 20 ML VIAL INFIL ONE (08:33)
--- NOTE | 2021-04-05 08:33 | Pre Anesthesia Assessment ---
Date of Service April 05, 2021 Pre Sedation Assessment Vital Signs Temp Pulse Pulse Resp BP Pulse Ox 04/05/21 08:30 82 16 116/54 L 96 04/05/21 08:28 79 16 132/49 L 97 04/05/21 08:23 77 16 133/72 97 04/05/21 08:18 80 16 129/61 97 04/05/21 08:10 81 16 125/67 97 04/05/21 07:43 36.9 C 87 18 127/67 98 04/05/21 04:00 37.0 C 87 18 115/62 93 04/05/21 00:18 91 H 04/04/21 23:32 37.1 C 87 18 137/60 93 04/04/21 20:03 36.8 C 78 18 108/56 L 92 04/04/21 16:30 83 04/04/21 15:29 87 04/04/21 11:30 36.8 C 77 18 101/53 L 90 Cardiovascular + regular rate and + regular rhythm + edema Respiratory normal respiratory effort, lungs clear to auscultation Pre-Sedation Airway Assessment Smoking Status: Former smoker Hx Sleep Apnea: Yes (wears cpap) Short, Thick Neck: Yes Thyromental Distance: < 3.5 Finger Breadths Oral Cavity: + Dental Abnormalities Mallampati Class: III ASA: ASA4 NPO Status Date of Last Intake of Fluids: 04/05/21 Time of Last Intake of Fluids: 23:00 Date of Last Intake of Solid Food: 04/05/21 Time of Last Intake of Solid Foods: 17:30 Procedure Planning Contraindications for Sedation: none Current Medications Reviewed: Yes Notes The planned sedation has been discussed with the patient. Informed Consent was obtained. I have identified the patient, determined the appropriateness of sedation and have assessed the patient immediately prior to the procedure. All medicine(s) and interventions are by my order.
--- NOTE | 2021-04-05 08:35 | Post Anesthesia Assessment ---
Date of Service April 05, 2021 Post Sedation Assessment Vital Signs Temp Pulse Pulse Resp BP Pulse Ox 04/05/21 08:30 82 16 116/54 L 96 04/05/21 08:28 79 16 132/49 L 97 04/05/21 08:23 77 16 133/72 97 04/05/21 08:18 80 16 129/61 97 04/05/21 08:10 81 16 125/67 97 04/05/21 07:43 36.9 C 87 18 127/67 98 04/05/21 04:00 37.0 C 87 18 115/62 93 04/05/21 00:18 91 H 04/04/21 23:32 37.1 C 87 18 137/60 93 04/04/21 20:03 36.8 C 78 18 108/56 L 92 04/04/21 16:30 83 04/04/21 15:29 87 04/04/21 11:30 36.8 C 77 18 101/53 L 90 Recovery Score Activity: Moves 4 extremities Respiration: Deep Breath/Cough Circulation: +/-20% PreAnes Value Consciousness: Fully Awake Oxygen Saturation: O2 needed for >90% Post Anesthesia Score: 9 Discharge Sedation Level of Care: Fast Track Phase II Post Sedation Plan On clinical assessment, the patient appears to have tolerated the sedation without complications. Patient is recovering as anticipated. Patient will continue to be monitored by nursing and may be discharged when sedation discharge criteria are met per below protocol. Upon Completions of procedure up to 15 minutes continue every 5 minute vital signs and the P.A.R. score; then discharge to a Phase I or Fast Track to Phase II per the following guidelines: * Discharge Patient to appropriate Phase II area if PAR is 8 or greater or return to pre- procedure baseline. The post - procedure orders will be as directed. * If PAR score is less than 8 or not return to pre-procedure baseline then patient will follow Phase I monitoring till PAR is reached for Phase II. The Phase I may be done in procedure room or may call to secure a Phase I area. * If naloxone or flumazenil are used for reversal, hold in Phase I for continued monitoring from when last reversal dose was given for a minimum of 60 minutes or longer pending the nurse and/or physician discretion of patient condition before discharge to Phase II. Please call the Sedation Physician to re-evaluate and complete post-note for discharge to Phase II area. Do NOT discharge from procedure sedation or Phase 1 until post- sedation evaluation note is complete by procedure /sedation MD Sedation Discharge Instructions to be given to the patient at discharge to home.
--- NOTE | 2021-04-05 08:35 | Operative Report ---
Post Operative Report Pre & Post Diagnosis Operation Date: 04/05/21 08:00 Pre-Op Diagnosis: acute kidney injury Post-Op Diagnosis: acute kidney injury I identified the patient and participated in the time-out.: Yes Procedure Operation Date: 04/05/21 08:00 Actual Procedures p inerstion of perm catheter, right internal jugular approach, ultrasound localization of right internal jugular vein, fluroscopy of positioning, moderate sedation [id number](Right) - Robert Briceño MD Surgeon Robert Briceño MD Soup Person none Estimated Blood Loss 3 Findings Consistent with Post-Op Diagnosis Specimens none Anesthesia Type RN Sedation Complications none Disposition Accompanied Patient To Recovery: No Disposition: Recovery Room Indications This is a 70-year-old female with worsening kidney function in need of dialysis. PermCath insertion was recommended. I have discussed the risks options and benefits of the procedure with the patient. The patient understands the risks options and benefits and agrees to the procedure. Description of Procedure Patient was taken to the angio suite and placed in the supine position. The right side of the neck and chest wall were prepped and draped in a sterile manner. The patient was identified and a timeout performed. Local anesthesia was then administered to the appropriate areas of the neck and chest wall. Ultrasound was then used to locate the right internal jugular vein. The vein compressed easily, had no filing defects, and was patent. The vein was then punctured under direct ultrasound imaging. A guidewire was then passed centrally under fluoroscopic imaging. A stab wound was then made in the anterior chest wall and a 19 cm permcath was passed from the stab wound on the chest wall to the puncture site on the neck. The puncture site was then dilated till the 14Fr peel away sheath was inserted. The permcath was then inserted through the sheath to a central position in the distal superior vena cava. The peel away sheath was then removed. The catheter was then sutured in place using nylon sutures. The puncture was then closed using a 4-0 Vicryl subcuticular suture. Dermabond was used for a dressing on the puncture site. Both ports aspirated and flushed easily and were then packed with heparin. A sterile dressing was applied to the catheter. The patient left the operation room in satisfactory condition and tolerated the procedure well. All needle and sponge counts were correct at the end of the procedure. I attest to the content of the Intraoperative Record and any orders documented therein. Any exceptions are noted below.
[2021-04-05] MEDS: MIDODRINE HCL 2.5 MG TAB PO SCH ×2 (09:05→12:10)
[2021-04-05] MEDS ORDERED: SODIUM CHLORIDE 0.9% 1000ML 1,000 ML IV PRN (09:51)
--- NOTE | 2021-04-05 09:51 | Nephrology Progress Note ---
Date of Service April 05, 2021 Assessment & Plan Admission and Anticipated Discharge Date Admission Date: March 30, 2021 Subjective Subjective Subjective Assessment & Plan (1) ARF --severe Oligruic type--ATN and HRS combined. Plan: This lady had normal renal function until 2 weeks back, there has been sudden jump in her serum creatinine with increase in her bilateral pedal edema, not responsive to oral diuretic Her albumin was low at 1.9,( now 2.5) she has been on indomethacin and has got liver pathology. Plan VIOLETTA/ANCA, C3-C4, CH 50, double-stranded DNA, SPEP, --all pending. Free light chain back but the ratio is suggestive of CKD/ARF. Only has < 500 mg proteinuria so not acting like nephrotic Syndrome or GN. ARF most likely ATN than HRS --given how fast The ARF developed and almost anuria with muddy brown urine. Not much urine at all--even when we gave 120 iv. Just had CVC --tunneled type and start Dialysis this Afaternoon. Discussed with patient and daughter and they are in agreement. Did discuss with GI whether she is a candidate for Liver Transplant. She will at least be investigated as per GI--but likely as outpt. she is agreeable with the plan and wants to do everything possible, (2) LOJA (nonalcoholic steatohepatitis): Subjective Minimal urine. Lot of edema.No new symptoms. very somnolent as she just came from Sedation Review of Systems Review of Systems: Comfortable No shortness of breath biLateral pitting pedal edema on lower abdomen No abdominal pain, not much change in urine . Physical Exam Physical Exam: GENERAL: The patient is morbidly obese, not in acute distress. HEENT: Pupils equal, round, and reactive to light. Oral mucosa moist. NECK: No JVD. No neck masses. CARDIOVASCULAR: S1 and S2 heard. Regular rate and rhythm. No murmur, no gallop. RESPIRATORY SYSTEM: Normal AP diameter. No accessory muscle use. No wheezing, no crackles. ABDOMEN: Umbilical hernia seen. Soft, bowel sounds present, nontender. CENTRAL NERVOUS SYSTEM: Cranial nerves appear grossly intact, nonfocal. EXTREMITIES: Bilateral lower extremity gross pedal edema present. Mild erythematous changes seen Results & Data ([facility]) Vital Signs (Past 12 Hours) Vital Signs Temp Pulse Pulse Resp BP Pulse Ox 04/05/21 08:35 85 16 117/38 L 92 04/05/21 08:30 82 16 116/54 L 96 04/05/21 08:28 79 16 132/49 L 97 04/05/21 08:23 77 16 133/72 97 04/05/21 08:18 80 16 129/61 97 04/05/21 08:10 81 16 125/67 97 04/05/21 07:43 36.9 C 87 18 127/67 98 04/05/21 04:00 37.0 C 87 18 115/62 93 04/05/21 00:18 91 H 04/04/21 23:32 37.1 C 87 18 137/60 93
[2021-04-05] MEDS: GABAPENTIN 100 MG CAP PO SCH ×2 (10:04→21:14)
[2021-04-05] MEDS: ATORVASTATIN 40 MG TAB PO SCH (10:04)
[2021-04-05] MEDS: CHOLECALCIFEROL 1,000 UNITS 25 MCG TAB PO SCH (10:04)
[2021-04-05] MEDS: PANTOprazole 40 MG TAB PO SCH (10:05)
[2021-04-05] MEDS: LACTULOSE SYRUP 20 GM/30 ML UDC PO SCH ×2 (10:05→21:14)
[2021-04-05] MEDS: MAGNESIUM OXIDE 400 MG TAB PO SCH (10:05)
[2021-04-05] MEDS: ADVANCED PROBIOTIC 1250 MG CAPSULE PO SCH (10:05)
[2021-04-05] MEDS: rifAXIMin 550 MG TABLET PO SCH ×2 (10:06→21:15)
[2021-04-05] MEDS: SERTRALINE HCL 100 MG TABLET PO SCH (10:06)
[2021-04-05 10:40] LABS: Albumin Globulin Ratio 1.3 (0.9-2); Albumin Level 2.6 gm/dl (3.4-5.0); BUN Creatinine Ratio 13.1 (10-20); Bilirubin,Total 1.9 mg/dl (0.2-1); Calcium 8.1 mg/dl (8.5-10.1); Creatinine Clr Calc Pharmacy 11.5 ml/min; Est GFR (African American) 8.2 ml/min; Est GFR (Non-African American) 7.1 ml/min; Globulin 1.9 gm/dl (2.5-4.0); Potassium 4.1 mmol/L (3.5-5.1); Total Protein 4.5 gm/dl (6.4-8.2)
[2021-04-05 10:44] LABS: Hepatitis B Surface Ab Quant < 3.10 mIU/mL (>or=10mIU/mL Immune); Hepatitis B Surface Antibody Non-Immune
[2021-04-05 10:51] LABS: Hepatitis B Surf Ag Rflx Conf Neg (Neg)
[2021-04-05] MEDS ORDERED: SODIUM CHLORIDE 0.9% 500 ML IV SCH (11:42)
[2021-04-05] MEDS ORDERED: ALBUMIN 25% 100 mL 25 GM/100 ML VIAL IV ONE (12:00)
--- NOTE | 2021-04-05 17:41 | Hospitalist Progress Note ---
Date of Service April 05, 2021 Assessment & Plan (1) Hepatorenal syndrome: (2) LOJA (nonalcoholic steatohepatitis): (3) Acute renal failure (ARF): Plan: 70-year-old female with past medical history significant for hyperlipidemia, obstructive sleep apnea, venous insufficiency, esophageal varices without bleeding, morbid obesity, cirrhosis of liver, portal hypertensive, GERD, generalized osteoarthrosis, lumbar degenerative disk disease, primary osteoarthritis, restless legs syndrome, neuropathy, thrombocytopenia, persistent insomnia, mixed incontinence, major depression, who presented 03/30 with 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 The patient lives alone. She is being managed for the following. #. Acute renal failure (ARF): Baseline creatinine around 0.4, admitting creatinine 2.2 At admission, noted to have acute renal failure without significant chronic kidney disease in the past Could be secondary to ATN VS cirrhosis and hepatorenal syndrome Nephrology on board: Obstruction has been ruled out, awaiting serological test [VIOLETTA/ANCA, C3-C4, CH 50, dsDNA, SPEP, FLC] find out the other causes of kidney impairment. Creatinine worsening since admission, patient did not make urine despite aggressive IV diuresis. 04/05 s/p tunnel CVC catheter placement , starting dialysis this afternoon Strict I and Os. #. LOJA (nonalcoholic steatohepatitis): History of nonalcoholic steatohepatitis with hepatorenal syndrome INR is 1.5 and albumin is 1.9 on admission LFTs elevated at admission, trending down slowly. GI on board: Continue octreotide, midodrine, albumin. Considered transfer to [place] but, instead, if renal function does not improve then plan for dialysis and OP transplant eval. The GI service did talk to air motor repairer in [place] and there will not be any bed until about 2 to 3 days from now to accept transfer. She has been on midodrine 5 mg 3 times daily, octreotide drip and albumin 25 mg every 8 hours She will likely be worked up as an outpatient for possible liver transplant as per GI service Will monitor LFTs and INR #. Bilateral lower extremity edema: #. Hypoxia: Infection ruled out, likely developing fluid collection secondary to anorexia states. Will likely improve with dialysis. Presented with increasing bilateral leg swelling with weight gain of about 30 pounds in 1 month Did not improve with outpatient increasing dose of oral Lasix and Aldactone Has history of cirrhosis of the liver and is complicating the edema Has received intravenous albumin and Lasix in the hospital Nephrology is following Will likely improve with dialysis. #. DANNIELLE (obstructive sleep apnea): Uses her own CPAP #. Thrombocytopenia: Platelet count has been low and is running around upper 50s which is secondary to cirrhosis Platelet count runs around upper 50s - 60s Morbid obesity Hyperlipidemia-continue statin DVT prophylaxis-SCDs has thrombocytopenia and INR is 1.6 CODE STATUS: Full code. Disposition: Await hemodialysis, likely need placement. CM to assist with DC planning. Admission and Anticipated Discharge Date Admission Date: March 30, 2021 Subjective Patient was lying in bed, recently got dialysis catheter placed, lethargic from anesthesia, denies headache/dizziness/pain/other review of symptoms. Physical Exam Physical Exam: GENERAL: Alert and oriented x3. NAD, on 2L. HEENT: No pallor, no icterus. Pupils equal, round and reactive to light. Oral mucosa moist. NECK: No JVD, no neck masses. HEART: S1 and S2 heard. Regular rate and rhythm. Systolic murmur over aortic and pulmonic area, no gallop. RESPIRATORY SYSTEM: Normal AP diameter. No accessory muscle use. No wheezing, no crackles. ABDOMEN: Soft, bowel sounds present, nontender, no distention. Hernia noted - stable. CENTRAL NERVOUS SYSTEM: No facial droop. Speech is clear. Obeys simple commands. Moves extremities. EXTREMITIES: 2+ BLE edema, BLE chronic skin changes, no erythema seen. Results & Data Results & Data ([facility]) Vital Signs (Past 12 Hours) Vital Signs Temp Pulse Pulse Pulse Resp BP BP 04/05/21 16:46 36.9 C 84 18 04/05/21 16:00 69 122/51 L 04/05/21 15:40 67 114/47 L 04/05/21 15:20 73 106/47 L 04/05/21 15:00 72 110/57 L 04/05/21 14:40 66 106/50 L 04/05/21 14:20 66 116/55 L 04/05/21 14:13 66 122/72 04/05/21 14:10 36.5 C 73 04/05/21 11:31 36.5 C 72 19 85/45 L 04/05/21 11:08 36.6 C 82 18 96/61 L 04/05/21 09:17 36.7 C 81 83 18 105/63 04/05/21 08:35 85 16 04/05/21 08:30 82 16 04/05/21 08:28 79 16 04/05/21 08:23 77 16 04/05/21 08:18 80 16 04/05/21 08:10 81 16 04/05/21 07:43 36.9 C 87 18 BP Pulse Ox 04/05/21 16:46 117/66 99 04/05/21 16:00 04/05/21 15:40 04/05/21 15:20 04/05/21 15:00 04/05/21 14:40 04/05/21 14:20 04/05/21 14:13 04/05/21 14:10 04/05/21 11:31 79/42 L 98 04/05/21 11:08 94 04/05/21 09:17 94 04/05/21 08:35 117/38 L 92 04/05/21 08:30 116/54 L 96 04/05/21 08:28 132/49 L 97 04/05/21 08:23 133/72 97 04/05/21 08:18 129/61 97 04/05/21 08:10 125/67 97 04/05/21 07:43 127/67 98
[2021-04-05] MEDS: ACETAMINOPHEN 325 MG TAB PO PRN (21:14)
[2021-04-06] MEDS: EPOETIN ALFA 10,000 UNITS/ML VIAL IV ONE ×2 (06:31→10:35)
[2021-04-06] MEDS ORDERED: SODIUM CHLORIDE 0.9% 1000ML 1,000 ML IV PRN (07:00)
[2021-04-06 08:35] LABS: Albumin Globulin Ratio 1.5 (0.9-2); Albumin Level 2.7 gm/dl (3.4-5.0); BUN Creatinine Ratio 11.7 (10-20); Bilirubin,Total 1.7 mg/dl (0.2-1); Calcium 7.8 mg/dl (8.5-10.1); Est GFR (African American) 10.4 ml/min; Globulin 1.8 gm/dl (2.5-4.0); Potassium 3.8 mmol/L (3.5-5.1); Total Protein 4.5 gm/dl (6.4-8.2)
--- NOTE | 2021-04-06 11:13 | Dialysis Progress Note ---
Date of Service April 06, 2021 Assessment & Plan Admission and Anticipated Discharge Date Admission Date: March 30, 2021 Subjective Assessment & Plan (1) ARF --severe Oligruic type--ATN and HRS combined. Plan: This lady had normal renal function until 2 weeks back, there has been sudden jump in her serum creatinine with increase in her bilateral pedal edema, not responsive to oral diuretic Her albumin was low at 1.9,( now 2.5) she has been on indomethacin and has got liver pathology. Plan VIOLETTA/ANCA, C3-C4, CH 50, double-stranded DNA, SPEP, --all pending. Free light chain back but the ratio is suggestive of CKD/ARF. Only has < 500 mg proteinuria so not acting like nephrotic Syndrome or GN. ARF most likely ATN than HRS --given how fast The ARF developed and almost anuria with muddy brown urine. Not much urine at all--even when we gave 120 iv. Will Put her on lasix 80 iv bid. Just had CVC --tunneled type and started Dialysis ysterday. conitnue 3hr today and 2 kilo off. Also give Epo . Discussed with patient and daughter and they are in agreement. Did discuss with GI whether she is a candidate for Liver Transplant. She will at least be investigated as per GI--but likely as outpt. she is agreeable with the plan and wants to do everything possible, (2) LOJA (nonalcoholic steatohepatitis): Subjective Minimal urine. Lot of edema.No new symptoms. very somnolent as she just came from Sedation Review of Systems Review of Systems: Comfortable No shortness of breath biLateral pitting pedal edema on lower abdomen No abdominal pain, not much change in urine . Physical Exam Physical Exam: GENERAL: The patient is morbidly obese, not in acute distress. HEENT: Pupils equal, round, and reactive to light. Oral mucosa moist. NECK: No JVD. No neck masses. CARDIOVASCULAR: S1 and S2 heard. Regular rate and rhythm. No murmur, no gallop. RESPIRATORY SYSTEM: Normal AP diameter. No accessory muscle use. No wheezing, no crackles. ABDOMEN: Umbilical hernia seen. Soft, bowel sounds present, nontender. CENTRAL NERVOUS SYSTEM: Cranial nerves appear grossly intact, nonfocal. EXTREMITIES: Bilateral lower extremity gross pedal edema present. Mild erythematous changes seen Results & Data ([facility]) Vital Signs (Past 12 Hours) Vital Signs Temp Pulse Pulse Resp BP BP Pulse Ox 04/06/21 09:40 68 93/71 L 04/06/21 09:20 69 138/50 L 04/06/21 09:13 36.6 C 71 04/06/21 07:26 36.7 C 72 16 105/50 L 99 04/06/21 03:13 36.5 C 70 18 106/65 93 04/06/21 02:15 68
[2021-04-06] MEDS: GABAPENTIN 100 MG CAP PO SCH ×2 (12:44→20:37)
[2021-04-06] MEDS: TORSEMIDE 100 MG TAB PO SCH (12:44)
[2021-04-06] MEDS: rifAXIMin 550 MG TABLET PO SCH ×2 (12:44→20:37)
[2021-04-06] MEDS: SERTRALINE HCL 100 MG TABLET PO SCH (12:44)
[2021-04-06] MEDS: CHOLECALCIFEROL 1,000 UNITS 25 MCG TAB PO SCH (12:45)
[2021-04-06] MEDS: MAGNESIUM OXIDE 400 MG TAB PO SCH (12:45)
[2021-04-06] MEDS: PANTOprazole 40 MG TAB PO SCH (12:45)
[2021-04-06] MEDS: ATORVASTATIN 40 MG TAB PO SCH (12:45)
[2021-04-06] MEDS: ADVANCED PROBIOTIC 1250 MG CAPSULE PO SCH (12:45)
[2021-04-06] MEDS: LACTULOSE SYRUP 20 GM/30 ML UDC PO SCH ×2 (12:47→20:38)
--- NOTE | 2021-04-06 20:47 | Hospitalist Progress Note ---
Date of Service April 06, 2021 Assessment & Plan (1) Hepatorenal syndrome: (2) LOJA (nonalcoholic steatohepatitis): (3) Acute renal failure (ARF): Plan: 70-year-old female with past medical history significant for hyperlipidemia, obstructive sleep apnea, venous insufficiency, esophageal varices without bleeding, morbid obesity, cirrhosis of liver, portal hypertensive, GERD, generalized osteoarthrosis, lumbar degenerative disk disease, primary osteoarthritis, restless legs syndrome, neuropathy, thrombocytopenia, persistent insomnia, mixed incontinence, major depression, who presented 03/30 with ongoing lower extremity 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 The patient lives alone. She is being managed for the following: #. Acute renal failure (ARF): Baseline creatinine around 0.4, admitting creatinine 2.2 At admission, noted to have acute renal failure without significant chronic kidney disease in the past Could be secondary to ATN VS cirrhosis and hepatorenal syndrome Nephrology on board: Obstruction has been ruled out, awaiting serological test [VIOLETTA/ANCA, C3-C4, CH 50, dsDNA, SPEP, FLC] find out the other causes of kidney impairment. Pt on Torsemide 100 daily Creatinine worsening since admission, patient did not make urine despite aggressive IV diuresis. 04/05 s/p tunnel CVC catheter placement , hemodialysis started 04/05, got repeat hemodialysis today2 L out. Strict I and Os. #. LOJA (nonalcoholic steatohepatitis): History of nonalcoholic steatohepatitis with hepatorenal syndrome INR is 1.5 and albumin is 1.9 on admission LFTs elevated at admission, trending down slowly. GI on board: Continue octreotide, midodrine, albumin. Considered transfer to [place] but, instead, if renal function does not improve then plan for dialysis and OP transplant eval. The GI service did talk to odd job worker in [place] and there will not be any bed until about 2 to 3 days from now to accept transfer. She has been on midodrine 5 mg 3 times daily, octreotide drip and albumin 25 mg every 8 hours She will likely be worked up as an outpatient for possible liver transplant as per GI service Will monitor LFTs and INR #. Bilateral lower extremity edema: #. Hypoxia: Infection ruled out, likely developing fluid collection secondary to anorexia states. Improving with dialysis. Presented with increasing bilateral leg swelling with weight gain of about 30 pounds in 1 month Did not improve with outpatient increasing dose of oral Lasix and Aldactone Has history of cirrhosis of the liver and is complicating the edema Has received intravenous albumin and Lasix in the hospital Nephrology is following Improving with dialysis. #. DANNIELLE (obstructive sleep apnea): Uses her own CPAP #. Thrombocytopenia: Platelet count has been low and is running around upper 50s which is secondary to cirrhosis Platelet count runs around upper 50s - 60s Morbid obesity Hyperlipidemia-continue statin DVT prophylaxis-SCDs has thrombocytopenia and INR is 1.6 CODE STATUS: Full code. Disposition: Await hemodialysis, likely need placement. CM to assist with DC planning. Admission and Anticipated Discharge Date Admission Date: March 30, 2021 Subjective Patient was seen and examined at bedside in the evening. Patient was sleeping semiupright, general was in front of her. Easily woke up upon calling her name. Patient denies any new acute events overnight. Patient underwent dialysis again today, 2 L out. Patient denies any fever/chills/headache/chest pain/palpitation/other review of symptoms. Urinary catheter was in situ with very scant urine collectionconcentrated looking Physical Exam Physical Exam: GENERAL: Alert and oriented x3. NAD, on room air HEENT: No pallor, no icterus. Pupils equal, round and reactive to light. Oral mucosa moist. NECK: No JVD, no neck masses. HEART: S1 and S2 heard. Regular rate and rhythm. Systolic murmur over aortic and pulmonic area, no gallop. RESPIRATORY SYSTEM: Normal AP diameter. No accessory muscle use. No wheezing, no crackles. ABDOMEN: Soft, bowel sounds present, nontender, no distention. Hernia noted - stable. CENTRAL NERVOUS SYSTEM: No facial droop. Speech is clear. Obeys simple commands. Moves extremities. EXTREMITIES: 2+ BLE edema, BLE chronic skin changes, no erythema seen. Urinary catheter in situ with very scant concentrated looking urine collection. Results & Data Results & Data ([facility]) Vital Signs (Past 12 Hours) Vital Signs Temp Pulse Pulse Resp BP BP Pulse Ox 04/06/21 18:31 37.2 C 73 20 82/42 L 95 04/06/21 17:31 75 90/51 L 04/06/21 16:01 84/38 L 11/20/21 16:00 74 04/06/21 15:44 36.9 C 71 16 89/38 L 95 04/06/21 12:30 36.7 C 71 129/51 L 04/06/21 12:00 70 117/63 04/06/21 11:40 76 151/89 H 04/06/21 11:20 69 131/65 04/06/21 11:00 68 115/60 04/06/21 10:40 69 106/68 04/06/21 10:20 68 124/56 L 04/06/21 10:00 69 120/53 L 04/06/21 09:40 68 93/71 L 04/06/21 09:20 69 138/50 L 04/06/21 09:13 36.6 C 71
[2021-04-07] MEDS: rifAXIMin 550 MG TABLET PO SCH ×2 (08:04→23:11)
[2021-04-07] MEDS: ATORVASTATIN 40 MG TAB PO SCH (08:04)
[2021-04-07] MEDS: GABAPENTIN 100 MG CAP PO SCH ×2 (08:05→20:47)
[2021-04-07] MEDS: TORSEMIDE 100 MG TAB PO SCH (08:05)
[2021-04-07] MEDS: MAGNESIUM OXIDE 400 MG TAB PO SCH (08:05)
[2021-04-07] MEDS: ADVANCED PROBIOTIC 1250 MG CAPSULE PO SCH (08:05)
[2021-04-07] MEDS: SERTRALINE HCL 100 MG TABLET PO SCH (08:06)
[2021-04-07] MEDS: PANTOprazole 40 MG TAB PO SCH (08:06)
[2021-04-07] MEDS: CHOLECALCIFEROL 1,000 UNITS 25 MCG TAB PO SCH (08:06)
[2021-04-07] MEDS: LACTULOSE SYRUP 20 GM/30 ML UDC PO SCH ×2 (08:07→20:48)
[2021-04-07 09:04] LABS: Hematocrit (blood only) 28.2 % (37-47); Mean Corpuscular Hemoglobin 30.8 pg (25-34); Mean Corpuscular Hgb Conc 31.9 g/dL (32-36); Mean Corpuscular Volume 96.6 fL (80-100); RDW Coefficient of Variation 19.6 % (11.5-14.5); RDW Standard Deviation 65.5 fL (36.4-46.3); Red Blood Count 2.92 M/uL (4.2-5.4)
[2021-04-07 09:11] LABS: Mean Platelet Volume 11.3 fL (7.4-10.4); Platelet Count 62 K/uL (130-400)
[2021-04-07 09:14] LABS: INR 1.7 (0.9-1.1); Prothrombin Time 16.7 Seconds (9.0-12.0)
[2021-04-07 09:50] LABS: Albumin Globulin Ratio 1.5 (0.9-2); Albumin Level 2.7 gm/dl (3.4-5.0); BUN Creatinine Ratio 8.5 (10-20); Bilirubin,Total 2.1 mg/dl (0.2-1); Creatinine Clr Calc Pharmacy 16.8 ml/min; Est GFR (African American) 13.2 ml/min; Est GFR (Non-African American) 11.4 ml/min; Globulin 1.8 gm/dl (2.5-4.0); Potassium 3.6 mmol/L (3.5-5.1); Total Protein 4.5 gm/dl (6.4-8.2)
--- NOTE | 2021-04-07 15:11 | Nephrology Progress Note ---
Date of Service April 07, 2021 Assessment & Plan Admission and Anticipated Discharge Date Admission Date: March 30, 2021 Subjective Subjective Assessment & Plan (1) ARF --severe Oligruic type--ATN and HRS combined. Plan: This lady had normal renal function until 2 weeks back, there has been sudden jump in her serum creatinine with increase in her bilateral pedal edema, not responsive to oral diuretic Her albumin was low at 1.9,( now 2.5) she has been on indomethacin. Plan VIOLETTA/ANCA, C3-C4, CH 50, double-stranded DNA, --all pending. Free light chain back but the ratio is suggestive of CKD/ARF. Only has < 500 mg proteinuria so not acting like nephrotic Syndrome or GN. ARF most likely ATN than HRS --given how fast The ARF developed and almost anuria with muddy brown urine. Not much urine at all--even when we gave 120 iv. Will Put her on lasix 80 iv bid. had CVC --tunneled type and started Dialysis x 2 so far. continue 3hr tomorrow and 2 kilo off. Also give Epo from now. Discussed with patient and daughter and they are in agreement. Did discuss with GI whether she is a candidate for Liver Transplant. She will at least be investigated as per GI--but likely as outpt. she is agreeable with the plan and wants to do everything possible, (2) LOJA (nonalcoholic steatohepatitis): Subjective Minimal urine. Lot of edema.No new symptoms. No problem with Dialysis so far Review of Systems Review of Systems: Comfortable No shortness of breath biLateral pitting pedal edema on lower abdomen No abdominal pain, not much change in urine . Physical Exam Physical Exam: GENERAL: The patient is morbidly obese, not in acute distress. HEENT: Pupils equal, round, and reactive to light. Oral mucosa moist. NECK: No JVD. No neck masses. CARDIOVASCULAR: S1 and S2 heard. Regular rate and rhythm. No murmur, no gallop. RESPIRATORY SYSTEM: Normal AP diameter. No accessory muscle use. No wheezing, no crackles. ABDOMEN: Umbilical hernia seen. Soft, bowel sounds present, nontender. CENTRAL NERVOUS SYSTEM: Cranial nerves appear grossly intact, nonfocal. EXTREMITIES: Bilateral lower extremity gross pedal edema present. Mild erythematous changes seen Results & Data ([facility]) Vital Signs (Past 12 Hours) Vital Signs Temp Pulse Pulse Resp BP Pulse Ox 04/07/21 07:15 76 04/07/21 07:04 37.0 C 78 16 94/54 L 90
--- NOTE | 2021-04-07 16:27 | Hospitalist Progress Note ---
Date of Service April 07, 2021 Assessment & Plan (1) Hepatorenal syndrome: (2) LOJA (nonalcoholic steatohepatitis): (3) Acute renal failure (ARF): Plan: 70-year-old female with past medical history significant for hyperlipidemia, obstructive sleep apnea, venous insufficiency, esophageal varices without bleeding, morbid obesity, cirrhosis of liver, portal hypertensive, GERD, generalized osteoarthrosis, lumbar degenerative disk disease, primary osteoarthritis, restless legs syndrome, neuropathy, thrombocytopenia, persistent insomnia, mixed incontinence, major depression, who presented 03/30 with ongoing lower extremity edema for few weeks 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 The patient lives alone. She is being managed for the following: #. Acute renal failure (ARF): Baseline creatinine around 0.4, admitting creatinine 2.2 At admission, noted to have acute renal failure without significant chronic kidney disease in the past Could be secondary to ATN VS cirrhosis and hepatorenal syndrome Nephrology on board: Obstruction has been ruled out, awaiting serological test [VIOLETTA/ANCA, C3-C4, CH 50, dsDNA, SPEP, FLC] find out the other causes of kidney impairment. Pt on Torsemide 100 daily Creatinine worsening since admission, patient did not make urine despite aggressive IV diuresis. 04/05 s/p tunnel CVC catheter placement , hemodialysis started 04/05, got repeat hemodialysis today2 L out. For dialysis tomorrow. Strict I and Os. #. LOJA (nonalcoholic steatohepatitis): History of nonalcoholic steatohepatitis with hepatorenal syndrome INR is 1.5 and albumin is 1.9 on admission LFTs elevated at admission, trending down slowly. GI on board: Considered transfer to [place] but, instead, if renal function does not improve then plan for dialysis and OP transplant eval. She will likely be worked up as an outpatient for possible liver transplant as per GI service Will monitor LFTs and INR. INR hovering in the range of 1.5-1.7. No signs of bleeding. #. Bilateral lower extremity edema: #. Hypoxia: Infection ruled out, likely developing fluid collection secondary to anorexia states. Improving with dialysis. Presented with increasing bilateral leg swelling with weight gain of about 30 pounds in 1 month Did not improve with outpatient increasing dose of oral Lasix and Aldactone Has history of cirrhosis of the liver and is complicating the edema Has received intravenous albumin and Lasix in the hospital Nephrology is following Improving with dialysis. #. DANNIELLE (obstructive sleep apnea): Uses her own CPAP #. Thrombocytopenia: Platelet count has been low and is running around upper 50s which is secondary to cirrhosis Platelet count runs around upper 50s - 60s Morbid obesity Hyperlipidemia-continue statin DVT prophylaxis-SCDs has thrombocytopenia and INR is 1.6 CODE STATUS: Full code. Disposition: Await hemodialysis, likely need placement. CM to assist with DC planning. Admission and Anticipated Discharge Date Admission Date: March 30, 2021 Subjective Patient was lying in bed, eating her breakfast, room air, NAD. No acute events overnight per patient. Patient moving bowels okay. Patient denies headache/dizziness/chills/chest pain/belly pain/other review of symptoms. Patient reports feeling better with regard to breathing. Physical Exam Physical Exam: GENERAL: Alert and oriented x3. NAD, on room air HEENT: No pallor, no icterus. Pupils equal, round and reactive to light. Oral mucosa moist. NECK: No JVD, no neck masses. HEART: S1 and S2 heard. Regular rate and rhythm. Systolic murmur over aortic and pulmonic area, no gallop. RESPIRATORY SYSTEM: Normal AP diameter. No accessory muscle use. No wheezing, no crackles. ABDOMEN: Soft, bowel sounds present, nontender, no distention. Hernia noted - stable. CENTRAL NERVOUS SYSTEM: No facial droop. Speech is clear. Obeys simple commands. Moves extremities. EXTREMITIES: 2+ BLE edema, BLE chronic skin changes, no erythema seen. Right upper chest CVC hemodialysis catheter. Bruits notedimproving. Urinary catheter in situ with very scant concentrated looking urine collection. Results & Data Results & Data ([facility]) Vital Signs (Past 12 Hours) Vital Signs Temp Pulse Pulse Resp BP Pulse Ox 04/07/21 15:49 36.8 C 80 16 89/48 L 92 04/07/21 07:15 76 04/07/21 07:04 37.0 C 78 16 94/54 L 90
[2021-04-08] MEDS ORDERED: SODIUM CHLORIDE 0.9% 1000ML 1,000 ML IV PRN (07:00)
[2021-04-08] MEDS ORDERED: EPOETIN ALFA 10,000 UNITS/ML VIAL IV SCH (07:00)
[2021-04-08] MEDS: LACTULOSE SYRUP 20 GM/30 ML UDC PO SCH ×2 (08:21→20:37)
[2021-04-08] MEDS: CHOLECALCIFEROL 1,000 UNITS 25 MCG TAB PO SCH (08:22)
[2021-04-08] MEDS: PANTOprazole 40 MG TAB PO SCH (08:22)
[2021-04-08] MEDS: ADVANCED PROBIOTIC 1250 MG CAPSULE PO SCH (08:23)
[2021-04-08] MEDS: MAGNESIUM OXIDE 400 MG TAB PO SCH (08:23)
[2021-04-08] MEDS: SERTRALINE HCL 100 MG TABLET PO SCH (08:23)
[2021-04-08] MEDS: TORSEMIDE 100 MG TAB PO SCH (08:23)
[2021-04-08] MEDS: ATORVASTATIN 40 MG TAB PO SCH (08:23)
[2021-04-08] MEDS: GABAPENTIN 100 MG CAP PO SCH ×2 (08:23→20:37)
[2021-04-08] MEDS: rifAXIMin 550 MG TABLET PO SCH ×2 (09:38→20:37)
[2021-04-08 09:57] LABS: Albumin Level 2.6 gm/dl (3.4-5.0); BUN Creatinine Ratio 7.9 (10-20); Calcium 7.8 mg/dl (8.5-10.1); Creatinine Clr Calc Pharmacy 14.5 ml/min; Est GFR (African American) 10.9 ml/min; Est GFR (Non-African American) 9.4 ml/min; Magnesium 2.4 mg/dl (1.8-2.4); Potassium 3.8 mmol/L (3.5-5.1)
[2021-04-08 09:59] LABS: INR 1.8 (0.9-1.1); Prothrombin Time 17.2 Seconds (9.0-12.0)
[2021-04-08 10:00] LABS: Albumin Globulin Ratio 1.4 (0.9-2); Bilirubin,Total 1.9 mg/dl (0.2-1); Globulin 1.9 gm/dl (2.5-4.0); Total Protein 4.5 gm/dl (6.4-8.2)
--- NOTE | 2021-04-08 18:25 | Hospitalist Progress Note ---
Date of Service April 08, 2021 Assessment & Plan (1) Hepatorenal syndrome: (2) LOJA (nonalcoholic steatohepatitis): (3) Acute renal failure (ARF): Plan: 70-year-old female with past medical history significant for hyperlipidemia, obstructive sleep apnea, venous insufficiency, esophageal varices without bleeding, morbid obesity, cirrhosis of liver, portal hypertensive, GERD, generalized osteoarthrosis, lumbar degenerative disk disease, primary osteoarthritis, restless legs syndrome, neuropathy, thrombocytopenia, persistent insomnia, mixed incontinence, major depression, who presented 03/30 with ongoing lower extremity edema for few weeks [employer]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 The patient lives alone. She is being managed for the following: #. Acute renal failure (ARF): Baseline creatinine around 0.4, admitting creatinine 2.2 At admission, noted to have acute renal failure without significant chronic kidney disease in the past Could be secondary to ATN VS cirrhosis and hepatorenal syndrome Nephrology on board: Obstruction has been ruled out, awaiting serological test [VIOLETTA/ANCA, C3-C4, CH 50, dsDNA, SPEP, FLC] find out the other causes of kidney impairment. Pt on Torsemide 100 daily Creatinine worsening since admission, patient did not make urine despite aggressive IV diuresis. 04/05 s/p tunnel CVC catheter placement , hemodialysis started 04/05, got repeat hemodialysis today2 L out. For dialysis today. Strict I and Os. #. LOJA (nonalcoholic steatohepatitis): History of nonalcoholic steatohepatitis with hepatorenal syndrome INR is 1.5 and albumin is 1.9 on admission LFTs elevated at admission, trending down slowly. GI on board: Considered transfer to [place] but, instead, if renal function does not improve then plan for dialysis and OP transplant eval. She will likely be worked up as an outpatient for possible liver transplant as per GI service Will monitor LFTs and INR. INR hovering in the range of 1.5-1.7. No signs of bleeding. #. Bilateral lower extremity edema: #. Hypoxia: Infection ruled out, likely developing fluid collection secondary to anorexia states. Improving with dialysis. Presented with increasing bilateral leg swelling with weight gain of about 30 pounds in 1 month Did not improve with outpatient increasing dose of oral Lasix and Aldactone Has history of cirrhosis of the liver and is complicating the edema Has received intravenous albumin and Lasix in the hospital Nephrology is following Improving with dialysis. #. DANNIELLE (obstructive sleep apnea): Uses her own CPAP #. Thrombocytopenia: Platelet count has been low and is running around upper 50s which is secondary to cirrhosis Platelet count runs around upper 50s - 60s Morbid obesity Hyperlipidemia-continue statin DVT prophylaxis-SCDs has thrombocytopenia and INR is 1.6 CODE STATUS: Full code. Disposition: Await hemodialysis, likely need placement. CM to assist with DC planning. Can be DC'd with Nephro Rec; stable to go. Admission and Anticipated Discharge Date Admission Date: March 30, 2021 Subjective Patient was working with PT, NAD, room air. No acute events overnight per patient. Patient moving bowels okay. Patient denies headache/dizziness/chills/chest pain/belly pain/other review of symptoms. Physical Exam Physical Exam: GENERAL: Alert and oriented x3. NAD, on room air HEENT: No pallor, no icterus. Pupils equal, round and reactive to light. Oral mucosa moist. NECK: No JVD, no neck masses. HEART: S1 and S2 heard. Regular rate and rhythm. Systolic murmur over aortic and pulmonic area, no gallop. RESPIRATORY SYSTEM: Normal AP diameter. No accessory muscle use. No wheezing, no crackles. ABDOMEN: Soft, bowel sounds present, nontender, no distention. Hernia noted - stable. CENTRAL NERVOUS SYSTEM: No facial droop. Speech is clear. Obeys simple commands. Moves extremities. EXTREMITIES: 2+ BLE edema, BLE chronic skin changes, no erythema seen. Right upper chest CVC hemodialysis catheter. Bruise notedimproving. Results & Data Results & Data ([facility]) Vital Signs (Past 12 Hours) Vital Signs Temp Pulse Pulse Pulse Resp BP BP 04/08/21 18:00 79 108/50 L 04/08/21 17:40 76 102/52 L 04/08/21 17:20 78 110/57 L 04/08/21 17:00 71 118/53 L 04/08/21 16:40 76 117/58 L 04/08/21 16:20 69 114/56 L 04/08/21 16:00 74 118/60 04/08/21 15:40 75 114/52 L 04/08/21 15:20 74 111/52 L 04/08/21 15:17 76 115/57 L 04/08/21 15:10 37.0 C 76 04/08/21 14:30 72 04/08/21 08:20 80 04/08/21 07:00 37.2 C 78 20 99/56 L Pulse Ox 04/08/21 18:00 04/08/21 17:40 04/08/21 17:20 04/08/21 17:00 04/08/21 16:40 04/08/21 16:20 04/08/21 16:00 04/08/21 15:40 04/08/21 15:20 04/08/21 15:17 04/08/21 15:10 04/08/21 14:30 04/08/21 08:20 04/08/21 07:00 92
--- NOTE | 2021-04-08 19:37 | Nephrology Progress Note ---
Date of Service April 08, 2021 Assessment & Plan (1) Bilateral lower extremity edema: Plan: This lady had normal renal function until 2 weeks back, there has been sudden jump in her serum creatinine with increase in her bilateral pedal edema, not responsive to oral diuretic Her albumin was low at 1.9,( marvin 2.5) she has been on indomethacin and has got liver pathology. She could be having GN(minimal change/membranous), it is not uncommon for Liver patients to have IgA as well.Hepatorenal would be a diagnosis of exclusion. USS - essentiallly normal, PCR - 0.3, u/a has blood and protein. Plan 24 hr protein VIOLETTA/ANCA, C3-C4, CH 50, double-stranded DNA, SPEP, FLC Continue on IV albumin 25%, Change lasux to oral 40 mg BID,as her renal functions has declined. U na Nephrotoxic's, CT with contrast only with if lifesaving. Daily BMP, Strict input and output. We will continue to follow with you (2) LOJA (nonalcoholic steatohepatitis): (3) Acute renal failure (ARF): Plan: oliguric SEVEN dependent on dialysis now This lady had normal renal function until late february, there has been sudden jump in her serum creatinine with increase in her bilateral pedal edema, not responsive to oral diuretic Her albumin was low at 1.9,( now 2.5) she had been on indomethacin and has got liver pathology. She could be having GN(minimal change/membranous), it is not uncommon for Liver patients to have IgA as well.Hepatorenal would be a diagnosis of exclusion. USS - essentiallly normal, PCR - 0.3, u/a has blood and protein. 360 mg protein on 24 hr specimen FLC both elevated but ratio not inapporpriate for renal disease Plan VIOLETTA/ANCA, C3-C4, CH 50, double-stranded DNA, SPEP> f/u pending serologies though likelihood of + finding low Continue torsemide Nephrotoxic's, CT with contrast only with if lifesaving. Daily BMP, >Strict input and output; only 250 mL today, so oliguric -monitor for renal recovery but likely to need further HD on 04/10 We will continue to follow with you Admission and Anticipated Discharge Date Admission Date: March 30, 2021 Subjective for HD today; no acute interval events. seen on rounds at 1230; later in day had HD > tolerated 2L UF. feels her edema is improved somewhat Review of Systems Review of Systems: All systems reviewed & are unremarkable except as noted in Subjective Physical Exam Constitutional: well developed, well nourished and cooperative; no acute distress Eyes: EOM intact bilaterally ENMT: Ears: no external ear abnormality Nose: no external nose abnormality Mouth: + dry oral mucous membranes Neck: no nuchal rigidity Respiratory: normal respiratory effort Auscultation: + diminished lung sounds Cardiovascular: Rate/Rhythm: regular rate and regular rhythm Extremities: + edema Gastrointestinal (Abdomen): Inspection/Auscultation: + abdomen distended and normal bowel sounds Percussion/Palpation: abdomen soft; abdomen nontender Musculoskeletal: Extremities: strength 5/5 throughout Skin: no rashes, warm and dry + ecchymosis Neurologic: smith, fluent speech, no tremor Psychiatric: Orientation: oriented x 3 Results & Data ([facility]) Vital Signs (Past 12 Hours) Vital Signs Temp Pulse Pulse BP BP 04/08/21 18:36 36.9 C 79 120/44 L 04/08/21 18:18 79 110/49 L 04/08/21 18:00 79 108/50 L 04/08/21 17:40 76 102/52 L 04/08/21 17:20 78 110/57 L 04/08/21 17:00 71 118/53 L 04/08/21 16:40 76 117/58 L 04/08/21 16:20 69 114/56 L 04/08/21 16:00 74 118/60 04/08/21 15:40 75 114/52 L 04/08/21 15:20 74 111/52 L 04/08/21 15:17 76 115/57 L 04/08/21 15:10 37.0 C 76 04/08/21 14:30 72 04/08/21 08:20 80 Laboratory Results 04/07/21 08:43 04/08/21 09:07
[2021-04-09 08:04] LABS: INR 1.7 (0.9-1.1); Prothrombin Time 16.8 Seconds (9.0-12.0)
[2021-04-09 08:57] LABS: Albumin Globulin Ratio 1.4 (0.9-2); Albumin Level 2.6 gm/dl (3.4-5.0); BUN Creatinine Ratio 6.2 (10-20); Bilirubin,Total 2.4 mg/dl (0.2-1); Creatinine Clr Calc Pharmacy 17.7 ml/min; Globulin 1.9 gm/dl (2.5-4.0); Potassium 3.7 mmol/L (3.5-5.1); Total Protein 4.5 gm/dl (6.4-8.2)
[2021-04-09] MEDS: LACTULOSE SYRUP 20 GM/30 ML UDC PO SCH ×2 (09:33→22:00)
[2021-04-09] MEDS: GABAPENTIN 100 MG CAP PO SCH ×2 (09:35→20:17)
[2021-04-09] MEDS: MAGNESIUM OXIDE 400 MG TAB PO SCH (09:36)
[2021-04-09] MEDS: ATORVASTATIN 40 MG TAB PO SCH (09:36)
[2021-04-09] MEDS: TORSEMIDE 100 MG TAB PO SCH (09:36)
[2021-04-09] MEDS: PANTOprazole 40 MG TAB PO SCH (09:36)
[2021-04-09] MEDS: CHOLECALCIFEROL 1,000 UNITS 25 MCG TAB PO SCH (09:37)
[2021-04-09] MEDS: SERTRALINE HCL 100 MG TABLET PO SCH (09:37)
[2021-04-09] MEDS: rifAXIMin 550 MG TABLET PO SCH ×2 (11:56→20:17)
[2021-04-09] MEDS: ADVANCED PROBIOTIC 1250 MG CAPSULE PO SCH (11:56)
--- NOTE | 2021-04-09 19:54 | Hospitalist Progress Note ---
Date of Service April 09, 2021 Assessment & Plan (1) Hepatorenal syndrome: (2) LOJA (nonalcoholic steatohepatitis): (3) Acute renal failure (ARF): Plan: 70-year-old female with past medical history significant for hyperlipidemia, obstructive sleep apnea, venous insufficiency, esophageal varices without bleeding, morbid obesity, cirrhosis of liver, portal hypertensive, GERD, generalized osteoarthrosis, lumbar degenerative disk disease, primary osteoarthritis, restless legs syndrome, neuropathy, thrombocytopenia, persistent insomnia, mixed incontinence, major depression, who presented 03/30 with ongoing lower extremity edema for few weeks 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 The patient lives alone. She is being managed for the following: #. Acute renal failure (ARF): Baseline creatinine around 0.4, admitting creatinine 2.2 At admission, noted to have acute renal failure without significant chronic kidney disease in the past Could be secondary to ATN VS cirrhosis and hepatorenal syndrome Nephrology on board: Obstruction has been ruled out, awaiting serological test [VIOLETTA/ANCA, C3-C4, CH 50, dsDNA, SPEP, FLC] find out the other causes of kidney impairment. Pt on Torsemide 100 daily Creatinine worsening since admission, patient did not make urine despite aggressive IV diuresis. 04/05 s/p tunnel CVC catheter placement , hemodialysis started 04/05, got repeat hemodialysis today2 L out. Hemodialysis 04/09-2 L out. Strict I and Os. #. LOJA (nonalcoholic steatohepatitis): History of nonalcoholic steatohepatitis with hepatorenal syndrome INR is 1.5 and albumin is 1.9 on admission LFTs elevated at admission, trending down slowly. GI on board: Considered transfer to [place] but, instead, if renal function does not improve then plan for dialysis and OP transplant eval. She will likely be worked up as an outpatient for possible liver transplant as per GI service Will monitor LFTs and INR. INR hovering in the range of 1.5-1.7. No signs of bleeding. #. Bilateral lower extremity edema: #. Hypoxia: Infection ruled out, likely developing fluid collection secondary to anorexia states. Improving with dialysis. Presented with increasing bilateral leg swelling with weight gain of about 30 pounds in 1 month Did not improve with outpatient increasing dose of oral Lasix and Aldactone Has history of cirrhosis of the liver and is complicating the edema Has received intravenous albumin and Lasix in the hospital Nephrology is following Improving with dialysis. #. DANNIELLE (obstructive sleep apnea): Uses her own CPAP #. Thrombocytopenia: Platelet count has been low and is running around upper 50s which is secondary to cirrhosis Platelet count runs around upper 50s - 60s Morbid obesity Hyperlipidemia-continue statin DVT prophylaxis-SCDs has thrombocytopenia and INR is 1.6 CODE STATUS: Full code. Disposition: Awaiting placement, medically stable for discharge. CM to assist with DC planning. Can be DC'd with Nephro Rec; stable to go. Admission and Anticipated Discharge Date Admission Date: March 30, 2021 Subjective Patient was sitting up in bed, able to work up with physical therapy, on room air, NAD, no new acute events overnight. Patient denies any headache/shortness of breath/chest pain/palpitation/other review of symptoms. Physical Exam Physical Exam: GENERAL: Alert and oriented x3. NAD, on room air HEENT: No pallor, no icterus. Pupils equal, round and reactive to light. Oral mucosa moist. NECK: No JVD, no neck masses. HEART: S1 and S2 heard. Regular rate and rhythm. Systolic murmur over aortic and pulmonic area, no gallop. RESPIRATORY SYSTEM: Normal AP diameter. No accessory muscle use. No wheezing, no crackles. ABDOMEN: Soft, bowel sounds present, nontender, no distention. Hernia noted - stable. CENTRAL NERVOUS SYSTEM: No facial droop. Speech is clear. Obeys simple commands. Moves extremities. EXTREMITIES: 2+ BLE edema, BLE chronic skin changes, no erythema seen. Right upper chest CVC hemodialysis catheter. Bruise notedimproving. Results & Data Results & Data ([facility]) Vital Signs (Past 12 Hours) Vital Signs Temp Pulse Resp BP BP Pulse Ox 04/09/21 19:20 36.9 C 75 18 93/46 L 97 04/09/21 16:12 36.8 C 62 20 110/55 L 94
[2021-04-10 00:37] LABS: ANCA Screen Negative (Negative); Anti Nuclear Antibody Screen NEGATIVE (NEGATIVE); Complement C3 53 mg/dL (83-193); Complement Total(CH50) 54 U/mL (31-60)
[2021-04-10 06:41] LABS: Hemoglobin 8.9 g/dL (12.0-16.0); Mean Corpuscular Hemoglobin 30.9 pg (25-34); Mean Corpuscular Hgb Conc 31.8 g/dL (32-36); Mean Corpuscular Volume 97.2 fL (80-100); RDW Coefficient of Variation 20.3 % (11.5-14.5); RDW Standard Deviation 66.7 fL (36.4-46.3); Red Blood Count 2.88 M/uL (4.2-5.4); White Blood Count 4.98 K/uL (4.8-10.8)
[2021-04-10 06:49] LABS: INR 1.7 (0.9-1.1); Prothrombin Time 16.7 Seconds (9.0-12.0)
[2021-04-10 06:58] LABS: Mean Platelet Volume 10.8 fL (7.4-10.4); Platelet Count 52 K/uL (130-400)
[2021-04-10 07:19] LABS: BUN Creatinine Ratio 6.5 (10-20); Calcium 8.4 mg/dl (8.5-10.1); Creatinine Clr Calc Pharmacy 14.7 ml/min; Est GFR (African American) 11.3 ml/min; Est GFR (Non-African American) 9.8 ml/min; Magnesium 2.2 mg/dl (1.8-2.4); Potassium 3.7 mmol/L (3.5-5.1)
[2021-04-10] MEDS: rifAXIMin 550 MG TABLET PO SCH ×2 (08:09→20:39)
[2021-04-10] MEDS: SERTRALINE HCL 100 MG TABLET PO SCH (08:09)
[2021-04-10] MEDS: GABAPENTIN 100 MG CAP PO SCH ×2 (08:09→20:39)
[2021-04-10] MEDS: ATORVASTATIN 40 MG TAB PO SCH (08:09)
[2021-04-10] MEDS: TORSEMIDE 100 MG TAB PO SCH (08:09)
[2021-04-10] MEDS: PANTOprazole 40 MG TAB PO SCH (08:10)
[2021-04-10] MEDS: ADVANCED PROBIOTIC 1250 MG CAPSULE PO SCH (08:10)
[2021-04-10] MEDS: MAGNESIUM OXIDE 400 MG TAB PO SCH (08:10)
[2021-04-10] MEDS: CHOLECALCIFEROL 1,000 UNITS 25 MCG TAB PO SCH (08:10)
[2021-04-10] MEDS ORDERED: EPOETIN ALFA 20,000 UNITS/ML VIAL IV SCH (09:00)
[2021-04-10] MEDS ORDERED: SODIUM CHLORIDE 0.9% 1000ML 1,000 ML IV PRN (09:02)
[2021-04-10] MEDS: LACTULOSE SYRUP 20 GM/30 ML UDC PO SCH ×2 (09:28→20:39)
--- NOTE | 2021-04-10 18:20 | Hospitalist Progress Note ---
Date of Service April 10, 2021 Assessment & Plan (1) Hepatorenal syndrome: (2) LOJA (nonalcoholic steatohepatitis): (3) Acute renal failure (ARF): Plan: 70 yo F w/ hyperlipidemia, DANNIELLE, venous insufficiency, esophageal varices without bleeding, morbid obesity, cirrhosis of liver, portal hypertension, GERD, generalized osteoarthrosis, lumbar degenerative disk disease, primary osteoarthritis, restless legs syndrome, neuropathy, thrombocytopenia, persistent insomnia, mixed incontinence, major depression, who presented 03/30 with ongoing lower extremity edema for few weeks [employer] a/w 30 lbs wt gain in 1 month despite recent OP increase of lasix to 40 mg BID and spironolactone to 40 mg BID. The patient lives alone. She is being managed for the following: Acute renal failure (ARF): Baseline creatinine around 0.4, admitting creatinine 2.2 At admission, noted to have acute renal failure without significant chronic kidney disease in the past Could be secondary to ATN vs cirrhosis and hepatorenal syndrome Nephrology following: Obstruction has been ruled out, awaiting serological test [VIOLETTA/ANCA, C3-C4, CH 50, dsDNA, SPEP, FLC] find out the other causes of kidney impairment. Pt on Torsemide 100 daily Creatinine worsening since admission, patient did not make urine despite aggressive IV diuresis. 04/05 s/p tunnel CVC catheter placement , hemodialysis started 04/05 Strict I and Os. LOJA (nonalcoholic steatohepatitis): History of nonalcoholic steatohepatitis with hepatorenal syndrome INR is 1.5 and albumin is 1.9 on admission LFTs elevated at admission, trending down slowly. GI consulted: Considered transfer to [place] but, instead, if renal function does not improve then plan for dialysis and OP transplant eval. She will likely be worked up as an outpatient for possible liver transplant as per GI service Will monitor LFTs and INR. INR hovering in the range of 1.5-1.7. No signs of bleeding. Bilateral lower extremity edema: Hypoxia: Infection ruled out, likely developing fluid collection secondary to anorexia states. Improving with dialysis. Hypoxia now resolved - pt on RA Presented with increasing bilateral leg swelling with weight gain of about 30 pounds in 1 month Did not improve with outpatient increasing dose of oral Lasix and Aldactone Has history of cirrhosis of the liver and is complicating the edema Has received intravenous albumin and Lasix in the hospital Nephrology is following Improving with dialysis. DANNIELLE (obstructive sleep apnea): Uses her own CPAP Thrombocytopenia: Platelet count has been low and is running around upper 50s which is secondary to cirrhosis Platelet count runs around upper 50s - 60s Morbid obesity - counseling provided Hyperlipidemia-continue statin DVT prophylaxis-SCDs has thrombocytopenia and INR is 1.6 CODE STATUS: Full code. Disposition: Awaiting placement, medically stable for discharge. CM to assist with DC planning. Can be DC'd with Nephro Rec; stable to go. Admission and Anticipated Discharge Date Admission Date: March 30, 2021 Subjective Pt seen in follow up of ARF, now requiring HD, hx of LOJA cirrhosis Currently she is laying in bed in NAD She is alert and oriented, answering questions appropriately Has no complaints Specifically denies any chest pain, shortness of breath, abd. pain, n/v Review of Systems Review of Systems: All systems reviewed & are unremarkable except as noted in Subjective Physical Exam Physical Exam: GENERAL: Obese F, in NAD, on room air HEENT: NC/AT. EOMI, PERRL. NECK: No JVD, no neck masses. HEART: S1 and S2 heard. Regular rate and rhythm. Systolic murmur over aortic and pulmonic area, no gallop. RESPIRATORY: Normal AP diameter. No accessory muscle use. No wheezing, no crackles. ABDOMEN: Soft, bowel sounds present, nontender, no distention. Hernia noted - stable, soft, no pain on palpation. NEURO: Alert and oriented and answering questions appropriately. No facial droop. Speech is clear. Obeys simple commands. Moves extremities. EXTREMITIES: 1+ BLE edema (improved), BLE chronic skin changes, no erythema seen. Right upper chest CVC hemodialysis catheter. Ecchymosis noted around the catheter. Results & Data Results & Data ([facility]) Vital Signs (Past 12 Hours) Vital Signs Temp Pulse Pulse Pulse Resp BP BP 04/10/21 18:00 36.8 C 60 04/10/21 17:52 60 98/72 L 04/10/21 17:40 60 95/77 L 04/10/21 17:20 78 123/56 L 04/10/21 17:00 78 121/45 L 04/10/21 16:40 77 110/52 L 04/10/21 16:20 79 127/46 L 04/10/21 16:00 77 128/59 L 04/10/21 15:40 77 118/48 L 04/10/21 15:20 76 116/48 L 04/10/21 15:13 77 04/10/21 15:00 76 119/56 L 04/10/21 14:52 77 115/57 L 04/10/21 14:39 37.0 C 79 04/10/21 11:09 36.9 C 75 18 94/55 L 04/10/21 08:10 73 04/10/21 06:59 36.7 C 76 18 111/62 BP Pulse Ox 04/10/21 18:00 95/77 L 04/10/21 17:52 04/10/21 17:40 04/10/21 17:20 04/10/21 17:00 04/10/21 16:40 04/10/21 16:20 04/10/21 16:00 04/10/21 15:40 04/10/21 15:20 04/10/21 15:13 04/10/21 15:00 04/10/21 14:52 04/10/21 14:39 04/10/21 11:09 94 04/10/21 08:10 04/10/21 06:59 93 Laboratory Results 04/10/21 04/10/21 04/10/21 Range/Units 06:07 06:07 06:07 WBC 4.98 (4.8-10.8) K/uL RBC 2.88 L (4.2-5.4) M/uL Hgb 8.9 L (12.0-16.0) g/dL Hct 28.0 L (37-47) % MCV 97.2 (80-100) fL MCH 30.9 (25-34) pg MCHC 31.8 L (32-36) g/dL RDW Std Deviation 66.7 H (36.4-46.3) fL RDW Coeff of Blanca 20.3 H (11.5-14.5) % Plt Count 52 L (130-400) K/uL MPV 10.8 H (7.4-10.4) fL PT 16.7 H (9.0-12.0) Seconds INR 1.7 H (0.9-1.1) Sodium 140 (136-145) mmol/L Potassium 3.7 (3.5-5.1) mmol/L Chloride 107 (98-107) mmol/L Carbon Dioxide 27 (21-32) mmol/L Anion Gap 6.0 (3-11) BUN 28 H (7-18) mg/dl Creatinine 4.33 H D (0.6-1.2) mg/dl Est Cr Clr Drug Dosing 14.7 ml/min Est GFR ( Amer) 11.3 ml/min Est GFR (Non-Af Amer) 9.8 ml/min BUN/Creatinine Ratio 6.5 L (10-20) Glucose 85 (70-99) mg/dl Calcium 8.4 L (8.5-10.1) mg/dl Phosphorus 3.0 (2.5-4.9) mg/dl Magnesium 2.2 (1.8-2.4) mg/dl VIOLETTA Screen (NEGATIVE) ANCA (Negative) Complement C3 (83-193) mg/dL Complement C4 (15-57) mg/dL Tot Complement (CH50) (31-60) U/mL 03/31/21 Range/Units 12:08 WBC (4.8-10.8) K/uL RBC (4.2-5.4) M/uL Hgb (12.0-16.0) g/dL Hct (37-47) % MCV (80-100) fL MCH (25-34) pg MCHC (32-36) g/dL RDW Std Deviation (36.4-46.3) fL RDW Coeff of Blanca (11.5-14.5) % Plt Count (130-400) K/uL MPV (7.4-10.4) fL PT (9.0-12.0) Seconds INR (0.9-1.1) Sodium (136-145) mmol/L Potassium (3.5-5.1) mmol/L Chloride (98-107) mmol/L Carbon Dioxide (21-32) mmol/L Anion Gap (3-11) BUN (7-18) mg/dl Creatinine (0.6-1.2) mg/dl Est Cr Clr Drug Dosing ml/min Est GFR ( Amer) ml/min Est GFR (Non-Af Amer) ml/min BUN/Creatinine Ratio (10-20) Glucose (70-99) mg/dl Calcium (8.5-10.1) mg/dl Phosphorus (2.5-4.9) mg/dl Magnesium (1.8-2.4) mg/dl VIOLETTA Screen NEGATIVE (NEGATIVE) ANCA Negative (Negative) Complement C3 53 L (83-193) mg/dL Complement C4 11 L (15-57) mg/dL Tot Complement (CH50) 54 (31-60) U/mL Medications Administered Current Inpatient Medications Acetaminophen (Acetaminophen 325 Mg Tab) 325 mg PO Q6H PRN PRN Reason: Mild Pain Stop: 05/05/21 20:07 Last Admin: 04/05/21 21:14 Dose: 325 mg Documented by: Atorvastatin Calcium (Atorvastatin 40 Mg Tab) 80 mg PO QAM [facility] Stop: 04/29/21 08:59 Last Admin: 04/10/21 08:09 Dose: 80 mg Documented by: Gabapentin (Gabapentin 100 Mg Cap) 100 mg PO BID SAMIR Stop: 04/29/21 08:59 Last Admin: 04/10/21 08:09 Dose: 100 mg Documented by: Lactobacillus Acidoph/Casei/Rhamnos (Advanced Probiotic 1250 Mg Capsule) 2 cap PO DAILY SAMIR Stop: 04/29/21 08:59 Last Admin: 04/10/21 08:10 Dose: 2 cap Documented by: Lactulose (Lactulose Syrup 20 Gm/30 Ml Udc) 20 gm PO BID SAMIR Stop: 04/29/21 08:59 Last Admin: 04/10/21 09:28 Dose: Not Given Documented by: Magnesium Oxide (Magnesium Oxide 400 Mg Tab) 400 mg PO DAILY SAMIR Stop: 04/29/21 08:59 Last Admin: 04/10/21 08:10 Dose: 400 mg Documented by: Nitroglycerin (Nitroglycerin Sl 0.4 Mg/Tab Tab) 0.4 mg SL UD PRN PRN Reason: Chest Pain Stop: 04/29/21 03:42 Ondansetron HCl (Ondansetron Inj 2 Mg/Ml 2 Ml Vial) 4 mg IV Q6H PRN PRN Reason: Nausea Stop: 04/29/21 03:42 Pantoprazole Sodium (Pantoprazole 40 Mg Tab) 40 mg PO QAM [facility] Stop: 04/29/21 08:59 Last Admin: 04/10/21 08:10 Dose: 40 mg Documented by: Rifaximin (Rifaximin 550 Mg Tablet) 550 mg PO BID [facility] Stop: 04/29/21 08:59 Last Admin: 04/10/21 08:09 Dose: 550 mg Documented by: Sertraline HCl (Sertraline Hcl 100 Mg Tablet) 100 mg PO [facility] Stop: 04/29/21 08:59 Last Admin: 04/10/21 08:09 Dose: 100 mg Documented by: Torsemide (Torsemide 100 Mg Tab) 100 mg PO [facility] Stop: 05/06/21 11:29 Last Admin: 04/10/21 08:09 Dose: 100 mg Documented by: Vitamin D (Cholecalciferol 1,000 Units 25 Mcg Tab) 2,000 units PO [facility] Stop: 04/29/21 08:59 Last Admin: 04/10/21 08:10 Dose: 2,000 units Documented by:
--- NOTE | 2021-04-10 20:53 | Nephrology Progress Note ---
Date of Service April 10, 2021 Assessment & Plan (1) Acute renal failure (ARF): Plan: oliguric SEVEN remains dependent on dialysis now This lady had normal renal function until late february, when there was a sudden jump in her serum creatinine with increase in her bilateral pedal edema, not responsive to oral diuretic Her albumin was low at 1.9,( now 2.5); she had been on indomethacin and has got liver pathology. She could be having GN(minimal change/membranous), ATN on differential; it is not uncommon for Liver patients to have IgA as well. Hepatorenal would be a diagnosis of exclusion. USS - essentiallly normal, PCR - 0.3, u/a has blood and protein. 360 mg protein on 24 hr specimen FLC both elevated but ratio not inappropriate for renal disease serologies remarkable for low complement VIOLETTA/ANCA, CH 50, double-stranded DNA, SPEP>all negative plan Continue torsemide avoid Nephrotoxins; CT with contrast only with if lifesaving. Daily BMP, >Strict input and output -monitor for renal recovery but likely to need further HD on 04/12 We will continue to follow with you (2) Bilateral lower extremity edema: Plan: improving w/ dialysis and diuretics (3) LOJA (nonalcoholic steatohepatitis): Plan: w/ cirrhosis. Admission and Anticipated Discharge Date Admission Date: March 30, 2021 Subjective no acute interval events. no worse sob or edema. seen on rounds at 1020 Review of Systems Review of Systems: All systems reviewed & are unremarkable except as noted in Subjective Physical Exam Constitutional: well developed, well nourished and cooperative; no acute distress Eyes: EOM intact bilaterally ENMT: Ears: no external ear abnormality Nose: no external nose abnormality Mouth: + dry oral mucous membranes Neck: no nuchal rigidity Respiratory: normal respiratory effort Auscultation: + diminished lung soun ds Cardiovascular: Rate/Rhythm: regular rate and regular rhythm Extremities: + edema Gastrointestinal (Abdomen): Inspection/Auscultation: + abdomen distended and normal bowel sounds Percussion/Palpation: abdomen soft; abdomen nontender Musculoskeletal: Extremities: strength 5/5 throughout Skin: no rashes, warm and dry + ecchymosis Neurologic: generalized weakness, fluent speech Psychiatric: Orientation: oriented x 3 Genitourinary: drew w/ ample light urine Results & Data ([facility]) Vital Signs (Past 12 Hours) Vital Signs Temp Pulse Pulse Pulse Resp BP BP 04/10/21 19:01 36.8 C 79 18 98/37 L 04/10/21 18:00 36.8 C 60 04/10/21 17:52 60 98/72 L 04/10/21 17:40 60 95/77 L 04/10/21 17:20 78 123/56 L 04/10/21 17:00 78 121/45 L 04/10/21 16:40 77 110/52 L 04/10/21 16:20 79 127/46 L 04/10/21 16:00 77 128/59 L 04/10/21 15:40 77 118/48 L 04/10/21 15:20 76 116/48 L 04/10/21 15:13 77 04/10/21 15:00 76 119/56 L 04/10/21 14:52 77 115/57 L 04/10/21 14:39 37.0 C 79 04/10/21 11:09 36.9 C 75 18 94/55 L BP Pulse Ox 04/10/21 19:01 96 04/10/21 18:00 95/77 L 04/10/21 17:52 04/10/21 17:40 04/10/21 17:20 04/10/21 17:00 04/10/21 16:40 04/10/21 16:20 04/10/21 16:00 04/10/21 15:40 04/10/21 15:20 04/10/21 15:13 04/10/21 15:00 04/10/21 14:52 04/10/21 14:39 04/10/21 11:09 94 Laboratory Results 04/10/21 06:07 04/10/21 06:07
[2021-04-10] MEDS ORDERED: MICONAZOLE NITRATE POWDER 43 GM EXT PRN (23:25)
[2021-04-11 07:02] LABS: Hematocrit (blood only) 27.2 % (37-47); Hemoglobin 8.4 g/dL (12.0-16.0); Mean Corpuscular Hemoglobin 30.1 pg (25-34); Mean Corpuscular Hgb Conc 30.9 g/dL (32-36); Mean Corpuscular Volume 97.5 fL (80-100); RDW Coefficient of Variation 20.4 % (11.5-14.5); RDW Standard Deviation 66.7 fL (36.4-46.3); Red Blood Count 2.79 M/uL (4.2-5.4); White Blood Count 4.54 K/uL (4.8-10.8)
[2021-04-11 07:05] LABS: Mean Platelet Volume 11.7 fL (7.4-10.4); Platelet Count 50 K/uL (130-400)
[2021-04-11 07:41] LABS: BUN Creatinine Ratio 5.6 (10-20); Calcium 8.2 mg/dl (8.5-10.1); Creatinine Clr Calc Pharmacy 19.1 ml/min; Est GFR (African American) 15.6 ml/min; Est GFR (Non-African American) 13.5 ml/min; Magnesium 2.2 mg/dl (1.8-2.4); Phosphorus 2.2 mg/dl (2.5-4.9); Potassium 3.8 mmol/L (3.5-5.1)
--- NOTE | 2021-04-11 08:18 | Hospitalist Progress Note ---
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 The patient lives alone. She is being managed for the following: Acute renal failure (ARF): Baseline creatinine around 0.4, admitting creatinine 2.2 At admission, noted to have acute renal failure without significant chronic kidney disease in the past Could be secondary to ATN vs cirrhosis and hepatorenal syndrome Nephrology following: Obstruction has been ruled out, awaiting serological test [VIOLETTA/ANCA, C3-C4, CH 50, dsDNA, SPEP, FLC] find out the other causes of kidney impairment. Pt on Torsemide 100 daily Creatinine worsening since admission, patient did not make urine despite aggressive IV diuresis. 04/05 s/p tunnel CVC catheter placement , hemodialysis started 04/05 Strict I and Os. LOJA (nonalcoholic steatohepatitis): History of nonalcoholic steatohepatitis with hepatorenal syndrome INR is 1.5 and albumin is 1.9 on admission LFTs elevated at admission, trending down slowly. GI consulted: Considered transfer to [place] but, instead, if renal function does not improve then plan for dialysis and OP transplant eval. She will likely be worked up as an outpatient for possible liver transplant as per GI service Will monitor LFTs and INR. INR hovering in the range of 1.5-1.7. No signs of bleeding, however ecchymosis noted at right breast, HD catheter site. Bilateral lower extremity edema: Hypoxia: Infection ruled out, likely developing fluid collection secondary to anorexia states. Improving with dialysis. Hypoxia now resolved - pt on RA Presented with increasing bilateral leg swelling with weight gain of about 30 pounds in 1 month Did not improve with outpatient increasing dose of oral Lasix and Aldactone Has history of cirrhosis of the liver and is complicating the edema Has received intravenous albumin and Lasix in the hospital Nephrology is following Improving with dialysis. DANNIELLE (obstructive sleep apnea): Uses her own CPAP Thrombocytopenia: Platelet count has been low and is running around upper 50s which is secondary to cirrhosis Platelet count runs around upper 50s - 60s Morbid obesity - counseling provided Hyperlipidemia-continue statin DVT prophylaxis-SCDs has thrombocytopenia and INR is 1.6 CODE STATUS: Full code. Disposition: Awaiting placement, medically stable for discharge. CM to assist with DC planning. Can be DC'd with Nephro Rec; stable to go. Admission and Anticipated Discharge Date Admission Date: March 30, 2021 Subjective Pt seen in follow up of ARF, now requiring HD, hx of LOJA cirrhosis Currently she is laying in bed in NAD She is alert and oriented, answering questions appropriately Denies any chest pain, shortness of breath, abd. pain, n/v Reports some ecchymosis/tenderness at R breast/ HD catheter site Review of Systems Review of Systems: All systems reviewed & are unremarkable except as noted in Subjective Physical Exam Physical Exam: GENERAL: Obese F, in NAD, on room air HEENT: NC/AT. EOMI, PERRL. NECK: No JVD, no neck masses. HEART: S1 and S2 heard. Regular rate and rhythm. Systolic murmur over aortic and pulmonic area, no gallop. RESPIRATORY: Normal AP diameter. No accessory muscle use. No wheezing, no crackles. ABDOMEN: Soft, bowel sounds present, nontender, no distention. Hernia noted - stable, soft, no pain on palpation. NEURO: Alert and oriented and answering questions appropriately. No facial droop. Speech is clear. Obeys simple commands. Moves extremities. EXTREMITIES: 1+ BLE edema (improved), BLE chronic skin changes, no erythema seen. Right upper chest CVC hemodialysis catheter. Ecchymosis noted around the catheter and at R breast. Results & Data Results & Data ([facility]) Vital Signs (Past 12 Hours) Vital Signs Temp Pulse Pulse Resp BP Pulse Ox 04/11/21 07:28 77 04/11/21 03:55 37.1 C 91 H 18 91/51 L 94 04/11/21 00:13 79 04/10/21 23:21 37 C 82 16 91/52 L 96 Laboratory Results 04/11/21 04/11/21 Range/Units 06:24 06:24 WBC 4.54 L (4.8-10.8) K/uL RBC 2.79 L (4.2-5.4) M/uL Hgb 8.4 L (12.0-16.0) g/dL Hct 27.2 L (37-47) % MCV 97.5 (80-100) fL MCH 30.1 (25-34) pg MCHC 30.9 L (32-36) g/dL RDW Std Deviation 66.7 H (36.4-46.3) fL RDW Coeff of Blanca 20.4 H (11.5-14.5) % Plt Count 50 L (130-400) K/uL MPV 11.7 H (7.4-10.4) fL Sodium 141 (136-145) mmol/L Potassium 3.8 (3.5-5.1) mmol/L Chloride 107 (98-107) mmol/L Carbon Dioxide 29 (21-32) mmol/L Anion Gap 5.0 (3-11) BUN 19 H (7-18) mg/dl Creatinine 3.32 H D (0.6-1.2) mg/dl Est Cr Clr Drug Dosing 19.1 ml/min Est GFR ( Amer) 15.6 ml/min Est GFR (Non-Af Amer) 13.5 ml/min BUN/Creatinine Ratio 5.6 L (10-20) Glucose 96 (70-99) mg/dl Calcium 8.2 L (8.5-10.1) mg/dl Phosphorus 2.2 L (2.5-4.9) mg/dl Magnesium 2.2 (1.8-2.4) mg/dl Medications Administered Current Inpatient Medications Acetaminophen (Acetaminophen 325 Mg Tab) 325 mg PO Q6H PRN PRN Reason: Mild Pain Stop: 05/05/21 20:07 Last Admin: 04/05/21 21:14 Dose: 325 mg Documented by: Atorvastatin Calcium (Atorvastatin 40 Mg Tab) 80 mg PO QAM [facility] Stop: 04/29/21 08:59 Last Admin: 04/10/21 08:09 Dose: 80 mg Documented by: Gabapentin (Gabapentin 100 Mg Cap) 100 mg PO BID [facility] Stop: 04/29/21 08:59 Last Admin: 04/10/21 20:39 Dose: 100 mg Documented by: Lactobacillus Acidoph/Casei/Rhamnos (Advanced Probiotic 1250 Mg Capsule) 2 cap PO DAILY [facility] Stop: 04/29/21 08:59 Last Admin: 04/10/21 08:10 Dose: 2 cap Documented by: Lactulose (Lactulose Syrup 20 Gm/30 Ml Udc) 20 gm PO BID [facility] Stop: 04/29/21 08:59 Last Admin: 04/10/21 20:39 Dose: 20 gm Documented by: Magnesium Oxide (Magnesium Oxide 400 Mg Tab) 400 mg PO DAILY [facility] Stop: 04/29/21 08:59 Last Admin: 04/10/21 08:10 Dose: 400 mg Documented by: Miconazole Nitrate (Miconazole Nitrate Powder 43 Gm) 1 appln EXT PRN PRN PRN Reason: Affected Skin Folds Stop: 05/10/21 23:24 Nitroglycerin (Nitroglycerin Sl 0.4 Mg/Tab Tab) 0.4 mg SL UD PRN PRN Reason: Chest Pain Stop: 04/29/21 03:42 Ondansetron HCl (Ondansetron Inj 2 Mg/Ml 2 Ml Vial) 4 mg IV Q6H PRN PRN Reason: Nausea Stop: 04/29/21 03:42 Pantoprazole Sodium (Pant[facility]razole 40 Mg Tab) [facility] [place] Stop: 04/29/21 08:59 Last Admin: 04/10/21 08:10 Dose: 40 mg Documented by: Rifaximin (Rifaximin 550 Mg Tablet) 550 mg PO BID [facility] Stop: 04/29/21 08:59 Last Admin: 04/10/21 20:39 Dose: 550 mg Documented by: Sertraline HCl (Sertraline Hcl 100 Mg Tablet) [facility] [place] Stop: 04/29/21 08:59 Last Admin: 04/10/21 08:09 Dose: 100 mg Documented by: Torsemide (Torsemide 100 Mg Tab) 100 mg PO QAM [facility] Stop: 05/06/21 11:29 Last Admin: 04/10/21 08:09 Dose: 100 mg Documented by: Vitamin D (Cholecalciferol 1,000 Units 25 Mcg Tab) 2,000 units PO QAM [facility] Stop: 04/29/21 08:59 Last Admin: 04/10/21 08:10 Dose: 2,000 units Documented by:
[2021-04-11] MEDS ORDERED: EPOETIN ALFA 20,000 UNITS/ML VIAL IV SCH (09:00)
[2021-04-11] MEDS: ADVANCED PROBIOTIC 1250 MG CAPSULE PO SCH (09:01)
[2021-04-11] MEDS: GABAPENTIN 100 MG CAP PO SCH ×2 (09:01→21:30)
[2021-04-11] MEDS: SERTRALINE HCL 100 MG TABLET PO SCH (09:01)
[2021-04-11] MEDS: CHOLECALCIFEROL 1,000 UNITS 25 MCG TAB PO SCH (09:01)
[2021-04-11] MEDS: LACTULOSE SYRUP 20 GM/30 ML UDC PO SCH ×2 (09:01→21:30)
[2021-04-11] MEDS: TORSEMIDE 100 MG TAB PO SCH (09:01)
[2021-04-11] MEDS: ATORVASTATIN 40 MG TAB PO SCH (09:01)
[2021-04-11] MEDS: rifAXIMin 550 MG TABLET PO SCH ×2 (09:01→21:30)
[2021-04-11] MEDS: PANTOprazole 40 MG TAB PO SCH (09:01)
[2021-04-11] MEDS: MAGNESIUM OXIDE 400 MG TAB PO SCH (09:01)
[2021-04-11] MEDS ORDERED: oxyCODONE HCL IR 5 MG TAB (IMMEDIATE RELEASE) PO STA (21:42)
[2021-04-12] MEDS: SODIUM CHLORIDE 0.9% 500 ML IV SCH ×2 (01:40→01:50)
[2021-04-12] MEDS ORDERED: EPOETIN ALFA 20,000 UNITS/ML VIAL IV SCH (07:00)
[2021-04-12] MEDS ORDERED: SODIUM CHLORIDE 0.9% 1000ML 1,000 ML IV PRN (07:00)
[2021-04-12 07:57] LABS: Hematocrit (blood only) 28.3 % (37-47); Hemoglobin 9.2 g/dL (12.0-16.0); Mean Corpuscular Hemoglobin 31.9 pg (25-34); Mean Corpuscular Hgb Conc 32.5 g/dL (32-36); Mean Corpuscular Volume 98.3 fL (80-100); RDW Coefficient of Variation 20.8 % (11.5-14.5); Red Blood Count 2.88 M/uL (4.2-5.4); White Blood Count 4.56 K/uL (4.8-10.8)
[2021-04-12 07:58] LABS: Mean Platelet Volume 10.8 fL (7.4-10.4); Platelet Count 49 K/uL (130-400)
[2021-04-12] MEDS: LACTULOSE SYRUP 20 GM/30 ML UDC PO SCH ×2 (08:00→20:00)
[2021-04-12] MEDS: TORSEMIDE 100 MG TAB PO SCH (08:00)
[2021-04-12] MEDS: rifAXIMin 550 MG TABLET PO SCH ×2 (08:00→20:01)
[2021-04-12] MEDS: PANTOprazole 40 MG TAB PO SCH (08:02)
[2021-04-12] MEDS: ADVANCED PROBIOTIC 1250 MG CAPSULE PO SCH (08:02)
[2021-04-12] MEDS: SERTRALINE HCL 100 MG TABLET PO SCH (08:02)
[2021-04-12] MEDS: MAGNESIUM OXIDE 400 MG TAB PO SCH (08:02)
[2021-04-12] MEDS: GABAPENTIN 100 MG CAP PO SCH ×2 (08:02→20:01)
[2021-04-12] MEDS: ATORVASTATIN 40 MG TAB PO SCH (08:02)
[2021-04-12] MEDS: CHOLECALCIFEROL 1,000 UNITS 25 MCG TAB PO SCH (08:03)
[2021-04-12 08:24] LABS: BUN Creatinine Ratio 5.7 (10-20); Calcium 7.9 mg/dl (8.5-10.1); Creatinine Clr Calc Pharmacy 16.1 ml/min; Est GFR (African American) 12.6 ml/min; Est GFR (Non-African American) 10.9 ml/min; Potassium 4.1 mmol/L (3.5-5.1)
--- NOTE | 2021-04-12 10:39 | Hospitalist Progress Note ---
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 The patient lives alone. She is being managed for the following: Acute renal failure (ARF): Baseline creatinine around 0.4, admitting creatinine 2.2 At admission, noted to have acute renal failure without significant chronic kidney disease in the past Could be secondary to ATN vs cirrhosis and hepatorenal syndrome Nephrology following: Obstruction has been ruled out, awaiting serological test [VIOLETTA/ANCA, C3-C4, CH 50, dsDNA, SPEP, FLC] find out the other causes of kidney impairment. Pt on Torsemide 100 daily Creatinine worsening since admission, patient did not make urine despite aggressive IV diuresis. 04/05 s/p tunnel CVC catheter placement , hemodialysis started 04/05 Strict I and Os. LOJA (nonalcoholic steatohepatitis): History of nonalcoholic steatohepatitis with hepatorenal syndrome INR is 1.5 and albumin is 1.9 on admission LFTs elevated at admission, trending down slowly. GI consulted: Considered transfer to [place] but, instead, if renal function does not improve then plan for dialysis and OP transplant eval. She will likely be worked up as an outpatient for possible liver transplant as per GI service Will monitor LFTs and INR. INR hovering in the range of 1.5-1.7. No signs of bleeding, however ecchymosis noted at right breast, HD catheter site. Bilateral lower extremity edema: Hypoxia: Infection ruled out, likely developing fluid collection secondary to anorexia states. Improving with dialysis. Hypoxia now resolved - pt on RA Presented with increasing bilateral leg swelling with weight gain of about 30 pounds in 1 month Did not improve with outpatient increasing dose of oral Lasix and Aldactone Has history of cirrhosis of the liver and is complicating the edema Has received intravenous albumin and Lasix in the hospital Nephrology is following Improving with dialysis. DANNIELLE (obstructive sleep apnea): Uses her own CPAP Thrombocytopenia: Platelet count has been low and is running around upper 50s which is secondary to cirrhosis Platelet count runs around upper 50s - 60s Morbid obesity - counseling provided Hyperlipidemia-continue statin DVT prophylaxis-SCDs has thrombocytopenia and INR is 1.6 CODE STATUS: Full code. Disposition: Awaiting placement, medically stable for discharge. CM to assist with DC planning. Plan is to DC on Thursday to [facility]. Admission and Anticipated Discharge Date Admission Date: March 30, 2021 Subjective Pt seen in follow up of ARF, now requiring HD, hx of LOJA cirrhosis Currently she is laying in bed in NAD She is alert and oriented, answering questions appropriately Denies any chest pain, shortness of breath, abd. pain, n/v Review of Systems Review of Systems: All systems reviewed & are unremarkable except as noted in Subjective Physical Exam Physical Exam: GENERAL: Obese F, in NAD, on room air HEENT: NC/AT. EOMI, PERRL. NECK: No JVD, no neck masses. HEART: S1 and S2 heard. Regular rate and rhythm. Systolic murmur over aortic and pulmonic area, no gallop. RESPIRATORY: Normal AP diameter. No accessory muscle use. No wheezing, no crackles. ABDOMEN: Soft, bowel sounds present, nontender, no distention. Hernia noted - stable, soft, no pain on palpation. NEURO: Alert and oriented and answering questions appropriately. No facial droop. Speech is clear. Obeys simple commands. Moves extremities. EXTREMITIES: 1+ BLE edema (improved), BLE chronic skin changes, no erythema seen. Right upper chest CVC hemodialysis catheter. Ecchymosis noted around the catheter and at R breast. Results & Data Results & Data ([facility]) Vital Signs (Past 12 Hours) Vital Signs Temp Pulse Pulse Pulse Resp BP Pulse Ox 04/12/21 08:00 36.7 C 97 H 20 96/86 L 91 04/12/21 07:25 89 04/12/21 03:21 37.3 C 97 H 18 100/58 L 90 04/11/21 23:59 89 04/11/21 23:05 88/54 L 04/11/21 23:01 88/55 L 04/11/21 23:00 37.4 C 94 H 18 57/28 L 93 Laboratory Results 04/12/21 04/12/21 Range/Units 07:36 07:36 WBC 4.56 L (4.8-10.8) K/uL RBC 2.88 L (4.2-5.4) M/uL Hgb 9.2 L (12.0-16.0) g/dL Hct 28.3 L (37-47) % MCV 98.3 (80-100) fL MCH 31.9 (25-34) pg MCHC 32.5 (32-36) g/dL RDW Std Deviation 69.0 H (36.4-46.3) fL RDW Coeff of Blanca 20.8 H (11.5-14.5) % Plt Count 49 L (130-400) K/uL MPV 10.8 H (7.4-10.4) fL Sodium 143 (136-145) mmol/L Potassium 4.1 (3.5-5.1) mmol/L Chloride 109 H (98-107) mmol/L Carbon Dioxide 26 (21-32) mmol/L Anion Gap 8.0 (3-11) BUN 23 H (7-18) mg/dl Creatinine 3.96 H D (0.6-1.2) mg/dl Est Cr Clr Drug Dosing 16.1 ml/min Est GFR ( Amer) 12.6 ml/min Est GFR (Non-Af Amer) 10.9 ml/min BUN/Creatinine Ratio 5.7 L (10-20) Glucose 86 (70-99) mg/dl Calcium 7.9 L (8.5-10.1) mg/dl Medications Administered Current Inpatient Medications Acetaminophen (Acetaminophen 325 Mg Tab) 325 mg PO Q6H PRN PRN Reason: Mild Pain Stop: 05/05/21 20:07 Last Admin: 04/05/21 21:14 Dose: 325 mg Documented by: Atorvastatin Calcium (Atorvastatin 40 Mg Tab) 80 mg PO QAM [facility] Stop: 04/29/21 08:59 Last Admin: 04/12/21 08:02 Dose: 80 mg Documented by: Epoetin Pete (Epoetin Pete 20,000 Units/Ml Vial) 20,000 units IV Fr@0700 [facility] Stop: 04/12/21 16:00 Gabapentin (Gabapentin 100 Mg Cap) 100 mg PO BID [facility] Stop: 04/29/21 08:59 Last Admin: 04/12/21 08:02 Dose: 100 mg Documented by: Sodium Chloride (Nss 1000ml) 1,000 mls @ 0 mls/hr IV .Q0M PRN PRN Reason: For Hemodialysis Use ONLY Stop: 04/12/21 12:59 Lactobacillus Acidoph/Casei/Rhamnos (Advanced Probiotic 1250 Mg Capsule) 2 cap PO DAILY [facility] Stop: 04/29/21 08:59 Last Admin: 04/12/21 08:02 Dose: 2 cap Documented by: Lactulose (Lactulose Syrup 20 Gm/30 Ml Udc) 20 gm PO BID [facility] Stop: 04/29/21 08:59 Last Admin: 04/12/21 08:00 Dose: 20 gm Documented by: Magnesium Oxide (Magnesium Oxide 400 Mg Tab) 400 mg PO DAILY [facility] Stop: 04/29/21 08:59 Last Admin: 04/12/21 08:02 Dose: 400 mg Documented by: Miconazole Nitrate (Miconazole Nitrate Powder 43 Gm) 1 appln EXT PRN PRN PRN Reason: Affected Skin Folds Stop: 05/10/21 23:24 Nitroglycerin (Nitroglycerin Sl 0.4 Mg/Tab Tab) 0.4 mg SL UD PRN PRN Reason: Chest Pain Stop: 04/29/21 03:42 Ondansetron HCl (Ondansetron Inj 2 Mg/Ml 2 Ml Vial) 4 mg IV Q6H PRN PRN Reason: Nausea Stop: 04/29/21 03:42 Pantoprazole Sodium (Pantoprazole 40 Mg Tab) 40 mg PO QAM [facility] Stop: 04/29/21 08:59 Last Admin: 04/12/21 08:02 Dose: 40 mg Documented by: Rifaximin (Rifaximin 550 Mg Tablet) 550 mg PO BID [facility] Stop: 04/29/21 08:59 Last Admin: 04/12/21 08:00 Dose: 550 mg Documented by: Sertraline HCl (Sertraline Hcl 100 Mg Tablet) 100 mg PO QAM [facility] Stop: 04/29/21 08:59 Last Admin: 04/12/21 08:02 Dose: 100 mg Documented by: Torsemide (Torsemide 100 Mg Tab) 100 mg PO QAM [facility] Stop: 05/06/21 11:29 Last Admin: 04/12/21 08:00 Dose: 100 mg Documented by: Vitamin D (Cholecalciferol 1,000 Units 25 Mcg Tab) 2,000 units PO [facility] Stop: 04/29/21 08:59 Last Admin: 04/12/21 08:03 Dose: 2,000 units Documented by:
--- NOTE | 2021-04-12 21:22 | Dialysis Progress Note ---
Date of Service April 12, 2021 Assessment & Plan (1) Acute renal failure (ARF): Plan: oliguric SEVEN remains dependent on dialysis now This lady had normal renal function until late february, when there was a sudden jump in her serum creatinine with increase in her bilateral pedal edema, not responsive to oral diuretic Her albumin was low at 1.9,( now 2.5); she had been on indomethacin and has got liver pathology. She could be having GN(minimal change/membranous), ATN on differential; it is not uncommon for Liver patients to have IgA as well. Hepatorenal would be a diagnosis of exclusion. USS - essentiallly normal, PCR - 0.3, u/a has blood and protein. 360 mg protein on 24 hr specimen FLC both elevated but ratio not inappropriate for renal disease serologies remarkable for low complement VIOLETTA/ANCA, CH 50, double-stranded DNA, SPEP>all negative plan Continue torsemide avoid Nephrotoxins; CT with contrast only with if lifesaving. Daily BMP, >Strict input and output -monitor for renal recovery but likely to need further HD on 04/15 look to use barn shampoo >> Iout to be terry tu access/ use pre made meatballs We will continue to follow with you (2) Bilateral lower extremity edema: Plan: improving w/ dialysis and diuretics (3) LOJA (nonalcoholic steatohepatitis): Plan: w/ cirrhosis. for OP f/ w GI Admission and Anticipated Discharge Date Admission Date: March 30, 2021 Subjective c/o some L breast pain, ecchymosis; barething at OP bseline Review of Systems Review of Systems: All systems reviewed & are unremarkable except as noted in Subjective Physical Exam Constitutional: well developed, well nourished and cooperative; no acute distress Eyes: EOM intact bilaterally ENMT: Ears: no external ear abnormality Nose: no external nose abnormality Mouth: + dry oral mucous membranes Neck: no nuchal rigidity Respiratory: normal respiratory effort Auscultation: + diminished lung sounds Cardiovascular: Rate/Rhythm: regular rate and regular rhythm Extremities: + edema Gastrointestinal (Abdomen): Inspection/Auscultation: + abdomen distended and normal bowel sounds Percussion/Palpation: abdomen soft; abdomen nontender Musculoskeletal: Extremities: strength 5/5 throughout Skin: no rashes, warm and dry + ecchymosis Psychiatric: Orientation: oriented x 3 Results & Data ([place]) Vital Signs (Past 12 Hours) Vital Signs Temp Pulse Pulse Pulse Resp BP BP 04/12/21 19:23 37.1 C 83 18 110/57 L 04/12/21 16:00 37.0 C 110 H 20 91/54 L 04/12/21 15:58 125 H 04/12/21 14:45 37.0 C 115 H 04/12/21 14:35 112 H 112/42 L 04/12/21 14:20 111 H 103/47 L 04/12/21 14:00 113 H 106/52 L 04/12/21 13:40 81 88/40 L 04/12/21 13:20 78 94/47 L 04/12/21 13:00 78 113/45 L 04/12/21 12:40 79 90/58 L 04/12/21 12:20 75 88/51 L 04/12/21 12:00 74 85/40 L 04/12/21 11:40 79 91/32 L 04/12/21 11:34 73 82/41 L 04/12/21 11:28 37.0 C 79 BP Pulse Ox 04/12/21 19:23 93 04/12/21 16:00 96 04/12/21 15:58 04/12/21 14:45 117/47 L 04/12/21 14:35 04/12/21 14:20 04/12/21 14:00 04/12/21 13:40 04/12/21 13:20 04/12/21 13:00 04/12/21 12:40 04/12/21 12:20 04/12/21 12:00 04/12/21 11:40 04/12/21 11:34 04/12/21 11:28 Laboratory Results 04/12/21 07:36 04/12/21 07:36
[2021-04-13 06:55] LABS: Hemoglobin 8.5 g/dL (12.0-16.0)
[2021-04-13 07:34] LABS: Calcium 7.9 mg/dl (8.5-10.1); Creatinine Clr Calc Pharmacy 19.4 ml/min; Est GFR (Non-African American) 13.8 ml/min; Potassium 3.9 mmol/L (3.5-5.1)
[2021-04-13] MEDS: LACTULOSE SYRUP 20 GM/30 ML UDC PO SCH ×2 (08:04→21:06)
[2021-04-13] MEDS: CHOLECALCIFEROL 1,000 UNITS 25 MCG TAB PO SCH (08:04)
[2021-04-13] MEDS: rifAXIMin 550 MG TABLET PO SCH ×2 (08:04→21:06)
[2021-04-13] MEDS: SERTRALINE HCL 100 MG TABLET PO SCH (08:04)
[2021-04-13] MEDS: GABAPENTIN 100 MG CAP PO SCH ×2 (08:05→21:06)
[2021-04-13] MEDS: MAGNESIUM OXIDE 400 MG TAB PO SCH (08:05)
[2021-04-13] MEDS: PANTOprazole 40 MG TAB PO SCH (08:05)
[2021-04-13] MEDS: ADVANCED PROBIOTIC 1250 MG CAPSULE PO SCH (08:05)
[2021-04-13] MEDS: TORSEMIDE 100 MG TAB PO SCH (08:05)
[2021-04-13] MEDS: ATORVASTATIN 40 MG TAB PO SCH (08:05)
--- NOTE | 2021-04-13 16:45 | Hospitalist Progress Note ---
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 The patient lives alone. She is being managed for the following: Acute renal failure (ARF): Baseline creatinine around 0.4, admitting creatinine 2.2 At admission, noted to have acute renal failure without significant chronic kidney disease in the past Could be secondary to ATN vs cirrhosis and hepatorenal syndrome Nephrology following: Obstruction has been ruled out, awaiting serological test [VIOLETTA/ANCA, C3-C4, CH 50, dsDNA, SPEP, FLC] find out the other causes of kidney impairment. Pt on Torsemide 100 daily Creatinine worsening since admission, patient did not make urine despite aggressive IV diuresis. 04/05 s/p tunnel CVC catheter placement , hemodialysis started 04/05 Strict I and Os. LOJA (nonalcoholic steatohepatitis): History of nonalcoholic steatohepatitis with hepatorenal syndrome INR is 1.5 and albumin is 1.9 on admission LFTs elevated at admission, trending down slowly. GI consulted: Considered transfer to [place] but, instead, if renal function does not improve then plan for dialysis and OP transplant eval. She will likely be worked up as an outpatient for possible liver transplant as per GI service Will monitor LFTs and INR. INR hovering in the range of 1.5-1.7. No signs of bleeding, however ecchymosis noted at right breast, HD catheter site. Bilateral lower extremity edema: Hypoxia: Infection ruled out, likely developing fluid collection secondary to anorexia states. Improving with dialysis. Hypoxia now resolved - pt on RA Presented with increasing bilateral leg swelling with weight gain of about 30 pounds in 1 month Did not improve with outpatient increasing dose of oral Lasix and Aldactone Has history of cirrhosis of the liver and is complicating the edema Has received intravenous albumin and Lasix in the hospital Nephrology is following Improving with dialysis. DANNIELLE (obstructive sleep apnea): Uses her own CPAP Thrombocytopenia: Platelet count has been low and is running around upper 50s which is secondary to cirrhosis Platelet count runs around upper 50s - 60s Morbid obesity - counseling provided Hyperlipidemia-continue statin DVT prophylaxis-SCDs has thrombocytopenia and INR is 1.6 CODE STATUS: Full code. Disposition: Awaiting placement, medically stable for discharge. CM to assist with DC planning. Plan is to DC on Thursday to [facility]. Admission and Anticipated Discharge Date Admission Date: March 30, 2021 Subjective Pt seen in follow up of ARF, now requiring HD, hx of LOJA cirrhosis Currently she is laying in bed in [facility] She is alert and oriented, answering questions appropriately Denies any chest pain, shortness of breath, abd. pain, n/v Physical Exam Physical Exam: GENERAL: Obese F, in NAD, on room air HEENT: NC/AT. EOMI, PERRL. NECK: No JVD, no neck masses. HEART: S1 and S2 heard. Regular rate and rhythm. Systolic murmur over aortic and pulmonic area, no gallop. RESPIRATORY: Normal AP diameter. No accessory muscle use. No wheezing, no crackles. ABDOMEN: Soft, bowel sounds present, nontender, no distention. Hernia noted - stable, soft, no pain on palpation. NEURO: Alert and oriented and answering questions appropriately. No facial droop. Speech is clear. Obeys simple commands. Moves extremities. EXTREMITIES: 1+ BLE edema (improved), BLE chronic skin changes, no erythema seen. Right upper chest CVC hemodialysis catheter. Ecchymosis noted around the catheter and at R breast. Results & Data Results & Data ([facility]) Vital Signs (Past 12 Hours) Vital Signs Temp Pulse Pulse Resp BP Pulse Ox 04/13/21 15:58 36.8 C 68 18 84/42 L 95 04/13/21 15:06 82 04/13/21 11:53 36.4 C L 80 16 100/56 L 92 04/13/21 07:43 37 C 82 16 108/62 92 04/13/21 07:23 84 Laboratory Results 04/13/21 04/13/21 Range/Units 06:27 06:27 Hgb 8.5 L (12.0-16.0) g/dL Hct 27.0 L (37-47) % Sodium 141 (136-145) mmol/L Potassium 3.9 (3.5-5.1) mmol/L Chloride 107 (98-107) mmol/L Carbon Dioxide 27 (21-32) mmol/L Anion Gap 7.0 (3-11) BUN 16 (7-18) mg/dl Creatinine 3.26 H D (0.6-1.2) mg/dl Est Cr Clr Drug Dosing 19.4 ml/min Est GFR ( Amer) 16.0 ml/min Est GFR (Non-Af Amer) 13.8 ml/min BUN/Creatinine Ratio 5.0 L (10-20) Glucose 82 (70-99) mg/dl Calcium 7.9 L (8.5-10.1) mg/dl Medications Administered Current Inpatient Medications Acetaminophen (Acetaminophen 325 Mg Tab) 325 mg PO Q6H PRN PRN Reason: Mild Pain Stop: 05/05/21 20:07 Last Admin: 04/05/21 21:14 Dose: 325 mg Documented by: Atorvastatin Calcium (Atorvastatin 40 Mg Tab) 80 mg PO QAM [facility] Stop: 04/29/21 08:59 Last Admin: 04/13/21 08:05 Dose: 80 mg Documented by: Gabapentin (Gabapentin 100 Mg Cap) 100 mg PO BID [facility] Stop: 04/29/21 08:59 Last Admin: 04/13/21 08:05 Dose: 100 mg Documented by: Albumin Human (Albumin 25% 100 Ml) 25 gm in 100 mls @ 50 mls/hr IV Q8H [facility] Stop: 04/16/21 16:44 Lactobacillus Acidoph/Casei/Rhamnos (Advanced Probiotic 1250 Mg Capsule) 2 cap PO DAILY [facility] Stop: 04/29/21 08:59 Last Admin: 04/13/21 08:05 Dose: 2 cap Documented by: Lactulose (Lactulose Syrup 20 Gm/30 Ml Udc) 20 gm PO BID [facility] Stop: 04/29/21 08:59 Last Admin: 04/13/21 08:04 Dose: 20 gm Documented by: Magnesium Oxide (Magnesium Oxide 400 Mg Tab) 400 mg PO DAILY [facility] Stop: 04/29/21 08:59 Last Admin: 04/13/21 08:05 Dose: 400 mg Documented by: Miconazole Nitrate (Miconazole Nitrate Powder 43 Gm) 1 appln EXT PRN PRN PRN Reason: Affected Skin Folds Stop: 05/10/21 23:24 Nitroglycerin (Nitroglycerin Sl 0.4 Mg/Tab Tab) 0.4 mg SL UD PRN PRN Reason: Chest Pain Stop: 04/29/21 03:42 Ondansetron HCl (Ondansetron Inj 2 Mg/Ml 2 Ml Vial) 4 mg IV Q6H PRN PRN Reason: Nausea Stop: 04/29/21 03:42 Pantoprazole Sodium (Pantoprazole 40 Mg Tab) 40 mg PO [facility] Stop: 04/29/21 08:59 Last Admin: 04/13/21 08:05 Dose: 40 mg Documented by: Rifaximin (Rifaximin 550 Mg Tablet) 550 mg PO BID [facility] Stop: 04/29/21 08:59 Last Admin: 04/13/21 08:04 Dose: 550 mg Documented by: Sertraline HCl (Sertraline Hcl 100 Mg Tablet) 100 mg PO [facility] Stop: 04/29/21 08:59 Last Admin: 04/13/21 08:04 Dose: 100 mg Documented by: Torsemide (Torsemide 100 Mg Tab) 100 mg PO [facility] Stop: 05/06/21 11:29 Last Admin: 04/13/21 08:05 Dose: 100 mg Documented by: Vitamin D (Cholecalciferol 1,000 Units 25 Mcg Tab) 2,000 units PO [facility] Stop: 04/29/21 08:59 Last Admin: 04/13/21 08:04 Dose: 2,000 units Documented by:
[2021-04-13] MEDS: ALBUMIN 25% 100 mL 25 GM/100 ML VIAL IV SCH (17:25)
[2021-04-14] MEDS: ALBUMIN 25% 100 mL 25 GM/100 ML VIAL IV SCH ×3 (00:19→17:07)
--- NOTE | 2021-04-14 06:06 | Hospitalist Progress Note ---
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 The patient lives alone. She is being managed for the following: Acute renal failure (ARF): Baseline creatinine around 0.4, admitting creatinine 2.2 At admission, noted to have acute renal failure without significant chronic kidney disease in the past Could be secondary to ATN vs cirrhosis and hepatorenal syndrome Nephrology following: Obstruction has been ruled out, awaiting serological test [VIOLETTA/ANCA, C3-C4, CH 50, dsDNA, SPEP, FLC] find out the other causes of kidney impairment. Pt on Torsemide 100 daily Creatinine worsening since admission, patient did not make urine despite aggressive IV diuresis. 04/05 s/p tunnel CVC catheter placement , hemodialysis started 04/05 Strict I and Os. LOJA (nonalcoholic steatohepatitis): History of nonalcoholic steatohepatitis with hepatorenal syndrome INR is 1.5 and albumin is 1.9 on admission LFTs elevated at admission, trending down slowly. GI consulted: Considered transfer to [place] but, instead, if renal function does not improve then plan for dialysis and OP transplant eval. She will likely be worked up as an outpatient for possible liver transplant as per GI service Will monitor LFTs and INR. INR hovering in the range of 1.5-1.7. No signs of bleeding, however ecchymosis noted at right breast, HD catheter site. Bilateral lower extremity edema: Hypoxia: Infection ruled out, likely developing fluid collection secondary to anorexia states. Improving with dialysis. Hypoxia now resolved - pt on RA Presented with increasing bilateral leg swelling with weight gain of about 30 pounds in 1 month Did not improve with outpatient increasing dose of oral Lasix and Aldactone Has history of cirrhosis of the liver and is complicating the edema Has received intravenous albumin and Lasix in the hospital Nephrology is following Improving with dialysis. Anemia -In the setting of renal failure, liver disease, thrombocytopenia -Hemoglobin has been trending down (possibly also secondary to frequent blood draws) -FOBT ordered but not obtained Current hemoglobin 8.0, obtain FOBT, continue to closely monitor Thrombocytopenia: Platelet count has been low and is running around upper 50s which is secondary to cirrhosis Platelet count runs around upper 50s - 60s DANNIELLE (obstructive sleep apnea): Uses her own CPAP Morbid obesity - counseling provided Hyperlipidemia-continue statin DVT prophylaxis-SCDs has thrombocytopenia and INR is 1.6 CODE STATUS: Full code. Disposition: Plan is to DC on Thursday to [facility]. After poss. GI bleed is ruled out. Admission and Anticipated Discharge Date Admission Date: March 30, 2021 Subjective Pt seen in follow up of ARF, now requiring HD, hx of LOJA cirrhosis Currently she is sitting up in chair, eating breakfast, in NAD She is alert and oriented, answering questions appropriately Denies any chest pain, shortness of breath, abd. pain, n/v Hgb trending down, no FOBT obtained yet Review of Systems Review of Systems: All systems reviewed & are unremarkable except as noted in Subjective Physical Exam Physical Exam: GENERAL: Obese F, in NAD, on room air HEENT: NC/AT. EOMI, PERRL. NECK: No JVD, no neck masses. HEART: S1 and S2 heard. Regular rate and rhythm. Systolic murmur over aortic and pulmonic area, no gallop. RESPIRATORY: Normal AP diameter. No accessory muscle use. No wheezing, no crackles. ABDOMEN: Soft, bowel sounds present, nontender, no distention. Hernia noted - stable, soft, no pain on palpation. NEURO: Alert and oriented and answering questions appropriately. No facial droop. Speech is clear. Obeys simple commands. Moves extremities. EXTREMITIES: 1+ BLE edema (improved), BLE chronic skin changes, no erythema seen. Right upper chest CVC hemodialysis catheter. Ecchymosis noted around the catheter and at R breast. Results & Data Results & Data ([facility]) Vital Signs (Past 12 Hours) Vital Signs Temp Pulse Pulse Resp BP Pulse Ox 04/14/21 04:12 36.9 C 86 18 86/52 L 93 04/13/21 23:59 82 04/13/21 23:34 37.1 C 85 18 129/62 94 04/13/21 20:12 37.0 C 86 18 100/62 97 Laboratory Results 04/14/21 04/14/21 Range/Units 06:21 06:21 Hgb 8.0 L (12.0-16.0) g/dL Hct 25.9 L (37-47) % Sodium 142 (136-145) mmol/L Potassium 3.8 (3.5-5.1) mmol/L Chloride 107 (98-107) mmol/L Carbon Dioxide 28 (21-32) mmol/L Anion Gap 7.0 (3-11) BUN 25 H D (7-18) mg/dl Creatinine 4.07 H D (0.6-1.2) mg/dl Est Cr Clr Drug Dosing 15.5 ml/min Est GFR ( Amer) 12.2 ml/min Est GFR (Non-Af Amer) 10.5 ml/min BUN/Creatinine Ratio 6.1 L (10-20) Glucose 78 (70-99) mg/dl Calcium 8.4 L (8.5-10.1) mg/dl
[2021-04-14 06:44] LABS: Hematocrit (blood only) 25.9 % (37-47)
[2021-04-14 07:11] LABS: BUN Creatinine Ratio 6.1 (10-20); Calcium 8.4 mg/dl (8.5-10.1); Creatinine Clr Calc Pharmacy 15.5 ml/min; Est GFR (African American) 12.2 ml/min; Est GFR (Non-African American) 10.5 ml/min; Potassium 3.8 mmol/L (3.5-5.1)
[2021-04-14] MEDS: LACTULOSE SYRUP 20 GM/30 ML UDC PO SCH ×2 (09:03→20:04)
[2021-04-14] MEDS: GABAPENTIN 100 MG CAP PO SCH ×2 (09:04→20:04)
[2021-04-14] MEDS: MAGNESIUM OXIDE 400 MG TAB PO SCH (09:04)
[2021-04-14] MEDS: rifAXIMin 550 MG TABLET PO SCH ×2 (09:04→20:04)
[2021-04-14] MEDS: ATORVASTATIN 40 MG TAB PO SCH (09:04)
[2021-04-14] MEDS: SERTRALINE HCL 100 MG TABLET PO SCH (09:04)
[2021-04-14] MEDS: ADVANCED PROBIOTIC 1250 MG CAPSULE PO SCH (09:04)
[2021-04-14] MEDS: TORSEMIDE 100 MG TAB PO SCH (09:05)
[2021-04-14] MEDS: CHOLECALCIFEROL 1,000 UNITS 25 MCG TAB PO SCH (09:05)
[2021-04-14] MEDS: PANTOprazole 40 MG TAB PO SCH (09:05)
[2021-04-15] MEDS: ALBUMIN 25% 100 mL 25 GM/100 ML VIAL IV SCH ×3 (00:12→15:45)
[2021-04-15] MEDS ORDERED: EPOETIN ALFA 20,000 UNITS/ML VIAL IV SCH (07:00)
[2021-04-15] MEDS ORDERED: SODIUM CHLORIDE 0.9% 1000ML 1,000 ML IV PRN (07:00)
[2021-04-15] MEDS ORDERED: ALBUMIN 25% 12.5 GM/50 ML VIAL IV ONE (07:00)
[2021-04-15 07:14] LABS: Hematocrit (blood only) 24.2 % (37-47); Hemoglobin 7.5 g/dL (12.0-16.0); Mean Corpuscular Hemoglobin 31.1 pg (25-34); Mean Corpuscular Volume 100.4 fL (80-100); RDW Standard Deviation 74.3 fL (36.4-46.3); Red Blood Count 2.41 M/uL (4.2-5.4); White Blood Count 3.26 K/uL (4.8-10.8)
[2021-04-15 07:19] LABS: Mean Platelet Volume 11.4 fL (7.4-10.4); Platelet Count 40 K/uL (130-400)
[2021-04-15 07:43] LABS: BUN Creatinine Ratio 7.1 (10-20); Calcium 8.6 mg/dl (8.5-10.1); Est GFR (African American) 11.5 ml/min; Est GFR (Non-African American) 9.9 ml/min; Potassium 3.6 mmol/L (3.5-5.1)
[2021-04-15] MEDS: CHOLECALCIFEROL 1,000 UNITS 25 MCG TAB PO SCH (08:35)
[2021-04-15] MEDS: ADVANCED PROBIOTIC 1250 MG CAPSULE PO SCH (08:39)
[2021-04-15] MEDS: LACTULOSE SYRUP 20 GM/30 ML UDC PO SCH ×2 (08:39→21:12)
[2021-04-15] MEDS: ATORVASTATIN 40 MG TAB PO SCH (08:39)
[2021-04-15] MEDS: PANTOprazole 40 MG TAB PO SCH (08:39)
[2021-04-15] MEDS: rifAXIMin 550 MG TABLET PO SCH ×2 (08:40→21:13)
[2021-04-15] MEDS: TORSEMIDE 100 MG TAB PO SCH (08:40)
[2021-04-15] MEDS: MAGNESIUM OXIDE 400 MG TAB PO SCH (08:40)
[2021-04-15] MEDS: SERTRALINE HCL 100 MG TABLET PO SCH (08:40)
[2021-04-15] MEDS: GABAPENTIN 100 MG CAP PO SCH ×2 (08:41→21:13)
[2021-04-15] MEDS ORDERED: ALBUMIN 25% 12.5 GM/50 ML VIAL IV SCH (10:00)
[2021-04-15] MEDS ORDERED: POTASSIUM CHLORIDE CRTAB 20 MEQ TABCR PO ONE (10:04)
--- NOTE | 2021-04-15 10:05 | Hospitalist Progress Note ---
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 The patient lives alone. She is being managed for the following: Acute renal failure (ARF): Baseline creatinine around 0.4, admitting creatinine 2.2 At admission, noted to have acute renal failure without significant chronic kidney disease in the past Could be secondary to ATN vs cirrhosis and hepatorenal syndrome Nephrology following: Obstruction has been ruled out, awaiting serological test [VIOLETTA/ANCA, C3-C4, CH 50, dsDNA, SPEP, FLC] find out the other causes of kidney impairment. Pt on Torsemide 100 daily Creatinine worsening since admission, patient did not make urine despite aggressive IV diuresis. 04/05 s/p tunnel CVC catheter placement , hemodialysis started 04/05 Strict I and Os. LOJA (nonalcoholic steatohepatitis): History of nonalcoholic steatohepatitis with hepatorenal syndrome INR is 1.5 and albumin is 1.9 on admission LFTs elevated at admission, trending down slowly. GI consulted: Considered transfer to [place] but, instead, if renal function does not improve then plan for dialysis and OP transplant eval. She will likely be worked up as an outpatient for possible liver transplant as per GI service Will monitor LFTs and INR. INR hovering in the range of 1.5-1.7. No signs of bleeding, however ecchymosis noted at right breast, HD catheter site. Bilateral lower extremity edema: Hypoxia: Infection ruled out, likely developing fluid collection secondary to anorexia states. Improving with dialysis. Hypoxia now resolved - pt on RA Presented with increasing bilateral leg swelling with weight gain of about 30 pounds in 1 month Did not improve with outpatient increasing dose of oral Lasix and Aldactone Has history of cirrhosis of the liver and is complicating the edema Has received intravenous albumin and Lasix in the hospital Nephrology is following Improving with dialysis. Anemia -In the setting of renal failure, liver disease, thrombocytopenia -Hemoglobin has been trending down (possibly also secondary to frequent blood draws) -FOBT ordered but not obtained Current hemoglobin 7.5, FOBT positive start IV PPI GI consulted - plan for EGD tomorrow (04/16) Transfuse 1 unit of pRBC - consent obtained Thrombocytopenia: Platelet count has been low and is running around upper 50s which is secondary to cirrhosis Platelet count runs around upper 50s - 60s DANNIELLE (obstructive sleep apnea): Uses her own CPAP Morbid obesity - counseling provided Hyperlipidemia-continue statin DVT prophylaxis-SCDs has thrombocytopenia and INR is 1.6 CODE STATUS: Full code. Disposition: Plan is to DC to [facility] once medically stable. After poss. GI bleed is ruled out. Admission and Anticipated Discharge Date Admission Date: March 30, 2021 Subjective Pt seen in follow up of ARF, now requiring HD, hx of LOJA cirrhosis Currently in NAD She is alert and oriented, answering questions appropriately Denies any chest pain, shortness of breath, abd. pain, n/v Hgb trending down, FOBT positive - GI contacted - plan for EGD tmrw Will transfuse 1 unit Review of Systems Review of Systems: All systems reviewed & are unremarkable except as noted in Subjective Physical Exam Physical Exam: GENERAL: Obese F, in NAD, on room air HEENT: NC/AT. EOMI, PERRL. NECK: No JVD, no neck masses. HEART: S1 and S2 heard. Regular rate and rhythm. Systolic murmur over aortic and pulmonic area, no gallop. RESPIRATORY: Normal AP diameter. No accessory muscle use. No wheezing, no crackles. ABDOMEN: Soft, bowel sounds present, nontender, no distention. Hernia noted - stable, soft, no pain on palpation. NEURO: Alert and oriented and answering questions appropriately. No facial droop. Speech is clear. Obeys simple commands. Moves extremities. EXTREMITIES: 1+ BLE edema (improved), BLE chronic skin changes, no erythema seen. Right upper chest CVC hemodialysis catheter. Ecchymosis noted around the catheter and at R breast. Results & Data Results & Data ([facility]) Vital Signs (Past 12 Hours) Vital Signs Temp Pulse Pulse Resp BP Pulse Ox 04/15/21 08:13 37.5 C 91 H 20 100/51 L 90 04/15/21 07:32 88 04/15/21 03:59 37.0 C 87 18 85/43 L 96 04/14/21 23:59 84 04/14/21 22:37 36.9 C 90 18 142/64 H 96 Laboratory Results 04/15/21 04/15/21 04/14/21 Range/Units 06:25 06:25 11:30 WBC 3.26 L (4.8-10.8) K/uL RBC 2.41 L (4.2-5.4) M/uL Hgb 7.5 L (12.0-16.0) g/dL Hct 24.2 L (37-47) % MCV 100.4 H (80-100) fL MCH 31.1 (25-34) pg MCHC 31.0 L (32-36) g/dL RDW Std Deviation 74.3 H (36.4-46.3) fL RDW Coeff of Blanca 22.0 H (11.5-14.5) % Plt Count 40 L (130-400) K/uL MPV 11.4 H (7.4-10.4) fL Sodium 142 (136-145) mmol/L Potassium 3.6 (3.5-5.1) mmol/L Chloride 107 (98-107) mmol/L Carbon Dioxide 26 (21-32) mmol/L Anion Gap 10.0 (3-11) BUN 30 H (7-18) mg/dl Creatinine 4.27 H (0.6-1.2) mg/dl Est Cr Clr Drug Dosing 15.0 ml/min Est GFR ( Amer) 11.5 ml/min Est GFR (Non-Af Amer) 9.9 ml/min BUN/Creatinine Ratio 7.1 L (10-20) Glucose 72 (70-99) mg/dl Calcium 8.6 (8.5-10.1) mg/dl Iron 28 L (35-150) mcg/dl Transferrin 100 L (200-360) mg/dl Transferrin % Sat 20 (15-50) % Stool Occult Bld Scrn Positive A (Negative) Medications Administered Current Inpatient Medications Acetaminophen (Acetaminophen 325 Mg Tab) 325 mg PO Q6H PRN PRN Reason: Mild Pain Stop: 05/05/21 20:07 Last Admin: 04/05/21 21:14 Dose: 325 mg Documented by: Atorvastatin Calcium (Atorvastatin 40 Mg Tab) 80 mg PO QAM [facility] Stop: 04/29/21 08:59 Last Admin: 04/15/21 08:39 Dose: 80 mg Documented by: Epoetin Pete (Epoetin Pete 20,000 Units/Ml Vial) 20,000 units IV Mo@0700 [facility] Stop: 04/15/21 16:00 Gabapentin (Gabapentin 100 Mg Cap) 100 mg PO BID [facility] Stop: 04/29/21 08:59 Last Admin: 04/15/21 08:41 Dose: 100 mg Documented by: Albumin Human (Albumin 25% 100 Ml) 25 gm in 100 mls @ 50 mls/hr IV Q8H [facility] Stop: 04/16/21 16:44 Last Admin: 04/15/21 09:03 Dose: 50 mls/hr Documented by: Sodium Chloride (Nss 1000ml) 1,000 mls @ 0 mls/hr IV .Q0M PRN PRN Reason: For Hemodialysis Use ONLY Stop: 04/15/21 12:59 Albumin Human (Albumin 25%) 12.5 gm in 50 mls @ 50 mls/hr IV ONCE ONE Albumin Human (Albumin 25%) 12.5 gm in 50 mls @ 50 mls/hr IV Mo@1000 [facility] Stop: 04/15/21 10:59 Lactobacillus Acidoph/Casei/Rhamnos (Advanced Probiotic 1250 Mg Capsule) 2 cap PO DAILY [facility] Stop: 04/29/21 08:59 Last Admin: 04/15/21 08:39 Dose: 2 cap Documented by: Lactulose (Lactulose Syrup 20 Gm/30 Ml Udc) 20 gm PO BID [facility] Stop: 04/29/21 08:59 Last Admin: 04/15/21 08:39 Dose: 20 gm Documented by: Magnesium Oxide (Magnesium Oxide 400 Mg Tab) 400 mg PO DAILY [facility] Stop: 04/29/21 08:59 Last Admin: 04/15/21 08:40 Dose: 400 mg Documented by: Miconazole Nitrate (Miconazole Nitrate Powder 43 Gm) 1 appln EXT PRN PRN PRN Reason: Affected Skin Folds Stop: 05/10/21 23:24 Nitroglycerin (Nitroglycerin Sl 0.4 Mg/Tab Tab) 0.4 mg SL UD PRN PRN Reason: Chest Pain Stop: 04/29/21 03:42 Ondansetron HCl (Ondansetron Inj 2 Mg/Ml 2 Ml Vial) 4 mg IV Q6H PRN PRN Reason: Nausea Stop: 04/29/21 03:42 Pantoprazole Sodium (Pantoprazole 40 Mg Tab) 40 mg PO [facility] Stop: 04/29/21 08:59 Last Admin: 04/15/21 08:39 Dose: 40 mg Documented by: Rifaximin (Rifaximin 550 Mg Tablet) 550 mg PO BID [facility] Stop: 04/29/21 08:59 Last Admin: 04/15/21 08:40 Dose: 550 mg Documented by: Sertraline HCl (Sertraline Hcl 100 Mg Tablet) 100 mg PO [facility] Stop: 04/29/21 08:59 Last Admin: 04/15/21 08:40 Dose: 100 mg Documented by: Torsemide (Torsemide 100 Mg Tab) 100 mg PO [facility] Stop: 05/06/21 11:29 Last Admin: 04/15/21 08:40 Dose: 100 mg Documented by: Vitamin D (Cholecalciferol 1,000 Units 25 Mcg Tab) 2,000 units PO [facility] Stop: 04/29/21 08:59 Last Admin: 04/15/21 08:35 Dose: 2,000 units Documented by:
--- NOTE | 2021-04-15 10:11 | Gastroenterology Progress Note ---
Date of Service April 15, 2021 Assessment & Plan (1) Hepatorenal syndrome: (2) Cirrhosis: Plan: Plan for dialysis and OP transplant eval. Admission and Anticipated Discharge Date Admission Date: March 30, 2021 Supervising Physician Co-Signing Physician Notes Late entry: patient was seen and examined on 04/15 with NBA [place] whose note reflects our findings and plan. Patient with melena at home. Smll drop in hgb. EGd planned for =Thursday. Subjective GI made aware of drop in HGB, heme + stools She does note intermittent dark stools, black Denies hematochezia or coffee grouns emesis or hematemesis. Review of Systems Review of Systems: All systems reviewed & are unremarkable except as noted in HPI & below Physical Exam Constitutional: WD/WN, vitals as above Neck: trachea midline, no thyromegaly Respiratory: normal respiratory effort Cardiovascular: Rate/Rhythm: regular rate Gastrointestinal (Abdomen): normal bowel sounds, soft, nontender, no hepatosplenomegaly Skin: no rashes, warm and dry Results & Data ([facility]) Vital Signs (Past 12 Hours) Vital Signs Temp Pulse Pulse Resp BP Pulse Ox 04/15/21 08:13 37.5 C 91 H 20 100/51 L 90 04/15/21 07:32 88 04/15/21 03:59 37.0 C 87 18 85/43 L 96 04/14/21 23:59 84 04/14/21 22:37 36.9 C 90 18 142/64 H 96 Laboratory Results 04/15/21 04/15/21 04/14/21 Range/Units 06:25 06:25 11:30 WBC 3.26 L (4.8-10.8) K/uL RBC 2.41 L (4.2-5.4) M/uL Hgb 7.5 L (12.0-16.0) g/dL Hct 24.2 L (37-47) % MCV 100.4 H (80-100) fL MCH 31.1 (25-34) pg MCHC 31.0 L (32-36) g/dL RDW Std Deviation 74.3 H (36.4-46.3) fL RDW Coeff of Blanca 22.0 H (11.5-14.5) % Plt Count 40 L (130-400) K/uL MPV 11.4 H (7.4-10.4) fL Sodium 142 (136-145) mmol/L Potassium 3.6 (3.5-5.1) mmol/L Chloride 107 (98-107) mmol/L Carbon Dioxide 26 (21-32) mmol/L Anion Gap 10.0 (3-11) BUN 30 H (7-18) mg/dl Creatinine 4.27 H (0.6-1.2) mg/dl Est Cr Clr Drug Dosing 15.0 ml/min Est GFR ( Amer) 11.5 ml/min Est GFR (Non-Af Amer) 9.9 ml/min BUN/Creatinine Ratio 7.1 L (10-20) Glucose 72 (70-99) mg/dl Calcium 8.6 (8.5-10.1) mg/dl Iron 28 L (35-150) mcg/dl Transferrin 100 L (200-360) mg/dl Transferrin % Sat 20 (15-50) % Stool Occult Bld Scrn Positive A (Negative)
[2021-04-15] MEDS ORDERED: SODIUM CHLORIDE 0.9% 250 ML IV PRN (11:32)
--- NOTE | 2021-04-15 14:13 | Dialysis Progress Note ---
Date of Service April 15, 2021 Assessment & Plan Admission and Anticipated Discharge Date Admission Date: March 30, 2021 Subjective Assessment & Plan (1) Acute renal failure (ARF): Plan: oliguric SEVEN remains dependent on dialysis now This lady had normal renal function until late february, when there was a sudden jump in her serum creatinine with increase in her bilateral pedal edema, not responsive to oral diuretic Her albumin was low at 1.9,( now 2.5); she had been on indomethacin and has got liver pathology. Most likely ATN vs AIN and Low Likelihood GN given only 300 mg proteinuria. 360 mg protein on 24 hr specimen FLC both elevated but ratio not inappropriate for renal disease serologies remarkable for low complement--to be expected given super low alb and liver Dz. VIOLETTA/ANCA, CH 50, double-stranded DNA, SPEP>all negative plan Continue torsemide avoid Nephrotoxins; CT with contrast only with if lifesaving. Daily BMP, >Strict input and output -monitor for renal recovery Getting PRBC with Dialysis today with Alb and also get procrit. We will continue to follow with you (2) Bilateral lower extremity edema: Plan: improving w/ dialysis and diuretics (3) LOJA (nonalcoholic steatohepatitis): Plan: w/ cirrhosis. for OP f/ w GI Admission and Anticipated Discharge Date Admission Date: March 30, 2021 Subjective Seen during Dialysis. No new issues. Feels fine. CVC fine. BP already low at 87 systolic. Review of Systems Review of Systems: All systems reviewed & are unremarkable except as noted in Subjective Physical Exam Constitutional: well developed, well nourished and cooperative; no acute distress Eyes: EOM intact bilaterally ENMT: Ears: no external ear abnormality Nose: no external nose abnormality Mouth: + dry oral mucous membranes Neck: no nuchal rigidity Respiratory: normal respiratory effort Auscultation: + diminished lung sounds Cardiovascular: Rate/Rhythm: regular rate and regular rhythm Extremities: + edema Gastrointestinal (Abdomen): Inspection/Auscultation: + abdomen distended and normal bowel sounds Percussion/Palpation: abdomen soft; abdomen nontender Musculoskeletal: Extremities: strength 5/5 throughout Skin: no rashes, warm and dry + ecchymosis Psychiatric: Orientation: oriented x 3 Results & Data ([facility]) Vital Signs (Past 12 Hours) Vital Signs Temp Pulse Pulse Pulse Resp BP BP 04/15/21 12:27 37.2 C 90 18 94/47 L 102/57 L 04/15/21 11:37 37.1 C 97 H 20 98/59 L 04/15/21 08:15 37.1 C 86 18 91/53 L 04/15/21 08:13 37.5 C 91 H 20 100/51 L 04/15/21 07:32 88 04/15/21 03:59 37.0 C 87 18 85/43 L Pulse Ox 04/15/21 12:27 92 04/15/21 11:37 93 04/15/21 08:15 95 04/15/21 08:13 90 04/15/21 07:32 04/15/21 03:59 96
[2021-04-15] MEDS: PANTOprazole 40 MG in DEXTROSE 5% 100 ML IV SCH ×2 (17:51→22:25)
[2021-04-15 20:03] LABS: Hematocrit (blood only) 25.7 % (37-47); Hemoglobin 8.2 g/dL (12.0-16.0)
[2021-04-16] MEDS: ALBUMIN 25% 100 mL 25 GM/100 ML VIAL IV SCH ×2 (01:12→10:23)
[2021-04-16] MEDS: PANTOprazole 40 MG in DEXTROSE 5% 100 ML IV SCH ×5 (05:47→22:42)
[2021-04-16 07:12] LABS: BUN Creatinine Ratio 5.5 (10-20); Calcium 8.6 mg/dl (8.5-10.1); Creatinine Clr Calc Pharmacy 18.2 ml/min; Est GFR (African American) 14.6 ml/min; Est GFR (Non-African American) 12.6 ml/min; Potassium 3.4 mmol/L (3.5-5.1)
[2021-04-16 07:55] LABS: Hemoglobin 8.3 g/dL (12.0-16.0); Mean Corpuscular Hemoglobin 31.4 pg (25-34); Mean Corpuscular Hgb Conc 31.9 g/dL (32-36); Mean Corpuscular Volume 98.5 fL (80-100); Mean Platelet Volume 12.1 fL (7.4-10.4); Platelet Count 48 K/uL (130-400); RDW Coefficient of Variation 22.3 % (11.5-14.5); RDW Standard Deviation 73.9 fL (36.4-46.3); Red Blood Count 2.64 M/uL (4.2-5.4); White Blood Count 3.16 K/uL (4.8-10.8)
--- NOTE | 2021-04-16 07:57 | Anesthesiology Consultation ---
Date of Service April 16, 2021 Assessment & Plan (1) Encounter for pre-operative examination: Chart Review Chart Review: Acceptable Risk for Surgery and Patient NOT seen in Pre Admission Testing Consults Requested none History Surgery Operation Date: 04/05/21 08:00 Proposed Procedures p Perm Catheter Placement - Robert Briceño MD Operation Date: 04/16/21 17:30 Proposed Procedures p Esophagogastroduodenoscopy Dr Garnica - Emily Garnica, Height/Weight Height: 5 ft 4 in Weight: 108.3 kg Allergies Allergy/AdvReac Type Severity Reaction Status Date / Time No Known Allergies Allergy Unverified 03/29/21 19:44 Medications Home Medications Medication Instructions Recorded Confirmed Last Taken atorvastatin 80 mg tablet (Lipitor) 80 mg PO QAM 12/07/20 03/29/21 03/29/21 cholecalciferol (vitamin D3) 25 50 mcg PO QAM 12/07/20 03/29/21 03/29/21 mcg (1,000 unit) tablet (Vitamin D3) indomethacin 25 mg capsule 25 mg PO TID PRN 12/07/20 03/29/21 03/29/21 omeprazole 40 mg capsule,delayed 40 mg PO QAM 12/07/20 03/29/21 03/29/21 release rifaximin 550 mg tablet (Xifaxan) 550 mg PO BID 12/07/20 03/29/21 03/29/21 sertraline 100 mg tablet (Zoloft) 100 mg PO QAM 12/07/20 03/29/21 03/29/21 spironolactone 50 mg tablet 50 mg PO BIDM 12/07/20 03/29/21 03/29/21 (Aldactone) magnesium oxide 420 mg tablet 420 mg PO DAILY #14 tab 12/10/20 03/29/21 03/29/21 L.acidop,casei,lactis,rham-B.lact,lm 2 cap PO DAILY #30 cap 01/06/21 03/29/21 03/29/21 625 mg (10 billion cell) capsule (Advanced Probiotic) lactulose 20 gram/30 mL oral 20 g PO BID #1200 ml 01/06/21 03/29/21 03/29/21 solution cefdinir 300 mg capsule 300 mg PO BID 03/29/21 03/29/21 03/29/21 furosemide 20 mg tablet (Lasix) 40 mg PO BIDM 03/29/21 03/29/21 03/29/21 gabapentin 100 mg capsule 100 mg PO BID 03/29/21 03/29/21 03/29/21 potassium chloride 20 mEq 20 meq PO DAILY 03/29/21 03/29/21 03/29/21 tablet,extended release(part/cryst) Active Medications Generic Name Dose Route Start Last Admin Trade Name Freq PRN Reason Stop Dose Admin Acetaminophen 325 mg 04/05/21 20:08 04/05/21 21:14 Acetaminophen 325 Mg Tab PO 05/05/21 20:07 325 mg Q6H PRN Administration Mild Pain Atorvastatin Calcium 80 mg 03/30/21 09:00 04/15/21 08:39 Atorvastatin 40 Mg Tab PO 04/29/21 08:59 80 mg QAM SAMIR Administration Gabapentin 100 mg 03/30/21 09:00 04/15/21 21:13 Gabapentin 100 Mg Cap PO 04/29/21 08:59 100 mg BID SAMIR Administration Albumin Human 25 gm in 100 mls @ 50 mls/hr 04/13/21 16:45 04/16/21 03:26 Albumin 25% 100 Ml IV 04/16/21 16:44 Infused Q8H SAMIR Infusion Albumin Human 12.5 gm in 50 mls @ 50 mls/hr 04/15/21 07:00 04/15/21 15:22 Albumin 25% IV Infused ONCE ONE Infusion Pantoprazole Sodium 40 mg/ 100 mls @ 20 mls/hr 04/15/21 10:30 04/16/21 05:47 Dextrose IV 05/15/21 10:29 8 mg/hr Q5H SAMIR 20 mls/hr Administration 8 MG/HR Lactobacillus Acidoph/Casei/Rhamnos 2 cap 03/30/21 09:00 04/15/21 08:39 Advanced Probiotic 1250 Mg Capsule PO 04/29/21 08:59 2 cap DAILY SAMIR Administration Lactulose 20 gm 03/30/21 09:00 04/15/21 21:12 Lactulose Syrup 20 Gm/30 Ml Udc PO 04/29/21 08:59 20 gm BID SAMIR Administration Magnesium Oxide 400 mg 03/30/21 09:00 04/15/21 08:40 Magnesium Oxide 400 Mg Tab PO 04/29/21 08:59 400 mg DAILY SAMIR Administration Pantoprazole Sodium 40 mg 03/30/21 09:00 04/15/21 08:39 Pantoprazole 40 Mg Tab PO 04/29/21 08:59 40 mg QAM SAMIR Administration Rifaximin 550 mg 03/30/21 09:00 04/15/21 21:13 Rifaximin 550 Mg Tablet PO 04/29/21 08:59 550 mg BID SAMIR Administration Sertraline HCl 100 mg 03/30/21 09:00 04/15/21 08:40 Sertraline Hcl 100 Mg Tablet PO 04/29/21 08:59 100 mg QAM SAMIR Administration Torsemide 100 mg 04/06/21 11:30 04/15/21 08:40 Torsemide 100 Mg Tab PO 05/06/21 11:29 100 mg QAM SAMIR Administration Vitamin D 2,000 units 03/30/21 09:00 04/15/21 08:35 Cholecalciferol 1,000 Units 25 Mcg Tab PO 04/29/21 08:59 2,000 units QAM SAMIR Administration Past Medical History Medical History (Updated 04/16/21 @ 08:03 by Alfredo Mccullough MD) Acute renal failure (ARF) Bilateral lower extremity edema Cirrhosis Encounter for pre-operative examination Hepatic encephalopathy Hepatorenal syndrome Hyperlipidemia LOJA (nonalcoholic steatohepatitis) DANNIELLE (obstructive sleep apnea) Osteoporosis Thrombocytopenia Last dialysis 04/05/21. Receiving albumin and received 2 unit pRBC 04/15/21. Exercise / Class Metabolic Activity III < 4 Walking/Shop/Light housework Past Surgical History Surgical History History of hernia repair perm cath placement 04/05/[address] Briceño. Past Anesthesia History No Hx of Anesthesia Complications and No Family Hx of Anesthesia Complications History of PONV No Hx of PONV and No Hx of Motion Sickness Social History Smoking Status: Former smoker tobacco type: cigarettes Smoking End Date: 1999 Hx Alcohol Use: No Alcohol type: beer alcohol intake frequency: holidays/special occasions only Hx Substance Use: No substance use type: does not use Physical Exam Vital Signs Last Vital Signs Temp 37.0 C 04/16/21 08:14 Pulse 86 04/16/21 08:14 Resp 18 04/16/21 08:14 BP 100/42 L 04/16/21 08:14 Pulse Ox 92 04/16/21 08:14 Testing Laboratory Results 04/16/21 06:14 04/16/21 06:14 PT 16.7 Seconds (9.0-12.0) H 04/10/21 06:07 INR 1.7 (0.9-1.1) H 04/10/21 06:07 Urine Color Dark Yellow 03/30/21 18:35 Urine Appearance Cloudy (Clear) A 03/30/21 18:35 Urine pH 5.0 (4.5-7.5) 03/30/21 18:35 Ur Specific [place] 1.016 (1.000-1.030) 03/30/21 18:35 Urine Protein 1+ (Negative) H 03/30/21 18:35 Urine Glucose (UA) Negative (Negative) 03/30/21 18:35 Urine Ketones Trace (Negative) H 03/30/21 18:35 Urine Nitrite Negative (Negative) 03/30/21 18:35 Ur Leukocyte Esterase 1+ (Negative) H 03/30/21 18:35 Urine WBC (Auto) 10-30 /hpf (0-5) H 03/30/21 18:35 Urine RBC (Auto) 5-10 /hpf (0-4) H 03/30/21 18:35 U Hyaline Cast (Auto) 5-10 /lpf (0-5) H 03/30/21 18:35 U Epithel Cells (Auto) >30 /lpf (0-5) H 03/30/21 18:35 Urine Bacteria (Auto) Negative (Negative) 03/30/21 18:35 Blood Type A Positive 04/15/21 12:08 Antibody Screen NEGATIVE 04/15/21 12:08 03/29/21 22:30 Urine Culture - Final Urine,Clean Catch Yeast not Sarah albicans/dub Electrocardiogram Date: 03/30/21 DICTATED BY:Royer Luong MD Test Reason : Blood Pressure : / mmHG Vent. Rate : 083 BPM Atrial Rate : 083 BPM P-R Int : 152 ms QRS Dur : 094 ms QT Int : 400 ms P-R-T Axes : 074 038 038 degrees QTc Int : 470 ms Normal sinus rhythm Normal ECG When compared with ECG of 02-JAN-2021 15:36, No significant change was found Confirmed by Royer Luong ([id number]) on 03/31/2021 6:41:23 AM Chest X-Ray Date: 04/04/21 XR chest 1V portable CLINICAL HISTORY: patient decline dyspnea TECHNIQUE: Single frontal radiograph of the chest was obtained. Comparison: Comparison is made to chest one view 03/29/2021 FINDINGS: No lines and tubes are seen. The cardiomediastinal silhouette is normal. Lungs are underinflated. Faint right lower lung opacities are seen. No evidence of pleural effusion or pneumothorax. IMPRESSION: Faint right lower lobe which may represent atelectasis with or without superimposed pneumonia.
[2021-04-16] MEDS ORDERED: POTASSIUM CHLORIDE CRTAB 20 MEQ TABCR PO STA (08:25)
--- NOTE | 2021-04-16 08:29 | Hospitalist Progress Note ---
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 The patient lives alone. She is being managed for the following: Acute renal failure (ARF): Baseline creatinine around 0.4, admitting creatinine 2.2 At admission, noted to have acute renal failure without significant chronic kidney disease in the past Could be secondary to ATN vs cirrhosis and hepatorenal syndrome Nephrology following: Obstruction has been ruled out, awaiting serological test [VIOLETTA/ANCA, C3-C4, CH 50, dsDNA, SPEP, FLC] find out the other causes of kidney impairment. Pt on Torsemide 100 daily Creatinine worsening since admission, patient did not make urine despite aggressive IV diuresis. 04/05 s/p tunnel CVC catheter placement , hemodialysis started 04/05 Strict I and Os. LOJA (nonalcoholic steatohepatitis): History of nonalcoholic steatohepatitis with hepatorenal syndrome INR is 1.5 and albumin is 1.9 on admission LFTs elevated at admission, trending down slowly. GI consulted: Considered transfer to [place] but, instead, if renal function does not improve then plan for dialysis and OP transplant eval. She will likely be worked up as an outpatient for possible liver transplant as per GI service Will monitor LFTs and INR. INR hovering in the range of 1.5-1.7. No signs of bleeding, however ecchymosis noted at right breast, HD catheter site. Bilateral lower extremity edema: Hypoxia: Infection ruled out, likely developing fluid collection secondary to anorexia states. Improving with dialysis. Hypoxia now resolved - pt on RA Presented with increasing bilateral leg swelling with weight gain of about 30 pounds in 1 month Did not improve with outpatient increasing dose of oral Lasix and Aldactone Has history of cirrhosis of the liver and is complicating the edema Has received intravenous albumin and Lasix in the hospital Nephrology is following Improving with dialysis. Anemia -In the setting of renal failure, liver disease, thrombocytopenia -Hemoglobin has been trending down (possibly also secondary to frequent blood draws) -hemoglobin 7.5, FOBT positive started IV PPI Transfused 1 unit of pRBC - consent obtained GI consulted - now pt s/p EGD (04/16) Findings: The esophagus was normal. Moderate portal hypertensive gastropathy was found in the entire examined stomach. The examined duodenum was normal. Impression: - Normal esophagus. No varices. - Portal hypertensive gastropathy. - No fresh or altered blood. No ulcers. - Normal examined duodenum. - No specimens collected. Recommendation: - Resume previous diet. Thrombocytopenia: Platelet count has been low and is running around upper 50s which is secondary to cirrhosis Platelet count runs around upper 50s - 60s DANNIELLE (obstructive sleep apnea): Uses her own CPAP Morbid obesity - counseling provided Hyperlipidemia-continue statin DVT prophylaxis-SCDs has thrombocytopenia, and elev. INR, anemia CODE STATUS: Full code. Disposition: [facility] Admission and Anticipated Discharge Date Admission Date: March 30, 2021 Subjective Pt seen in follow up of ARF, now requiring HD, hx of LOJA cirrhosis Currently in NAD She is alert and oriented, answering questions appropriately Denies any chest pain, shortness of breath, abd. pain, n/v Hgb trending down, FOBT positive - GI contacted - now s/p EGD transfused 1 unit of pRBC Review of Systems Review of Systems: All systems reviewed & are unremarkable except as noted in Subjective Physical Exam Physical Exam: GENERAL: Obese F, in NAD, on room air HEENT: NC/AT. EOMI, PERRL. NECK: No JVD, no neck masses. HEART: S1 and S2 heard. Regular rate and rhythm. Systolic murmur over aortic and pulmonic area, no gallop. RESPIRATORY: Normal AP diameter. No accessory muscle use. No wheezing, no crackles. ABDOMEN: Soft, bowel sounds present, nontender, no distention. Hernia noted - stable, soft, no pain on palpation. NEURO: Alert and oriented and answering questions appropriately. No facial droop. Speech is clear. Obeys simple commands. Moves extremities. EXTREMITIES: 1+ BLE edema (improved), BLE chronic skin changes, no erythema seen. Right upper chest CVC hemodialysis catheter. Ecchymosis noted around the catheter and at R breast. Results & Data Results & Data ([facility]) Vital Signs (Past 12 Hours) Vital Signs Temp Pulse Pulse Pulse Resp BP BP 04/16/21 08:14 37.0 C 86 18 100/42 L 04/16/21 07:32 89 04/16/21 03:29 36.7 C 88 18 94/59 L 04/16/21 01:15 91/54 L 04/15/21 23:04 84 04/15/21 22:17 36.6 C 85 18 102/61 Pulse Ox 04/16/21 08:14 92 04/16/21 07:32 04/16/21 03:29 91 04/16/21 01:15 04/15/21 23:04 04/15/21 22:17 91 Laboratory Results 04/16/21 04/16/21 04/16/21 Range/Units 06:14 06:14 04:50 WBC 3.16 L (4.8-10.8) K/uL RBC 2.64 L (4.2-5.4) M/uL Hgb 8.3 L (12.0-16.0) g/dL Hct 26.0 L (37-47) % MCV 98.5 (80-100) fL MCH 31.4 (25-34) pg MCHC 31.9 L (32-36) g/dL RDW Std Deviation 73.9 H (36.4-46.3) fL RDW Coeff of Blanca 22.3 H (11.5-14.5) % Plt Count 48 L (130-400) K/uL MPV 12.1 H (7.4-10.4) fL Sodium 139 (136-145) mmol/L Potassium 3.4 L (3.5-5.1) mmol/L Chloride 105 (98-107) mmol/L Carbon Dioxide 27 (21-32) mmol/L Anion Gap 8.0 (3-11) BUN 19 H (7-18) mg/dl Creatinine 3.51 H D (0.6-1.2) mg/dl Est Cr Clr Drug Dosing 18.2 ml/min Est GFR ( Amer) 14.6 ml/min Est GFR (Non-Af Amer) 12.6 ml/min BUN/Creatinine Ratio 5.5 L (10-20) Glucose 87 (70-99) mg/dl Calcium 8.6 (8.5-10.1) mg/dl SARS-CoV-2, RNA, NAAT NEGATIVE (NEGATIVE) Blood Type Antibody Screen Crossmatch 04/15/21 04/15/21 Range/Units 19:27 12:08 WBC (4.8-10.8) K/uL RBC (4.2-5.4) M/uL Hgb 8.2 L (12.0-16.0) g/dL Hct 25.7 L (37-47) % MCV (80-100) fL MCH (25-34) pg MCHC (32-36) g/dL RDW Std Deviation (36.4-46.3) fL RDW Coeff of Blanca (11.5-14.5) % Plt Count (130-400) K/uL MPV (7.4-10.4) fL Sodium (136-145) mmol/L Potassium (3.5-5.1) mmol/L Chloride (98-107) mmol/L Carbon Dioxide (21-32) mmol/L Anion Gap (3-11) BUN (7-18) mg/dl Creatinine (0.6-1.2) mg/dl Est Cr Clr Drug Dosing ml/min Est GFR ( Amer) ml/min Est GFR (Non-Af Amer) ml/min BUN/Creatinine Ratio (10-20) Glucose (70-99) mg/dl Calcium (8.5-10.1) mg/dl SARS-CoV-2, RNA, NAAT (NEGATIVE) Blood Type A Positive Antibody Screen NEGATIVE Crossmatch See Detail Medications Administered Current Inpatient Medications Acetaminophen (Acetaminophen 325 Mg Tab) 325 mg PO Q6H PRN PRN Reason: Mild Pain Stop: 05/05/21 20:07 Last Admin: 04/05/21 21:14 Dose: 325 mg Documented by: Atorvastatin Calcium (Atorvastatin 40 Mg Tab) 80 mg PO QAM [facility] Stop: 04/29/21 08:59 Last Admin: 04/15/21 08:39 Dose: 80 mg Documented by: Gabapentin (Gabapentin 100 Mg Cap) 100 mg PO BID [facility] Stop: 04/29/21 08:59 Last Admin: 04/15/21 21:13 Dose: 100 mg Documented by: Albumin Human (Albumin 25% 100 Ml) 25 gm in 100 mls @ 50 mls/hr IV Q8H [facility] Stop: 04/16/21 16:44 Last Infusion: 04/16/21 03:26 Dose: Infused Documented by: Albumin Human (Albumin 25%) 12.5 gm in 50 mls @ 50 mls/hr IV ONCE ONE Last Infusion: 04/15/21 15:22 Dose: Infused Documented by: Pantoprazole Sodium 40 mg/ (Dextrose) 100 mls @ 20 mls/hr IV Q5H SAMIR Stop: 05/15/21 10:29 Last Admin: 04/16/21 05:47 Dose: 8 mg/hr, 20 mls/hr Documented by: Lactobacillus Acidoph/Casei/Rhamnos (Advanced Probiotic 1250 Mg Capsule) 2 cap PO DAILY [facility] Stop: 04/29/21 08:59 Last Admin: 04/15/21 08:39 Dose: 2 cap Documented by: Lactulose (Lactulose Syrup 20 Gm/30 Ml Udc) 20 gm PO BID [facility] Stop: 04/29/21 08:59 Last Admin: 04/15/21 21:12 Dose: 20 gm Documented by: Magnesium Oxide (Magnesium Oxide 400 Mg Tab) 400 mg PO DAILY [facility] Stop: 04/29/21 08:59 Last Admin: 04/15/21 08:40 Dose: 400 mg Documented by: Miconazole Nitrate (Miconazole Nitrate Powder 43 Gm) 1 appln EXT PRN PRN PRN Reason: Affected Skin Folds Stop: 05/10/21 23:24 Nitroglycerin (Nitroglycerin Sl 0.4 Mg/Tab Tab) 0.4 mg SL UD PRN PRN Reason: Chest Pain Stop: 04/29/21 03:42 Ondansetron HCl (Ondansetron Inj 2 Mg/Ml 2 Ml Vial) 4 mg IV Q6H PRN PRN Reason: Nausea Stop: 04/29/21 03:42 Pantoprazole Sodium (Pantoprazole 40 Mg Tab) 40 mg PO QAM [facility] Stop: 04/29/21 08:59 Last Admin: 04/15/21 08:39 Dose: 40 mg Documented by: Rifaximin (Rifaximin 550 Mg Tablet) 550 mg PO BID [facility] Stop: 04/29/21 08:59 Last Admin: 04/15/21 21:13 Dose: 550 mg Documented by: Sertraline HCl (Sertraline Hcl 100 Mg Tablet) 100 mg PO [facility] Stop: 04/29/21 08:59 Last Admin: 04/15/21 08:40 Dose: 100 mg Documented by: Torsemide (Torsemide 100 Mg Tab) 100 mg PO [facility] Stop: 05/06/21 11:29 Last Admin: 04/15/21 08:40 Dose: 100 mg Documented by: Vitamin D (Cholecalciferol 1,000 Units 25 Mcg Tab) 2,000 units PO [facility] Stop: 04/29/21 08:59 Last Admin: 04/15/21 08:35 Dose: 2,000 units Documented by:
[2021-04-16] MEDS ORDERED: PROPOFOL IV EMULSION 10 MG/ML 20 ML VIAL IV ONE (08:38)
[2021-04-16] MEDS ORDERED: LIDOCAINE 2% 2 ML VIAL/AMP(20MG/ML) INFIL ONE (08:38)
[2021-04-16] MEDS ORDERED: PHENYLEPHRINE 100MCG/ML 5ML SYR ONE (08:38)
[2021-04-16] MEDS ORDERED: ONDANSETRON INJ 2 MG/ML 2 ML VIAL ONE (08:38)
--- NOTE | 2021-04-16 08:43 | History & Physical Report ---
Date of Service April 16, 2021 Assessment & Plan (1) Complaint of melena: Plan: EGD today Admission and Anticipated Discharge Date Admission Date: March 30, 2021 History of Present Illness Chief Complaint: melena; anemia; cirrhosis Primary Care Provider: Filomena Monson DO Allergies Allergy/AdvReac Type Severity Reaction Status Date / Time No Known Allergies Allergy Unverified 03/29/21 19:44 Home Medications Medication Instructions Recorded Confirmed Type atorvastatin 80 mg tablet (Lipitor) 80 mg PO QAM 12/07/20 03/29/21 History cholecalciferol (vitamin D3) 25 50 mcg PO QAM 12/07/20 03/29/21 History mcg (1,000 unit) tablet (Vitamin D3) indomethacin 25 mg capsule 25 mg PO TID PRN 12/07/20 03/29/21 History omeprazole 40 mg capsule,delayed 40 mg PO QAM 12/07/20 03/29/21 History release rifaximin 550 mg tablet (Xifaxan) 550 mg PO BID 12/07/20 03/29/21 History sertraline 100 mg tablet (Zoloft) 100 mg PO QAM 12/07/20 03/29/21 History spironolactone 50 mg tablet 50 mg PO BIDM 12/07/20 03/29/21 History (Aldactone) magnesium oxide 420 mg tablet 420 mg PO DAILY #14 tab 12/10/20 03/29/21 Rx L.acidop,casei,lactis,rham-B.lact,lm 2 cap PO DAILY #30 cap 01/06/21 03/29/21 Rx 625 mg (10 billion cell) capsule (Advanced Probiotic) lactulose 20 gram/30 mL oral 20 g PO BID #1200 ml 01/06/21 03/29/21 Rx solution cefdinir 300 mg capsule 300 mg PO BID 03/29/21 03/29/21 History furosemide 20 mg tablet (Lasix) 40 mg PO BIDM 03/29/21 03/29/21 History gabapentin 100 mg capsule 100 mg PO BID 03/29/21 03/29/21 History potassium chloride 20 mEq 20 meq PO DAILY 03/29/21 03/29/21 History tablet,extended release(part/cryst) Past Med/Surg History Medical History (Updated 04/16/21 @ 08:42 by Emily Garnica DO) Acute renal failure (ARF) Bilateral lower extremity edema Cirrhosis Encounter for pre-operative examination Hepatic encephalopathy Hepatorenal syndrome Hyperlipidemia LOJA (nonalcoholic steatohepatitis) DANNIELLE (obstructive sleep apnea) Osteoporosis Thrombocytopenia Surgical History History of hernia repair Social History Smoking Status: Former smoker Tobacco Type: Cigarettes Smoking End Date: 1999; Second Hand Exposure: No; Hx Alcohol Use: No Hx Substance Use: No Preferred Language: Tristanian Communication Ability: Effective Bearing Grinder Required: No Beliefs That Will Affect Care: None Current Living Situation: Alone Current Living Situation Comment: Lives at home with Son Other Information That Helps Us Care for You: No Feels Safe at Home: Yes Safety Concerns: Feels Safe At This Time Assistive Devices: Walker Physical Exam Constitutional: WD/WN, vitals as above Respiratory: normal respiratory effort, lungs clear to auscultation Cardiovascular: RRR, no murmur, no edema Gastrointestinal (Abdomen): normal bowel sounds, soft, nontender, no hepatosplenomegaly Results & Data ([facility]) Vital Signs (Past 12 Hours) Vital Signs Temp Pulse Pulse Pulse Resp BP BP 04/16/21 08:14 37.0 C 86 18 100/42 L 04/16/21 07:32 89 04/16/21 03:29 36.7 C 88 18 94/59 L 04/16/21 01:15 91/54 L 04/15/21 23:04 84 04/15/21 22:17 36.6 C 85 18 102/61 Pulse Ox 04/16/21 08:14 92 04/16/21 07:32 04/16/21 03:29 91 04/16/21 01:15 04/15/21 23:04 04/15/21 22:17 91 Code Status & VTE Plan VTE Prophylaxis Plan VTE Prophylaxis will be ordered: Yes
--- NOTE | 2021-04-16 09:29 | GI REPORT ---
Patient Name: Dawna Vargas Procedure Date: 04/16/2021 8:38 AM Date of : 1950 Admit Type: Inpatient Age: 70 Gender: Female Attending MD: Emily Garnica DO Procedure: Upper GI endoscopy Providers: Emily Garnica DO Referring MD: Gonzalo Kate Md Indications: Iron deficiency anemia, Melena Medicines: Propofol per Anesthesia Complications: No immediate complications. Estimated blood loss: None. Estimated Blood Loss: Estimated blood loss: none. Procedure: Pre-Anesthesia Assessment: - Prior to the procedure, a History and Physical was performed, and patient medications, allergies and sensitivities were reviewed. The patient's tolerance of previous anesthesia was reviewed. - The risks and benefits of the procedure and the sedation options and risks were discussed with the patient. All questions were answered and informed consent was obtained. - Patient identification and proposed procedure were verified prior to the procedure by the physician and the nurse. The procedure was verified in the pre-procedure area in the procedure room. - Mental Status Examination: alert and oriented. Airway Examination: normal oropharyngeal airway and neck mobility. Respiratory Examination: clear to auscultation. CV Examination: normal. Abdominal Examination: bowel sounds present, abdomen soft and non-tender, no masses or organomegaly noted. - ASA Grade Assessment: IV - A patient with severe systemic disease that is a constant threat to life. After obtaining informed consent, the endoscope was passed under direct vision. Throughout the procedure, the patient's blood pressure, pulse, and oxygen saturations were monitored continuously. The Endoscope was introduced through the mouth, and advanced to the third part of duodenum. The upper GI endoscopy was accomplished without difficulty. The patient tolerated the procedure well. Findings: The esophagus was normal. Moderate portal hypertensive gastropathy was found in the entire examined stomach. The examined duodenum was normal. Impression: - Normal esophagus. No varices. - Portal hypertensive gastropathy. - No fresh or altered blood. No ulcers. - Normal examined duodenum. - No specimens collected. Recommendation: - Return patient to hospital unger. - Resume previous diet. Levar Sharp DO 04/16/2021 9:28:44 AM This report has been signed electronically. Note Initiated On: 04/16/2021 8:38 AM Number of Addenda: 0 I attest to the content of the Intraoperative Record and orders documented therein, exceptions below {[id number]}
--- NOTE | 2021-04-16 10:04 | Communication Note ---
Date of Service: April 16, 2021 EGD completed. No evidence of active bleeding. Can advance diet, continue supportive care. No GI contraindication to discharge.
[2021-04-16] MEDS: rifAXIMin 550 MG TABLET PO SCH ×2 (10:23→22:44)
[2021-04-16] MEDS: CHOLECALCIFEROL 1,000 UNITS 25 MCG TAB PO SCH (10:23)
[2021-04-16] MEDS: SERTRALINE HCL 100 MG TABLET PO SCH (10:23)
[2021-04-16] MEDS: GABAPENTIN 100 MG CAP PO SCH ×2 (10:24→22:44)
[2021-04-16] MEDS: TORSEMIDE 100 MG TAB PO SCH (10:24)
[2021-04-16] MEDS: ATORVASTATIN 40 MG TAB PO SCH (10:24)
[2021-04-16] MEDS: ADVANCED PROBIOTIC 1250 MG CAPSULE PO SCH (10:25)
[2021-04-16] MEDS: MAGNESIUM OXIDE 400 MG TAB PO SCH (10:25)
[2021-04-16] MEDS: LACTULOSE SYRUP 20 GM/30 ML UDC PO SCH ×2 (10:25→22:44)
--- NOTE | 2021-04-16 12:37 | Anesthesiology Progress Note ---
Date of Service April 16, 2021 Anesthesia Post Procedure Vital Signs Vital Signs: Temp Pulse Pulse Pulse Resp BP BP 04/16/21 12:13 37.0 C 61 18 04/16/21 12:02 37.1 C 76 18 04/16/21 10:17 37.1 C 85 18 04/16/21 09:50 84 16 99/50 L 04/16/21 09:35 79 16 114/62 04/16/21 09:20 80 16 111/50 L 04/16/21 08:14 37.0 C 86 18 04/16/21 07:32 89 04/16/21 03:29 36.7 C 88 18 04/16/21 01:15 91/54 L 04/15/21 23:04 84 04/15/21 22:17 36.6 C 85 18 04/15/21 20:02 37.2 C 85 20 04/15/21 17:35 37.4 C 84 04/15/21 17:00 83 80/43 L 04/15/21 16:40 76 84/40 L 04/15/21 16:20 84 96/43 L 04/15/21 16:00 86 88/37 L 04/15/21 15:45 84 94/45 L 04/15/21 15:30 37.4 C 86 18 106/39 L 04/15/21 15:15 87 90/43 L 04/15/21 15:00 85 84/36 L 04/15/21 14:45 79 87/40 L 04/15/21 14:42 84 77/34 L 04/15/21 14:39 37.3 C 84 22 79/37 L 04/15/21 14:20 84 79/37 L 04/15/21 14:07 85 83/36 L 04/15/21 13:59 37.3 C 87 BP Pulse Ox 04/16/21 12:13 102/62 98 04/16/21 12:02 99/63 L 99 04/16/21 10:17 84/42 L 90 04/16/21 09:50 92 04/16/21 09:35 92 04/16/21 09:20 94 04/16/21 08:14 100/42 L 92 04/16/21 07:32 04/16/21 03:29 94/59 L 91 04/16/21 01:15 04/15/21 23:04 04/15/21 22:17 102/61 91 04/15/21 20:02 94/57 L 96 04/15/21 17:35 101/51 L 04/15/21 17:00 04/15/21 16:40 04/15/21 16:20 04/15/21 16:00 04/15/21 15:45 04/15/21 15:30 04/15/21 15:15 04/15/21 15:00 04/15/21 14:45 04/15/21 14:42 04/15/21 14:39 04/15/21 14:20 04/15/21 14:07 04/15/21 13:59 Transfer of Care Handoff Completed per policy Notes Mental Status: alert / awake / arousable and participated in evaluation Patient Amnestic to Procedure: Yes Nausea / Vomiting: adequately controlled Pain: adequately controlled Airway Patency, RR, SpO2: stable & adequate BP & HR: stable & adequate Hydration State: stable & adequate Anesthetic Complications: no major complications apparent and Pt Satisfied with anesthetic care
--- NOTE | 2021-04-16 13:35 | Discharge Summary ---
Date of Service April 16, 2021 Admission HPI Per Admitting Provider This is a 70-year-old female with past medical history significant for hyperlipidemia, obstructive sleep apnea, venous insufficiency, esophageal varices without bleeding, morbid obesity, cirrhosis of liver, portal hyp ertensive, GERD, generalized osteoarthrosis, lumbar degenerative disk disease, primary osteoarthritis, restless legs syndrome, neuropathy, thrombocytopenia, persistent insomnia, mixed incontinence, major depression, who presents with ongoing lower extremity edema. The patient says this is going on for a few weeks. She gained almost 30 pounds in 1 month. Her Lasix was increased to 40 b.i.d. and spironolactone was increased to 50 b.i.d., but still she gained about 5 pounds in the last 1 week when family doctor decided to send her to hospital for IV diuretics, but her kidney function also worsened. Creatinine was 2.2, baseline around 0.4. The patient lives alone. Appetite is okay. The patient has some chest heaviness, shortness of breath on exertion. No nausea, no vomiting. Takes lactulose. Moves couple of bowel movements every day. Denies any abdominal pain. No headache, no blurred visions, no earache, no runny nose, no sore throat, no cough, no fevers. Admission Exam Per Admitting Provider GENERAL: The patient is morbidly obese, not in acute distress. VITAL SIGNS: Temperature 36.7, pulse 85, respiratory rate 17, blood pressure 102/52, oxygen 97% on room air. HEENT: Pupils equal, round, and reactive to light. Oral mucosa moist. NECK: No JVD. No neck masses. CARDIOVASCULAR: S1 and S2 heard. Regular rate and rhythm. No murmur, no gallop. RESPIRATORY SYSTEM: Normal AP diameter. No accessory muscle use. No wheezing, no crackles. ABDOMEN: Umbilical hernia seen. Soft, bowel sounds present, nontender. CENTRAL NERVOUS SYSTEM: Cranial nerves appear grossly intact, nonfocal. EXTREMITIES: Bilateral lower extremity gross pedal edema present. Mild erythematous changes seen. Principal Diagnosis Acute renal failure (now requiring dialysis) LOJA cirrhosis Thrombocytopenia Anemia, acute on chronic Discharge Exam GENERAL: Obese F, in NAD, on room air HEENT: NC/AT. EOMI, PERRL. NECK: No JVD, no neck masses. HEART: S1 and S2 heard. Regular rate and rhythm. Systolic murmur over aortic and pulmonic area, no gallop. RESPIRATORY: Normal AP diameter. No accessory muscle use. No wheezing, no crackles. ABDOMEN: Soft, bowel sounds present, nontender, no distention. Hernia noted - stable, soft, no pain on palpation. NEURO: Alert and oriented and answering questions appropriately. No facial droop. Speech is clear. Obeys simple commands. Moves extremities. EXTREMITIES: 1+ BLE edema (improved), BLE chronic skin changes, no erythema seen. Right upper chest CVC hemodialysis catheter. Ecchymosis noted around the catheter and at R breast. Discharge Data Allergies Allergy/AdvReac Type Severity Reaction Status Date / Time No Known Allergies Allergy Unverified 03/29/21 19:44 Consultations 03/29/21 23:05 ED Decision to Admit Stat 03/30/21 08:00 Consult Gastroenterology Routine Consult Nephrology Routine 04/04/21 09:55 Consult Vascular Surgery Routine Procedures Performed Operation Date: 04/05/21 08:00 Actual Procedures p inerstion of perm catheter, right internal jugular approach, ultrasound localization of right internal jugular vein, fluroscopy of positioning, moderate sedation [id number](Right) - Robert Briceño MD Operation Date: 04/16/21 17:30 Actual Procedures p Esophagogastroduodenoscopy - Emily Garnica DO Ordered Studies 03/30/21 10:11 US renal/blad retro comp Routine 04/05/21 07:17 EV cvc insrt tunnel wo 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/food science technician Routine US EV guide vascular access Routine Hospital Course (1) Hepatorenal syndrome: (2) LOJA (nonalcoholic steatohepatitis): 70 yo F w/ hyperlipidemia, DANNIELLE, venous insufficiency, esophageal varices without bleeding, morbid obesity, cirrhosis of liver, portal hypertension, GERD, generalized osteoarthrosis, lumbar degenerative disk disease, primary osteoarthritis, restless legs syndrome, neuropathy, thrombocytopenia, persistent insomnia, mixed incontinence, major depression, who presented 03/30 with ongoing lower extremity edema for few weeks [employer] a/w 30 lbs wt gain in 1 month despite recent OP increase of lasix to 40 mg BID and spironolactone to 40 mg BID. The patient lives alone. She is being managed for the following: Acute renal failure (ARF): Baseline creatinine around 0.4, admitting creatinine 2.2 At admission, noted to have acute renal failure without significant chronic kidney disease in the past Could be secondary to ATN vs cirrhosis and hepatorenal syndrome Nephrology following: Obstruction has been ruled out, awaiting serological test [VIOLETTA/ANCA, C3-C4, CH 50, dsDNA, SPEP, FLC] find out the other causes of kidney impairment. Pt on Torsemide 100 daily Creatinine worsening since admission, patient did not make urine despite aggressive IV diuresis. 04/05 s/p tunnel CVC catheter placement , hemodialysis started 04/05 Strict I and Os. LOJA (nonalcoholic steatohepatitis): History of nonalcoholic steatohepatitis with hepatorenal syndrome INR is 1.5 and albumin is 1.9 on admission LFTs elevated at admission, trending down slowly. GI consulted: Considered transfer to [place] but, instead, if renal function does not improve then plan for dialysis and OP transplant eval. She will likely be worked up as an outpatient for possible liver transplant as per GI service Will monitor LFTs and INR. INR hovering in the range of 1.5-1.7. No signs of bleeding, however ecchymosis noted at right breast, HD catheter site. Bilateral lower extremity edema: Hypoxia: Infection ruled out, likely developing fluid collection secondary to anorexia states. Improving with dialysis. Hypoxia now resolved - pt on RA Presented with increasing bilateral leg swelling with weight gain of about 30 pounds in 1 month Did not improve with outpatient increasing dose of oral Lasix and Aldactone Has history of cirrhosis of the liver and is complicating the edema Has received intravenous albumin and Lasix in the hospital Nephrology is following Improving with dialysis. Anemia -In the setting of renal failure, liver disease, thrombocytopenia -Hemoglobin has been trending down (possibly also secondary to frequent blood draws) -hemoglobin 7.5, FOBT positive started IV PPI Transfused 1 unit of pRBC - consent obtained GI consulted - now pt s/p EGD (04/16) Findings: The esophagus was normal. Moderate portal hypertensive gastropathy was found in the entire examined stomach. The examined duodenum was normal. Impression: - Normal esophagus. No varices. - Portal hypertensive gastropathy. - No fresh or altered blood. No ulcers. - Normal examined duodenum. - No specimens collected. Recommendation: - Resume previous diet. Thrombocytopenia: Platelet count has been low and is running around upper 50s which is secondary to cirrhosis Platelet count runs around upper 50s - 60s DANNIELLE (obstructive sleep apnea): Uses her own CPAP Morbid obesity - counseling provided Hyperlipidemia-continue statin CODE STATUS: Full code. Disposition: Apolonia Goff Total Time Total Time Spent Total Time Spent (In Minutes): 40 Discharge Plan Discharge Items Patient Disposition: Transfer [facility] Reason For Visit: EDEMA Discharge Diagnosis: Acute renal failure (now requiring dialysis) LOJA cirrhosis Thrombocytopenia Anemia, acute on chronic Activity: Per Instructions section Non-emergency contact: Primary Care Provider, [employer] Call non-emergency contact if: you have any medication questions and your symptoms worsen Follow-up/Referrals: Filomena Monson DO [Primary Care Provider] - Diet: Dialysis Renal Addtl Attending Provider Instructions: You will need to closely follow-up with your primary care doctor, nephrology and gastroenterology. You will be contacted about these appointments. As discussed earlier, gastroenterology office will likely refer you for liver transplant evaluation. Do not use indomethacin or any other NSAIDs, such as Aleve ibuprofen, Motrin. You were started on a new medication, (water pill)- torsemide 100 mg daily. Continue with dialysis per nephrology recommendations. Do not take Lasix or spironolactone. Follow-up with your healthcare providers closely. Pending Studies at Discharge: No Stand-Alone Forms: My [facility] Skilled Items Patient informed of condition?: Yes DNR: No Discharge Level of Care: Skilled Communicable Disease: No Discharge Prognosis: Stable Lines: Enrique Urinary Catheter: No Medications and DC Order Prescriptions: New torsemide 100 mg Tablet 100 mg PO QAM Qty: 30 RF: 0 Continued atorvastatin [Lipitor] 80 mg tablet 80 mg PO QAM RF: 0 sertraline [Zoloft] 100 mg Tablet 100 mg PO QAM RF: 0 omeprazole 40 mg capsule,delayed release(DR/EC) 40 mg PO QAM RF: 0 cholecalciferol (vitamin D3) [Vitamin D3] 25 mcg (1,000 unit) Tablet 50 mcg PO QAM RF: 0 Xifaxan 550 mg tablet 550 mg PO BID RF: 0 magnesium oxide 420 mg tablet 420 mg PO DAILY Qty: 14 RF: 0 lactulose 20 gram/30 mL Solution 20 g PO BID Qty: 1200 RF: 0 Advanced Probiotic 625 mg (10 billion cell) Capsule 2 cap PO DAILY Qty: 30 RF: 0 potassium chloride 20 mEq tablet,ER particles/crystals 20 meq PO DAILY RF: 0 gabapentin 100 mg capsule 100 mg PO BID RF: 0 Discontinued indomethacin 25 mg capsule 25 mg PO TID PRN (Reason: Pain) RF: 0 spironolactone [Aldactone] 50 mg tablet 50 mg PO BIDM RF: 0 cefdinir 300 mg capsule 300 mg PO BID RF: 0 furosemide [Lasix] 20 mg tablet 40 mg PO BIDM RF: 0 Discharge Orders: Discharge Order (Routine); Ordered 04/16/21 Ordered By: Gonzalo Kate Admission Data Admit Date/Time: 03/30/21 00:52 Attending Provider: Gonzalo Kate Admit Provider: Trent Huber Primary Care Provider: Filomena Monson Other Providers: Santos Peck ; Trent Huber ; Eleni Jacobs ; Katja Stevens ; Robert Briceño ; Thomas Montes
[2021-04-17] MEDS: ACETAMINOPHEN 325 MG TAB PO PRN (02:48)
[2021-04-17] MEDS: PANTOprazole 40 MG in DEXTROSE 5% 100 ML IV SCH ×2 (02:48→02:50)
[2021-04-17 09:00] LABS: Hematocrit (blood only) 26.8 % (37-47); Hemoglobin 8.4 g/dL (12.0-16.0); Mean Corpuscular Hemoglobin 31.2 pg (25-34); Mean Corpuscular Hgb Conc 31.3 g/dL (32-36); Mean Corpuscular Volume 99.6 fL (80-100); Platelet Count 53 K/uL (130-400); RDW Coefficient of Variation 21.7 % (11.5-14.5); Red Blood Count 2.69 M/uL (4.2-5.4); White Blood Count 5.12 K/uL (4.8-10.8)
[2021-04-17] MEDS: ATORVASTATIN 40 MG TAB PO SCH (09:07)
[2021-04-17] MEDS: rifAXIMin 550 MG TABLET PO SCH (09:08)
[2021-04-17] MEDS: MAGNESIUM OXIDE 400 MG TAB PO SCH (09:08)
[2021-04-17] MEDS: TORSEMIDE 100 MG TAB PO SCH (09:08)
[2021-04-17] MEDS: ADVANCED PROBIOTIC 1250 MG CAPSULE PO SCH (09:08)
[2021-04-17] MEDS: SERTRALINE HCL 100 MG TABLET PO SCH (09:08)
[2021-04-17] MEDS: CHOLECALCIFEROL 1,000 UNITS 25 MCG TAB PO SCH (09:08)
[2021-04-17] MEDS: LACTULOSE SYRUP 20 GM/30 ML UDC PO SCH (09:09)
[2021-04-17] MEDS: GABAPENTIN 100 MG CAP PO SCH (09:09)
[2021-04-17 09:12] LABS: BUN Creatinine Ratio 5.8 (10-20); Calcium 8.7 mg/dl (8.5-10.1); Creatinine Clr Calc Pharmacy 13.9 ml/min; Est GFR (African American) 10.7 ml/min; Est GFR (Non-African American) 9.3 ml/min; Magnesium 2.2 mg/dl (1.8-2.4); Potassium 3.8 mmol/L (3.5-5.1)
--- NOTE | 2021-04-17 10:21 | Nephrology Progress Note ---
Date of Service April 17, 2021 Assessment & Plan Admission and Anticipated Discharge Date Admission Date: March 30, 2021 Subjective Assessment & Plan (1) Acute renal failure (ARF): Plan: oliguric SEVEN remains dependent on dialysis now This lady had normal renal function until late february, when there was a sudden jump in her serum creatinine with increase in her bilateral pedal edema, not responsive to oral diuretic Her albumin was low at 1.9,( now 2.5); she had been on indomethacin and has got liver pathology. Most likely ATN vs AIN and Low Likelihood GN given only 300 mg proteinuria. 360 mg protein on 24 hr specimen FLC both elevated but ratio not inappropriate for renal disease serologies remarkable for low complement--to be expected given super low alb and liver Dz. VIOLETTA/ANCA, CH 50, double-stranded DNA, SPEP>all negative plan Continue torsemide avoid Nephrotoxins; CT with contrast only with if lifesaving. Daily BMP, >Strict input and output -monitor for renal recovery outpt also (2) Bilateral lower extremity edema: Plan: improving w/ dialysis and diuretics (3) LOJA (nonalcoholic steatohepatitis): Plan: w/ cirrhosis. for OP f/ w GI Admission and Anticipated Discharge Date Admission Date: March 30, 2021 Subjective No new issues. Feels fine. CVC fine. BP already low at 87 systolic. Review of Systems Review of Systems: All systems reviewed & are unremarkable except as noted in Subjective Physical Exam Constitutional: well developed, well nourished and cooperative; no acute distress Eyes: EOM intact bilaterally ENMT: Ears: no external ear abnormality Nose: no external nose abnormality Mouth: + dry oral mucous membranes Neck: no nuchal rigidity Respiratory: normal respiratory effort Auscultation: + diminished lung sounds Cardiovascular: Rate/Rhythm: regular rate and regular rhythm Extremities: + edema Gastrointestinal (Abdomen): Inspection/Auscultation: + abdomen distended and normal bowel sounds Percussion/Palpation: abdomen soft; abdomen nontender Musculoskeletal: Extremities: strength 5/5 throughout Skin: no rashes, warm and dry + ecchymosis Psychiatric: Orientation: oriented x 3 Results & Data ([facility]) Vital Signs (Past 12 Hours) Vital Signs Temp Pulse Pulse Resp BP Pulse Ox 04/17/21 07:35 85 04/17/21 07:31 37.3 C 84 18 95/57 L 90 04/17/21 02:22 37.1 C 04/17/21 01:07 37.8 C H 91 H 18 115/66 92 04/16/21 23:00 88
--- NOTE | 2021-04-17 20:48 | Discharge Summary ---
Date of Service April 17, 2021 Admission HPI Per Admitting Provider This is a 70-year-old female with past medical history significant for hyperlipidemia, obstructive sleep apnea, venous insufficiency, esophageal varices without bleeding, morbid obesity, cirrhosis of liver, portal hype rtensive, GERD, generalized osteoarthrosis, lumbar degenerative disk disease, primary osteoarthritis, restless legs syndrome, neuropathy, thrombocytopenia, persistent insomnia, mixed incontinence, major depression, who presents with ongoing lower extremity edema. The patient says this is going on for a few weeks. She gained almost 30 pounds in 1 month. Her Lasix was increased to 40 b.i.d. and spironolactone was increased to 50 b.i.d., but still she gained about 5 pounds in the last 1 week when family doctor decided to send her to hospital for IV diuretics, but her kidney function also worsened. Creatinine was 2.2, baseline around 0.4. The patient lives alone. Appetite is okay. The patient has some chest heaviness, shortness of breath on exertion. No nausea, no vomiting. Takes lactulose. Moves couple of bowel movements every day. Denies any abdominal pain. No headache, no blurred visions, no earache, no runny nose, no sore throat, no cough, no fevers. Admission Exam Per Admitting Provider GENERAL: The patient is morbidly obese, not in acute distress. VITAL SIGNS: Temperature 36.7, pulse 85, respiratory rate 17, blood pressure 102/52, oxygen 97% on room air. HEENT: Pupils equal, round, and reactive to light. Oral mucosa moist. NECK: No JVD. No neck masses. CARDIOVASCULAR: S1 and S2 heard. Regular rate and rhythm. No murmur, no gallop. RESPIRATORY SYSTEM: Normal AP diameter. No accessory muscle use. No wheezing, no crackles. ABDOMEN: Umbilical hernia seen. Soft, bowel sounds present, nontender. CENTRAL NERVOUS SYSTEM: Cranial nerves appear grossly intact, nonfocal. EXTREMITIES: Bilateral lower extremity gross pedal edema present. Mild erythematous changes seen. Principal Diagnosis Acute renal failure (now requiring dialysis) LOJA cirrhosis Thrombocytopenia Anemia, acute on chronic Discharge Exam GENERAL: Alert and oriented x3. NAD, on room air HEENT: No pallor, no icterus. Pupils equal, round and reactive to light. Oral mucosa moist. NECK: No JVD, no neck masses. HEART: S1 and S2 heard. Regular rate and rhythm. Systolic murmur over aortic and pulmonic area, no gallop. RESPIRATORY SYSTEM: Normal AP diameter. No accessory muscle use. No wheezing, no crackles. ABDOMEN: Soft, bowel sounds present, nontender, no distention. Hernia noted - stable. CENTRAL NERVOUS SYSTEM: No facial droop. Speech is clear. Obeys simple commands. Moves extremities. EXTREMITIES: 1-2+ BLE edema, BLE chronic skin changes, no erythema seen. Right upper chest CVC hemodialysis catheter. Bruise cleared significantly. Discharge Data Allergies Allergy/AdvReac Type Severity Reaction Status Date / Time No Known Allergies Allergy Unverified 03/29/21 19:44 Consultations 03/29/21 23:05 ED Decision to Admit Stat 03/30/21 08:00 Consult Gastroenterology Routine Consult Nephrology Routine 04/04/21 09:55 Consult Vascular Surgery Routine Procedures Performed Operation Date: 04/05/21 08:00 Actual Procedures p inerstion of perm catheter, right internal jugular approach, ultrasound localization of right internal jugular vein, fluroscopy of positioning, moderate sedation [id number](Right) - Robert Briceño MD Operation Date: 04/16/21 17:30 Actual Procedures p Esophagogastroduodenoscopy - Emily Garnica, Ordered Studies 03/30/21 10:11 US renal/blad retro comp Routine 04/05/21 07:17 EV cvc insrt tunnel wo prt/sheet manufacturing supervisor Routine US EV guide vascular access Routine Hospital Course (1) Hepatorenal syndrome: (2) LOJA (nonalcoholic steatohepatitis): 70 yo F w/ hyperlipidemia, DANNIELLE, venous insufficiency, esophageal varices without bleeding, morbid obesity, cirrhosis of liver, portal hypertension, GERD, generalized osteoarthrosis, lumbar degenerative disk disease, primary osteoarthritis, restless legs syndrome, neuropathy, thrombocytopenia, persistent insomnia, mixed incontinence, major depression, who presented 03/30 with ongoing lower extremity 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 The patient lives alone. She was managed for the following: Acute renal failure (ARF): Baseline creatinine around 0.4, admitting creatinine 2.2 At admission, noted to have acute renal failure without significant chronic kidney disease in the past Could be secondary to ATN vs cirrhosis and hepatorenal syndrome Nephrology following: Obstruction has been ruled out, awaiting serological test [VIOLETTA/ANCA, C3-C4, CH 50, dsDNA, SPEP, FLC] find out the other causes of kidney impairment. Pt on Torsemide 100 daily per nephro Creatinine worsening since admission, patient did not make urine despite aggressive IV diuresis. 04/05 s/p tunnel CVC catheter placement , hemodialysis started 04/05 LOJA (nonalcoholic steatohepatitis): History of nonalcoholic steatohepatitis with hepatorenal syndrome INR is 1.5 and albumin is 1.9 on admission LFTs elevated at admission, trending down slowly. GI evaluated while inpatient, recommends outpatient transplant evaluation. Patient will need to follow-up with GI as an outpatient. She will be worked up as an outpatient for possible liver transplant per GI service. Bilateral lower extremity edema: Hypoxia: Infection ruled out, likely developing fluid collection secondary to anorexia states. Improving with dialysis. Hypoxia now resolved - pt on RA Presented with increasing bilateral leg swelling with weight gain of about 30 pounds in 1 month Did not improve with outpatient increasing dose of oral Lasix and Aldactone Has history of cirrhosis of the liver and is complicating the edema Has received intravenous albumin and Lasix in the hospital Nephrology is following Improved with dialysis. Anemia -In the setting of renal failure, liver disease, thrombocytopenia -Hemoglobin has been trending down (possibly also secondary to frequent blood draws) -hemoglobin 7.5, FOBT positive started IV PPI Transfused 1 unit of pRBC - consent obtained GI consulted - now pt s/p EGD (04/16) Findings: The esophagus was normal. Moderate portal hypertensive gastropathy was found in the entire examined stomach. The examined duodenum was normal. Impression: - Normal esophagus. No varices. - Portal hypertensive gastropathy. - No fresh or altered blood. No ulcers. - Normal examined duodenum. - No specimens collected. Recommendation: - Resume previous diet. Thrombocytopenia: Platelet count has been low and is running around upper 50s which is secondary to cirrhosis Platelet count runs around upper 50s - 60s DANNIELLE (obstructive sleep apnea): Uses her own CPAP Morbid obesity - counseling provided Hyperlipidemia-continue statin CODE STATUS: Full code. Patient being discharged to SNF with following recommendation at the point of discharge: You will need to closely follow-up with your primary care doctor, nephrology and gastroenterology. You will be contacted about these appointments. As discussed earlier, gastroenterology office will likely refer you for liver transplant evaluation. Do not use indomethacin or any other NSAIDs, such as Aleve ibuprofen, Motrin. You were started on a new medication, (water pill)- torsemide 100 mg daily. Continue with dialysis per nephrology recommendations. Do not take Lasix or spironolactone. Follow-up with your healthcare providers closely. Total Time Total Time Spent Total Time Spent (In Minutes): 40 Discharge Plan Discharge Items Patient Disposition: Transfer Assisted Fac Reason For Visit: EDEMA Discharge Diagnosis: Acute renal failure (now requiring dialysis) LOJA cirrhosis Thrombocytopenia Anemia, acute on chronic Activity: Per Instructions section Non-emergency contact: Primary Care Provider, [employer] Call non-emergency contact if: you have any medication questions and your symptoms worsen Follow-up/Referrals: Filomena Monson DO [Primary Care Provider] - Oliva Howell CRNP [Nurse Practitioner] - (Date & Time 05/03/2021 10:30 AM Provider [facility] Department Gastroenterology [facility] ) Diet: Dialysis Renal Addtl Attending Provider Instructions: You will need to closely follow-up with your primary care doctor, nephrology and gastroenterology. You will be contacted about these appointments. As discussed earlier, gastroenterology office will likely refer you for liver transplant evaluation. Do not use indomethacin or any other NSAIDs, such as Aleve ibuprofen, Motrin. You were started on a new medication, (water pill)- torsemide 100 mg daily. Continue with dialysis per nephrology recommendations. Do not take Lasix or spironolactone. Follow-up with your healthcare providers closely. Pending Studies at Discharge: No Stand-Alone Forms: My [facility] [employer] Skilled Items Patient informed of condition?: Yes DNR: No Discharge Level of Care: Skilled Communicable Disease: No Discharge Prognosis: Stable Lines: Enrique Urinary Catheter: No Medications and DC Order Prescriptions: New torsemide 100 mg Tablet 100 mg PO QAM Qty: 30 RF: 0 Continued atorvastatin [Lipitor] 80 mg tablet 80 mg PO QAM RF: 0 sertraline [Zoloft] 100 mg Tablet 100 mg PO QAM RF: 0 omeprazole 40 mg capsule,delayed release(DR/EC) 40 mg PO QAM RF: 0 cholecalciferol (vitamin D3) [Vitamin D3] 25 mcg (1,000 unit) Tablet 50 mcg PO QAM RF: 0 Xifaxan 550 mg tablet 550 mg PO BID RF: 0 magnesium oxide 420 mg tablet 420 mg PO DAILY Qty: 14 RF: 0 lactulose 20 gram/30 mL Solution 20 g PO BID Qty: 1200 RF: 0 Advanced Probiotic 625 mg (10 billion cell) Capsule 2 cap PO DAILY Qty: 30 RF: 0 potassium chloride 20 mEq tablet,ER particles/crystals 20 meq PO DAILY RF: 0 gabapentin 100 mg capsule 100 mg PO BID RF: 0 Discontinued indomethacin 25 mg capsule 25 mg PO TID PRN (Reason: Pain) RF: 0 spironolactone [Aldactone] 50 mg tablet 50 mg PO BIDM RF: 0 cefdinir 300 mg capsule 300 mg PO BID RF: 0 furosemide [Lasix] 20 mg tablet 40 mg PO BIDM RF: 0 Discharge Orders: Discharge Order (Routine); Ordered 04/17/21 Ordered By: Thomas Montes Admission Data Admit Date/Time: 03/30/21 00:52 Attending Provider: Thomas Montes Admit Provider: Trent Huber Primary Care Provider: Filomena Monson Other Providers: Santos Peck ; Trent Huber ; Eleni Jacobs ; Katja Stevens ; Robert Briceño ; Thomas Montes Other Interventions: Discharge Summary Assessment (RN) Last Done: 04/17/21 11:04
== END 2021-04-17 12:10 | DRG 441 ==
LOC: ED 15:06 → EDINP 03-30 00:52 → SUATTDRO 03-30 00:52 → 2N 03-30 01:00 → 2W 04-03 18:18
DX: Z68.41 Body mass index [BMI] 40.0-44.9, adult; K75.81 Nonalcoholic steatohepatitis (NASH); E78.5 Hyperlipidemia, unspecified; E66.01 Morbid (severe) obesity due to excess calories; Z80.3 Family history of malignant neoplasm of breast; D69.6 Thrombocytopenia, unspecified; N17.0 Acute kidney failure with tubular necrosis; Z82.49 Family history of ischemic heart disease and other diseases of the circulatory system; K21.9 Gastro-esophageal reflux disease without esophagitis; G47.33 Obstructive sleep apnea (adult) (pediatric); D64.9 Anemia, unspecified; Z87.891 Personal history of nicotine dependence; M81.0 Age-related osteoporosis without current pathological fracture; K76.7 Hepatorenal syndrome; Z80.42 Family history of malignant neoplasm of prostate

== ENCOUNTER 2021-05-14 17:43 | Inpatient (IN) ==
--- NOTE | 2021-05-14 17:55 | Emergency Department Note ---
Impression & Plan Hypoxia Admission ED Provider Note HPI: Patient arrived to the ED via EMS ambulance The patient is a 70-year-old female with history of LOJA, hyperlipidemia, who presents the emergency department chief complaint shortness of breath. Patient states that she has had symptoms now for about 6 or 7 days. States she has had sinus congestion, chest congestion, shortness of breath. She did test positive for COVID-19 on May 10 at an outpatient facility in [place]. Patient states she is vaccinated against COVID-19. Patient states her symptoms seem to be worsening since then. Per report she was saturating in the 70s in the field, on arrival here on 4 L nasal cannula oxygen she is saturating at 97%. She displays mild increased work of breathing, denies any chest pain, denies any body aches, denies any nausea or vomiting. Patient is otherwise nontoxic-a ppearing on my initial assessment. ROS: -Pulmonary: Shortness of breath, COVID-19 positive status *10 point review systems was conducted and is otherwise negative unless stated above *Outpatient medications and allergy history reviewed PE: General: Alert, NAD HEENT: Normocephalic, atraumatic, trachea midline Eyes: Extraocular eye movement is intact, no scleral erythema Pulmonary: Diminished bilaterally without crackles or wheezing Cardio: Regular rate and rhythm GI: Abdomen is soft, nontender : No suprapubic tenderness MSK: No evidence of trauma or malformation of the extremities, no edema Skin: No evidence of rash Neuro: Alert, no focal deficits 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 Patient denies any chest pain on arrival, she is hemodynamically stable on arrival aside from the fact that she does require 4 L nasal cannula oxygen to maintain her oxygen saturations above 92%. She exhibits mild increased work of breathing. Labwork was obtained and shows evidence of baseline renal failure, leukopenia, also baseline anemia. Patient's troponin is slightly elevated at 0.06 in conjunction with her renal failure, she does not any chest pain, her EKG does not show any ischemic changes, I have low suspicion for ACS. COVID-19 testing was ordered and is actually negative here in the ED however she was influenza A positive. This could potentially be the source of her symptoms. I have lower suspicion for PE as the cause of her symptoms given finding of pneumonia on [address] x-ray and influenza A infection, in addition the patient does not have any chest pain, she has CKD with reduced GFR will avoid contrast load and will forego CT angiography. Interventions included IV Decadron, p.o. aspirin. Imaging was obtained to include chest x-ray which shows mild bilateral airspace disease possibly consistent with pneumonia or pulmonary edema. Procalcitonin is also elevated. Given the finding of pneumonia on chest x-ray with elevated procalcitonin and leukopenia patient will be treated with ceftriaxone and azithromycin, blood cultures were ordered from the ED. I discussed the above findings with the patient she is in agreement for admission. On re-evaluation patient remains hemodynamically stable on 3 L nasal cannula oxygen. Will avoid IV fluids at this time secondary to possible pulmonary edema on chest x-ray with the patient's hypoxia. She is in agreement to the above plan. Case was discussed with the on-call hospitalist for [facility] and the patient was admitted in stable condition. * CRITICAL CARE TIME: 33 minutes -Stabilization of hypoxia with oxygen saturations less than 90% on room air requiring supplemental oxygen via nasal cannula to maintain oxygen saturations greater than 92%, interpretation of diagnostic studies, time spent at the bedside, discussion with other healthcare providers, arrangement of admission Diagnosis: 1. Hypoxia 2. Elevated troponin level 3. Influenza A infection 4. Community-acquired pneumonia 5. Chronic kidney disease Disposition: Admission Alexys Herzog DO Emergency Medicine Past Med/Surg History Medical History (Updated 05/14/21 @ 19:56 by Alexys Herzog DO) Acute renal failure (ARF) Bilateral lower extremity edema Cirrhosis Encounter for pre-operative examination Hepatic encephalopathy Hepatorenal syndrome Hyperlipidemia LOJA (nonalcoholic steatohepatitis) DANNIELLE (obstructive sleep apnea) Osteoporosis Thrombocytopenia Surgical History History of hernia repair Social History Smoking Status: Former smoker Tobacco Type: Cigarettes Second Hand Exposure: No; Hx Alcohol Use: No Hx Substance Use: No Preferred Language: Guyanese Communication Ability: Effective Facing Machine Operator Required: No Beliefs That Will Affect Care: None Current Living Situation: Alone Current Living Situation Comment: Lives at home with Son Feels Safe at Home: Yes Assistive Devices: Glasses and Walker Allergies Allergies Allergy/AdvReac Type Severity Reaction Status Date / Time No Known Allergies Allergy Verified 05/14/21 18:48 Home Meds Home Medications Medication Instructions Recorded Confirmed atorvastatin 80 mg tablet (Lipitor) 80 mg PO QAM 12/07/20 05/14/21 cholecalciferol (vitamin D3) 25 50 mcg PO QAM 12/07/20 05/14/21 mcg (1,000 unit) tablet (Vitamin D3) omeprazole 40 mg capsule,delayed 40 mg PO QAM 12/07/20 05/14/21 release rifaximin 550 mg tablet (Xifaxan) 550 mg PO BID 12/07/20 05/14/21 sertraline 100 mg tablet (Zoloft) 100 mg PO QAM 12/07/20 05/14/21 gabapentin 100 mg capsule 100 mg PO BID 03/29/21 05/14/21 potassium chloride 20 mEq 20 meq PO DAILY 03/29/21 05/14/21 tablet,extended release(part/cryst) Previous Rx's Medication Instructions Recorded magnesium oxide 420 mg tablet 420 mg PO DAILY #14 tab 12/10/20 L.acidop,casei,lactis,rham-B.lact,lm 2 cap PO DAILY #30 cap 01/06/21 625 mg (10 billion cell) capsule (Advanced Probiotic) lactulose 20 gram/30 mL oral 20 g PO BID #1200 ml 01/06/21 solution torsemide 100 mg tablet 100 mg PO QAM #30 tab 04/16/21 Results & Data (ED) Vital Signs Vital Signs - 24 hr 05/14/21 17:56 05/14/21 18:00 Temperature 37.7 C H Temperature Source Oral Pulse Rate 87 86 Pulse Rhythm Regular Pulse Strength Normal Respiratory Rate 20 19 Respiratory Effort / Characteristics Non-Labored Respiratory Depth Normal Respiratory Pattern Regular Blood Pressure 111/37 L Blood Pressure Mean 61 Blood Pressure Position Lying Pulse Oximetry 80 L 98 Oxygen Delivery Method Room Air Nasal Cannula Oxygen Flow Rate 3 Sepsis Recent Fever Within 48 Hours No Sepsis New/Unexplained Change in Mental Status No Sepsis Action Taken by Nursing No Action Required Laboratory Data Result diagrams: 05/14/21 18:05 05/14/21 18:05 Lab Results 05/14/21 05/14/21 05/14/21 Range/Units 18:05 18:05 18:05 WBC 4.63 L (4.8-10.8) K/uL RBC 2.82 L (4.2-5.4) M/uL Hgb 8.7 L (12.0-16.0) g/dL Hct 27.4 L (37-47) % MCV 97.2 (80-100) fL MCH 30.9 (25-34) pg MCHC 31.8 L (32-36) g/dL RDW Std Deviation 74.7 H (36.4-46.3) fL RDW Coeff of Blanca 21.1 H (11.5-14.5) % Plt Count 37 L (130-400) K/uL Immature Gran % (Auto) 0.2 % Neut % (Auto) 67.0 % Lymph % (Auto) 19.4 % [place] % (Auto) 10.2 % Eos % (Auto) 3.0 % Baso % (Auto) 0.2 % Neut # (Auto) 3.10 (1.4-6.5) K/uL Lymph # (Auto) 0.90 L (1.2-3.4) K/uL [place] # (Auto) 0.47 (0.11-0.59) K/uL Eos # (Auto) 0.14 (0-0.5) K/uL Baso # (Auto) 0.01 (0-0.2) K/uL Immature Gran # (Auto) 0.01 (0.00-0.02) K/uL Platelet Estimate SIGNIFIC DECREASED (Normal) Poikilocytosis Present Anisocytosis Present PT 23.0 H (9.0-12.0) Seconds INR 2.4 H (0.9-1.1) APTT 52.6 H* (21.0-31.0) Seconds PTT Ratio 2.0 VBG pH (7.36-7.41) VBG pCO2 (38-50) mmHg VBG pO2 mmHg VBG HCO3 mmol/L VBG O2 Saturation % VBG Base Excess mEq/L Barometric Pressure mm/Hg Sodium 138 (136-145) mmol/L Potassium 3.3 L (3.5-5.1) mmol/L Chloride 100 (98-107) mmol/L Carbon Dioxide 34 H (21-32) mmol/L Anion Gap 4.0 (3-11) BUN 13 (7-18) mg/dl Creatinine 2.38 H (0.6-1.2) mg/dl Est Cr Clr Drug Dosing 25.2 ml/min Est GFR ( Amer) 23.3 ml/min Est GFR (Non-Af Amer) 20.1 ml/min BUN/Creatinine Ratio 5.4 L (10-20) Glucose 97 (70-99) mg/dl Calcium 7.7 L (8.5-10.1) mg/dl Total Bilirubin 4.2 H (0.2-1) mg/dl AST 247 H (15-37) U/L ALT 93 H (12-78) Alkaline Phosphatase 145 H (45-117) U/L Troponin I 0.064 H* (0-0.045) ng/ml NT-Pro-B Natriuret Pep 8201 H (0-900) pg/ml Total Protein 4.7 L (6.4-8.2) gm/dl Albumin 2.8 L (3.4-5.0) gm/dl Globulin 1.9 L (2.5-4.0) gm/dl Albumin/Globulin Ratio 1.5 (0.9-2) Procalcitonin (0-0.5) ng/ml SARS-CoV-2 (PCR) (Negative) Influenza Type A (PCR) (Neg) Influenza Type B (PCR) (Neg) RSV (RT-PCR) (Neg) 05/14/21 05/14/21 05/14/21 Range/Units 18:05 18:06 18:29 WBC (4.8-10.8) K/uL RBC (4.2-5.4) M/uL Hgb (12.0-16.0) g/dL Hct (37-47) % MCV (80-100) fL MCH (25-34) pg MCHC (32-36) g/dL RDW Std Deviation (36.4-46.3) fL RDW Coeff of Blanca (11.5-14.5) % Plt Count (130-400) K/uL Immature Gran % (Auto) % Neut % (Auto) % Lymph % (Auto) % [place] % (Auto) % Eos % (Auto) % Baso % (Auto) % Neut # (Auto) (1.4-6.5) K/uL Lymph # (Auto) (1.2-3.4) K/uL [place] # (Auto) (0.11-0.59) K/uL Eos # (Auto) (0-0.5) K/uL Baso # (Auto) (0-0.2) K/uL Immature Gran # (Auto) (0.00-0.02) K/uL Platelet Estimate (Normal) Poikilocytosis Anisocytosis PT (9.0-12.0) Seconds INR (0.9-1.1) APTT (21.0-31.0) Seconds PTT Ratio VBG pH 7.39 (7.36-7.41) VBG pCO2 58 H (38-50) mmHg VBG pO2 33 mmHg VBG HCO3 35 mmol/L VBG O2 Saturation < 60.0 % VBG Base Excess 8.5 mEq/L Barometric Pressure 727.1 mm/Hg Sodium (136-145) mmol/L Potassium (3.5-5.1) mmol/L Chloride (98-107) mmol/L Carbon Dioxide (21-32) mmol/L Anion Gap (3-11) BUN (7-18) mg/dl Creatinine (0.6-1.2) mg/dl Est Cr Clr Drug Dosing ml/min Est GFR ( Amer) ml/min Est GFR (Non-Af Amer) ml/min BUN/Creatinine Ratio (10-20) Glucose (70-99) mg/dl Calcium (8.5-10.1) mg/dl Total Bilirubin (0.2-1) mg/dl AST (15-37) U/L ALT (12-78) Alkaline Phosphatase (45-117) U/L Troponin I (0-0.045) ng/ml NT-Pro-B Natriuret Pep (0-900) pg/ml Total Protein (6.4-8.2) gm/dl Albumin (3.4-5.0) gm/dl Globulin (2.5-4.0) gm/dl Albumin/Globulin Ratio (0.9-2) Procalcitonin 0.83 H (0-0.5) ng/ml SARS-CoV-2 (PCR) NEGATIVE (Negative) Influenza Type A (PCR) Positive A* (Neg) Influenza Type B (PCR) Negative (Neg) RSV (RT-PCR) Negative (Neg) Administered Medications Discontinued Medications Aspirin (Aspirin Chew 324 Mg) 324 mg PO NOW STA Stop: 05/14/21 19:06 Last Admin: 05/14/21 19:15 Dose: 324 mg Documented by: [id number] Dexamethasone Sodium Phosphate (DexamethasonePf 10 Mg/Ml Vial) 10 mg IV NOW ONE Stop: 05/14/21 17:58 Last Admin: 05/14/21 18:12 Dose: 10 mg Documented by: [id number] Sodium Chloride (Nss) 500 mls @ 999 mls/hr IV .Q31M STA Stop: 05/14/21 18:27 Last Admin: 05/14/21 18:17 Dose: Not Given Documented by: [id number] Imaging Data Radiologist's Impression: Chest X-Ray 05/14/21 17:57 XR chest 1V portable CLINICAL HISTORY: Dyspnea COMPARISON STUDY: Chest radiograph April 04, 2021. Chest CT December 08, 2020. FINDINGS: Dual lumen right internal jugular central line is in place. There are cholecystectomy clips. No pneumothorax or pleural effusion is identified. There is mild interstitial thickening. There may be mild bilateral airspace opacities. Cardiomediastinal silhouette is stable. IMPRESSION: Interstitial thickening with possible mild bilateral airspace opacities. Mild pulmonary edema is favored. An infectious process could appear similar. Radiographic follow up to ensure resolution is recommended. ACT 112: Negative or not required by law. Electronically signed by: Devin Linton M.D. 05/14/2021 6:33 PM Discharge Plan Visit Data Chief Complaint: Illness Stated Complaint: Illness ED Provider: Alexys Herzog Discharge Problem: Hypoxia Forms Stand Alone Forms: My [facility] [employer] Prescriptions Prescriptions: No Action atorvastatin [Lipitor] 80 mg tablet 80 mg PO QAM RF: 0 sertraline [Zoloft] 100 mg Tablet 100 mg PO QAM RF: 0 omeprazole 40 mg capsule,delayed release(DR/EC) 40 mg PO QAM RF: 0 cholecalciferol (vitamin D3) [Vitamin D3] 25 mcg (1,000 unit) Tablet 50 mcg PO QAM RF: 0 Xifaxan 550 mg tablet 550 mg PO BID RF: 0 magnesium oxide 420 mg tablet 420 mg PO DAILY Qty: 14 RF: 0 lactulose 20 gram/30 mL Solution 20 g PO BID Qty: 1200 RF: 0 Advanced Probiotic 625 mg (10 billion cell) Capsule 2 cap PO DAILY Qty: 30 RF: 0 potassium chloride 20 mEq tablet,ER particles/crystals 20 meq PO DAILY RF: 0 gabapentin 100 mg capsule 100 mg PO BID RF: 0 torsemide 100 mg Tablet 100 mg PO QAM Qty: 30 RF: 0 Referrals Referrals: Filomena Monson DO [Primary Care Provider] -
[2021-05-14] MEDS ORDERED: dexAMETHasone**PF** 10 MG/ML VIAL IV ONE (17:57)
[2021-05-14] MEDS ORDERED: SODIUM CHLORIDE 0.9% 500 ML IV STA (17:57)
[2021-05-14 18:23] LABS: Mean Corpuscular Hgb Conc 31.8 g/dL (32-36)
[2021-05-14 18:30] LABS: Hematocrit (blood only) 27.4 % (37-47); Hemoglobin 8.7 g/dL (12.0-16.0); Mean Corpuscular Hemoglobin 30.9 pg (25-34); Mean Corpuscular Volume 97.2 fL (80-100); RDW Coefficient of Variation 21.1 % (11.5-14.5); RDW Standard Deviation 74.7 fL (36.4-46.3); Red Blood Count 2.82 M/uL (4.2-5.4); White Blood Count 4.63 K/uL (4.8-10.8)
--- NOTE | 2021-05-14 18:34 | XRay Report ---
XR chest 1V portable CLINICAL HISTORY: Dyspnea COMPARISON STUDY: Chest radiograph April 04, 2021. Chest CT December 08, 2020. FINDINGS: Dual lumen right internal jugular central line is in place. There are cholecystectomy clips . No pneumothorax or pleural effusion is identified. There is mild interstitial thickening. There may be mild bilateral airspace opacities. Cardiomediastinal silhouette is stable. IMPRESSION: Interstitial thickening with possible mild bilateral airspace opacities. Mild pulmonary edema is favored. An infectious process could appear similar. Radiographic follow up to ensure resolu tion is recommended. ACT 112: Negative or not required by law. Electronically signed by: Devin Linton M.D. 05/14/2021 6:33 PM
[2021-05-14 18:41] LABS: Albumin Level 2.8 gm/dl (3.4-5.0); BUN Creatinine Ratio 5.4 (10-20); Calcium 7.7 mg/dl (8.5-10.1); Creatinine Clr Calc Pharmacy 25.2 ml/min; Est GFR (African American) 23.3 ml/min; Est GFR (Non-African American) 20.1 ml/min; Potassium 3.3 mmol/L (3.5-5.1)
[2021-05-14 18:44] LABS: Platelet Count 37 K/uL (130-400)
[2021-05-14 18:45] LABS: Anisocytosis Present; Basophils # (auto) 0.01 K/uL (0-0.2); Basophils % (auto) 0.2 %; Eosinophils # (auto) 0.14 K/uL (0-0.5); INR 2.4 (0.9-1.1); Immature Granulocytes # (auto) 0.01 K/uL (0.00-0.02); Immature Granulocytes % (auto) 0.2 %; Lymphocytes % (auto) 19.4 %; Monocytes # (auto) 0.47 K/uL (0.11-0.59); Monocytes % (auto) 10.2 %; Platelet Estimate SIGNIFIC DECREASED (Normal); Poikilocytosis Present
[2021-05-14 18:55] LABS: Partial Thromboplastin Time 52.6 Seconds (21.0-31.0)
[2021-05-14 18:57] LABS: Base Excess VBG 8.5 mEq/L; HCO3 VBG 35 mmol/L; Oxygen Saturation VBG < 60.0 %; PCO2 VBG 58 mmHg (38-50); PO2 VBG 33 mmHg; pH VBG 7.39 (7.36-7.41)
[2021-05-14 19:01] LABS: Albumin Globulin Ratio 1.5 (0.9-2); Bilirubin,Total 4.2 mg/dl (0.2-1); Globulin 1.9 gm/dl (2.5-4.0); Total Protein 4.7 gm/dl (6.4-8.2); Troponin I 0.064 ng/ml (0-0.045)
[2021-05-14 19:02] LABS: Influenza B virus by PCR Negative (Neg); RSV by PCR Negative (Neg); SARS CoV2 RNA(COVID-19) InHosp NEGATIVE (Negative)
[2021-05-14] MEDS ORDERED: ASPIRIN CHEW 324 MG PO STA (19:05)
[2021-05-14 19:20] LABS: Influenza A virus by PCR Positive (Neg)
[2021-05-14] MEDS ORDERED: AZITHROMYCIN 500 MG in DEXTROSE 5% 250 ML IV STA (19:23)
[2021-05-14] MEDS ORDERED: cefTRIAXone SODIUM 1,000 MG/50 ML BAG IV STA (19:23)
[2021-05-14] MEDS ORDERED: OSELTAMIVIR PHOSPHATE 75 MG CAP PO STA (19:25)
[2021-05-14] MEDS ORDERED: VANCOMYCIN CONSULT ACTIVE PRN (19:37)
[2021-05-14] MEDS ORDERED: VANCOMYCIN HCL 2,000 MG in SODIUM CHLORIDE 0.9% 500 ML IV ONE (19:37)
--- NOTE | 2021-05-15 02:25 | History and Physical Report ---
DATE OF ADMISSION: 05/15/2021. CHIEF COMPLAINT: Shortness of breath, flu positive and COVID-19 pneumonia. 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 The patient was diagnosed with COVID on 05/09/2021 and she was recently in the hospital prolonged stay in the hospital for weight gain, lower extremity edema, renal failure and discharged on 04/17/2021 to [facility]. During the admission, she was started on dialysis with a PermCath placement in the right chest. She was also supposed to be evaluated by GI for liver transplant. She also reports of fecal occult blood positive and she was started on PPI. She underwent an EGD on 04/16/2021 showing moderate portal hypertensive gastropathy, normal esophagus without varices, required one unit prbc transfusion last admission as per the records. She was discharged on torsemide. Her manager warehouse stopped torsemide and she was placed on midodrine prior to dialysis and she was discharged back home. Currently lives alone at home, her son helps her. She ambulates with a walker. Since last 4-5 days, she is having lot of cough, not able to bring any phlegm up and today she is being very short of breath. She was tested for COVID-19 on 05/09/2021. She was vaccinated with Moderna. The last dose was 07/16/2020. On the field, she was saturating in 70s and she was placed on oxygen and brought to the ER. Currently on 3 liters, she is saturating okay. Resting comfortably and has mild temperature spike in the ER. Denies any headache, denies any runny nose, sore throat, or chest pain. No nausea or vomiting, but she is having some diarrhea had three episodes. She makes little urine. She has swelling in the legs. Currently, hemodynamically stable. In the ER, chest x-ray was done, which showed bilateral airspace opacities, mild pulmonary edema. She was empirically started on Rocephin and azithromycin in the ER. ALLERGIES: No known drug allergies. PAST MEDICAL HISTORY: As mentioned above. PAST SURGICAL HISTORY: Perm-A-Cath placement, EGDs, abdominal wall hernia repair, colonoscopy, removal of oviducts, cataracts, cholecystectomy, total abdominal hysterectomy with removal of tubes. MEDICATIONS: Currently, the patient is on probiotic 2 capsules p.o. daily, Lipitor 80 mg p.o. daily, vitamin D 50 mcg p.o. daily, gabapentin 100 mg p.o. b.i.d., lactulose 20 g p.o. b.i.d., magnesium oxide 420 mg p.o. daily, midodrine 5 mg p.o. 1 tablet 1 hour prior to dialysis, omeprazole 40 mg p.o. a.m., potassium chloride 20 mEq p.o. daily, Zoloft 500 mg p.o. a.m., Xifaxan 550 mg p.o. b.i.d. FAMILY HISTORY: Significant for maternal grandmother had breast cancer. Aunt has cancer. Brother has back cancer. Father has prostate cancer and stroke. Mother has [place] at the age of 49 with maternal grandmother had breast cancer. SOCIAL HISTORY: Currently , lives alone. Smoked 1 pack a day for 5 years, quit in . Alcohol, rarely. No drug use. REVIEW OF SYSTEMS: As per HPI. Rest of the review of systems is negative. PHYSICAL EXAMINATION: GENERAL: The patient is obese, not in acute distress currently. VITAL SIGNS: Temperature 37.7, pulse 83, respiratory rate 20, blood pressure 113/55, oxygen 95% on 3 liters. HEENT: Pupils equal, round and reactive to light. Oral mucosa moist. NECK: No JVD. No neck masses. CARDIOVASCULAR: S1 and S2 heard. Regular rate and rhythm. No murmur, no gallop. RESPIRATORY SYSTEM: Normal AP diameter. No accessory muscle use. No wheezing, no crackles. ABDOMEN: Soft. Bowel sounds present. Umbilical hernia seen. No guarding or rigidity. CENTRAL NERVOUS SYSTEM: Cranial nerves II-XII grossly intact, nonfocal. EXTREMITIES: Lower extremities, pedal edema +2 present. SKIN: Erythematous rash seen in the anterior part of the right side of abdomen,from flank to umbilical region in dermatomal fashion. LABORATORY DATA: WBC 4.6, hemoglobin 8.7, hematocrit 27.4, platelets 37. PT 23, INR 2.4, APTT 52.6. Venous blood gas, pH of 7.39, pCO2 of 58, pO2 33, bicarbonate 35. Sodium 138, chloride 100, CO2 of 34, BUN 13, creatinine 2.3, serum glucose 97, calcium is 7.7, total bilirubin 4.2, AST 247, ALT 93, alkaline phosphatase 145. Troponin I 0.06. BNP 8000. Procalcitonin 0.8. SARS-CoV-2 PCR negative. Influenza A positive, RSV PCR negative. IMAGING DATA: Chest x-ray: Mild bilateral airspace opacities, mild pulmonary edema. EKG: Normal sinus rhythm at a rate of 89, no significant change was found. ASSESSMENT AND PLAN: This is a 70-year-old female who was recently diagnosed with COVID, comes because of shortness of breath, hypoxia. Chest x-ray showing possible pneumonia and influenza A positive, requiring oxygen. 1. Hypoxia, acute respiratory failure secondary to pneumonia from COVID and flu. COVID was positive on 05/09/2021. She is having cough for 4 to 6 days. Today FLU came back positive. Chest x-ray shows pneumonia. COVID test here in the ER, is negative, but we will keep her on airborne precautions and COVID precautions. Repeat COVID test in the morning. Cannot give remdesivir because of the renal failure. Given Decadron, Tamiflu, nebs p.r.n., albuterol p.r.n., Pulmicort inhalation b.i.d. Closely monitor in the med tele. Supportive care. Also emprcally on antibiotics Rocephin and doxycycline for any bacterial component. 2. Endstage renal disease on dialysis. Nephro consult in a.m. She has been dialyzed on Tuesdays, , and Saturdays.On potassium supplement. Follow labs. 3. Nonalcoholic steatohepatitis liver cirrhosis. We will continue Xifaxan currently because of diarrhea we will hold the lactulose for now. Follow ammonia levels. Monitor for volume overload. The patient on dialysis.. Monitor the labs. 4.Shingles. rash on abdomen was diagnosed with possible shingles at [facility] was treated for 5 days with antiviral medication. Currently, no pain has some itchiness. 5. History of depression: Continue Zoloft. 6. Gastroesophageal reflux disease: Continue omeprazole. 7. Hyperlipidemia: Continue statin. 8. Bilateral lower extremity edema, possibly secondary to cirrhosis and renal failure on dialysis. 9. Anemia in setting of chronic liver disease and chronic renal failure, thrombocytopenia also from liver disease. Follow labs. Last admission FOBT was positive and currently on omeprazole. Last admission, required 1 unit of PRBC and she is also status post EGD on 04/16/2021 showing no varices, portal hypertensive gastropathy, no ulcers. 10. Sleep apnea: On CPAP at bedtime. 11. Morbid obesity: Needs counseling. CODE STATUS: Full code. Deep venous thrombosis prophylaxis. INR is 2.4, probably from liver disease. DISPOSITION: Closely monitor in the med tele. PT/OT prior to discharge. Social service to help with discharge planning. Job ID: [id number] [id number]
[2021-05-15] MEDS ORDERED: LEVALBUTEROL HCL 1.25 MG/3 ML NEB NEB PRN (03:06)
[2021-05-15] MEDS ORDERED: ALBUTEROL HFA 8 GM INHALER INH PRN (03:06)
[2021-05-15] MEDS ORDERED: ONDANSETRON INJ 2 MG/ML 2 ML VIAL IV PRN (03:06)
[2021-05-15] MEDS ORDERED: NITROGLYCERIN SL 0.4 MG/TAB TAB SL PRN (03:06)
[2021-05-15 04:54] LABS: Hematocrit (blood only) 24.2 % (37-47); Hemoglobin 7.5 g/dL (12.0-16.0); Mean Corpuscular Hemoglobin 30.5 pg (25-34); Mean Corpuscular Volume 98.4 fL (80-100); RDW Coefficient of Variation 21.1 % (11.5-14.5); RDW Standard Deviation 75.1 fL (36.4-46.3); Red Blood Count 2.46 M/uL (4.2-5.4); White Blood Count 2.89 K/uL (4.8-10.8)
[2021-05-15 05:03] LABS: Mean Platelet Volume 11.2 fL (7.4-10.4); Platelet Count 30 K/uL (130-400)
[2021-05-15 05:27] LABS: Anisocytosis Present; Eosinophils # (auto) 0.02 K/uL (0-0.5); Eosinophils % (auto) 0.7 %; Lymphocytes # (auto) 0.53 K/uL (1.2-3.4); Lymphocytes % (auto) 18.3 %; Monocytes % (auto) 6.9 %; Neutrophils # (auto) 2.14 K/uL (1.4-6.5); Neutrophils % (auto) 74.1 %
[2021-05-15 05:28] LABS: BUN Creatinine Ratio 6.5 (10-20); Calcium 7.4 mg/dl (8.5-10.1); Creatinine Clr Calc Pharmacy 22.8 ml/min; Est GFR (African American) 20.6 ml/min; Est GFR (Non-African American) 17.8 ml/min; Magnesium 2.4 mg/dl (1.8-2.4); Potassium 3.8 mmol/L (3.5-5.1)
[2021-05-15] MEDS: POTASSIUM CHLORIDE CRTAB 20 MEQ TABCR PO SCH (09:28)
[2021-05-15] MEDS: CHOLECALCIFEROL 1,000 UNITS 25 MCG TAB PO SCH (09:28)
[2021-05-15] MEDS: ADVANCED PROBIOTIC 1250 MG CAPSULE PO SCH (09:28)
[2021-05-15] MEDS: MAGNESIUM OXIDE 400 MG TAB PO SCH (09:29)
[2021-05-15] MEDS: rifAXIMin 550 MG TABLET PO SCH ×2 (09:29→22:05)
[2021-05-15] MEDS: SERTRALINE HCL 100 MG TABLET PO SCH (09:30)
[2021-05-15] MEDS: ATORVASTATIN 40 MG TAB PO SCH (09:30)
[2021-05-15] MEDS: GABAPENTIN 100 MG CAP PO SCH ×2 (09:30→22:05)
[2021-05-15] MEDS: dexAMETHasone 6 MG in SYRINGE 0 ML IV SCH (09:31)
[2021-05-15] MEDS: PANTOprazole 40 MG TAB PO SCH (09:31)
[2021-05-15] MEDS: OSELTAMIVIR PHOSPHATE SUSP 30 MG/5 ML UDP PO SCH (10:29)
[2021-05-15] MEDS: DOXYCYCLINE HYCLATE 100 MG in DEXTROSE 5% 100 ML IV SCH ×2 (10:29→22:04)
--- NOTE | 2021-05-15 11:15 | Electrocardiogram Report ---
Test Reason : Blood Pressure : / mmHG Vent. Rate : 089 BPM Atrial Rate : 089 BPM P-R Int : 140 ms QRS Dur : 090 ms QT Int : 392 ms P-R-T Axes : 069 048 038 degrees QTc Int : 476 ms Normal sinus rhythm When compared with ECG of 29-MAR-2021 19:28, No significant change was found Confirmed by Jose Avila ([id number]) on 05/15/2021 11:14:37 AM Referred By: REFERRED SELF Confirmed By:Kal Avila
--- NOTE | 2021-05-15 12:28 | Consultation Report ---
NEPHROLOGY CONSULTATION NOTE DATE OF SERVICE: 05/15/2021 REASON FOR CONSULT: Dialysis patient admitted with shortness of breath and hypoxia. HISTORY OF PRESENT ILLNESS: The patient is a 70-year-old female with ESRD, on dialysis Thursday, , Thursday and multiple other medical problems, who was recently diagnosed with COVID pneumonia o n 05/09. She was recently started on dialysis with a PermCatheter placement. She was found to be hy poxic by the [facility] people and was directed to get admitted in the hospital, which she did la night. She had her dialysis yesterday. In the Emergency Department, she is now found to be positiv e for influenza, but her COVID test actually came back negative this time. She is still requiring oxy gen at 3 liters. Otherwise, her vital signs are stable. She does have significant lower extremity e hallie also. ALLERGIES: None. 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 MEDICATIONS AT HOME: Reviewed in detail and is as per the reconciliation list. FAMILY HISTORY: Negative for renal disease or dialysis. SOCIAL HISTORY: Currently , lives alone. She smoked in the past, quit in . No alcohol, no drugs. REVIEW OF SYSTEMS: Positive for shortness of breath, hypoxia, lower extremity edema. Otherwise nega tive, 12 systems reviewed. PHYSICAL EXAMINATION: GENERAL: Obese white female who is not in severe respiratory distress, but she is requiring oxygen. VITAL SIGNS: Blood pressure is 114/61, pulse rate 79, temperature 36.9. HEENT: Mucous membranes are moist. NECK: Supple. No jugular venous distention. CHEST: Bilateral crackles and rhonchi with prolonged expiration. CARDIOVASCULAR: S1 and S2, regular. ABDOMEN: Soft, nontender, obese. EXTREMITIES: Show signs of chronic edema with skin changes. Does have 1+ edema. LABORATORY TEST: Hemoglobin is 7.5, WBC count 2.89, platelet count 30,000. Sodium 138, potassium 3. 8, BUN 17, creatinine 2.64, calcium 7.4, ammonia 49. Influenza A positive. COVID test was negative. Chest x-ray shows interstitial thickening with bilateral airspace opacities. ASSESSMENT AND PLAN: A 70-year-old female with severe acute renal failure, requiring dialysis recent ly, on a Thursday, , Thursday schedule, now admitted with shortness of breath, hypoxia, most l ikely secondary to influenza A. She did have a recent COVID infection and was getting better from at, but now the COVID test is negative, but influenza is positive. 1. End-stage renal disease: Her next dialysis will be tomorrow as per her regular schedule. We bryant l try to take extra fluid off as allowed by her blood pressure, which can drop with dialysis. Hemogl obin is low and we will give her Procrit 20,000 units. No heparin as she has chronically low platele t count. 2. Shortness of breath, hypoxia secondary to influenza A with recent COVID: As per primary team. Job ID: [id number]
[2021-05-15 17:12] LABS: Hematocrit (blood only) 24.4 % (37-47); Hemoglobin 7.8 g/dL (12.0-16.0)
--- NOTE | 2021-05-15 18:13 | Hospitalist Progress Note ---
Date of Service May 15, 2021 Assessment & Plan (1) Acute respiratory failure with hypoxia: (2) Pneumonia: Plan: 70 yo F w/ hyperlipidemia, DANNIELLE, venous insufficiency, portal HTN with hypertensive gastropathy, morbid obesity, LOJA cirrhosis of liver, hepatorenal syndrome currently on HD, GERD, generalized osteoarthrosis, lumbar degenerative disk disease, primary osteoarthritis, restless legs syndrome, neuropathy, thrombocytopenia, persistent insomnia, mixed incontinence, major depression presented 05/14 with shortness of breath. Patient was diagnosed with Covid on 05/09/2021. She is vaccinated with moderna. EMS noted saturation in 70s and was placed on oxygen. Patient was recently in the hospital for renal failure due to hepatorenal syndrome [started on HD via PermCath in the right chest] [facility] Currently lives alone at home, her son helps her. She ambulates with walker. Patient reports of greenish cough with sputum since last 5 to 6 days [employer]. Patient is being managed for the followin. Hypoxia, acute respiratory failure secondary to pneumonia from COVID and flu 1. Likely bacterial superinfection Patient reports cough with greenish sputum 4 to 6 days [employer]. COVID was positive on 05/09/2021. Negative at admission on 05/14, will repeat Covid test 05/15. Patient vaccinated with moderna - boosted as well. Influenza type A positive at admission Patient was saturating in 70s per EMS, requiring oxygen. Admitting WBC of 4.63K, down trended to 2.89K, lymphopenia noted. Admitting pro-Jorden 0.83, down trended to 0.71 Admitting CXR: Mild bilateral airspace opacities suggestive of infectious process versus mild pulmonary edema. Keep her on airborne precautions and COVID precautions until second Covid test turns negative. Patient is flu positive. Cannot give remdesivir because of the renal failure. Continue with incentive spirometer/flutter valve/supplemental oxygentitrate as tolerated. c/w Decadron 05/14, Tamiflu 05/14, nebs p.r.n., albuterol p.r.n., Pulmicort inhalation b.i.d. Closely monitor in the med tele. Supportive care. c/w Rocephin 05/14 and doxycycline 05/15 for any bacterial component. 2. Endstage renal disease on dialysis. BUN WNL at presentation Nephro on board. She has been dialyzed on Tuesdays, , and Saturdays.On potassium supplement. Follow labs. 3. Nonalcoholic steatohepatitis liver cirrhosis. c/w Xifaxan and lactulose, titrate lactulose for 3-4 bowel movements in 24 hours. Follow ammonia levels as appropriate. Has followed up with GI as an outpatient, awaiting callback from liver transplant team to establish care per her son. 4.Shingles: rash on abdomen was diagnosed with possible shingles at [facility] [place] was treated for 5 days with antiviral medication. Currently, no pain has some itchiness. 5. History of depression: Continue Zoloft. 6. Gastroesophageal reflux disease: Continue omeprazole. 7. Hyperlipidemia: Continue statin. 8. Bilateral lower extremity edema, possibly secondary to cirrhosis and renal failure on dialysis. Admitting CXR questionable for mild pulmonary edema Admitting BNP elevated at 8201, will track improvement with ongoing dialysis, repeat BNP tomorrow to look at trend given ESRD on HD. Expect improvement with ongoing dialysis. 9. Anemia in setting of chronic liver disease and chronic renal failure, thrombocytopenia also from liver disease: Follow labs. Last admission FOBT was positive and currently on omeprazole. Last admission, required 1 unit of PRBC and she is also status post EGD on 04/16/2021 showing no varices, portal hypertensive gastropathy, no ulcers. Monitor hemoglobin closely, send FOBT. INR 2.4 at admission. 10. Sleep apnea: On CPAP at bedtime. 11. Morbid obesity: Needs counseling. 05/15: Her son Shawn Degroot [[phone]] was given a phone call, updated on the current status of the patient regarding her Covid/flu/bacterial pneumonia and plan of care. He voiced understanding and was agreeable. Admission and Anticipated Discharge Date Admission Date: May 15, 2021 Subjective Patient was lying in bed, on 3 L nasal cannula oxygen, no new acute events overnight per patient, patient is eating and moving bowels okay per her, patient reports feeling better with minimal improvement in her cough today, patient reports on and off dark-colored stool, last bowel movement being brown. We will closely monitor hemoglobin and send FOBT. Patient denies any headache/dizziness/chest pain/palpitation/belly pain/other review of symptoms. Physical Exam Physical Exam: GENERAL: Alert and oriented x3. NAD, on 3L HEENT: No pallor, no icterus. Pupils equal, round and reactive to light. Oral mucosa moist. NECK: No JVD, no neck masses. HEART: S1 and S2 heard. Regular rate and rhythm. No murmur, no gallop. RESPIRATORY SYSTEM: Normal AP diameter. No accessory muscle use. No wheezing, crackles diffuse and bilateral. ABDOMEN: Soft, bowel sounds present, nontender, no distention. Ventral hernia noted, shingles rash noted on right belly. CENTRAL NERVOUS SYSTEM: No facial droop. Speech is clear. Obeys simple commands. Moves extremities. EXTREMITIES: No edema, no erythema seen. Results & Data Results & Data ([facility]) Vital Signs (Past 12 Hours) Vital Signs Temp Pulse Resp BP Pulse Ox 05/15/21 09:00 36.9 C 79 20 114/61 96
[2021-05-15] MEDS: cefTRIAXone SODIUM 2,000 MG in DEXTROSE 5% 50 ML IV SCH (20:19)
[2021-05-15] MEDS: LACTULOSE SYRUP 20 GM/30 ML UDC PO SCH (22:06)
[2021-05-16] MEDS: FLUTICASONE FUROATE 100MCG 14 PUFFS/INHALER INH SCH ×2 (01:49→09:34)
[2021-05-16 05:48] LABS: Mean Corpuscular Hgb Conc 32.2 g/dL (32-36)
[2021-05-16 06:31] LABS: BUN Creatinine Ratio 10.4 (10-20); Calcium 8.1 mg/dl (8.5-10.1); Est GFR (African American) 14.4 ml/min; Est GFR (Non-African American) 12.5 ml/min; Hematocrit (blood only) 26.1 % (37-47); Hemoglobin 8.4 g/dL (12.0-16.0); Mean Corpuscular Hemoglobin 30.9 pg (25-34); Platelet Count 39 K/uL (130-400); Potassium 4.1 mmol/L (3.5-5.1); RDW Coefficient of Variation 20.8 % (11.5-14.5); RDW Standard Deviation 71.9 fL (36.4-46.3); Red Blood Count 2.72 M/uL (4.2-5.4); White Blood Count 5.74 K/uL (4.8-10.8)
[2021-05-16 06:32] LABS: Platelet Estimate SIGNIFIC DECREASED (Normal)
[2021-05-16] MEDS ORDERED: SODIUM CHLORIDE 0.9% 1000ML 1,000 ML IV PRN (07:00)
[2021-05-16] MEDS ORDERED: EPOETIN ALFA 10,000 UNITS/ML VIAL IV SCH (07:00)
[2021-05-16] MEDS: MIDODRINE HCL 2.5 MG TAB PO SCH (08:07)
[2021-05-16] MEDS: dexAMETHasone 6 MG in SYRINGE 0 ML IV SCH (09:33)
[2021-05-16] MEDS: ATORVASTATIN 40 MG TAB PO SCH (09:33)
[2021-05-16] MEDS: CHOLECALCIFEROL 1,000 UNITS 25 MCG TAB PO SCH (09:33)
[2021-05-16] MEDS: GABAPENTIN 100 MG CAP PO SCH ×2 (09:35→22:01)
[2021-05-16] MEDS: ADVANCED PROBIOTIC 1250 MG CAPSULE PO SCH (09:35)
[2021-05-16] MEDS: MAGNESIUM OXIDE 400 MG TAB PO SCH (09:36)
[2021-05-16] MEDS: DOXYCYCLINE HYCLATE 100 MG in DEXTROSE 5% 100 ML IV SCH (11:20)
[2021-05-16] MEDS: POTASSIUM CHLORIDE CRTAB 20 MEQ TABCR PO SCH (11:57)
[2021-05-16] MEDS: PANTOprazole 40 MG TAB PO SCH (11:58)
[2021-05-16] MEDS: SERTRALINE HCL 100 MG TABLET PO SCH (11:58)
[2021-05-16] MEDS: rifAXIMin 550 MG TABLET PO SCH ×2 (11:58→22:01)
[2021-05-16] MEDS: LACTULOSE SYRUP 20 GM/30 ML UDC PO SCH ×2 (13:08→23:30)
[2021-05-16] MEDS: OSELTAMIVIR PHOSPHATE SUSP 30 MG/5 ML UDP PO SCH (13:08)
--- NOTE | 2021-05-16 15:21 | Hospitalist Progress Note ---
Date of Service May 16, 2021 Assessment & Plan (1) Acute respiratory failure with hypoxia: (2) Pneumonia: Plan: 70 yo F w/ hyperlipidemia, DANNIELLE, venous insufficiency, portal HTN with hypertensive gastropathy, morbid obesity, LOJA cirrhosis of liver, hepatorenal syndrome currently on HD, GERD, generalized osteoarthrosis, lumbar degenerative disk disease, primary osteoarthritis, restless legs syndrome, neuropathy, thrombocytopenia, persistent insomnia, mixed incontinence, major depression presented 05/14 with shortness of breath. Patient was diagnosed with Covid on 05/09/2021. She is vaccinated with moderna. EMS noted saturation in 70s and was placed on oxygen. Patient was recently in the hospital for renal failure due to hepatorenal syndrome [started on HD via PermCath in the right chest] on 04/17/2021 to [facility]. Currently lives alone at home, her son helps her. She ambulates with walker. 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 Patient is being managed for the followin. Hypoxia, acute respiratory failure secondary to pneumonia from COVID and flu 1. 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 COVID was positive on 05/09/2021. Negative at admission on 05/14, will repeat Covid test 05/15. Patient vaccinated with moderna - boosted as well. Influenza type A positive at admission Patient was saturating in 70s per EMS, requiring oxygen. Admitting WBC of 4.63K, down trended to 2.89K, lymphopenia noted. Admitting pro-Jorden 0.83, down trended to 0.71 Admitting CXR: Mild bilateral airspace opacities suggestive of infectious process versus mild pulmonary edema. COVID test x 2 negative 24 hours apart. Patient is flu positive. Continue with incentive spirometer/flutter valve/supplemental oxygentitrate as tolerated. Will DC Dexa (05/14-05/16) C/w Tamiflu 05/14, nebs p.r.n., albuterol p.r.n., Pulmicort inhalation b.i.d. Closely monitor in the med tele. Supportive care. c/w Rocephin 05/14 and doxycycline 05/15 for any bacterial component. 2. Endstage renal disease on dialysis. BUN WNL at presentation Nephro on board. She has been dialyzed on Tuesdays, , and Saturdays.On potassium supplement. Follow labs. For HD today. 3. Nonalcoholic steatohepatitis liver cirrhosis. c/w Xifaxan and lactulose, titrate lactulose for 3-4 bowel movements in 24 hours. Follow ammonia levels as appropriate. Has followed up with GI as an outpatient, awaiting callback from liver transplant team to establish care per her son. 4.Shingles: rash on abdomen was diagnosed with possible shingles at [facility] [place] was treated for 5 days with antiviral medication. Currently, no pain has some itchiness. 5. History of depression: Continue Zoloft. 6. Gastroesophageal reflux disease: Continue omeprazole. 7. Hyperlipidemia: Continue statin. 8. Bilateral lower extremity edema, possibly secondary to cirrhosis and renal failure on dialysis. Admitting CXR questionable for mild pulmonary edema Admitting BNP elevated at 8201, will track improvement with ongoing dialysis, repeat BNP tomorrow to look at trend given ESRD on HD. Expect improvement with ongoing dialysis. 9. Anemia in setting of chronic liver disease and chronic renal failure, thrombocytopenia also from liver disease: Follow labs. Last admission FOBT was positive and currently on omeprazole. Last admission, required 1 unit of PRBC and she is also status post EGD on 04/16/2021 showing no varices, portal hypertensive gastropathy, no ulcers. Monitor hemoglobin closely, await FOBT. INR 2.4 at admission. 10. Sleep apnea: On CPAP at bedtime. 11. Morbid obesity: Needs counseling. 05/15: Her son Shawn Degroot [[phone]] was given a phone call, updated on the current status of the patient regarding her Covid/flu/bacterial pneumonia and plan of care. He voiced understanding and was agreeable. Disposition: PT/OT to [facility] to assist with DC planning. Patient stable for discharge unless no new issues arises. Admission and Anticipated Discharge Date Admission Date: May 15, 2021 Subjective Patient was lying in bed, on 2 L nasal cannula oxygen, no new acute events overnight per patient, patient is eating and moving bowels okay per her, patient reports feeling better with improvement in her cough, still with greenish sputum per her but less frequent. Patient denies any headache/dizziness/chest pain/palpitation/belly pain/other review of symptoms. Physical Exam Physical Exam: GENERAL: Alert and oriented x3. NAD, on 2L HEENT: No pallor, no icterus. Pupils equal, round and reactive to light. Oral mucosa moist. NECK: No JVD, no neck masses. HEART: S1 and S2 heard. Regular rate and rhythm. No murmur, no gallop. RESPIRATORY SYSTEM: Normal AP diameter. No accessory muscle use. No wheezing, crackles diffuse and bilateral; increased Breath sound b/l ABDOMEN: Soft, bowel sounds present, nontender, no distention. Ventral hernia noted, shingles rash noted on right belly. CENTRAL NERVOUS SYSTEM: No facial droop. Speech is clear. Obeys simple commands. Moves extremities. EXTREMITIES: 1+ BLE edema, no erythema seen. Results & Data Results & Data ([facility]) Vital Signs (Past 12 Hours) Vital Signs Pulse Resp BP Pulse Ox 05/16/21 14:21 75 18 95/45 L 95 05/16/21 12:31 82 16 105/44 L 98 05/16/21 08:05 87 18 105/37 L 99
--- NOTE | 2021-05-16 19:26 | Nephrology Progress Note ---
Date of Service May 16, 2021 Assessment & Plan (1) ESRD (end stage renal disease) on dialysis: Plan: A 70-year-old female with severe acute renal failure, requiring dialysis recently, on a Thursday, , Thursday schedule, now admitted with shortness of breath, hypoxia, most likely secondary to influenza A. She did have a recent COVID infection and was getting better from that, but now the COVID test is negative, but influenza is positive. - End-stage renal disease:For HD today, as per her regular schedule. We will try to take extra fluid off as allowed by her blood pressure, which can drop with dialysis. Hemoglobin is low and we will give her Procrit 20,000 units. No heparin as she has chronically low platelet count. (2) Acute respiratory failure with hypoxia: Plan: Shortness of breath, hypoxia secondary to influenza A with recent COVID: As per primary team - Will optimise Volume status with extra UF Admission and Anticipated Discharge Date Admission Date: May 15, 2021 Subjective Comfortable Cough better Review of Systems Review of Systems: Comfortable, no SOB Physical Exam Physical Exam: GENERAL: Alert and oriented x3. NAD, on 2L HEENT: No pallor, no icterus . Pupils equal, r ound and reactive to light. Oral mu cosa moist. NECK: No JVD, no neck m asses. HEART: S1 and S2 heard. Reg ular rate and rhyt hm. No murmur, no gallop. RESPIRATO RY SYSTEM: Normal AP diameter. No accessory muscle u se. No wheezing, crackles diffuse a nd bilateral; incr eased Breath sound b/l ABDOMEN: Sof t, bowel sounds pr esent, nontender, no distention. Ve ntral hernia noted , shingles rash no ricarda on right belly . CENTRAL NERVOUS SYSTEM: No facial droop. Speech is clear. Obeys sim ple commands. Mov es extremities. EX TREMITIES: 1+ BLE edema, no erythem a seen. Results & Data ([facility]) Vital Signs (Past 12 Hours) Vital Signs Temp Pulse Pulse Pulse Resp BP BP 05/16/21 19:20 78 82/31 L 05/16/21 19:00 75 87/36 L 05/16/21 18:40 74 78/34 L 05/16/21 18:20 74 85/52 L 05/16/21 18:02 36.6 C 79 05/16/21 18:00 76 84/32 L 05/16/21 17:40 76 86/37 L 05/16/21 17:30 75 84/37 L 05/16/21 14:21 75 18 95/45 L 05/16/21 12:31 82 16 105/44 L 05/16/21 08:05 87 18 105/37 L Pulse Ox 05/16/21 19:20 05/16/21 19:00 05/16/21 18:40 05/16/21 18:20 05/16/21 18:02 05/16/21 18:00 05/16/21 17:40 05/16/21 17:30 05/16/21 14:21 95 05/16/21 12:31 98 05/16/21 08:05 99 Laboratory Results 05/16/21 05:20 05/16/21 05:20
[2021-05-16] MEDS ORDERED: cefTRIAXone SODIUM 2000MG/70ML D5W IV ONE (21:47)
[2021-05-16] MEDS: cefTRIAXone SODIUM 2,000 MG in DEXTROSE 5% 50 ML IV SCH (23:32)
[2021-05-17] MEDS: DOXYCYCLINE HYCLATE 100 MG in DEXTROSE 5% 100 ML IV SCH ×3 (00:36→21:55)
[2021-05-17] MEDS ORDERED: FUROSEMIDE 40 MG/4 ML VIAL IV STA (04:41)
[2021-05-17 06:11] LABS: Hematocrit (blood only) 24.9 % (37-47); Hemoglobin 8.2 g/dL (12.0-16.0); Mean Corpuscular Hemoglobin 31.3 pg (25-34); Mean Corpuscular Hgb Conc 32.9 g/dL (32-36); RDW Standard Deviation 71.8 fL (36.4-46.3); Red Blood Count 2.62 M/uL (4.2-5.4); White Blood Count 4.76 K/uL (4.8-10.8)
[2021-05-17 06:20] LABS: Mean Platelet Volume 11.5 fL (7.4-10.4); Platelet Count 38 K/uL (130-400)
[2021-05-17 06:50] LABS: BUN Creatinine Ratio 10.1 (10-20); Est GFR (African American) 23.9 ml/min; Est GFR (Non-African American) 20.7 ml/min; Potassium 3.7 mmol/L (3.5-5.1)
--- NOTE | 2021-05-17 07:35 | XRay Report ---
XR chest 1V portable CLINICAL HISTORY: Abnormal lung sounds. Difficulty breathing. COMPARISON STUDY: 05/14/2021 TECHNIQUE: 1 view of the chest FINDINGS: Single frontal view of the chest demonstrates the cardiomediastinal silhouette to be within normal li mits. Large bore central venous catheter is again seen. Compared to the previous examination, there a re increased patchy interstitial and alveolar opacities present bilaterally. The findings are most ch aracteristic of a viral type pneumonitis. Covid 19 pneumonia should be excluded. There is no evidence for pleural effusion. There is no evidence for vascular congestion. There is no acute osseous pathol ogy. IMPRESSION: Interval increase in patchy interstitial and alveolar opacities bilaterally now suspiciou s for a viral type pneumonitis and possible early Covid pneumonia. ACT 112: Negative or not required by law. Electronically signed by: Yusef Wellington M.D. 05/17/2021 7:34 AM
[2021-05-17] MEDS: PANTOprazole 40 MG TAB PO SCH (08:00)
[2021-05-17] MEDS: SERTRALINE HCL 100 MG TABLET PO SCH (08:00)
[2021-05-17] MEDS: POTASSIUM CHLORIDE CRTAB 20 MEQ TABCR PO SCH (08:00)
[2021-05-17] MEDS: ATORVASTATIN 40 MG TAB PO SCH (08:00)
[2021-05-17] MEDS: CHOLECALCIFEROL 1,000 UNITS 25 MCG TAB PO SCH (08:00)
[2021-05-17] MEDS: ADVANCED PROBIOTIC 1250 MG CAPSULE PO SCH (08:01)
[2021-05-17] MEDS: FLUTICASONE FUROATE 100MCG 14 PUFFS/INHALER INH SCH (08:07)
[2021-05-17] MEDS: OSELTAMIVIR PHOSPHATE SUSP 30 MG/5 ML UDP PO SCH (10:31)
[2021-05-17] MEDS: GABAPENTIN 100 MG CAP PO SCH ×2 (10:32→21:02)
[2021-05-17] MEDS: rifAXIMin 550 MG TABLET PO SCH ×2 (10:33→21:02)
[2021-05-17] MEDS: MAGNESIUM OXIDE 400 MG TAB PO SCH (10:33)
[2021-05-17] MEDS: LACTULOSE SYRUP 20 GM/30 ML UDC PO SCH ×2 (13:09→21:03)
--- NOTE | 2021-05-17 13:53 | Hospitalist Progress Note ---
Date of Service May 17, 2021 Assessment & Plan (1) Acute respiratory failure with hypoxia: (2) Pneumonia: Plan: 70 yo F w/ hyperlipidemia, DANNIELLE, venous insufficiency, portal HTN with hypertensive gastropathy, morbid obesity, LOJA cirrhosis of liver, hepatorenal syndrome currently on HD, GERD, generalized osteoarthrosis, lumbar degenerative disk disease, primary osteoarthritis, restless legs syndrome, neuropathy, thrombocytopenia, persistent insomnia, mixed incontinence, major depression presented 05/14 with shortness of breath. Patient was diagnosed with Covid on 05/09/2021. She is vaccinated with moderna. EMS noted saturation in 70s and was placed on oxygen. Patient was recently in the hospital for renal failure due to hepatorenal syndrome [started on HD via PermCath in the right chest] on 04/17/2021 to [facility]. Currently lives alone at home, her son helps her. She ambulates with walker. 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 Patient is being managed for the followin. Hypoxia, acute respiratory failure secondary to pneumonia from COVID and flu 1. 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 COVID was positive on 05/09/2021. Negative at admission on 05/14, will repeat Covid test 05/15. Patient vaccinated with moderna - boosted as well. Influenza type A positive at admission Patient was saturating in 70s per EMS, requiring oxygen. Admitting WBC of 4.63K, down trended to 2.89K, lymphopenia noted. Admitting pro-Jorden 0.83, down trended to 0.71 Admitting CXR: Mild bilateral airspace opacities suggestive of infectious process versus mild pulmonary edema. COVID test x 2 negative 24 hours apart. Patient is flu positive. Continue with incentive spirometer/flutter valve/supplemental oxygentitrate as tolerated. Will DC Dexa (05/14-05/16) C/w Tamiflu 05/14, nebs p.r.n., albuterol p.r.n., Pulmicort inhalation b.i.d. Closely monitor in the med tele. Supportive care. c/w Rocephin 05/14 and doxycycline 05/15 2. Endstage renal disease on dialysis. BUN WNL at presentation Nephro on board. She has been dialyzed on Tuesdays, , and Saturdays.On potassium supplement. Follow labs. HD yesterday 3. Nonalcoholic steatohepatitis liver cirrhosis. c/w Xifaxan and lactulose, titrate lactulose for 3-4 bowel movements in 24 hours. Follow ammonia levels as appropriate. Has followed up with GI as an outpatient, awaiting callback from liver transplant team to establish care per her son. 4.Shingles: rash on abdomen was diagnosed with possible shingles at [facility] was treated for 5 days with antiviral medication. Currently, no pain has some itchiness. 5. History of depression: Continue Zoloft. 6. Gastroesophageal reflux disease: Continue omeprazole. 7. Hyperlipidemia: Continue statin. 8. Bilateral lower extremity edema, possibly secondary to cirrhosis and renal failure on dialysis. Admitting CXR questionable for mild pulmonary edema Admitting BNP elevated at 8201, will track improvement with ongoing dialysis, repeat BNP tomorrow to look at trend given ESRD on HD. Expect improvement with ongoing dialysis. 9. Anemia in setting of chronic liver disease and chronic renal failure, thrombocytopenia also from liver disease: Follow labs. Last admission FOBT was positive and currently on omeprazole. Last admission, required 1 unit of PRBC and she is also status post EGD on 04/16/2021 showing no varices, portal hypertensive gastropathy, no ulcers. Monitor hemoglobin closely, await FOBT. INR 2.4 at admission. 10. Sleep apnea: On CPAP at bedtime. 11. Morbid obesity: Needs counseling. 05/15: Her son Shawn Degroot [[phone]] was given a phone call, updated on the current status of the patient regarding her Covid/flu/bacterial pneumonia and plan of care. He voiced understanding and was agreeable. Disposition: PT/OT to [facility] to assist with DC planning. Patient stable for discharge unless no new issues arises. Admission and Anticipated Discharge Date Admission Date: May 15, 2021 Subjective Patient lying in bed, on 2 L nasal cannula oxygen, NAD, no new acute events overnight. Patient reports eating and moving bowels okay. Patient reports cough getting better with sputum clearing up, afebrile, reports feeling better. Patient denies headache/chills/chest pain/palpitation/other review of symptoms. Physical Exam Physical Exam: GENERAL: Alert and oriented x3. NAD, on 2L HEENT: No pallor, no icterus. Pupils equal, round and reactive to light. Oral mucosa moist. NECK: No JVD, no neck masses. HEART: S1 and S2 heard. Regular rate and rhythm. No murmur, no gallop. RESPIRATORY SYSTEM: Normal AP diameter. No accessory muscle use. No wheezing, crackles diffuse and bilateral; increased Breath sound b/l ABDOMEN: Soft, bowel sounds present, nontender, no distention. Ventral hernia noted, shingles rash noted on right belly. CENTRAL NERVOUS SYSTEM: No facial droop. Speech is clear. Obeys simple commands. Moves extremities. EXTREMITIES: No BLE edema, no erythema seen. Results & Data Results & Data ([facility]) Vital Signs (Past 12 Hours) Vital Signs Temp Pulse Pulse Pulse Resp BP BP 05/17/21 11:46 36.7 C 88 20 111/63 05/17/21 08:44 80 05/17/21 08:32 36.7 C 79 18 113/62 05/17/21 07:11 78 18 97/67 L 05/17/21 06:41 75 16 90/41 L Pulse Ox 05/17/21 11:46 90 05/17/21 08:44 05/17/21 08:32 100 05/17/21 07:11 99 05/17/21 06:41 98
[2021-05-17] MEDS: cefTRIAXone SODIUM 2,000 MG in DEXTROSE 5% 50 ML IV SCH (20:56)
[2021-05-18] MEDS ORDERED: ALBUMIN 25% 12.5 GM/50 ML VIAL IV ONE (04:33)
[2021-05-18] MEDS ORDERED: MIDODRINE HCL 2.5 MG TAB PO STA (04:33)
[2021-05-18 05:34] LABS: Mean Corpuscular Hgb Conc 31.9 g/dL (32-36)
[2021-05-18 05:55] LABS: BUN Creatinine Ratio 11.3 (10-20); Calcium 8.2 mg/dl (8.5-10.1); Creatinine Clr Calc Pharmacy 17.8 ml/min; Est GFR (African American) 15.9 ml/min; Est GFR (Non-African American) 13.7 ml/min; Magnesium 2.7 mg/dl (1.8-2.4); Potassium 3.9 mmol/L (3.5-5.1)
[2021-05-18 06:36] LABS: Hematocrit (blood only) 27.3 % (37-47); Hemoglobin 8.7 g/dL (12.0-16.0); Mean Corpuscular Hemoglobin 30.7 pg (25-34); Mean Corpuscular Volume 96.5 fL (80-100); RDW Coefficient of Variation 21.3 % (11.5-14.5); RDW Standard Deviation 72.7 fL (36.4-46.3); Red Blood Count 2.83 M/uL (4.2-5.4); White Blood Count 6.44 K/uL (4.8-10.8)
[2021-05-18 06:37] LABS: Platelet Count 36 K/uL (130-400)
[2021-05-18 06:38] LABS: Platelet Estimate SIGNIFIC DECREASED (Normal)
[2021-05-18] MEDS: ATORVASTATIN 40 MG TAB PO SCH (07:49)
[2021-05-18] MEDS: CHOLECALCIFEROL 1,000 UNITS 25 MCG TAB PO SCH (07:49)
[2021-05-18] MEDS: PANTOprazole 40 MG TAB PO SCH (07:50)
[2021-05-18] MEDS: rifAXIMin 550 MG TABLET PO SCH ×2 (07:50→20:38)
[2021-05-18] MEDS: GABAPENTIN 100 MG CAP PO SCH ×2 (07:50→20:38)
[2021-05-18] MEDS: ADVANCED PROBIOTIC 1250 MG CAPSULE PO SCH (07:50)
[2021-05-18] MEDS: POTASSIUM CHLORIDE CRTAB 20 MEQ TABCR PO SCH (07:50)
[2021-05-18] MEDS: MAGNESIUM OXIDE 400 MG TAB PO SCH (07:50)
[2021-05-18] MEDS: OSELTAMIVIR PHOSPHATE SUSP 30 MG/5 ML UDP PO SCH (07:50)
[2021-05-18] MEDS: SERTRALINE HCL 100 MG TABLET PO SCH (07:51)
[2021-05-18] MEDS: FLUTICASONE FUROATE 100MCG 14 PUFFS/INHALER INH SCH (07:53)
[2021-05-18] MEDS ORDERED: SODIUM CHLORIDE 0.9% 1000ML 1,000 ML IV PRN ×3 (07:56→13:04)
[2021-05-18] MEDS: LACTULOSE SYRUP 20 GM/30 ML UDC PO SCH ×2 (07:57→20:39)
[2021-05-18] MEDS: DOXYCYCLINE HYCLATE 100 MG in DEXTROSE 5% 100 ML IV SCH ×2 (09:18→22:26)
[2021-05-18] MEDS ORDERED: EPOETIN ALFA 10,000 UNITS/ML VIAL IV ONE (13:03)
--- NOTE | 2021-05-18 13:21 | Nephrology Progress Note ---
Date of Service May 18, 2021 Assessment & Plan (1) ESRD (end stage renal disease) on dialysis: Plan: A 70-year-old female with severe acute renal failure, requiring dialysis recently, on a Thursday, , Thursday schedule, now admitted with shortness of breath, hypoxia, most likely secondary to influenza A. She did have a recent COVID infection and was getting better from that, but now the COVID test is negative, but influenza is positive. -End-stage renal disease:For HD today, as per her regular schedule, same presription - Next Hd will be Thursday. (2) Acute respiratory failure with hypoxia: Plan: Shortness of breath, hypoxia secondary to influenza A with recent COVID: As per primary team - Will continue to optimise Volume status with extra UF Admission and Anticipated Discharge Date Admission Date: May 15, 2021 Subjective Patient lying in bed, comfortble Review of Systems Review of Systems: Comfortable, no SOB Physical Exam Physical Exam: GENERAL: Alert and oriented x3. NAD, on 2L HEENT: No pallor, no icterus . Pupils equal, r ound and reactive to light. Oral mu cosa moist. NECK: No JVD, no neck m asses. HEART: S1 and S2 heard. Reg ular rate and rhyt hm. No murmur, no gallop. RESPIRATO RY SYSTEM: Normal AP diameter. No accessory muscle u se. No wheezing, crackles diffuse a nd bilateral; incr eased Breath sound b/l ABDOMEN: Sof t, bowel sounds pr esent, nontender, no distention. Ve ntral hernia noted , shingles rash no ricarda on right belly . CENTRAL NERVOUS SYSTEM: No facial droop. Speech is clear. Obeys sim ple commands. Mov es extremities. EX TREMITIES: 1+ BLE edema, no erythem a seen. Results & Data ([facility]) Vital Signs (Past 12 Hours) Vital Signs Temp Pulse Pulse Resp BP BP Pulse Ox 05/18/21 11:29 36.6 C 86 20 109/72 94 05/18/21 08:00 36.5 C 86 18 121/57 L 92 05/18/21 07:44 36.5 C 87 16 114/61 91 05/18/21 06:20 83 05/18/21 05:58 84 105/61 05/18/21 04:01 36.7 C 83 18 81/37 L 93 05/18/21 02:06 85 Laboratory Results 05/18/21 05:26 05/18/21 05:26
--- NOTE | 2021-05-18 13:49 | Hospitalist Progress Note ---
Date of Service May 18, 2021 Assessment & Plan (1) Acute respiratory failure with hypoxia: (2) Pneumonia: Plan: 70 yo F w/ hyperlipidemia, DANNIELLE, venous insufficiency, portal HTN with hypertensive gastropathy, morbid obesity, LOJA cirrhosis of liver, hepatorenal syndrome currently on HD, GERD, generalized osteoarthrosis, lumbar degenerative disk disease, primary osteoarthritis, restless legs syndrome, neuropathy, thrombocytopenia, persistent insomnia, mixed incontinence, major depression presented 05/14 with shortness of breath. Patient was diagnosed with Covid on 05/09/2021. She is vaccinated with moderna. EMS noted saturation in 70s and was placed on oxygen. Patient was recently in the hospital for renal failure due to hepatorenal syndrome [started on HD via PermCath in the right chest] on 04/17/2021 to [facility]. Currently lives alone at home, her son helps her. She ambulates with walker. 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 Patient is being managed for the followin. Hypoxia, acute respiratory failure secondary to pneumonia from COVID and flu 1. 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 COVID was positive on 05/09/2021. Negative at admission on 05/14, will repeat Covid test 05/15. Patient vaccinated with moderna - boosted as well. Influenza type A positive at admission Patient was saturating in 70s per EMS, requiring oxygen. Admitting WBC of 4.63K, down trended to 2.89K, lymphopenia noted. Admitting pro-Jorden 0.83, down trended to 0.71 Admitting CXR: Mild bilateral airspace opacities suggestive of infectious process versus mild pulmonary edema. COVID test x 2 negative 24 hours apart. Patient is flu positive. Continue with incentive spirometer/flutter valve/supplemental oxygentitrate as tolerated. DC'd Dexa (05/14-05/16) Patient afebrile, reports cough getting better now with clear sputum. C/w Tamiflu 05/14, nebs p.r.n., albuterol p.r.n., Pulmicort inhalation b.i.d. Closely monitor in the med tele. Supportive care. c/w Rocephin 05/14 and doxycycline 05/15 Patient will need follow-up chest x-ray in 4 to 6 weeks to document the res olution of pneumonia. 2. Endstage renal disease on dialysis. BUN WNL at presentation Nephro on board. She has been dialyzed on Tuesdays, , and Saturdays.On potassium supplement. Follow labs. Nephro following. 3. Nonalcoholic steatohepatitis liver cirrhosis. c/w Xifaxan and lactulose, titrate lactulose for 3-4 bowel movements in 24 hours. Follow ammonia levels as appropriate. Has followed up with GI as an outpatient, awaiting callback from liver transplant team to establish care per her son. 4.Shingles: rash on abdomen was diagnosed with possible shingles at [facility] was treated for 5 days with antiviral medication. Currently, no pain has some itchiness. 5. History of depression: Continue Zoloft. 6. Gastroesophageal reflux disease: Continue omeprazole. 7. Hyperlipidemia: Continue statin. 8. Bilateral lower extremity edema, possibly secondary to cirrhosis and renal failure on dialysis. Admitting CXR questionable for mild pulmonary edema Admitting BNP elevated at 8201, will track improvement with ongoing dialysis, repeat BNP tomorrow to look at trend given ESRD on HD. Expect improvement with ongoing dialysis. 9. Anemia in setting of chronic liver disease and chronic renal failure, thrombocytopenia also from liver disease: Follow labs. Last admission FOBT was positive and currently on omeprazole. Last admission, required 1 unit of PRBC and she is also status post EGD on 04/16/2021 showing no varices, portal hypertensive gastropathy, no ulcers. Monitor hemoglobin closely, await FOBT. INR 2.4 at admission. 10. Sleep apnea: On CPAP at bedtime. 11. Morbid obesity: Needs counseling. 05/15: Her son Shawn Degroot [[phone]] was given a phone call, updated on the current status of the patient regarding her Covid/flu/bacterial pneumonia and plan of care. He voiced understanding and was agreeable. Disposition: PT/OT to [facility] to assist with DC planning. Patient stable for discharge unless no new issues arises. Admission and Anticipated Discharge Date Admission Date: May 15, 2021 Subjective Patient was lying in bed, on 2 L nasal cannula oxygen, NAD, no new acute events overnight. Patient reports eating and moving bowels okay. Patient reports feeling better, cough getting better with clear sputum now. Patient denies fever/headache/chills/chest pain/palpitation/other review of symptoms. Patient appears weak with regard to flutter valve exercise. Encourage incentive spirometry as well. Physical Exam Physical Exam: GENERAL: Alert and oriented x3. NAD, on 2L HEENT: No pallor, no icterus. Pupils equal, round and reactive to light. Oral mucosa moist. NECK: No JVD, no neck masses. HEART: S1 and S2 heard. Regular rate and rhythm. No murmur, no gallop. RESPIRATORY SYSTEM: Normal AP diameter. No accessory muscle use. No wheezing, crackles diffuse and bilateral; increased Breath sound b/l ABDOMEN: Soft, bowel sounds present, nontender, no distention. Ventral hernia noted, shingles rash noted on right belly. CENTRAL NERVOUS SYSTEM: No facial droop. Speech is clear. Obeys simple commands. Moves extremities. EXTREMITIES: No BLE edema, no erythema seen. Results & Data Results & Data ([facility]) Vital Signs (Past 12 Hours) Vital Signs Temp Pulse Pulse Resp BP BP Pulse Ox 05/18/21 11:29 36.6 C 86 20 109/72 94 05/18/21 08:00 36.5 C 86 18 121/57 L 92 05/18/21 07:44 36.5 C 87 16 114/61 91 05/18/21 06:20 83 05/18/21 05:58 84 105/61 05/18/21 04:01 36.7 C 83 18 81/37 L 93 05/18/21 02:06 85
[2021-05-18] MEDS: MIDODRINE HCL 2.5 MG TAB PO SCH (14:47)
[2021-05-18] MEDS ORDERED: ALBUMIN 25% 100 mL 25 GM/100 ML VIAL IV ONE (17:27)
[2021-05-18] MEDS: cefTRIAXone SODIUM 2,000 MG in DEXTROSE 5% 50 ML IV SCH (20:37)
[2021-05-19] MEDS ORDERED: MIDODRINE HCL 2.5 MG TAB PO STA (02:25)
--- NOTE | 2021-05-19 02:27 | Communication Note ---
Date of Service: May 19, 2021 Made aware by RN of SBP 70s in early a.m. Recurrent hypotension since confinement. Change predialysis 3 times weekly midodrine to daily frequency.
[2021-05-19] MEDS: FLUTICASONE FUROATE 100MCG 14 PUFFS/INHALER INH SCH (08:19)
[2021-05-19] MEDS: DOXYCYCLINE HYCLATE 100 MG in DEXTROSE 5% 100 ML IV SCH ×2 (08:19→21:50)
[2021-05-19] MEDS: CHOLECALCIFEROL 1,000 UNITS 25 MCG TAB PO SCH (08:19)
[2021-05-19] MEDS: ATORVASTATIN 40 MG TAB PO SCH (08:19)
[2021-05-19] MEDS: GABAPENTIN 100 MG CAP PO SCH ×2 (08:20→20:10)
[2021-05-19] MEDS: ADVANCED PROBIOTIC 1250 MG CAPSULE PO SCH (08:20)
[2021-05-19] MEDS: LACTULOSE SYRUP 20 GM/30 ML UDC PO SCH ×2 (08:20→20:15)
[2021-05-19] MEDS: OSELTAMIVIR PHOSPHATE SUSP 30 MG/5 ML UDP PO SCH (08:21)
[2021-05-19] MEDS: PANTOprazole 40 MG TAB PO SCH (08:21)
[2021-05-19] MEDS: SERTRALINE HCL 100 MG TABLET PO SCH (08:22)
[2021-05-19] MEDS: MAGNESIUM OXIDE 400 MG TAB PO SCH (08:22)
[2021-05-19] MEDS: rifAXIMin 550 MG TABLET PO SCH ×2 (08:22→20:10)
--- NOTE | 2021-05-19 12:05 | Hospitalist Progress Note ---
Date of Service May 19, 2021 Assessment & Plan (1) Acute respiratory failure with hypoxia: (2) Pneumonia: Plan: 70 yo F w/ hyperlipidemia, DANNIELLE, venous insufficiency, portal HTN with hypertensive gastropathy, morbid obesity, LOJA cirrhosis of liver, hepatorenal syndrome currently on HD, GERD, generalized osteoarthrosis, lumbar degenerative disk disease, primary osteoarthritis, restless legs syndrome, neuropathy, thrombocytopenia, persistent insomnia, mixed incontinence, major depression presented 05/14 with shortness of breath. Patient was diagnosed with Covid on 05/09/2021. She is vaccinated with moderna. EMS noted saturation in 70s and was placed on oxygen. Patient was recently in the hospital for renal failure due to hepatorenal syndrome [started on HD via PermCath in the right chest] on 04/17/2021 to [facility]. Currently lives alone at home, her son helps her. She ambulates with walker. 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 Patient is being managed for the followin. Hypoxia, acute respiratory failure secondary to pneumonia from ? COVID and flu 1. 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 COVID was positive on 05/09/2021. Negative at admission on 05/14, will repeat Covid test 05/15. Patient vaccinated with moderna - boosted as well. Influenza type A positive at admission Patient was saturating in 70s per EMS, requiring oxygen. Admitting WBC of 4.63K, down trended to 2.89K, lymphopenia noted. Admitting pro-Jorden 0.83, down trended to 0.71 Admitting CXR: Mild bilateral airspace opacities suggestive of infectious process versus mild pulmonary edema. COVID test x 2 negative 24 hours apart. Patient is flu positive. Continue with incentive spirometer/flutter valve/supplemental oxygentitrate as tolerated. DC'd Dexa (05/14-05/16) Patient afebrile, reports cough getting better now with clear sputum. C/w Tamiflu 05/14, nebs p.r.n., albuterol p.r.n., Pulmicort inhalation b.i.d. Closely monitor in the med tele. Supportive care. c/w Rocephin 05/14 and doxycycline 05/15 Pt appears weak, encourage to use IS/flutter valve Patient will need follow-up chest x-ray in 4 to 6 weeks to document the resolution of pneumonia. 2. Endstage renal disease on dialysis. BUN WNL at presentation Nephro on board. She has been dialyzed on Tuesdays, , and Saturdays.On potassium supplement. Follow labs. Nephro following. HD yesterday. 3. Nonalcoholic steatohepatitis liver cirrhosis. c/w Xifaxan and lactulose, titrate lactulose for 3-4 bowel movements in 24 hours. Follow ammonia levels as appropriate. Has followed up with GI as an outpatient, awaiting callback from liver transplant team to establish care per her son. 4.Shingles: rash on abdomen was diagnosed with possible shingles at [facility] [place] was treated for 5 days with antiviral medication. Currently, no pain has some itchiness. 5. History of depression: Continue Zoloft. 6. Gastroesophageal reflux disease: Continue omeprazole. 7. Hyperlipidemia: Continue statin. 8. Bilateral lower extremity edema, possibly secondary to cirrhosis and renal failure on dialysis. Admitting CXR questionable for mild pulmonary edema Admitting BNP elevated at 8201, downtrended Resolved. 9. Anemia in setting of chronic liver disease and chronic renal failure, thrombocytopenia also from liver disease: Follow labs. Last admission FOBT was positive and currently on omeprazole. Last admission, required 1 unit of PRBC and she is also status post EGD on 04/16/2021 showing no varices, portal hypertensive gastropathy, no ulcers. Monitor hemoglobin closely, await FOBT. INR 2.4 at admission. 10. Sleep apnea: On CPAP at bedtime. 11. Morbid obesity: Needs counseling. 05/15: Her son Shawn Degroot [[phone]] was given a phone call, updated on the current status of the patient regarding her Covid/flu/bacterial pneumonia and plan of care. He voiced understanding and was agreeable. Disposition: PT/OT to [facility] to assist with DC planning. Patient stable for discharge unless no new issues arises. Will need placement. Admission and Anticipated Discharge Date Admission Date: May 15, 2021 Subjective Patient was lying in bed, on 2 L nasal cannula oxygen, NAD, seemed somewhat confused, she had just woken up from sleep. Patient reports feeling better. Patient denies fever/headache/chills/chest pain/palpitation/other review of symptoms. Encourage incentive spirometry as well. Physical Exam Physical Exam: GENERAL: Alert and not oriented. NAD, on 2L HEENT: No pallor, no icterus. Pupils equal, round and reactive to light. Oral mucosa moist. NECK: No JVD, no neck masses. HEART: S1 and S2 heard. Regular rate and rhythm. No murmur, no gallop. RESPIRATORY SYSTEM: Normal AP diameter. No accessory muscle use. No wheezing, crackles b/l improving today. ABDOMEN: Soft, bowel sounds present, nontender, no distention. Ventral hernia noted, shingles rash noted on right belly. CENTRAL NERVOUS SYSTEM: No facial droop. Speech is clear. Obeys simple commands. Moves extremities. EXTREMITIES: No BLE edema, no erythema seen. Results & Data Results & Data ([facility]) Vital Signs (Past 12 Hours) Vital Signs Temp Pulse Pulse Resp BP BP Pulse Ox 05/19/21 11:56 36.8 C 86 18 116/56 L 93 05/19/21 08:00 36.8 C 90 18 110/53 L 95 05/19/21 07:30 86 05/19/21 05:16 86 93/52 L 93 05/19/21 03:40 36.9 C 86 18 89/30 L 98 05/19/21 03:09 91 H 05/19/21 02:17 79/33 L
[2021-05-19] MEDS: POTASSIUM CHLORIDE CRTAB 20 MEQ TABCR PO SCH (13:14)
[2021-05-19] MEDS: cefTRIAXone SODIUM 2,000 MG in DEXTROSE 5% 50 ML IV SCH (20:03)
[2021-05-19] MEDS: MELATONIN 3 MG TAB PO SCH (20:10)
[2021-05-20 00:28] LABS: Base Excess ABG 2.1 mEq/L (-9-1.8); HCO3 ABG 27 mmol/L (19-24); Oxygen Saturation ABG 95.4 % (90-95); PCO2 ABG 43 mmHg (35-46); PO2 ABG 76 mmHg (80-95); pH ABG 7.41 (7.35-7.45)
[2021-05-20 00:33] LABS: Nucleated RBC # (auto) 0.13 K/uL (0-0); Nucleated RBC % (auto) 1.4 %
[2021-05-20 00:38] LABS: Hematocrit (blood only) 26.1 % (37-47); Hemoglobin 8.3 g/dL (12.0-16.0); Mean Corpuscular Hemoglobin 30.7 pg (25-34); Mean Corpuscular Hgb Conc 31.8 g/dL (32-36); Mean Corpuscular Volume 96.7 fL (80-100); Mean Platelet Volume 11.7 fL (7.4-10.4); Platelet Count 57 K/uL (130-400); RDW Coefficient of Variation 22.3 % (11.5-14.5); RDW Standard Deviation 73.3 fL (36.4-46.3); White Blood Count 8.77 K/uL (4.8-10.8)
[2021-05-20 00:40] LABS: Allen Test POS (Pos)
[2021-05-20 00:52] LABS: Anisocytosis Present; Echinocytes 1+; Eosinophils # (auto) 0.06 K/uL (0-0.5); Eosinophils % (auto) 0.7 %; Immature Granulocytes # (auto) 0.08 K/uL (0.00-0.02); Immature Granulocytes % (auto) 0.9 %; Lymphocytes % (auto) 17.1 %; Monocytes # (auto) 0.81 K/uL (0.11-0.59); Monocytes % (auto) 9.2 %; Neutrophils # (auto) 6.32 K/uL (1.4-6.5); Neutrophils % (auto) 72.1 %; Polychromasia 1+; Prothrombin Time 36.1 Seconds (9.0-12.0)
[2021-05-20 00:56] LABS: Albumin Level 2.1 gm/dl (3.4-5.0); BUN Creatinine Ratio 9.2 (10-20); Calcium 8.1 mg/dl (8.5-10.1); Creatinine Clr Calc Pharmacy 16.3 ml/min; Est GFR (African American) 14.5 ml/min; Est GFR (Non-African American) 12.5 ml/min; Magnesium 2.5 mg/dl (1.8-2.4); Potassium 3.7 mmol/L (3.5-5.1)
[2021-05-20 00:59] LABS: Albumin Globulin Ratio 1.3 (0.9-2); Bilirubin,Total 2.6 mg/dl (0.2-1); Globulin 1.6 gm/dl (2.5-4.0); Total Protein 3.7 gm/dl (6.4-8.2)
[2021-05-20] MEDS ORDERED: ALBUMIN 25% 100 mL 25 GM/100 ML VIAL IV ONE ×2 (01:06→05:59)
[2021-05-20] MEDS ORDERED: MIDODRINE HCL 2.5 MG TAB PO STA (01:07)
--- NOTE | 2021-05-20 01:10 | Communication Note ---
Date of Service: May 20, 2021 Patient more confused than usual as per RN. Refusing lactulose as per RN account as patient does not like the taste. SBP 70s as per RN. No abdominal pain or bleeding concerns as per RN. ammonia 32.8 lactic acid 2.6 INR 4 AP Encephalopathy Rule out bleed given coagulopathy from chronic liver disease Hypotension CT head Vitamin K 1 dose IV albumin 1 dose, recheck lactic acid Increase Midodrine frequency to 5 mg TID for now. Will relay to AM provider.
[2021-05-20] MEDS ORDERED: PHYTONADIONE 10 MG in SODIUM CHLORIDE 0.9% 50 ML IV ONE (01:15)
[2021-05-20] MEDS: MIDODRINE HCL 2.5 MG TAB PO SCH ×3 (06:23→16:10)
[2021-05-20] MEDS ORDERED: SODIUM CHLORIDE 0.9% 1000ML 1,000 ML IV PRN (07:00)
--- NOTE | 2021-05-20 08:09 | Nephrology Progress Note ---
Date of Service May 20, 2021 Assessment & Plan Admission and Anticipated Discharge Date Admission Date: May 15, 2021 Subjective S----had issue with Low BP, High Lcatte and Low o2 and AMS last night again. PHYSICAL EXAMINATION: GENERAL: Obese white female who is not in severe respiratory distress, but she is requiring oxygen. HEENT: Mucous membranes are moist. NECK: Supple. No jugular venous distention. CHEST: Bilateral crackles and rhonchi with prolonged expiration. CARDIOVASCULAR: S1 and S2, regular. ABDOMEN: Soft, nontender, obese. EXTREMITIES: Show signs of chronic edema with skin changes. Does have 1+ edema. LABORATORY TEST:lactic acid high ASSESSMENT AND PLAN: A 70-year-old female with severe acute renal failure, requiring dialysis recently, on a Thursday, , Thursday schedule, now admitted with shortness of breath, hypoxia, most likely secondary to influenza A. She did have a recent COVID infection and was getting better from that, but now the COVID test is negative, but influenza is positive. 1. End-stage renal disease: Her next dialysis will be tomorrow as per her regular schedule. We will try to take extra fluid off as allowed by her blood pressure, which seems to be bug problem. Hemoglobin is low and we will give her Procrit 20,000 units. No heparin as she has chronically low platelet count. 2. Shortness of breath, hypoxia secondary to influenza A with recent COVID: As per primary team. her condition seems to be declining though. . Results & Data ([facility]) Vital Signs (Past 12 Hours) Vital Signs Temp Pulse Pulse Resp BP BP Pulse Ox 05/20/21 07:33 36.6 C 82 18 80/45 L 96 05/20/21 06:22 83 72/49 L 05/20/21 04:08 36.7 C 83 22 81/30 L 94 05/20/21 03:56 85 05/19/21 22:58 37.1 C 84 20 84/45 L 94
[2021-05-20] MEDS: DOXYCYCLINE HYCLATE 100 MG in DEXTROSE 5% 100 ML IV SCH (08:24)
[2021-05-20] MEDS: POTASSIUM CHLORIDE CRTAB 20 MEQ TABCR PO SCH ×2 (08:24→08:43)
[2021-05-20] MEDS: CHOLECALCIFEROL 1,000 UNITS 25 MCG TAB PO SCH ×2 (08:25→08:42)
[2021-05-20] MEDS: rifAXIMin 550 MG TABLET PO SCH ×3 (08:25→21:06)
[2021-05-20] MEDS: ATORVASTATIN 40 MG TAB PO SCH ×2 (08:25→08:42)
[2021-05-20] MEDS: FLUTICASONE FUROATE 100MCG 14 PUFFS/INHALER INH SCH ×2 (08:25→08:42)
[2021-05-20] MEDS: PANTOprazole 40 MG TAB PO SCH ×2 (08:25→08:43)
[2021-05-20] MEDS: SERTRALINE HCL 100 MG TABLET PO SCH ×2 (08:25→08:43)
[2021-05-20] MEDS: MAGNESIUM OXIDE 400 MG TAB PO SCH ×2 (08:25→08:43)
[2021-05-20] MEDS: GABAPENTIN 100 MG CAP PO SCH ×3 (08:26→21:05)
[2021-05-20] MEDS: ADVANCED PROBIOTIC 1250 MG CAPSULE PO SCH ×2 (08:26→08:43)
[2021-05-20] MEDS: LACTULOSE SYRUP 20 GM/30 ML UDC PO SCH (08:33)
--- NOTE | 2021-05-20 08:35 | CT Scan Report ---
CT head/brain wo con CLINICAL HISTORY: ams Technique: Contiguous axial CT images of the head were acquired from the base of the skull to the jeanne shikha without intravenous contrast administration. Images were viewed in brain, subdural and bone [facility]. Automated dose lowering techniques and/or adjustment according to patient size were utilized for this exam. Comparison: None available at the time of this dictation. Findings: The ventricles, basal cisterns, and cerebral sulci are normal. There is no acute intracranial hemorrh age or evidence of acute territorial infarction. Neither mass effect, shift of the midline structures , nor abnormal extra-axial fluid collections are shown. Imaged portions of the paranasal sinuses and mastoid air cells are clear. The orbits appear normal. There are no acute fractures of the calvaria or scalp swelling. Impression: No acute intracranial hemorrhage, no evidence of acute territorial infarction or other acute intracra nial disease process. ACT 112: Negative or not required by law. Electronically signed by: Wade Aggarwal M.D. 05/20/2021 8:33 AM
[2021-05-20] MEDS ORDERED: SODIUM CHLORIDE 0.9% 500 ML IV SCH (08:45)
[2021-05-20] MEDS ORDERED: MIDODRINE HCL 2.5 MG TAB PO SCH (09:00)
[2021-05-20] MEDS ORDERED: PIPERACILL/TAZOBAC CONSULT ACTIVE PRN (09:15)
[2021-05-20] MEDS ORDERED: VANCOMYCIN CONSULT ACTIVE PRN (09:15)
[2021-05-20] MEDS ORDERED: PIPERACILLIN/TAZOBACTAM 2.25 GM in DEXTROSE 5% 100 ML IV SCH (09:15)
[2021-05-20] MEDS ORDERED: VANCOMYCIN HCL 1,000 MG in SODIUM CHLORIDE 0.9% 250 ML IV STA (09:15)
[2021-05-20] MEDS ORDERED: PIPERACILLIN/TAZOBACTAM 3.375 GM in DEXTROSE 5% 100 ML IV ONE (10:00)
[2021-05-20] MEDS ORDERED: VANCOMYCIN HCL 1,750 MG in SODIUM CHLORIDE 0.9% 500 ML IV ONE (10:00)
[2021-05-20 10:01] LABS: Influenza A virus by PCR Positive (Neg); Influenza B virus by PCR Negative (Neg); RSV by PCR Negative (Neg)
--- NOTE | 2021-05-20 10:13 | XRay Report ---
XR chest 1V portable CLINICAL HISTORY: f/u cxr, ? not improving TECHNIQUE: Single frontal radiograph of the chest was obtained. Comparison: Comparison is made to chest one view 05/17/2021 FINDINGS: Dual lumen catheter is unchanged. The cardiomediastinal silhouette is normal. Stable appearance of fa int patchy airspace opacities. No evidence of pleural effusion or pneumothorax. IMPRESSION: Stable appearance of faint bilateral airspace opacities ACT 112: Negative or not required by law. Electronically signed by: Wade Aggarwal M.D. 05/20/2021 10:12 AM
--- NOTE | 2021-05-20 10:21 | Pharmacy Report ---
Pharmacy Abx Initial Consult - Date of Service May 20, 2021 - Pharmacy Dosing Scope Date of Consult: 05/20/21 Consultation requested by: Dr. Montes - Subjective The patient is a 70 year old F admitted on 05/15/21 00:07. - Objective Height: 5 ft 4 in Weight: 91.7 kg Vital Signs (Past 12hrs): Vital Signs Temp Pulse Pulse Pulse Resp BP BP 05/20/21 08:37 82 102/58 L 05/20/21 07:33 36.6 C 82 18 80/45 L 05/20/21 06:22 83 72/49 L 05/20/21 04:08 36.7 C 83 22 81/30 L 05/20/21 03:56 85 05/19/21 22:58 37.1 C 84 20 84/45 L Pulse Ox 05/20/21 08:37 05/20/21 07:33 96 05/20/21 06:22 05/20/21 04:08 94 05/20/21 03:56 05/19/21 22:58 94 Lab Results (24hrs): Laboratory Tests (24 Hours) 05/20/21 05/20/21 05/20/21 07:10 00:07 00:07 WBC 8.77 Neut # (Auto) 6.32 Creatinine 3.52 H Est Cr Clr Drug Dosing 16.3 Procalcitonin 1.77 H Micro Results: 05/20/21 09:31 Aerobic Blood Culture - Pending Blood Anaerobic Blood Culture - Pending 05/20/21 09:22 Aerobic Blood Culture - Pending Blood Anaerobic Blood Culture - Pending 05/14/21 19:50 Aerobic Blood Culture - Final Blood No growth in Aerobic bottle after 5 days. Anaerobic Blood Culture - Final No growth in Anaerobic bottle after 5 days. 05/14/21 19:50 Aerobic Blood Culture - Final Blood No growth in Aerobic bottle after 5 days. Anaerobic Blood Culture - Final No growth in Anaerobic bottle after 5 days. - Risk Factors for Resistance * Current hospitalization > 5 days * Chronic dialysis within the past 30 days - Assessment & Plan Assessment 70 year old who presented with 4-6 days greenish sputum. COVID + 05/09/21, negative on admission (05/14/21). Influenza A + 05/14/21. Patient was on Rocephin and Doxycycline, not clinically improving. Procalcitonin elevated at 2.2 today. Chronic dialysis patient Plan Day 1: Vancomycin 1750mg loading dose sent (19mg/kg) Patient will receive dialysis tomorrow 05/21/20, will obtain a random trough in AM to assist with further dosing Zosyn 3.375mg loading dose, followed by extended infusion q12h Pharmacy will continue to follow and will adjust dose/frequency as necessary. Thank you.
[2021-05-20 10:34] LABS: SARS CoV2 RNA(COVID-19) InHosp NEGATIVE (Negative)
[2021-05-20] MEDS ORDERED: SODIUM CHLORIDE 0.9% 1000ML 250 ML IV ONE (11:13)
--- NOTE | 2021-05-20 12:28 | XCELERA ---
[id number]
[2021-05-20] MEDS: LACTULOSE 200 GM, WATER, STERILE IRRIG 700 ML, BARCODE IDENTIFIER 1 EA PR SCH ×2 (12:50→20:45)
[2021-05-20] MEDS: UNIT DOSE COMPOUND PR SCH ×2 (12:50→20:40)
[2021-05-20] MEDS ORDERED: MICONAZOLE NITRATE POWDER 43 GM EXT PRN (12:59)
--- NOTE | 2021-05-20 15:03 | Hospitalist Progress Note ---
Date of Service May 20, 2021 Assessment & Plan (1) Acute respiratory failure with hypoxia: (2) Pneumonia: Plan: 70 yo F w/ hyperlipidemia, DANNIELLE, venous insufficiency, portal HTN with hypertensive gastropathy, morbid obesity, LOJA cirrhosis of liver, hepatorenal syndrome currently on HD, GERD, generalized osteoarthrosis, lumbar degenerative disk disease, primary osteoarthritis, restless legs syndrome, neuropathy, thrombocytopenia, persistent insomnia, mixed incontinence, major depression presented 05/14 with shortness of breath. Patient was diagnosed with Covid on 05/09/2021. She is vaccinated with moderna. EMS noted saturation in 70s and was placed on oxygen. Patient was recently in the hospital for renal failure due to hepatorenal syndrome [started on HD via PermCath in the right chest] on 04/17/2021 to [facility]. Currently lives alone at home, her son helps her. She ambulates with walker. 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 Patient is being managed for the followin. Hypoxia, acute respiratory failure secondary to pneumonia from ? COVID and flu 1. 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 COVID was positive on 05/09/2021. Negative at admission on 05/14, will repeat Covid test 05/15. Patient vaccinated with moderna - boosted as well. Influenza type A positive at admission Patient was saturating in 70s per EMS, requiring oxygen. Admitting WBC of 4.63K, down trended to 2.89K, lymphopenia noted. Admitting pro-Jorden 0.83, down trended to 0.71 Admitting CXR: Mild bilateral airspace opacities suggestive of infectious process versus mild pulmonary edema. COVID test x 3 negative at multiple points in time. Patient is flu positive. Continue with incentive spirometer/flutter valve/supplemental oxygentitrate as tolerated. DC'd Dexa (05/14-05/16) Patient afebrile, reports cough getting better now with clear sputum. S/p Tamiflu 05/14 -05/19/21, nebs p.r.n., albuterol p.r.n., Pulmicort inhalation b.i.d. Closely monitor in the med tele. Supportive care. Procal elevated from admitting level--> will change Rocephin 05/14 and doxycycline 05/15 to Zosyn 05/20 and Vanc 05/20 to cover for MRSA, Pseudomonas and Anaerobes Will follow clinically and labwise for improvement. ECHO 05/20 wnl and CXR 05/20 no new acute process/stable. 05/20 blood culture sent. Pt appears weak, encourage to use IS/flutter valve Patient will need follow-up chest x-ray in 4 to 6 weeks to document the resolution of pneumonia. 2. Endstage renal disease on dialysis. BUN WNL at presentation Nephro on board. She has been dialyzed on Tuesdays, , and Saturdays.On potassium supplement. Follow labs. Not being able to hemodialyzed completely due to low blood pressure. Nephro following. for HD 3. Nonalcoholic steatohepatitis liver cirrhosis. 3. Metabolic encephalopathy 2/2 above. c/w Xifaxan and lactulose, titrate lactulose for 3-4 bowel movements in 24 hours. Follow ammonia levels as appropriate. Has followed up with GI as an outpatient, awaiting callback from liver transplant team to establish care per her son. Her ammonia level is minimally elevated, patient remains confused, patient refusing lactulose, will order [place] lactulose for now. Continue to monitor. 4.Shingles: rash on abdomen was diagnosed with possible shingles at [facility] was treated for 5 days with antiviral medication. Currently, no pain has some itchiness. 5. History of depression: Continue Zoloft. 6. Gastroesophageal reflux disease: Continue omeprazole. 7. Hyperlipidemia: Continue statin. 8. Bilateral lower extremity edema, possibly secondary to cirrhosis and renal failure on dialysis. Admitting CXR questionable for mild pulmonary edema Admitting BNP elevated at 8201, downtrended Resolved. 9. Anemia in setting of chronic liver disease and chronic renal failure, thrombocytopenia also from liver disease: Follow labs. Last admission FOBT was positive and currently on omeprazole. Last admission, required 1 unit of PRBC and she is also status post EGD on 06/16/2020 showing no varices, portal hypertensive gastropathy, no ulcers. Monitor hemoglobin closely, await FOBT. INR 2.4 at admission. 10. Sleep apnea: On CPAP at bedtime. 11. Morbid obesity: Needs counseling. 05/15: Her son Shawn Degroot [[phone]] was given a phone call, updated on the current status of the patient regarding her Covid/flu/bacterial pneumonia and plan of care. He voiced understanding and was agreeable. 05/20/21: Met and discussed with her son Shawn Degroot at Bedside, made aware about her low blood pressure and difficulty doing Hemodialysis. He reports patient has been confused more so lately and it has been difficult to feed her. He feels patient is not doing better at baseline. Made him aware that we are treating her pneumonia and waiting for placement but she has been confused and refusing meds lately which he relates to her outpatient status and finds similar situation at home as well. When talked about goals of care, he stated will think about it and is planning [facility] get [facility] and he already started paperwork for that. He mentioned he would like to talk regarding palliative care down the road. DVT prophylaxis: Low platelets, no heparin/enoxaparin. SCDs. Disposition: PT/OT to [facility] to assist with DC planning. Patient stable for d ischarge unless no new issues arises. Will need placement. Will need outpatient palliative care setup. Admission and Anticipated Discharge Date Admission Date: May 15, 2021 Subjective Patient lying in bed, on 3 L nasal cannula oxygen, NAD, low blood pressure readings overnight, no signs and symptoms. Patient is confused and AO x1 at bedside. Patient denies any pain and reports improving cough but ROS limited due to cognition status. Per RN, she had 3-4 bowel movement yesterday and at least one overnight. Patient has been refusing lactulose since last 3 to 4 days, has ordered as needed lactulose for the time being. Physical Exam Physical Exam: GENERAL: Alert and not oriented. NAD, on 3L HEENT: No pallor, no icterus. Pupils equal, round and reactive to light. Oral mucosa moist. NECK: No JVD, no neck masses. HEART: S1 and S2 heard. Regular rate and rhythm. No murmur, no gallop. RESPIRATORY SYSTEM: Normal AP diameter. No accessory muscle use. No wheezing, crackles b/l improving today. ABDOMEN: Soft, bowel sounds present, nontender, no distention. Ventral hernia noted, shingles rash noted on right belly. CENTRAL NERVOUS SYSTEM: No facial droop. Speech is clear. Obeys simple commands. Moves extremities. EXTREMITIES: Trace BLE edema, no erythema seen. Results & Data Results & Data ([facility]) Vital Signs (Past 12 Hours) Vital Signs Temp Pulse Pulse Pulse Resp BP BP 05/20/21 11:45 18 84/49 L 05/20/21 11:00 36.5 C 77 18 79/40 L 05/20/21 08:37 82 102/58 L 05/20/21 07:33 36.6 C 82 18 80/45 L 05/20/21 06:22 83 72/49 L 05/20/21 04:08 36.7 C 83 22 81/30 L 05/20/21 03:56 85 Pulse Ox 05/20/21 11:45 05/20/21 11:00 100 05/20/21 08:37 05/20/21 07:33 96 05/20/21 06:22 05/20/21 04:08 94 05/20/21 03:56
[2021-05-20] MEDS: ALBUMIN 25% 100 mL 25 GM/100 ML VIAL IV SCH ×2 (15:23→23:16)
--- NOTE | 2021-05-20 15:24 | Hospitalist Progress Note ---
Date of Service May 20, 2021 Assessment & Plan (1) Acute respiratory failure with hypoxia: (2) Pneumonia: Plan: 70 yo F w/ hyperlipidemia, DANNIELLE, venous insufficiency, portal HTN with hypertensive gastropathy, morbid obesity, LOJA cirrhosis of liver, hepatorenal syndrome currently on HD, GERD, generalized osteoarthrosis, lumbar degenerative disk disease, primary osteoarthritis, restless legs syndrome, neuropathy, thrombocytopenia, persistent insomnia, mixed incontinence, major depression presented 05/14 with shortness of breath. Patient was diagnosed with Covid on 05/09/2021. She is vaccinated with moderna. EMS noted saturation in 70s and was placed on oxygen. Patient was recently in the hospital for renal failure due to hepatorenal syndrome [started on HD via PermCath in the right chest] on 04/17/2021 to [facility]. Currently lives alone at home, her son helps her. She ambulates with walker. 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 Patient is being managed for the followin. Hypoxia, acute respiratory failure secondary to pneumonia from ? COVID and flu 1. 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 COVID was positive on 05/09/2021. Negative at admission on 05/14, will repeat Covid test 05/15. Patient vaccinated with moderna - boosted as well. Influenza type A positive at admission Patient was saturating in 70s per EMS, requiring oxygen. Admitting WBC of 4.63K, down trended to 2.89K, lymphopenia noted. Admitting pro-Jorden 0.83, down trended to 0.71 Admitting CXR: Mild bilateral airspace opacities suggestive of infectious process versus mild pulmonary edema. COVID test x 3 negative at multiple points in time. Patient is flu positive. Continue with incentive spirometer/flutter valve/supplemental oxygentitrate as tolerated. DC'd Dexa (05/14-05/16) Patient afebrile, reports cough getting better now with clear sputum. S/p Tamiflu 05/14 -05/19/21, nebs p.r.n., albuterol p.r.n., Pulmicort inhalation b.i.d. Closely monitor in the med tele. Supportive care. Procal elevated from admitting level--> will change Rocephin 05/14 and doxycycline 05/15 to Zosyn 05/20 and Vanc 05/20 to cover for MRSA, Pseudomonas and Anaerobes Will follow clinically and labwise for improvement. ECHO 05/20 wnl and CXR 05/20 no new acute process/stable. 05/20 blood culture sent. Pt appears weak, encourage to use IS/flutter valve Patient will need follow-up chest x-ray in 4 to 6 weeks to document the resolution of pneumonia. 2. Endstage renal disease on dialysis. BUN WNL at presentation Nephro on board. She has been dialyzed on Tuesdays, , and Saturdays.On potassium supplement. Follow labs. Not being able to hemodialyzed completely due to low blood pressure. Nephro following. for HD 3. Nonalcoholic steatohepatitis liver cirrhosis. 3. Metabolic encephalopathy 2/2 above. c/w Xifaxan and lactulose, titrate lactulose for 3-4 bowel movements in 24 hours. Follow ammonia levels as appropriate. Has followed up with GI as an outpatient, awaiting callback from liver transplant team to establish care per her son. Her ammonia level is minimally elevated, patient remains confused, patient refusing lactulose, will order [place] lactulose for now. Continue to monitor. 4.Shingles: rash on abdomen was diagnosed with possible shingles at [facility] was treated for 5 days with antiviral medication. Currently, no pain has some itchiness. 5. History of depression: Continue Zoloft. 6. Gastroesophageal reflux disease: Continue omeprazole. 7. Hyperlipidemia: Continue statin. 8. Bilateral lower extremity edema, possibly secondary to cirrhosis and renal failure on dialysis. Admitting CXR questionable for mild pulmonary edema Admitting BNP elevated at 8201, downtrended Resolved. 9. Anemia in setting of chronic liver disease and chronic renal failure, thrombocytopenia also from liver disease: Follow labs. Last admission FOBT was positive and currently on omeprazole. Last admission, required 1 unit of PRBC and she is also status post EGD on 06/16/2020 showing no varices, portal hypertensive gastropathy, no ulcers. Monitor hemoglobin closely, await FOBT. INR 2.4 at admission. 10. Sleep apnea: On CPAP at bedtime. 11. Morbid obesity: Needs counseling. 05/15: Her son Shawn Degroot [[phone]] was given a phone call, updated on the current status of the patient regarding her Covid/flu/bacterial pneumonia and plan of care. He voiced understanding and was agreeable. 05/20/21: Met and discussed with her son Shawn Degroot at Bedside, made aware about her low blood pressure and difficulty doing Hemodialysis. He reports patient has been confused more so lately and it has been difficult to feed her. He feels patient is not doing better at baseline. Made him aware that we are treating her pneumonia and waiting for placement but she has been confused and refusing meds lately which he relates to her outpatient status and finds similar situation at home as well. When talked about goals of care, he stated will think about it and is planning to get [facility] and he already started paperwork for that. He mentioned he would like to talk regarding palliative care down the road. DVT prophylaxis: Low platelets, no heparin/enoxaparin. SCDs. Disposition: PT/OT to [facility] to assist with DC planning. Patient stable for d ischarge unless no new issues arises. Will need placement. Will need outpatient palliative care setup. Admission and Anticipated Discharge Date Admission Date: May 15, 2021 Subjective Patient lying in bed, on 3 L nasal cannula oxygen, NAD, low blood pressure readings overnight, no signs and symptoms. Patient is confused and AO x1 at bedside. Patient denies any pain and reports improving cough but ROS limited due to cognition status. Per RN, she had 3-4 bowel movement yesterday and at least one overnight. Patient has been refusing lactulose since last 3 to 4 days, has ordered as needed lactulose for the time being. Physical Exam Physical Exam: GENERAL: Alert and not oriented. NAD, on 3L HEENT: No pallor, no icterus. Pupils equal, round and reactive to light. Oral mucosa moist. NECK: No JVD, no neck masses. HEART: S1 and S2 heard. Regular rate and rhythm. No murmur, no gallop. RESPIRATORY SYSTEM: Normal AP diameter. No accessory muscle use. No wheezing, crackles b/l improving today. ABDOMEN: Soft, bowel sounds present, nontender, no distention. Ventral hernia noted, shingles rash noted on right belly. CENTRAL NERVOUS SYSTEM: No facial droop. Speech is clear. Obeys simple commands. Moves extremities. EXTREMITIES: Trace BLE edema, no erythema seen. Results & Data Results & Data ([facility]) Vital Signs (Past 12 Hours) Vital Signs Temp Pulse Pulse Pulse Resp BP BP 05/20/21 14:00 36.4 C L 83 20 107/68 05/20/21 11:45 18 84/49 L 05/20/21 11:00 36.5 C 77 18 79/40 L 05/20/21 08:37 82 102/58 L 05/20/21 07:33 36.6 C 82 18 80/45 L 05/20/21 06:22 83 72/49 L 05/20/21 04:08 36.7 C 83 22 81/30 L 05/20/21 03:56 85 Pulse Ox 05/20/21 14:00 96 05/20/21 11:45 05/20/21 11:00 100 05/20/21 08:37 05/20/21 07:33 96 05/20/21 06:22 05/20/21 04:08 94 05/20/21 03:56
[2021-05-20] MEDS: PIPERACILLIN/TAZOBACTAM 3.375 GM in DEXTROSE 5% 100 ML IV SCH (17:31)
[2021-05-20] MEDS: MELATONIN 3 MG TAB PO SCH (21:06)
[2021-05-21] MEDS: LACTULOSE 200 GM, WATER, STERILE IRRIG 700 ML, BARCODE IDENTIFIER 1 EA PR SCH ×3 (04:52→19:33)
[2021-05-21] MEDS: UNIT DOSE COMPOUND PR SCH ×3 (04:53→19:33)
[2021-05-21] MEDS: ALBUMIN 25% 100 mL 25 GM/100 ML VIAL IV SCH ×3 (06:02→23:29)
[2021-05-21] MEDS: PIPERACILLIN/TAZOBACTAM 3.375 GM in DEXTROSE 5% 100 ML IV SCH ×2 (08:08→18:07)
[2021-05-21] MEDS: MIDODRINE HCL 2.5 MG TAB PO SCH ×2 (08:13→11:18)
[2021-05-21] MEDS: POTASSIUM CHLORIDE CRTAB 20 MEQ TABCR PO SCH (08:21)
[2021-05-21] MEDS: MAGNESIUM OXIDE 400 MG TAB PO SCH (08:21)
[2021-05-21] MEDS: ATORVASTATIN 40 MG TAB PO SCH (08:21)
[2021-05-21] MEDS: FLUTICASONE FUROATE 100MCG 14 PUFFS/INHALER INH SCH (08:21)
[2021-05-21] MEDS: PANTOprazole 40 MG TAB PO SCH (08:21)
[2021-05-21] MEDS: CHOLECALCIFEROL 1,000 UNITS 25 MCG TAB PO SCH (08:21)
[2021-05-21] MEDS: ADVANCED PROBIOTIC 1250 MG CAPSULE PO SCH (08:21)
[2021-05-21] MEDS: GABAPENTIN 100 MG CAP PO SCH ×2 (08:21→21:14)
[2021-05-21] MEDS: rifAXIMin 550 MG TABLET PO SCH ×2 (08:22→21:14)
[2021-05-21] MEDS: SERTRALINE HCL 100 MG TABLET PO SCH (08:22)
--- NOTE | 2021-05-21 08:48 | Nephrology Progress Note ---
Date of Service May 21, 2021 Assessment & Plan (1) ESRD (end stage renal disease) on dialysis: Plan: A 70-year-old female with ESRD on dialysis (started recently) on outpatient Thursday, , Thursday schedule, now admitted with hypoxia and pneumonia. She did have a recent COVID infection and was getting better from that, but now the COVID test is negative but influenza positive; also concern for superimposed bacterial PNA. She has LOJA cirrhosis > which complicates her dialysis with hypotension and bleeding concerns. She was just started on tid midodrine 5 mg yesterday; routinely takes 5 mg pre HD as OP. Midodrien upped to 10 mg tid today with continued albumin. SBP remains 60-70s. Extended care coordination with Dr Montes >> pt not likely to tolerate dialysis today d/t hypotension. No obvious source of infecition though could consider abd u/s adn tap given abd disocmfort. Dr Montes again reviewed w/ family after our discussion and plan now is for pt to go home on hospice which is appropriate. Pt had been started on HD in hopes of getting to liver txplt evaluation which she unfortunately was never well enough to get. (2) Acute respiratory failure with hypoxia: Plan: Shortness of breath, hypoxia secondary to influenza A and bacterial PNA with recent COVID: As per primary team; Admission and Anticipated Discharge Date Admission Date: May 15, 2021 Subjective pt seen and evaluated at about 1230 pm; minimally interactive but does perk up when I ask about her Yorkie; points to epigastrium when I ask about pain; else cannot obtain ROS or answers to Y/N questions d/t altered MS; sbp has been running 60-70s today despite albumin, more midodrine. EF on TTE wnl Review of Systems Review of Systems: Unobtainable due to reduced consciousness Physical Exam Constitutional: well developed, well nourished, + altered mental status and comfortable; no acute distress Eyes: + anicteric sclerae and EOM intact bilaterally ENMT: Ears: no external ear abnormality Nose: no external nose abnormality Mouth: + dry oral mucous membranes Neck: no nuchal rigidity Respiratory: normal respiratory effort Auscultation: + diminished lung sounds Cardiovascular: RRR, no murmur, no edema Gastrointestinal (Abdomen): Inspection/Auscultation: normal bowel sounds and + visible herniation Percussion/Palpation: abdomen soft and + fluid wave; abdomen nontender Musculoskeletal: Extremities: + abnormal strength generalized weakness Skin: no rashes, warm and dry Neurologic: smith, fluent speech, no tremor Results & Data ([facility]) Vital Signs (Past 12 Hours) Vital Signs Temp Pulse Pulse Pulse Resp BP Pulse Ox 05/21/21 07:54 73 05/21/21 07:25 36.3 C L 71 16 101/61 100 05/21/21 04:42 36.4 C L 71 18 79/43 L 97 05/21/21 01:49 75 05/21/21 01:18 90/38 L 05/20/21 23:48 36.4 C L 70 18 77/34 L 99 Laboratory Results 05/21/21 09:57 05/20/21 00:07
[2021-05-21 10:11] LABS: Hematocrit (blood only) 23.7 % (37-47); Hemoglobin 7.6 g/dL (12.0-16.0)
[2021-05-21] MEDS ORDERED: SODIUM CHLORIDE 0.9% 1000ML 250 ML IV ONE (10:50)
--- NOTE | 2021-05-21 11:07 | Pharmacy Report ---
Pharmacy [facility] Short Note - Date of Service May 21, 2021 - Assessment & Plan Assessment 70 year old who presented with 4-6 days greenish sputum. COVID + 05/09/21, negative on admission (05/14/21). Influenza A + 05/14/21. Patient was on Rocephin and Doxycycline, not clinically improving Chronic dialysis patient Plan Vancomycin * Random vancomycin level this morning was ~24 mcg/ml; Per notes plan to have dialysis today, therefore anticipate 30% removal of vancomycin from dialysis treatment * Anticipate vancomycin level post dialysis to remain therapeutic, therefore will hold vancomycin dose for today * Will plan to order another random vancomycin level prior to next dialysis session to assist with further dosing Zosyn * 3.375 gm iv q 12 hr - appropriate for HD Pharmacy will continue to follow and will adjust dose/frequency as necessary. Thank you.
--- NOTE | 2021-05-21 13:19 | Communication Note ---
Date of Service: May 21, 2021 Communicated with her son 2 times today, to give an update about her current status and what the plan of care would be. Discussed that her blood pressure is not supporting hemodialysis, she has been confused and not able to take p.o. meds/food, infection has been ruled out, updated them about my discussion with the intensive care unit and nephrology about the prognosis of the patient and possible plan of care course, including use of pressure transiently but we do not know if she will come off of it as there is no infection or other acute problems identified that is causing her blood pressure to be low, it is most likely due to her progressive liver failure. Also, her [id number] Meeta was in the conversation during the second time with Pt's son Shawn. They stated that patient's wish was to be not intubated and not resuscitated, they decided to go with home with hospice. Given the prognosis and based on my discussion with intensive care Dr graves and Nephro Dr graves, I believe it is prudent to make her comfort. ultrasound manager consulted.
--- NOTE | 2021-05-21 15:24 | Hospitalist Progress Note ---
Date of Service May 21, 2021 Assessment & Plan (1) Acute respiratory failure with hypoxia: (2) Pneumonia: Plan: 70 yo F w/ hyperlipidemia, DANNIELLE, venous insufficiency, portal HTN with hypertensive gastropathy, morbid obesity, LOJA cirrhosis of liver, hepatorenal syndrome currently on HD, GERD, generalized osteoarthrosis, lumbar degenerative disk disease, primary osteoarthritis, restless legs syndrome, neuropathy, thrombocytopenia, persistent insomnia, mixed incontinence, major depression presented 05/14 with shortness of breath. Patient was diagnosed with Covid on 05/09/2021. She is vaccinated with moderna. EMS noted saturation in 70s and was placed on oxygen. Patient was recently in the hospital for renal failure due to hepatorenal syndrome [started on HD via PermCath in the right chest] on 04/17/2021 to [facility]. Currently lives alone at home, her son helps her. She ambulates with walker. Patient reports of greenish cough with sputum since last 5 to 6 days [employer]OR [employer]SEM[employer]. Patient is being managed for the followin. Hypoxia, acute respiratory failure secondary to pneumonia from ? COVID and flu 1. Pneumonia/ bacterial superinfection Patient reports cough with greenish sputum 4 to 6 days [employer]OR [employer]. COVID was positive on 05/09/2021. Negative at admission on 05/14, will repeat Covid test 05/15. Patient vaccinated with moderna - boosted as well. Influenza type A positive at admission Patient was saturating in 70s per EMS, requiring oxygen. Admitting WBC of 4.63K, down trended to 2.89K, lymphopenia noted. Admitting pro-Jorden 0.83, down trended to 0.71, which later on uptrended and hence rocephin/doxy changed to zosyn/vanc Admitting CXR: Mild bilateral airspace opacities suggestive of infectious process versus mild pulmonary edema. COVID test x 3 negative at multiple points in time. Patient is flu positive. Continue with incentive spirometer/flutter valve/supplemental oxygentitrate as tolerated. DC'd Dexa (05/14-05/16) Patient afebrile, reports cough getting better now with clear sputum. S/p Tamiflu 05/14 -05/19/21, nebs p.r.n., albuterol p.r.n., Pulmicort inhalation b.i.d. Closely monitor in the [employer]. Supportive care. 05/20 Procal elevated from admitting level--> Changed Rocephin 05/14 and doxycycline 05/15 to Zosyn 05/20 and Vanc 05/20 to cover for MRSA, Pseudomonas and Anaerobes ECHO 05/20 wnl and CXR 05/20 no new acute process/stable. 05/20 Random Cortisol wnl. 05/20 blood culture sent. Pt appears weak, encourage to use IS/flutter valve 2. Endstage renal disease on dialysis. BUN WNL at presentation Nephro on board. She has been dialyzed on Tuesdays, , and Saturdays.On potassium supplement. Follow labs. Not being able to hemodialyzed completely due to low blood pressure. 2500 mL removed 05/16, hemodialysis prematurely stopped due to low blood pressure. 05/18 hemodialysis only 127 mL removed. Patient hypotensive, discussed with nephrology, not able to do hemodialysis today due to hypotension likely secondary to her end-stage liver disease . Explored the possibility of pressor support and hemodialysis both with [facility] critical care, but it would be uncertain for how long she will need pressor support as her infection is currently being appropriately treated/no other other acute precipitating factors for low BP other than the fact that she has ESLD . Discussed with medical office supervisor on-call, after reviewing her chart did not recommend this route. Nephro following. for HD 3. Nonalcoholic steatohepatitis liver cirrhosis. 3. Metabolic encephalopathy 2/2 above. c/w Xifaxan and lactulose, titrate lactulose for 3-4 bowel movements in 24 hours. Follow ammonia levels as appropriate. Has followed up with GI as an outpatient, awaiting callback from liver transplant team to establish care per her son. Her ammonia level is minimally elevated, patient remains confused, patient refusing lactulose, will order GA lactulose for now. Continue to monitor. She has been moving bowels multiple times per RN, has been using lactulose GA, no improvement in her mentation/lethargy which likely is secondary to her low blood pressure ongoing on the background of end-stage liver disease. Patient received multiple IV fluid boluses and IV albumin and increased doses of midodrine without appropriate increase in her blood pressure. Continue current management, midodrine has been increased to 10 mg 3 times daily. 4.Shingles: rash on abdomen was diagnosed with possible shingles at [facility] was treated for 5 days with antiviral medication. Currently, no pain has some itchiness. 5. History of depression: Continue Zoloft. 6. Gastroesophageal reflux disease: Continue omeprazole. 7. Hyperlipidemia: Continue statin. 8. Bilateral lower extremity edema, possibly secondary to cirrhosis and renal failure on dialysis. Admitting CXR questionable for mild pulmonary edema Admitting BNP elevated at 8201, downtrended Resolved. 9. Anemia in setting of chronic liver disease and chronic renal failure, thrombocytopenia also from liver disease: Follow labs. Last admission FOBT was positive and currently on omeprazole. Last admission, required 1 unit of PRBC and she is also status post EGD on 04/16/2021 showing no varices, portal hypertensive gastropathy, no ulcers. Monitor hemoglobin closely, await FOBT. INR 2.4 at admission. 10. Sleep apnea: On CPAP at bedtime. 11. Morbid obesity: Needs counseling. 05/15: Her son Shawn Degroot [[phone]] was given a phone call, updated on the current status of the patient regarding her Covid/flu/bacterial pneumonia and plan of care. He voiced understanding and was agreeable. 05/20/21: Met and discussed with her son Shawn Degroot at Bedside, made aware about her low blood pressure and difficulty doing Hemodialysis. He reports patient has been confused more so lately and it has been difficult to feed her. He feels patient is not doing better at baseline. Made him aware that we are treating her pneumonia and waiting for placement but she has been confused and refusing meds lately which he relates to her outpatient status and finds similar situation at home as well. When talked about goals of care, he stated will think about it and is planning [facility] and he already started paperwork for that. He mentioned he would like to talk regarding palliative care down the road. 05/21/21: Discussed with Shawn and patient's [id number] Meeta over the phone, updated that her hypotension has become more worse lately and has not responded to multiple IV fluids/IV albumin/midodrine treatment and is most likely due to her end-stage liver disease, no acute precipitating factors/infection, based on discussion with critical care and nephrology, the prognosis seems poor. Shawn stated that patient never wished resuscitation/intubation. Family finally decided to go with Home w/ hospice. DVT prophylaxis: Low platelets, no heparin/enoxaparin. SCDs. Disposition: Home with hospice. A prescription provided to the CM. Family wants to continue current treatment until hospice kicks in. Admission and Anticipated Discharge Date Admission Date: May 15, 2021 Subjective Patient was lying in bed, on 3 L nasal cannula oxygen, NAD, hypotensive events overnight. Per RN patient was hypotensive in the morning as well despite IV albumin, IV fluids and midodrine doses. Patient reports no discomfort/cough minimal/appears confused and other ROS not available. Has a long response time to questions. Physical Exam Physical Exam: GENERAL: Alert and not oriented. NAD, on 3L HEENT: No pallor, no icterus. Pupils equal, round and reactive to light. Oral mucosa moist. NECK: No JVD, no neck masses. HEART: S1 and S2 heard. Regular rate and rhythm. No murmur, no gallop. RESPIRATORY SYSTEM: Normal AP diameter. No accessory muscle use. No wheezing, crackles b/l noted - persistent/slightly increased. ABDOMEN: Soft, bowel sounds present, nontender, no distention. Ventral hernia noted, shingles rash noted on right belly. CENTRAL NERVOUS SYSTEM: No facial droop. Speech is clear. Obeys simple commands. Moves extremities. EXTREMITIES: Trace BLE edema, no erythema seen. Results & Data Results & Data ([place]) Vital Signs (Past 12 Hours) Vital Signs Temp Pulse Pulse Pulse Resp BP Pulse Ox 05/21/21 12:19 70/30 L 05/21/21 11:13 75/29 L 05/21/21 11:12 73/38 L 05/21/21 10:45 83/33 L 05/21/21 10:36 36.4 C L 70 16 95 05/21/21 07:54 73 05/21/21 07:25 36.3 C L 71 16 101/61 100 05/21/21 04:42 36.4 C L 71 18 79/43 L 97
[2021-05-21] MEDS: MIDODRINE HCL 10 MG TAB PO SCH (16:29)
[2021-05-21] MEDS: MELATONIN 3 MG TAB PO SCH (21:14)
[2021-05-22] MEDS: UNIT DOSE COMPOUND PR SCH ×2 (04:04→12:14)
[2021-05-22] MEDS: LACTULOSE 200 GM, WATER, STERILE IRRIG 700 ML, BARCODE IDENTIFIER 1 EA PR SCH ×2 (04:04→12:14)
[2021-05-22] MEDS: ALBUMIN 25% 100 mL 25 GM/100 ML VIAL IV SCH (06:03)
[2021-05-22 07:31] LABS: Hematocrit (blood only) 22.7 % (37-47); Hemoglobin 7.2 g/dL (12.0-16.0); Mean Corpuscular Hemoglobin 31.2 pg (25-34); Mean Corpuscular Hgb Conc 31.7 g/dL (32-36); Mean Corpuscular Volume 98.3 fL (80-100); Mean Platelet Volume 12.5 fL (7.4-10.4); Platelet Count 47 K/uL (130-400); RDW Standard Deviation 75.9 fL (36.4-46.3); Red Blood Count 2.31 M/uL (4.2-5.4)
[2021-05-22] MEDS: PIPERACILLIN/TAZOBACTAM 3.375 GM in DEXTROSE 5% 100 ML IV SCH (08:11)
[2021-05-22] MEDS: CHOLECALCIFEROL 1,000 UNITS 25 MCG TAB PO SCH (08:19)
[2021-05-22] MEDS: ADVANCED PROBIOTIC 1250 MG CAPSULE PO SCH (08:19)
[2021-05-22] MEDS: MAGNESIUM OXIDE 400 MG TAB PO SCH (08:19)
[2021-05-22] MEDS: PANTOprazole 40 MG TAB PO SCH (08:19)
[2021-05-22] MEDS: ATORVASTATIN 40 MG TAB PO SCH (08:19)
[2021-05-22] MEDS: GABAPENTIN 100 MG CAP PO SCH (08:19)
[2021-05-22] MEDS: rifAXIMin 550 MG TABLET PO SCH (08:20)
[2021-05-22] MEDS: SERTRALINE HCL 100 MG TABLET PO SCH (08:20)
[2021-05-22] MEDS: POTASSIUM CHLORIDE CRTAB 20 MEQ TABCR PO SCH (08:20)
[2021-05-22] MEDS: FLUTICASONE FUROATE 100MCG 14 PUFFS/INHALER INH SCH (08:20)
[2021-05-22] MEDS: MIDODRINE HCL 10 MG TAB PO SCH ×2 (08:21→12:13)
--- NOTE | 2021-05-22 08:41 | Nephrology Progress Note ---
Date of Service May 22, 2021 Assessment & Plan (1) ESRD (end stage renal disease) on dialysis: Plan: A 70-year-old female with ESRD on dialysis (started past few mos) on outpatient Thursday, , Thursday schedule, now admitted with hypoxia and pneumonia. She did have a recent COVID infection and was getting better from that, but now the COVID test is negative but influenza positive; also concern for superimposed bacterial PNA. She has LOJA cirrhosis > which complicates her dialysis with hypotension and bleeding concerns. She was just started on tid midodrine 5 mg 1; routinely takes 5 mg pre HD as OP. Midodrine upped to 10 mg tid 05/22 with continued albumin. dialysis deferred 05/21 d/t SBP consistently 60-70s. Extended care coordination with Dr Montes yesterday and Dr Marte today >> pt today still not likely to tolerate dialysis d/t hypotension. Plan now is for pt to go home on hospice which is appropriate. Pt had been started on HD in hopes of getting to liver txplt evaluation which she unfortunately was never well enough to get. Family wishes to cont current tx until hospice is set up >> her BP has been 70- 80s ON systolic; will reassess midday to see if dialysis could be considered >>too unstable to tolerate HD; would not attempt for concern of worsening her status clinically (2) Acute respiratory failure with hypoxia: Plan: secondary to influenza A and bacterial PNA with recent COVID: As per primary team; Admission and Anticipated Discharge Date Admission Date: May 15, 2021 Subjective seen on rounds 950 am; wakens briefly and tracks but jiménez snot interact Review of Systems Review of Systems: Unobtainable due to reduced consciousness Physical Exam Constitutional: well developed, well nourished, + altered mental status and comfortable; no acute distress Eyes: + anicteric sclerae and EOM intact bilaterally ENMT: Ears: no external ear abnormality Nose: no external nose abnormality Mouth: + dry oral mucous membranes Neck: no nuchal rigidity Respiratory: normal respiratory effort Auscultation: + diminished lung sounds Cardiovascular: RRR, no murmur, no edema Gastrointestinal (Abdomen): Inspection/Auscultation: normal bowel sounds and + visible herniation Percussion/Palpation: abdomen soft and + fluid wave; abdomen nontender Musculoskeletal: Extremities: + abnormal strength Skin: no rashes, warm and dry Results & Data ([facility]) Vital Signs (Past 12 Hours) Vital Signs Temp Pulse Pulse Pulse Resp BP BP 05/22/21 07:27 71 05/22/21 07:16 36.4 C L 71 22 105/57 L 05/22/21 04:04 36.5 C 69 18 99/55 L 05/22/21 01:33 73 18 89/37 L 05/22/21 00:26 36.4 C L 68 18 72/33 L 05/21/21 23:56 70 05/21/21 22:31 36.4 C L 71 18 85/45 L Pulse Ox 05/22/21 07:27 05/22/21 07:16 96 05/22/21 04:04 99 05/22/21 01:33 96 05/22/21 00:26 98 05/21/21 23:56 05/21/21 22:31 99 Laboratory Results 05/22/21 06:43 05/20/21 00:07
[2021-05-22 10:58] VITALS: TEMP 97.7; O2SAT 98
--- NOTE | 2021-05-22 11:13 | Hospitalist Progress Note ---
Date of Service May 22, 2021 Assessment & Plan (1) Acute respiratory failure with hypoxia: (2) Pneumonia: Plan: Per Dr. Montes's notes with addendum: 70 yo F w/ hyperlipidemia, DANNIELLE, venous insufficiency, portal HTN with hypertensive gastropathy, morbid obesity, LOJA cirrhosis of liver, hepatorenal syndrome currently on HD, GERD, generalized osteoarthrosis, lumbar degenerative disk disease, primary osteoarthritis, restless legs syndrome, neuropathy, thrombocytopenia, persistent insomnia, mixed incontinence, major depression presented 05/14 with shortness of breath. Patient was diagnosed with Covid on 05/09/2021. She is vaccinated with moderna. EMS noted saturation in 70s and was placed on oxygen. Patient was recently in the hospital for renal failure due to hepatorenal syndrome [started on HD via PermCath in the right chest] on 04/17/2021 to [facility]. Currently lives alone at home, her son helps her. She ambulates with walker. 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 Patient is being managed for the followin. Hypoxia, acute respiratory failure secondary to pneumonia from ? COVID and flu 1. 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 COVID was positive on 05/09/2021. Negative at admission on 05/14, will repeat Covid test 05/15. Patient vaccinated with moderna - boosted as well. Influenza type A positive at admission Patient was saturating in 70s per EMS, requiring oxygen. Admitting WBC of 4.63K, down trended to 2.89K, lymphopenia noted. Admitting pro-Jorden 0.83, down trended to 0.71, which later on uptrended and hence rocephin/doxy changed to zosyn/vanc Admitting CXR: Mild bilateral airspace opacities suggestive of infectious process versus mild pulmonary edema. COVID test x 3 negative at multiple points in time. Patient is flu positive. Continue with incentive spirometer/flutter valve/supplemental oxygentitrate as tolerated. DC'd Dexa (05/14-05/16) Patient afebrile, reports cough getting better now with clear sputum. S/p Tamiflu 05/14 -05/19/21, nebs p.r.n., albuterol p.r.n., Pulmicort inhalation b.i.d. Closely monitor in the med tele. Supportive care. 05/20 Procal elevated from admitting level--> Changed Rocephin 05/14 and doxycycline 05/15 to Zosyn 05/20 and Vanc 05/20 to cover for MRSA, Pseudomonas and Anaerobes ECHO 05/20 wnl and CXR 05/20 no new acute process/stable. 05/20 Random Cortisol wnl. 05/20 blood culture sent. Pt appears weak, encourage to use IS/flutter valve 05/22/21 Blood pressure remains on the lower side Patient lethargic today, does not answer questions Not in distress, appears comfortable, no signs of pain Patient to be transition to home with hospice services today fiscal manager on board 2. Endstage renal disease on dialysis. BUN WNL at presentation Nephro on board. She has been dialyzed on Tuesdays, , and Saturdays.On potassium supplement. Follow labs. Not being able to hemodialyzed completely due to low blood pressure. 2500 mL removed 05/16, hemodialysis prematurely stopped due to low blood pressure. 05/18 hemodialysis only 127 mL removed. Patient hypotensive, discussed with nephrology, not able to do hemodialysis today due to hypotension likely secondary to her end-stage liver disease . Explored the possibility of pressor support and hemodialysis both with nephor and critical care, but it would be uncertain for how long she will need pressor support as her infection is currently being appropriately treated/no other other acute precipitating factors for low BP other than the fact that she has ESLD . Discussed with social sciences instructor on-call, after reviewing her chart did not recommend this route. Nephro following. for HD 05/22/[address] Gomez Hemodialysis not recommended at this point secondary to marginal blood pressure 3. Nonalcoholic steatohepatitis liver cirrhosis. 3. Metabolic encephalopathy 2/2 above. c/w Xifaxan and lactulose, titrate lactulose for 3-4 bowel movements in 24 hours. Follow ammonia levels as appropriate. Has followed up with GI as an outpatient, awaiting callback from liver transplant team to establish care per her son. Her ammonia level is minimally elevated, patient remains confused, patient refusing lactulose, will order MT lactulose for now. Continue to monitor. She has been moving bowels multiple times per RN, has been using lactulose MT, no improvement in her mentation/lethargy which likely is secondary to her low blood pressure ongoing on the background of end-stage liver disease. Patient received multiple IV fluid boluses and IV albumin and increased doses of midodrine without appropriate increase in her blood pressure. Continue current management, midodrine has been increased to 10 mg 3 times daily. 05/22/2021 Patient is lethargic 4.Shingles: rash on abdomen was diagnosed with possible shingles at [facility] was treated for 5 days with antiviral medication. Currently, no pain has some itchiness. 5. History of depression: Continue Zoloft. 6. Gastroesophageal reflux disease: Continue omeprazole. 7. Hyperlipidemia: Continue statin. 8. Bilateral lower extremity edema, possibly secondary to cirrhosis and renal failure on dialysis. Resolved. 9. Anemia in setting of chronic liver disease and chronic renal failure, thrombocytopenia also from liver disease: 10. Sleep apnea: On CPAP at bedtime. 11. Morbid obesity: Admission and Anticipated Discharge Date Admission Date: May 15, 2021 Subjective ff up for pneumonia, ESRD, etc seen resting in bed, comfortable Lethargic, opens eyes to verbal command but goes back to sleep easily Not in distress No signs of pain No other signs or symptoms noted Review of Systems Review of Systems: all noted and negative except for above Physical Exam Physical Exam: General-lethargic not in distress, breathing with no effort or accessory muscle use Eyes- anicteric Neck- no JVD Lungs- clear breath sounds bilaterally, no rales/wheezes Heart- normal rate, regular rhythm; no murmurs Abdomen- normal bowel sounds, nondistended, soft, nontender Extremities-positive mild upper and lower extremity edema, no calf tenderness Neuro-lethargic, moves extremities equally Skin- warm & dry Results & Data Results & Data ([facility]) Vital Signs (Past 12 Hours) Vital Signs Temp Pulse Pulse Pulse Resp BP BP 05/22/21 10:57 36.5 C 70 18 89/51 L 05/22/21 07:27 71 05/22/21 07:16 36.4 C L 71 22 105/57 L 05/22/21 04:04 36.5 C 69 18 99/55 L 05/22/21 01:33 73 18 89/37 L 05/22/21 00:26 36.4 C L 68 18 72/33 L 05/21/21 23:56 70 Pulse Ox 05/22/21 10:57 98 05/22/21 07:27 05/22/21 07:16 96 05/22/21 04:04 99 05/22/21 01:33 96 05/22/21 00:26 98 05/21/21 23:56 all noted and reviewed including below
[2021-05-22 13:28] VITALS: BP 99/55; PULSE 73
--- NOTE | 2021-05-22 13:28 | Discharge Summary ---
Date of Service May 22, 2021 Admission HPI Per Admitting Provider CHIEF COMPLAINT: Shortness of breath, flu positive and COVID-19 pneumonia. 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 The patient was diagnosed with COVID on 05/09/2021 and she was recently in the hospital prolonged stay in the hospital for weight gain, lower extremity edema, renal failure and discharged on 04/17/2021 to [facility]. During the admission, she was started on dialysis with a PermCath placement in the right chest. She was also supposed to be evaluated by GI for liver transplant. She also reports of fecal occult blood positive and she was started on PPI. She underwent an EGD on 04/16/2021 showing moderate portal hypertensive gastropathy, normal esophagus without varices, required one unit prbc transfusion last admission as per the records. She was discharged on torsemide. Her gynecological assistant stopped torsemide and she was placed on midodrine prior to dialysis and she was discharged back home. Currently lives alone at home, her son helps her. She ambulates with a walker. Since last 4-5 days, she is having lot of cough, not able to bring any phlegm up and today she is being very short of breath. She was tested for COVID-19 on 05/09/2021. She was v accinated with Moderna. The last dose was 07/16/2020. On the field, she was saturating in 70s and she was placed on oxygen and brought to the ER. Currently on 3 liters, she is saturating okay. Resting comfortably and has mild temperature spike in the ER. Denies any headache, denies any runny nose, sore throat, or chest pain. No nausea or vomiting, but she is having some diarrhea had three episodes. She makes little urine. She has swelling in the legs. Currently, hemodynamically stable. In the ER, chest x-ray was done, which showed bilateral airspace opacities, mild pulmonary edema. She was empirically started on Rocephin and azithromycin in the ER. Admission Exam (Per Admitting) Constitutional GENERAL: The patient is obese, not in acute distress currently. VITAL SIGNS: Temperature 37.7, pulse 83, respiratory rate 20, blood pressure 113/55, oxygen 95% on 3 liters. HEENT: Pupils equal, round and reactive to light. Oral mucosa moist. NECK: No JVD. No neck masses. CARDIOVASCULAR: S1 and S2 heard. Regular rate and rhythm. No murmur, no gallop. RESPIRATORY SYSTEM: Normal AP diameter. No accessory muscle use. No wheezing, no crackles. ABDOMEN: Soft. Bowel sounds present. Umbilical hernia seen. No guarding or rigidity. CENTRAL NERVOUS SYSTEM: Cranial nerves II-XII grossly intact, nonfocal. EXTREMITIES: Lower extremities, pedal edema +2 present. SKIN: Erythematous rash seen in the anterior part of the right side of abdomen,from flank to umbilical region in dermatomal fashion. Discharge Data Consultations 05/15/21 08:00 Consult Nephrology Routine Hospital Course (1) Acute respiratory failure with hypoxia: (2) Pneumonia: Per Dr. Montes's notes with addendum: 70 yo F w/ hyperlipidemia, DANNIELLE, venous insufficiency, portal HTN with hypertensive gastropathy, morbid obesity, LOJA cirrhosis of liver, hepatorenal syndrome currently on HD, GERD, generalized osteoarthrosis, lumbar degenerative disk disease, primary osteoarthritis, restless legs syndrome, neuropathy, thrombocytopenia, persistent insomnia, mixed incontinence, major depression presented 05/14 with shortness of breath. Patient was diagnosed with Covid on 05/09/2021. She is vaccinated with moderna. EMS noted saturation in 70s and was placed on oxygen. Patient was recently in the hospital for renal failure due to hepatorenal syndrome [started on HD via PermCath in the right chest] on 04/17/2021 to [facility]. Currently lives alone at home, her son helps her. She ambulates with walker. 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 Patient is being managed for the followin. Hypoxia, acute respiratory failure secondary to pneumonia from ? COVID and flu 1. 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 COVID was positive on 05/09/2021. Negative at admission on 05/14, will repeat Covid test 05/15. Patient vaccinated with moderna - boosted as well. Influenza type A positive at admission Patient was saturating in 70s per EMS, requiring oxygen. Admitting WBC of 4.63K, down trended to 2.89K, lymphopenia noted. Admitting pro-Jorden 0.83, down trended to 0.71, which later on uptrended and hence rocephin/doxy changed to zosyn/vanc Admitting CXR: Mild bilateral airspace opacities suggestive of infectious process versus mild pulmonary edema. COVID test x 3 negative at multiple points in time. Patient is flu positive. Continue with incentive spirometer/flutter valve/supplemental oxygentitrate as tolerated. DC'd Dexa (05/14-05/16) Patient afebrile, reports cough getting better now with clear sputum. S/p Tamiflu 05/14 -05/19/21, nebs p.r.n., albuterol p.r.n., Pulmicort inhalation b.i.d. Closely monitor in the med tele. Supportive care. 05/20 Procal elevated from admitting level--> Changed Rocephin 05/14 and doxycycline 05/15 to Zosyn 05/20 and Vanc 05/20 to cover for MRSA, Pseudomonas and Anaerobes ECHO 05/20 wnl and CXR 05/20 no new acute process/stable. 05/20 Random Cortisol wnl. 05/20 blood culture sent. 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 Endstage renal disease on dialysis. BUN WNL at presentation Nephro on board. She has been dialyzed on Tuesdays, , and Saturdays.On potassium supplement. Follow labs. Not being able to hemodialyzed completely due to low blood pressure. 2500 mL removed 05/16, hemodialysis prematurely stopped due to low blood pressure. 05/18 hemodialysis only 127 mL removed. Patient hypotensive, discussed with nephrology, not able to do hemodialysis today due to hypotension likely secondary to her end-stage liver disease . Explored the possibility of pressor support and hemodialysis both with nephor and critical care, but it would be uncertain for how long she will need pressor support as her infection is currently being appropriately treated/no other other acute precipitating factors for low BP other than the fact that she has ESLD . Discussed with certified surgical tech/first assistant on-call, after reviewing her chart did not recommend this route. Nephro following. for HD 05/22/[address] Gomez Hemodialysis not recommended at this point secondary to marginal blood pressure 3. Nonalcoholic steatohepatitis liver cirrhosis. 3. Metabolic encephalopathy 2/2 above. c/w Xifaxan and lactulose, titrate lactulose for 3-4 bowel movements in 24 hours. Follow ammonia levels as appropriate. Has followed up with GI as an outpatient, awaiting callback from liver transplant team to establish care per her son. Her ammonia level is minimally elevated, patient remains confused, patient refusing lactulose, will order IA lactulose for now. Continue to monitor. She has been moving bowels multiple times per RN, has been using lactulose IA, no improvement in her mentation/lethargy which likely is secondary to her low blood pressure ongoing on the background of end-stage liver disease. Patient received multiple IV fluid boluses and IV albumin and increased doses of midodrine without appropriate increase in her blood pressure. Continue current management, midodrine has been increased to 10 mg 3 times daily. 05/22/2021 Patient is lethargic 4.Shingles: rash on abdomen was diagnosed with possible shingles at [facility] was treated for 5 days with antiviral medication. Currently, no pain has some itchiness. 5. History of depression: Continue Zoloft. 6. Gastroesophageal reflux disease: Continue omeprazole. 7. Hyperlipidemia: Continue statin. 8. Bilateral lower extremity edema, possibly secondary to cirrhosis and renal failure on dialysis. Resolved. 9. Anemia in setting of chronic liver disease and chronic renal failure, thrombocytopenia also from liver disease: 10. Sleep apnea: On CPAP at bedtime. 11. Morbid obesity:
== END 2021-05-22 16:15 | disposition hospice, home (50) | DRG 193 ==
LOC: ED 17:43 → SUATTDRO 05-15 00:07 → EDINP 05-15 00:07 → 2N 05-17 08:28